=== PATIENT | female | born 1960 | race Caucasian/White ===

== ENCOUNTER 2017-09-14 07:22 | Day surgery (SDC) | payer MEDICAID, SELFPAY ==
--- NOTE | 2017-09-14 | IMM_PTH ---
PATIENT: JOAN HAJI LOC: EN U#:[id number] AGE/SX: 57/F ROOM: RE09/14/[address]: Dr. Gama Scherer MD : 1960 BED: DIS: 09/14/2017 SPEC #: [id number] RECD: 09/15/17 12:38 STATUS: VERÓNICA RESuresh #: [id number] ESTRELLA: 09/14/17 00:[address]: Gama Scherer DEPT: IMMUNOHISTOCHEMISTRY RECD BY: Lidia Parmar ENTERED: 09/15/17 12:39 SP TYPE: IMMUNO OTHR DR: Rosalind Fuller, CURRICULUM AND INSTRUCTION DIRECTOR-C [facility] Tissues: A - Stomach, NOS Procedures: H Pylori (initial) PHYSICIAN & INSTITUTION [place] [id number] SPECIMEN INFORMATION: Tissue Source: A ? Antral biopsy Clinical Info: GERD, GI hemorrhage Specimen Number: [id number] CPT code: 77871 METHODOLOGY: Deparaffinized sections of prefer/formalin-fixed tissue or PAP/DQ stained slides are incubated with monoclonal/polyclonal antibodies/oligonucleotide probes. Localization is made via biotin free immunoperoxidase method. Appropriate controls are performed and reacted as expected. Results on target cell population are indicated in the following table: RESULTS: ANTIBODY / CLONE RESULT Block A H Pylori (polyclonal) negative These tests were developed and their performance characteristics determined by [facility]. They may not have been cleared or approved by the U.S. Food and Drug Administration. The FDA has determined that such clearance or approval is not necessary. INTERPRETATION: A. Antral biopsy: Negative for Helicobacter pylori organisms. SJ:lynne 09/16/17
[2017-09-14 07:48] VITALS: BP 116/78; PULSE 70; RESP 16; TEMP 36.4; O2SAT 100; BMI 33.3
--- NOTE | 2017-09-14 08:30 | EGD_PTH ---
PATIENT: JOAN HAJI LOC: EN U#:[id number] AGE/SX: 57/F ROOM: RE09/14/[address]: Dr. Gama Scherer MD : 1960 BED: DIS: 09/14/2017 SPEC #: [id number] RECD: 09/14/17 12:12 STATUS: VERÓNICA BETH #: [id number] ESTRELLA: 09/14/17 08:[address]: Gama Scherer DEPT: SURGICAL PATHOLOGY RECD BY: Anthony Martínez ENTERED: 09/14/17 13:18 SP TYPE: EGD BIOPSY OT DR: Rosalind Fuller, BRAILLE CODER-C [facility] Tissues: A - Gastric mucous membrane B - Gastric mucous membrane C - Sigmoid colon biopsy D - COLON BIOPSY Procedures: Special Stain Group II Surgery Specimen Level IV Alcian Blue/PAS (control) HEADER OPERATION: Colonoscopy, EGD PRE-OP DIAGNOSIS: GERD; GI hemorrhage TISSUE SUBMITTED: A ? Antral biopsy, B ? GE junction biopsy, C ? Sigmoid colon polyp at 30 cm, D ? 20 cm polyp MICROSCOPIC DIAGNOSIS A. Antral biopsy: Mild gastritis. B. 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 See comment. Chronic inflammation. Negative for dysplasia. C. Sigmoid colon polyp at 30 cm, biopsy: Fragments of tubular adenoma with focal high grade dysplasia. D. Colon polyp at 20 cm, biopsy: Fragments of tubular adenoma. See comment. SJ:rg 09/15/17 COMMENT A. The results of immunohistochemistry for Helicobacter pylori will be reported separately ([id number]). B. Alcian blue/PAS stain with matched control is used in the evaluation of the specimen. D. The lesion also shows focal features of serrated adenoma (mixed tubular adenoma and hyperplastic polyp. MICROSCOPIC DESCRIPTION Slides are reviewed. A. The specimen shows fragments of gastric mucosa with chronic inflammatory cell infiltrates in the lamina propria consisting of lymphocytes and plasma cells, consistent with mild chronic gastritis. GROSS DESCRIPTION A - Received in fixative is one container labeled with the patient's name and designated antral biopsy. The specimen consists of two irregular fragments of light trevizo soft tissue that in aggregate measure 0.7 x 0.4 x 0.1 cm. The specimen is totally submitted in one cassette. B - Received in fixative is one container labeled with the patient's name and designated GE junction biopsy. The specimen consists of one irregular fragment of light trevizo soft tissue that measures 0.3 x 0.2 x 0.1 cm. The specimen is totally submitted in one cassette. C - Received in fixative is one container labeled with the patient's name and designated sigmoid colon polyp at 30 cm. The specimen consists of two irregular fragments of light trevizo soft tissue that in aggregate measure 1 x 0.5 x 0.1 cm. The specimen is totally submitted in one cassette. D - Received in fixative is one container labeled with the patient's name and designated 20 cm polyp. The specimen consists of multiple irregular fragments of light trevizo soft tissue that in aggregate measure 2 x 0.4 x 0.3 cm. The specimen is totally submitted in one cassette. / ROSANNA:lynne 09/14/17 TC:1 CPT: 64746 x4, 97286
[2017-09-14 09:22] VITALS: BP 116/78; BP 91/64; PULSE 70; RESP 16; TEMP 36.1; O2SAT 100
[2017-09-14 09:27] VITALS: BP 116/78; BP 99/69; PULSE 67; RESP 16; O2SAT 100
--- NOTE | 2017-09-14 09:27 | OP.PCM_ITS ---
Problem List (1) GERD (gastroesophageal reflux disease) Status: Acute Qualifiers: Esophagitis presence: without esophagitis Qualified Code(s): K21.9 - Gastro -esophageal reflux disease without esophagitis (2) GI bleed Status: Acute Qualifiers: GI bleed type/associated pathology: unspecified gastrointestinal hemorrhage type Qualified Code(s): K92.2 - Gastrointestinal hemorrhage, unspecified Report of Operation Date of Procedure: 09/14/17 Pre-Operative Diagnosis: 1. GERD. 2. Blood per rectum Post-Operative Diagnosis: 1. Small hiatal hernia. 2. Proximal sigmoid polyp. 3. Mid sigmoid polyp Surgery/Procedure Performed:: 1. EGD with biopsy. 2. Colonoscopy. 3. Proximal sigmoid snare polypectomy. 4. Mid sigmoid saline lift with snare polypectomy and clip placement Specimen's removed: 1. Proximal sigmoid polyp. 2. Mid sigmoid polyp Description of Procedure: The major risks and benefits associated with the procedure were explained to the patient in detail. The patient verbalized understanding and agreement with the same. The patient was then placed in the left lateral decubitus position. IV sedation was started by anesthesia. The endoscope was then advanced under direct visualization over the tongue, into the esophagus , stomach and duodenum. It was slowly withdrawn and the mucosa was carefully evaluated. Duodenal mucosal abnormalities were not visualized. Views of the stomach were normal. Retrograde views revealed a small sliding hiatal hernia. Gastric folds were normal. A biopsy of the antrum was performed with cold forceps. The scope was then withdrawn through the GE junction and careful examination did not demonstrate any mucosal abnormalities. A biopsy of the GE junction was performed with cold forceps. No evidence of Ivy's esophagus was apparent. Careful examination of the remainder of the esophagus was normal. The scope was then withdrawn from the patient. The patient was then turned for the colonoscopy portion of the procedure. A digital rectal exam was performed. This examination was within normal limits. A well-lubricated colonoscope was then inserted into the rectum and advanced under direct visualization to the level of the cecum. The bowel prep was good. The cecum was identified by both visual and anatomic landmarks. A photograph was taken of the end of the cecum. The scope was then fully withdrawn while examining the color, texture, anatomy and integrity of the mucosa from the cecum to the anal canal. The patient had a long pedunculated polyp in the proximal sigmoid which was taken with a cautery snare. The patient also had a large sessile polyp in the mid sigmoid colon. A needle was placed in the submucosa and a saline lift was performed. Next a snare was placed around the polyp and this was taken off in 2 pieces. This was removed completely with a clean base. Two Clips were placed over the base of the polyp due to the size and the fact that there was a saline injection. Otherwise the findings were consistent with normal colonic mucosa. Over 6 minutes were taken to examine the colonic mucosa. Upon reaching the rectum the scope was retroflexed to examine the distal rectal vault. The scope was then straightened and was completely retrieved upon exiting the anal canal and the procedure was terminated. The patient was then transferred to the recovery room in stable condition. Recommendations for follow up: Depending on pathology
[2017-09-14 09:32] VITALS: BP 116/78; BP 99/73; PULSE 72; RESP 16; O2SAT 100
[2017-09-14 09:37] VITALS: BP 112/70; BP 116/78; PULSE 66; RESP 16; TEMP 36.3; O2SAT 100
[2017-09-14 10:07] VITALS: BP 116/78
== END 2017-09-14 10:09 | disposition home or self-care (01) ==
LOC: EN 07:23 → AC 07:26
PROVIDERS: Visit Provider Surgery
PROC: 0DJD8ZZ Inspection of Lower Intestinal Tract, Via Natural or Artificial Opening Endoscopic (ICD-10-PCS; CPT 45378; principal; 2017-09-14 08:25)
DX: K21.9 Gastro-esophageal reflux disease without esophagitis (principal); K62.5 Hemorrhage of anus and rectum; D12.5 Benign neoplasm of sigmoid colon; K44.9 Diaphragmatic hernia without obstruction or gangrene; K29.70 Gastritis, unspecified, without bleeding; E11.9 Type 2 diabetes mellitus without complications; I10 Essential (primary) hypertension; E78.00 Pure hypercholesterolemia, unspecified; F32.9 Major depressive disorder, single episode, unspecified; Z79.899 Other long term (current) drug therapy; Z78.0 Asymptomatic menopausal state; Z87.891 Personal history of nicotine dependence
CPT/HCPCS: 43239; 45385; 88305; 88313; 88342; J7120; A4216

== ENCOUNTER 2017-11-12 19:46 | Emergency (ER) | payer MEDICAID, SELFPAY ==
[2017-11-12 19:46] VITALS: BP 129/81; PULSE 74; RESP 16; TEMP 36.6; O2SAT 99; BMI 33.3
--- NOTE | 2017-11-12 20:03 | ED.VISSUMM ---
- ER Visit Summary Date of Service: 11/12/17 Chief Complaint: Right middle back pain History of Present Illness: The patient is a 57 F who has right middle back pain. Started 2 days ago. She denies any injury, lifting or twisting that may have caused this. She describes as sharp. It is in the right mid thoracic area. Laying makes it better nothing makes it worse. No numbness or tingling. No bowel or bladder incontinence. No dysuria or hematuria. She tried Aleve last night but it did not help. Physical Examination: Vital signs reviewed. HEENT exam normal. Heart is regular rate and rhythm. Lungs are clear to auscultation. Abdomen soft nontender. She has right thoracic para spinal tenderness palpation. Neurologic exam normal. Test Results: Normal urinalysis Emergency Department Course and Treatment: Patient has a normal urinalysis. She is given Tylenol here. I will give her Flexeril for home. She will continue NSAIDs will follow up with her PCP Treatment Plan: [] Disposition: Discharge Impression: Thoracic strain This note was generated with [employer] dictation software. It may contain incorrect words, spelling, and punctuation that were not noted in review of the chart prior to signing ED Disposition - Plan for ED Patient: Chief Complaint: Back Referrals: Tiffanie Plascencia [Primary Care Provider] -
[2017-11-12] MEDS: Acetaminophen 500 MG Tablet 1000 MG PO (20:08)
[2017-11-12 20:09] LABS: Bacteria 0 SEEN /hpf (None Seen); Mucous, Urine 0 SEEN /hpf (<or=2+); Red Blood Cells-Urine 0 SEEN /hpf (0-5); Squamous Epithelial Cells - UA 0 SEEN /hpf (5-10); White Blood Cells 0 SEEN /hpf (0-5)
[2017-11-12 20:17] LABS: Color, Urine Yellow (Yellow); Glucose, Dipstick Normal (Normal); Ketone-Dipstick Negative (Negative); Leukocyte Esterase-Dipstick Negative /ul (Negative); Nitrite-Dipstick Negative (Negative); Occult Blood-Urine Negative /ul (Negative); Protein-Dipstick Negative (Negative); Specific Gravity, Urine 1.005 (1.002-1.030); Urine Bilirubin Dipstick Negative (Negative); Urine Clarity Clear (Clear); Urine Urobilinogen Normal (Normal)
--- NOTE | 2017-11-12 20:36 | ED.DEP ---
ED Disposition - Plan for ED Patient: Disposition: Home or Assisted Living Chief Complaint: Back Instructions: ED Sprain Strain Lumbar Prescriptions: Cyclobenzaprine [Flexeril] 10 mg PO TID PRN #20 tab PRN Reason: Muscle Spasm Referrals: Free Allyson,Tiffanie Valdez [Primary Care Provider] -
[2017-11-12 20:43] VITALS: RESP 18
== END 2017-11-12 20:43 | disposition home or self-care (01) ==
PROVIDERS: Emergency Provider Emergency Medicine
DX: S29.012A Strain of muscle and tendon of back wall of thorax, initial encounter (principal); X58.XXXA Exposure to other specified factors, initial encounter; Y93.9 Activity, unspecified; Y92.9 Unspecified place or not applicable; Y99.9 Unspecified external cause status; I10 Essential (primary) hypertension; K21.9 Gastro-esophageal reflux disease without esophagitis; Z72.0 Tobacco use; Z79.899 Other long term (current) drug therapy
CPT/HCPCS: 81001; 99283

== ENCOUNTER 2018-08-20 03:28 | Emergency (ER) | payer MEDICAID, SELFPAY ==
[2018-08-20 03:29] VITALS: BP 130/82; PULSE 85; RESP 18; TEMP 36.7; O2SAT 94; BMI 33.3
--- NOTE | 2018-08-20 03:44 | CT_ITS ---
HISTORY: LUQ PAIN ON AND OFF X 2 YRS,WORSE NOW AND RADIATING INTO BACKHX:HTN,GERD,HLD,TUBAL LIGATION EXAMINATION: CT Abdomen And Pelvis W/ Contrast TECHNIQUE: Helically acquired images were obtained of the abdomen and pelvis following IV contrast. A radiation dose optimization technique was used for this scan. IV Contrast dosage and agent: 100ML Isovue 300 Oral contrast: None. COMPARISON: None FINDINGS: Lower thorax: Small hiatal hernia. Food contents within the stomach. No pleural effusion or pericardial effusion. Gallbladder is partly contracted. No biliary dilatation. Spleen is normal in size and shows a small calcified granuloma. Normal pancreas and liver. Both kidneys are normal in position. Bilateral renal opacification without evidence of hydronephrosis, pyelonephritis, or suspicious renal lesion. Small cortical cyst at the upper pole of the right kidney. Adrenal glands are not enlarged. Abdominal aorta is atherosclerotic and stoma in caliber. No ascites or retroperitoneal lymph node enlargement. GI tract: Constipation pattern. Normal appendix. Pelvis: Anteverted uterus which is normal in size. Urinary bladder is poorly distended. No free fluid or lymph node enlargement. Bones: No acute osseous abnormality. CT/Abdomen/Pelvis WITH Contrast IMPRESSION: 1. Constipation pattern. No acute abdominal disease identified. 2. Chronic findings include atherosclerotic calcification and small hiatal hernia. Individualized dose optimization techniques were used for this CT. at 0622 Reported and signed by: Mickey Ferrari MD Electronically Signed: Mickey Ferrari, at 6:21 EDT Tel , Service support ,
[2018-08-20] MEDS: 0.9% Normal Saline 1,000 ML 1000 ML IV (03:53)
[2018-08-20] MEDS: Ketorolac 30 MG/ML Syringe IV (03:53)
[2018-08-20 03:54] LABS: Mucous, Urine 0 SEEN /hpf (<or=2+); White Blood Cells 0 SEEN /hpf (0-5)
[2018-08-20 04:01] LABS: Absolute Neutrophil Count 4.9 X10^3/uL (2.0-7.7); Basophil# 0.09 X10^3/uL; Basophil% 0.9 % (0-1); Eosinophil# 0.29 X10^3/uL; Hematocrit 39.8 % (37-47); Hemoglobin 13.2 g/dl (12.0-15.0); Lymphocyte % 38.9 % (19-41); Mean Corp Hgb Conc 33.2 g/gl (32-36); Mean Corpuscular Hgb 29.4 pg (27.0-32.0); Mean Corpuscular Volume 88.6 fL (81-99); Mean Platelet Vol. 10.4 fl (6.2-12.0); Monocyte# 0.55 X10^3/uL; Monocyte% 5.8 % (0-10); Neutrophil # 4.87 X10^3/uL (2.7-7.7); Neutrophil % 51.2 % (47-70); POSITIVE COUNT NO; POSITIVE DIFFERENTIAL NO; POSITIVE MORPHOLOGY NO; Platelet Count 282 K/mm3 (150-450); RBC Distribution Width CV 13.6 % (11.6-14.6); RBC Distribution Width SD 43.7 fl (35.1-43.9); Red Blood Count 4.49 M/mm3 (4.2-5.4); White Blood Count 9.5 K/mm3 (4.4-11.0)
[2018-08-20 04:05] LABS: Color, Urine Yellow (Yellow); Glucose, Dipstick Normal (Normal); Ketone-Dipstick Negative (Negative); Leukocyte Esterase-Dipstick Negative /ul (Negative); Nitrite-Dipstick Negative (Negative); Occult Blood-Urine 10 /ul (Negative); Protein-Dipstick Negative (Negative); Specific Gravity, Urine 1.025 (1.002-1.030); Urine Bilirubin Dipstick Negative (Negative); Urine Clarity Sl. Cloudy (Clear); Urine Urobilinogen Normal (Normal)
[2018-08-20 04:06] LABS: Bacteria RARE /hpf (None Seen); Red Blood Cells-Urine 0-5 SEEN /hpf (0-5); Squamous Epithelial Cells - UA 0-5 SEEN /hpf (5-10)
[2018-08-20 04:15] LABS: ALB/GLOB Ratio 1.1 RATIO (0.9-2.4); AST(SGOT) 14 U/L (15-37); Alanine Aminotransfer ALT/SGPT 30 U/L (13-56); Albumin, Serum 3.7 g/dL (3.2-5.0); Alkaline Phosphatase 42 U/L (45-117); Anion Gap 8 (5-15); BUN 25 mg/dL (7-18); BUN/Creat Ratio 23.4 RATIO (10-20); Calcium,Total 8.9 mg/dL (8.5-10.1); Chloride 107 mmol/L (98-107); Creatinine, Serum 1.07 mg/dL (0.55-1.02); EST Glomerular Filtration Rate 56 mL/min (>60); Est Glom Filt Rate - Afr Amer 67 mL/min (>60); Estimated Creatinine Clearance 50.31 ml/min; Globulin 3.4 g/dL (2.2-4.2); Glucose 113 mg/dL (74-106); Lipase 150 U/L (73-393); Potassium 3.6 mmol/L (3.5-5.1); Protein, Total 7.1 g/dL (6.4-8.2); Sodium Level 142 mmol/L (136-145)
[2018-08-20 05:29] VITALS: BP 128/82; PULSE 82; RESP 16; O2SAT 96
--- NOTE | 2018-08-20 06:36 | ED.VISSUMM ---
- ER Visit Summary Date of Service: 08/20/18 Chief Complaint: Abdominal pain History of Present Illness: The patient is a 58 F who presents with abdominal pain. Patient complains of left upper quadrant abdominal pain which radiates straight through to the back for about 2 weeks. She describes it as sharp and stabbing. She also had christine diarrhea about 2 weeks ago which is improved but still has some loose stools. She actually complains of similar ongoing pain for a couple of years. No fevers nausea vomiting. Physical Examination: Afebrile vitals normal No distress Moist mucous membranes Heart regular rate and rhythm Lungs are clear Abdomen soft she is tender to palpation in the left upper quadrant without guarding without rebound Test Results: CBC CMP lipase urinalysis all unremarkable. CT the abdomen and pelvis read as constipation, no acute disease. Emergency Department Course and Treatment: Patient was treated with IV fluids and Toradol. The above work-up is unremarkable. She was advised to follow-up as an outpatient. She understands to return for new or worsening symptoms. Treatment Plan: [] Disposition: Discharge Impression: Abdominal pain This note was generated with [employer] dictation software. It may contain incorrect words, spelling, and punctuation that were not noted in review of the chart prior to signing ED Disposition - Plan for ED Patient: Referrals: Tiffanie Plascencia [Primary Care Provider] -
--- NOTE | 2018-08-20 06:38 | ED.DEP ---
ED Disposition - Plan for ED Patient: Instructions: ABDOMINAL PAIN, Unknown Cause, (Female) Referrals: Ankit Valadez,Tiffanie Valdez [Primary Care Provider] -
[2018-08-20 06:49] VITALS: BP 128/82; PULSE 87; RESP 18; O2SAT 95
== END 2018-08-20 06:50 | disposition home or self-care (01) ==
PROVIDERS: Emergency Provider Emergency Medicine; Referring Provider Nurse Practitioner Family
DX: R10.12 Left upper quadrant pain (principal); K59.00 Constipation, unspecified; I10 Essential (primary) hypertension; K21.9 Gastro-esophageal reflux disease without esophagitis; Z72.0 Tobacco use; Z79.899 Other long term (current) drug therapy
CPT/HCPCS: 74177; 80053; 81001; 83690; 85025; 96361; 96374; 99283; J7030; Q9967; A4216

== ENCOUNTER → 2018-11-23 06:49 | Outpatient (CLI) | payer MEDICAID, SELFPAY ==
--- NOTE | 2018-11-23 10:30 | NEURO ---
NCS and/or EMG Patient Report Ordering Doctor: Sathya Morales DATE OF SERVICE: 11/23/18 This is a bilateral upper extremity nerve conduction study performed on this 66-year-old female with a history of numbness and tingling for over a decade in her hands. There is no is there is no neck pain. The patient has a history of prediabetes. Bilateral upper extremity sensory and motor nerve conduction studies demonstrate mild to moderate prolongation of the median motor and sensory distal latencies bilaterally somewhat worse on the left side with preservation of amplitudes and mild reduction of conduction velocities. The ulnar motor and sensory and radial sensory responses are normal. The median F wave latencies are mildly prolonged compared to the ulnar F-wave latencies. Impression: This is an abnormal elective physiologic study of the bilateral upper extremities consistent with mild to moderate carpal tunnel syndrome at the wrists bilaterally. Dictated using [employer] software, not proofread
== END ==
PROVIDERS: Referring Provider Physician Assistant Surgical; Visit Provider Physician Assistant Surgical
DX: R20.2 Paresthesia of skin (principal)
CPT/HCPCS: 95912

== ENCOUNTER → 2019-03-15 11:24 | Outpatient (CLI) | payer MEDICAID, SELFPAY ==
--- NOTE | 2019-03-15 11:29 | BI_ITS ---
MAMMOGRAPHY - BILATERAL SCREENING REASON FOR EXAM: Female, 58 years old. Routine annual screening examination. PERTINENT HISTORY: Non-contributory. TECHNIQUE: Digital bilateral breast rut (3D mammographic acquisition) in the CC and MLO projections. 2-D mediolateral oblique (MLO) and craniocaudad (CC) views of both breasts were obtained. CAD: Full Field Digital Mammography with Computer Added Detection was performed. COMPARISON: Comparison is made with prior examination dated May 05, 2013 and October 24, 2009. FINDINGS: Breast Composition: There are scattered areas of fibroglandular density. There are no dominant masses or suspicious calcifications. No other significant abnormalities are identified. There has been no significant change since the prior study. BI/SCREEN MAMM (CAD) W/RUT BILAT IMPRESSION: Stable bilateral screening mammogram. Yearly follow-up mammogram recommended. (A) ASSESSMENT CATEGORY: BIRADS Category 1: Negative. A letter regarding these results will be sent to the patient by the facility within 30 days. Approximately 10% of breast cancers are not detected by mammography. A normal mammogram should not delay biopsy of a clinically suspicious abnormality. [id number] Electronically Signed: Bridger Corrales, at 15:42 EST , Service support ,
== END ==
PROVIDERS: Referring Provider Nurse Practitioner Family; Visit Provider Nurse Practitioner Family
DX: Z12.31 Encounter for screening mammogram for malignant neoplasm of breast (principal)
CPT/HCPCS: 77063; 77067

== ENCOUNTER 2019-03-24 05:39 | Day surgery (SDC) | payer MEDICAID, SELFPAY ==
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
[2019-03-24 06:02] VITALS: BP 129/68; PULSE 62; RESP 15; TEMP 36.4; O2SAT 98; BMI 34.0
[2019-03-24] MEDS: Lactated Ringers 1,000 ML 100 ML IV (06:18)
[2019-03-24] MEDS: Cefazolin 1 GM/50 ML BAG IV (07:11)
[2019-03-24] MEDS: Bupivacaine Mpf 0.5% 30 ML VIAL (07:35)
--- NOTE | 2019-03-24 07:42 | OP.PCM_ITS ---
Report of Operation Date of Procedure: 03/24/19 Pre-Operative Diagnosis: Left carpal tunnel syndrome Post-Operative Diagnosis: Left carpal tunnel syndrome Surgery/Procedure Performed:: Left carpal tunnel release Description of Surgical Findings:: Complete release transverse carpal ligament supervisor floor assembly: None Type of Anesthesia:: Block,[place] Anesthesiologist: Freedom Ramirez Special Medications: Ancef Estimated Blood Loss (mL): 2 Fluids Replaced: 500 milliliters crystalloid Description of Procedure: Brief history operative indications: 59-year-old female patient who failed conservative treatment for left carpal tunnel syndrome patient wished to proceed with left open carpal tunnel release. After discussing risks and benefits including but not limited to blood loss, DVTs, PEs, neurovascular damage, infection, hematoma and general risk of anesthesia, the patient demonstrated understanding wish to proceed with left open carpal tunnel release Procedure: On the date of the procedure, the patient's left upper extremity was marked in the preoperative area. Patient was taken back to the operating room, where the tourniquet was placed on the right upper extremity. Patient was given light sedation. All bony prominences are identified well-padded. Anesthesia assumed control C-spine and airway and remained in control throughout the remainder the procedure. [place] block was administered by anesthesia. The left upper extremity was prepped in sterile fashion. Surgeon then scrub. Upon reentering the room, the left upper extremity was prepped in a standard orthopedic fashion. A timeout was called and everyone agreed upon the side, the site, the procedure to be performed, patient identity and antibiotics given. The incision was marked out. Incision was taken at the skin subtenons tissue fat down to fascia. Fascia was then lightly tethered until the median nerve was visible. A [place] was placed proximally and distally, and then scissors were placed proximally and distally to release the transverse carpal ligament. During the release the others were never completely closed. The [place] was then placed proximally and distally once more to verify the transverse carpal ligament had been adequately released. The wound was then copiously irrigated out with normal saline. Wound was then closed using 3-0 nylon suture. 10 cc of 50-50 mixture of 1% lidocaine and 0.5% Sensorcaine without epinephrine injection was given. Xeroform dressing was placed, sterile dressing was placed, compressive dressing was placed. Tourniquet was let down. Volar splint was placed. Patient was awakened by anesthesia and transferred to the PACU for recovery. Postoperative plan: The patient will follow up in 2 weeks for removal splint removal sutures. At that time if they are doing well they will follow-up as needed. - Complications No intraoperative complications - Admit VTE Documentation VTE Present on Admission: No VTE Mechan Device Prophylaxis: SCD's VTE Pharm Prophylaxis ordered?: No Reason prophylaxis not ordered:: Treatment Not Indicated
[2019-03-24 07:51] VITALS: BP 103/74; BP 129/68; PULSE 64; RESP 16; TEMP 36.3; O2SAT 95
[2019-03-24] MEDS: Ketorolac 30 MG/ML Syringe IV (07:54)
[2019-03-24 07:55] VITALS: BP 113/76; BP 129/68; PULSE 64; RESP 16; O2SAT 97
[2019-03-24 08:00] VITALS: BP 127/80; BP 129/68; PULSE 64; RESP 16; O2SAT 100
[2019-03-24 08:05] VITALS: BP 112/80; BP 129/68; PULSE 65; RESP 16; TEMP 36.5; O2SAT 95
[2019-03-24 08:35] VITALS: BP 129/68
== END 2019-03-24 08:40 | disposition home or self-care (01) ==
LOC: SDC 05:40 → AC 05:41
PROVIDERS: Referring Provider Specialist; Visit Provider Specialist
PROC: (CPT 64721; principal; 2019-03-24 07:00)
DX: G56.03 Carpal tunnel syndrome, bilateral upper limbs (principal); I10 Essential (primary) hypertension; E78.00 Pure hypercholesterolemia, unspecified; R73.03 Prediabetes; F32.9 Major depressive disorder, single episode, unspecified; F17.200 Nicotine dependence, unspecified, uncomplicated; Z79.899 Other long term (current) drug therapy; Z78.0 Asymptomatic menopausal state; Z86.2 Personal history of diseases of the blood and blood-forming organs and certain disorders involving the immune mechanism
CPT/HCPCS: 01810; 64721; J7120

== ENCOUNTER 2019-08-23 23:23 | Emergency (ER) | payer MEDICAID, SELFPAY ==
[2019-08-23 23:24] VITALS: BP 114/76; PULSE 83; RESP 16; TEMP 36.9; O2SAT 97; BMI 34.6
--- NOTE | 2019-08-24 | RAD_ITS ---
STUDY: X-RAY CHEST REASON FOR EXAM: Female, 59 years old patient with cough. TECHNIQUE: Single AP portable view of the chest. COMPARISON: Prior comparison studies are not available for review at this time. FINDINGS: The lungs are hyperexpanded. There are prominent bronchovascular markings particularly at the right lung base. There appears to be some heterogeneous groundglass attenuation of the right lung base that could represent early pneumonia and atelectasis. There is no demonstrated pleural abnormality. Normal size heart. Normal mediastinum and chin. There is prominence of the pulmonary hilar arteries without peripheral pulmonary vascular congestion. There is atherosclerotic tortuosity of the aortic arch and descending thoracic aorta. There is a scoliosis of the thoracic spine with estimated angulation of approximately 20 degrees. The bones appear osteopenic. There is no demonstrated abnormality of the visualized soft tissue structures of the upper abdomen. RAD/Chest 1 View (Portable) IMPRESSION: Heterogeneous right basilar airspace disease could represent pneumonia. Electronically Signed: Sita Wilkinson MD at 0:39 EDT , Service support ,
--- NOTE | 2019-08-24 00:01 | ED.DCSUM_ITS ---
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 tightness. Location: mid-chest. Current Severity: Moderate Maximum Severity: Moderate Worsened by: - - nonexertional. Not Worsened By: Swallowing, Eating Solids, Drinking Liquids Relieved by: - - not relieved by using an albuterol MDI Associated Symptoms: Headache, Shortness of Breath, Chest Pain, Nonproductive cough, - - no fever/chills. +sore throat.. Negative for: Sinus Pressure, Myalgias, Nausea, Vomiting, Diarrhea, Hemoptysis, Productive Cough Narrative: Patient states she was coughing earlier, that started today, relatively mild. Then relatively suddenly she started having chest tightness and feeling like she was wheezing, it remained persistent for much of the evening and night, to the point where she felt like she was not going to be able to sleep. She called PCP and they referred her to the ER. She feels like she has bronchitis but she usually gets that in the winter. She is a smoker. She is otherwise fairly healthy and has no history of COPD or asthma. She has been around family members with colds lately. She presents during the national coronavirus emergency declaration, none of them have been tested for it, they are one adult and 1 child. They are not very ill according to the patient but they are symptomatic. She states that whenever she leaves the house to go to the grocery, etc., she wears a mask. She knows no one that she knows of who has been diagnosed with coronavirus disease. - Past Medical History (1) Hypertension Status: Chronic (2) GERD (gastroesophageal reflux disease) Status: Chronic Past Medical History - Allergies and Home Meds Allergies/Adverse Reactions: Allergies prednisone Allergy (Verified 08/23/19 23:24) [place] Primary Care Physician: Tiffanie Plascencia [Primary Care Provider] - Smoking Status: Current some day smoker Review of Systems General: Denies: Chills, Fever, Sweats Eyes: Denies: Visual changes - bilaterally, Diplopia ENT: Reports: Sore throat - From coughing. Denies: Bilateral ear pain, Rhinorrhea Cardiovascular: Reports: Chest pain. Denies: Palpitations Respiratory: Reports: Dyspnea, Cough. Denies: Sputum, Dyspnea on exertion, Orthopnea Gastrointestinal: Denies: Abdominal pain, Nausea, Vomiting, Diarrhea, Melena, Hematochezia Genitourinary: Denies: Dysuria, Hematuria, Frequency Musculoskeletal: Denies: Myalgias, Neck pain, Back pain, Swelling, Extremity Pain Skin: Denies: Rash, Wounds Neurological: Reports: Headache. Denies: Weakness, Numbness Physical Exam Vital Signs/Narrative: Vital Signs Temp Pulse Resp BP Pulse Ox 08/23/19 23:24 98.5 F 83 16 114/76 97 Inital Vital Signs reviewed: Yes General: Well nourished, Well developed, - - Well-appearing, no distress. Conversive in full sentences. Head: Normocephalic, Atraumatic Eyes: Perrl, EOMI. Negative for: Pale conjunctiva - Normal conjunctivae bilaterally Ears: Normal external canal, TM's clear Nose: Normal Inspection, No Rhinorrhea Mouth/Throat: Normal Inspection, No Posterior Erythema - Normal-appearing, no asymmetry or exudates, Airway Patent Neck: Supple, Nontender, No Lymphadenopathy, No Meningismus Cardiovascular: Regular rate, Regular rhythm, No murmurs Respiratory: No distress, Chest nontender, Wheezing - Slight inspiratory and end expiratory bilateral. Negative for: Rales, Rhonchi Abdomen: Soft, Nontender, Nondistended, Normal bowel sounds Back: Nontender, Normal Inspection Extremities: Nontender, No edema. Negative for: Calf Tenderness Skin: Normal color, No rash, No Trauma Neurological: Alert, Oriented x3, Cranial nerves II-XII grossly intact, Normal Strength, Normal Sensation, Normal Gait Psychological: Normal affect, Normal Mood Diagnostic/Tx/Re-eval Impressions Chest X-Ray 08/24/19 00:00 IMPRESSION: Heterogeneous right basilar airspace disease could represent pneumonia. Electronically Signed: Sita Wilkinson MD at 0:39 EDT , Service support , 08/24/19 00:00 Chest 1 View (Portable) [RAD] Stat - Medical Decision Making Patient feels better after duo nebulizer aerosol. Certainly she could have COVID-19. It is rising in its prevalence of positive testing recently, and is present throughout [place]. We sent a swab, will come back in several hours but the patient does not want to wait. The x-ray does not show a COVID-19 pattern, the result above may or may not be consistent with early pneumonia. In all honesty the x-ray may be an over read, her lungs are clear and she does not have any adventitious breath sounds in the right lung. However, as I discussed with the patient, I will treat her empirically with azithromycin to cover atypicals, she is given a dose of Robitussin-AC at her request, I tried to fill a prescription for it here at the pharmacy but they do not have any and so the patient declined a prescription, advised to follow-up closely as an outpatient for a pulse ox recheck. She is well clinically, has normal vital signs, ambulatory without significant symptoms, and I do not think further work-up is going to be helpful tonight. ED Disposition - Plan for ED Patient: Disposition: Home or Assisted Living Diagnosis: Pneumonia Instructions: ED PNEUMONITIS Adult Prescriptions: Azithromycin 250 mg PO DAILY 4 Days #4 tab Prescription Printed Referrals: Free Allyson,Tiffanie Valdez [Primary Care Provider] - (1-3 days)
[2019-08-24 00:17] VITALS: PULSE 88; RESP 20
[2019-08-24] MEDS: Ipratropium/Albuterol Sulfate 3 ML AMPUL.NEB INHALATION (00:30)
[2019-08-24 01:07] VITALS: PULSE 85; RESP 20; O2SAT 97
[2019-08-24] MEDS: Azithromycin 250 MG Tablet 500 MG PO (01:25)
[2019-08-24] MEDS: guaiFENesin/Codeine 5 ML UDC 10 ML PO (01:25)
== END 2019-08-24 01:10 | disposition home or self-care (01) ==
PROVIDERS: Emergency Provider Emergency Medicine
DX: J18.9 Pneumonia, unspecified organism (principal); I10 Essential (primary) hypertension; K21.9 Gastro-esophageal reflux disease without esophagitis; F17.200 Nicotine dependence, unspecified, uncomplicated; Z79.899 Other long term (current) drug therapy
CPT/HCPCS: 71045; 87635; 94640; 99283; G2023; U0003

== ENCOUNTER → 2019-09-08 10:26 | Outpatient (CLI) | payer MEDICAID, SELFPAY ==
[2019-08-23 23:24] VITALS: BMI 34.6
[2019-09-08 10:57] LABS: Absolute Lymphocyte Count 2.55 X10^3/uL (0.83-4.51); Absolute Neutrophil Count 5.8 X10^3/uL (2.0-7.7); Basophil% 1.1 % (0-1); Eosinophil# 0.29 X10^3/uL; Eosinophils% 3.1 % (0-5); Hematocrit 41.5 % (37-47); Hemoglobin 13.3 g/dL (12.0-15.0); Lymphocyte # 2.55 X10^3/ul (4.0); Lymphocyte % 27.5 % (19-41); Mean Corpuscular Hgb 29.4 pg (27.0-32.0); Mean Corpuscular Volume 91.8 fL (81-99); Mean Platelet Vol. 10.8 fl (6.2-12.0); Monocyte# 0.55 X10^3/uL; Monocyte% 5.9 % (0-10); NRBC Flagged by Analyzer 0 % (0-5); Neutrophil # 5.75 X10^3/uL (2.7-7.7); Neutrophil % 62.2 % (47-70); Platelet Count 290 K/mm3 (150-450); RBC Distribution Width CV 13.1 % (11.6-14.6); RBC Distribution Width SD 43.5 fl (35.1-43.9); Red Blood Count 4.52 M/mm3 (4.2-5.4); White Blood Count 9.3 K/mm3 (4.4-11.0)
[2019-09-08 11:19] LABS: Hemoglobin A1c 6.1 % (3.8-5.6)
[2019-09-08 11:25] LABS: Vitamin D,25 Hydroxy 36.5 ng/mL
[2019-09-08 11:33] LABS: ALB/GLOB Ratio 1.1 RATIO (0.9-2.4); AST(SGOT) 15 U/L (15-37); Alanine Aminotransfer ALT/SGPT 28 U/L (13-56); Albumin, Serum 3.9 g/dL (3.2-5.0); Alkaline Phosphatase 61 U/L (45-117); Anion Gap 3 (5-15); BUN 18 mg/dL (7-18); BUN/Creat Ratio 19.9 RATIO (10-20); Calcium,Total 8.8 mg/dL (8.5-10.1); Chloride 105 mmol/L (98-107); Cholesterol 197 mg/dL (200); Creatinine, Serum 0.91 mg/dL (0.55-1.02); EST Glomerular Filtration Rate 67 mL/min (>60); Est Glom Filt Rate - Afr Amer 81 mL/min (>60); Globulin 3.6 g/dL (2.2-4.2); Glucose 106 mg/dL (74-106); High Density Lipoprotein 38 mg/dL; Protein, Total 7.5 g/dL (6.4-8.2); Sodium Level 136 mmol/L (136-145); Thyroid Stim Hormone (TSH) 1.19 uIU/mL (0.358-3.74); Triglycerides 226 mg/dL; Very Low Density Lipoprotein 45 mg/dL (5-40)
== END ==
PROVIDERS: Visit Provider Nurse Practitioner Family
DX: I10 Essential (primary) hypertension (principal); E03.9 Hypothyroidism, unspecified; E78.2 Mixed hyperlipidemia; R73.03 Prediabetes; K21.9 Gastro-esophageal reflux disease without esophagitis
CPT/HCPCS: 36415; 80053; 80061; 82306; 83036; 84439; 84443; 85025

== ENCOUNTER → 2020-02-27 10:25 | Outpatient (CLI) | payer MEDICAID, SELFPAY ==
[2020-02-27 11:14] LABS: Absolute Lymphocyte Count 4.46 X10^3/uL (0.83-4.51); Absolute Neutrophil Count 5.1 X10^3/uL (2.0-7.7); Basophil# 0.15 X10^3/uL; Basophil% 1.4 % (0-1); Eosinophils% 3.7 % (0-5); Hematocrit 41.2 % (37-47); Hemoglobin 13.5 g/dL (12.0-15.0); Lymphocyte # 4.46 X10^3/ul (4.0); Lymphocyte % 41.7 % (19-41); Mean Corp Hgb Conc 32.8 g/dL (32-36); Mean Corpuscular Hgb 29.3 pg (27.0-32.0); Mean Corpuscular Volume 89.4 fL (81-99); Mean Platelet Vol. 11.1 fl (6.2-12.0); Monocyte# 0.56 X10^3/uL; Monocyte% 5.2 % (0-10); NRBC Flagged by Analyzer 0 % (0-5); Neutrophil # 5.08 X10^3/uL (2.7-7.7); Neutrophil % 47.6 % (47-70); Platelet Count 297 K/mm3 (150-450); RBC Distribution Width CV 12.8 % (11.6-14.6); RBC Distribution Width SD 41.7 fl (35.1-43.9); Red Blood Count 4.61 M/mm3 (4.2-5.4); White Blood Count 10.7 K/mm3 (4.4-11.0)
[2020-02-27 11:29] LABS: Hemoglobin A1c 6.2 % (3.8-5.6)
[2020-02-27 12:03] LABS: ALB/GLOB Ratio 1.1 RATIO (0.9-2.4); AST(SGOT) 13 U/L (15-37); Alanine Aminotransfer ALT/SGPT 25 U/L (13-56); Albumin, Serum 3.7 g/dL (3.2-5.0); Alkaline Phosphatase 59 U/L (45-117); Anion Gap 6 (5-15); BUN 27 mg/dL (7-18); BUN/Creat Ratio 26.7 RATIO (10-20); Chloride 106 mmol/L (98-107); Cholesterol 175 mg/dL (200); Creatinine, Serum 1.01 mg/dL (0.55-1.02); EST Glomerular Filtration Rate 59 mL/min (>60); Est Glom Filt Rate - Afr Amer 71 mL/min (>60); Globulin 3.4 g/dL (2.2-4.2); Glucose 102 mg/dL (74-106); High Density Lipoprotein 38 mg/dL; Potassium 3.6 mmol/L (3.5-5.1); Protein, Total 7.1 g/dL (6.4-8.2); Sodium Level 140 mmol/L (136-145); T4 Free Direct 0.94 ng/dL (0.76-1.46); Thyroid Stim Hormone (TSH) 3.61 uIU/mL (0.358-3.74); Triglycerides 221 mg/dL; Very Low Density Lipoprotein 44 mg/dL (5-40)
== END ==
DX: I10 Essential (primary) hypertension (principal); R73.03 Prediabetes; E03.9 Hypothyroidism, unspecified; E78.2 Mixed hyperlipidemia
CPT/HCPCS: 36415; 80053; 80061; 83036; 84439; 84443; 85025

== ENCOUNTER → 2020-05-29 | Outpatient (CLI) | payer MEDICAID, SELFPAY ==
[2020-05-29 10:36] LABS: Hemoglobin A1c 6.1 % (3.8-5.6)
[2020-05-29 10:48] LABS: Anion Gap 5 (5-15); BUN 17 mg/dL (7-18); BUN/Creat Ratio 21.6 RATIO (10-20); Chloride 104 mmol/L (98-107); Creatinine, Serum 0.79 mg/dL (0.55-1.02); EST Glomerular Filtration Rate 79 mL/min (>60); Est Glom Filt Rate - Afr Amer 95 mL/min (>60); Glucose 128 mg/dL (74-106); Sodium Level 137 mmol/L (136-145)
== END | disposition home or self-care (01) ==
LOC: LABSPEC 09:46
DX: R73.03 Prediabetes (principal)
CPT/HCPCS: 36415; 80048; 83036

== ENCOUNTER → 2020-06-03 15:13 | Outpatient (CLI) | payer MEDICAID, SELFPAY ==
--- NOTE | 2020-06-03 15:34 | RAD_ITS ---
STUDY: X-RAY - RIGHT KNEE REASON FOR EXAM: Female, 60 years old. Knee pain. TECHNIQUE: 3 view(s) of the knee. COMPARISON: None. FINDINGS: Mild generalized osteopenia. Normal visualized distal femur. Normal visualized proximal tibia and fibula. Normal proximal tibiofibular articulation. Mild arthrosis of the medial femorotibial compartment. Normal lateral femorotibial compartment. Mild arthrosis of the patellofemoral compartment. Small superior patellar spur. The soft tissue structures are unremarkable. 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 Electronically Signed: Jerel Bennett MD at 12:03 EDT , Service support ,
--- NOTE | 2020-06-03 15:34 | RAD_ITS ---
STUDY: X-RAY - LEFT KNEE REASON FOR EXAM: Left knee pain and swelling, left knee injury from fall 2 years ago. TECHNIQUE: 3 view(s) of the knee. COMPARISON: None. FINDINGS: Normal visualized distal femur. Normal visualized proximal tibia and fibula. Normal proximal tibiofibular articulation. There are small marginal osteophytes and mild to moderate joint space narrowing of the medial femorotibial compartment. Normal lateral femorotibial compartment. There are small marginal osteophytes and mild joint space narrowing of the patellofemoral articulation. There is a small joint effusion. There is a small enthesophyte at the superior pole of the patella. RAD/Knee 3 Views IMPRESSION: Arthrosis of the medial femorotibial and patellofemoral compartments. Small joint effusion. Electronically Signed: Curt Freeman MD at 14:24 EDT Tel , Service support ,
[2020-06-03 18:11] LABS: Erythrocyte Sedimentation Rate 18 mm/hr (0-30)
[2020-06-03 18:46] LABS: Rheumatoid Factor < 10.0 IU/mL (<15); T4 Free Direct 0.94 ng/dL (0.76-1.46); Thyroid Stim Hormone (TSH) 1.88 uIU/mL (0.358-3.74); Uric Acid 5.8 mg/dL (2.6-6.0)
[2020-06-05 12:22] LABS: Thyroid Peroxidase AB 235 IU/mL (0-34)
[2020-06-05 17:13] LABS: ANTINUCLEAR ANTIBODIES DIRECT Negative (Negative)
== END ==
DX: E03.9 Hypothyroidism, unspecified (principal); M15.1 Heberden's nodes (with arthropathy); M25.569 Pain in unspecified knee
CPT/HCPCS: 36415; 73562; 84439; 84443; 84550; 85652; 86038; 86376; 86431

== ENCOUNTER → 2020-07-11 12:31 | Outpatient (CLI) | payer MEDICAID, SELFPAY ==
--- NOTE | 2020-07-11 12:49 | MRI_ITS ---
STUDY: MRI LEFT KNEE REASON FOR EXAM: Left knee pain, cracking and swelling on and off for 2 years, left knee injury from a fall. TECHNIQUE: Standardized fat and water weighted pulse sequences were obtained in all 3 orthogonal planes. COMPARISON: Radiographs 06/03/2020. FINDINGS: There is a complex tear of the posterior horn of the medial meniscus (proton-density sagittal images 8-14). There is arthrosis of the medial femorotibial compartment with small marginal osteophytes and partial-thickness chondral loss of the medial femoral condyle (T2 sagittal image 7). Normal medial femoral condyle and tibial plateau. There is mild periligamentous inflammation of the medial collateral ligament (T2 coronal image 20). Normal distal semimembranosus, gracilis and semitendinosus tendons. Normal lateral meniscus. Normal hyaline cartilage of the lateral femorotibial compartment. Normal lateral femoral condyle and tibial plateau. Normal proximal tibiofibular articulation. Normal lateral collateral (fibular) ligament. Normal popliteus tendon. Normal biceps femoris tendon. Normal anterior cruciate ligament (ACL). Normal posterior cruciate ligament (PCL). Normal congruent patellofemoral articulation. There is arthrosis of the patellofemoral compartment with small marginal osteophytes, chondral thinning (T2 sagittal image 12) and mild subchondral cystic change of the patella. Normal medial and lateral patellar retinaculum. Normal visualized quadriceps tendon. Normal patellar tendon. Normal Hoffa''s fat pad. There is a small joint effusion with synovitis (T2 sagittal images 8-11). There is a thin medial patellar plica. There is a small popliteal cyst with extravasation of fluid (T2 coronal images 5-9). There is a ganglion cyst adjacent to the origin of the lateral gastrocnemius (T2 sagittal image 15) measuring 1.8 cm in length. There is edema in the subcutis adipose space. The otherwise visualized osseous structures are unremarkable. MRI/Lower Ext Joint Only (Routine) IMPRESSION: Medial meniscal tear. Arthrosis of the medial femorotibial and patellofemoral compartments. Mild periligamentous inflammation. Small joint effusion with synovitis. Small popliteal cyst with extravasation of fluid. Small ganglion cyst adjacent to the origin of the lateral gastrocnemius. Electronically Signed: Curt Freeman MD at 13:54 EDT Tel , Service support ,
== END ==
PROVIDERS: PCP Nurse Practitioner Adult Health; Referring Provider Physician Assistant Surgical; Visit Provider Physician Assistant Surgical
DX: M25.462 Effusion, left knee (principal)
CPT/HCPCS: 73721

== ENCOUNTER → 2020-10-09 15:05 | Outpatient (CLI) | payer MEDICAID, SELFPAY ==
[2020-10-09 15:57] LABS: Erythrocyte Sedimentation Rate 13 mm/hr (0-30)
[2020-10-09 16:22] LABS: ALB/GLOB Ratio 1.1 RATIO (0.9-2.4); AST(SGOT) 14 U/L (15-37); Alanine Aminotransfer ALT/SGPT 31 U/L (13-56); Alkaline Phosphatase 55 U/L (45-117); Anion Gap 4 (5-15); BUN 22 mg/dL (7-18); BUN/Creat Ratio 26.9 RATIO (10-20); CPK Total, Creatine Kinase 103 U/L (26-192); CRP, High Sensitivity Cardiac 7.24 mg/L; Chloride 107 mmol/L (98-107); Creatinine, Serum 0.82 mg/dL (0.55-1.02); EST Glomerular Filtration Rate 75 mL/min (>60); Est Glom Filt Rate - Afr Amer 91 mL/min (>60); Globulin 3.6 g/dL (2.2-4.2); Glucose 92 mg/dL (74-106); Potassium 3.9 mmol/L (3.5-5.1); Protein, Total 7.6 g/dL (6.4-8.2); Sodium Level 138 mmol/L (136-145)
[2020-10-11 08:33] LABS: Thyroid Peroxidase AB 234 IU/mL (0-34)
== END ==
PROVIDERS: Referring Provider Nurse Practitioner Adult Health; Visit Provider Nurse Practitioner Adult Health
DX: M79.669 Pain in unspecified lower leg (principal)
CPT/HCPCS: 36415; 80053; 82550; 83735; 85652; 86141; 86376

== ENCOUNTER → 2020-10-24 10:26 | Outpatient (CLI) | payer MEDICAID, SELFPAY ==
--- NOTE | 2020-10-24 10:28 | US_ITS ---
STUDY: THYROID ULTRASOUND REASON FOR EXAM: Female, 60 years old. HYPOTHYROIDISM TECHNIQUE: Ultrasound evaluation of the thyroid was performed with real-time and static torres-scale imaging. COMPARISON: None. FINDINGS: RIGHT LOBE: The right lobe of the thyroid gland measures 5.4 x 2.3 x 1.7 cm. There is a heterogeneous echotexture. Nodule 1:7 x 5 x 7 mm solid hypoechoic wider than tall ill-defined margin and nodule in no echogenic foci (TR 4) in the lateral right lobe consistent with an adenoma. LEFT LOBE: The left lobe of the thyroid gland measures 4.4 x 1.8 x 1.8 cm. There is a heterogeneous echotexture. There are no demonstrated solid, cystic or complex lesions. ISTHMUS: The isthmus measures 4 mm thick. . The regional lymph nodes are normal. US/Thyroid IMPRESSION: Thyroiditis with a small adenoma in the right lobe. Electronically Signed: Mars Jack MD at 9:19 EDT Tel , Service support ,
== END ==
PROVIDERS: Referring Provider Nurse Practitioner Adult Health; Visit Provider Nurse Practitioner Adult Health
DX: E03.9 Hypothyroidism, unspecified (principal)
CPT/HCPCS: 76536

== ENCOUNTER → 2020-12-02 10:08 | Outpatient (CLI) | payer MEDICAID, SELFPAY ==
[2020-12-02 11:19] LABS: Thyroid Stim Hormone (TSH) 2.85 uIU/mL (0.358-3.74)
== END ==
DX: E03.9 Hypothyroidism, unspecified (principal)
CPT/HCPCS: 36415; 84443

== ENCOUNTER → 2021-01-17 09:58 | Outpatient (CLI) | payer MEDICAID, SELFPAY ==
--- NOTE | 2021-01-17 10:00 | BI_ITS ---
MAMMOGRAPHY - BILATERAL SCREENING REASON FOR EXAM: Female, 60 years old. Routine annual screening examination. PERTINENT HISTORY: Non-contributory. TECHNIQUE: Digital bilateral breast rut (3D mammographic acquisition) in the CC and MLO projections. 2-D mediolateral oblique (MLO) and craniocaudad (CC) views of both breasts were obtained. CAD: Full Field Digital Mammography with Computer Added Detection was performed. COMPARISON: Comparison is made with prior study dated 03/15/2019 and 05/05/2013 FINDINGS: Breast Composition: There are scattered areas of fibroglandular density. There are no dominant masses or suspicious calcifications. Stable small benign appearing bilateral axillary lymph nodes. No other significant abnormalities are identified. There has been no significant change since the prior study. BI/SCRN MAMM (CAD)W/RUT BILAT IMPRESSION: Stable bilateral screening mammogram. Yearly follow-up mammogram recommended. (A) ASSESSMENT CATEGORY: BIRADS Category 2: Benign. A letter regarding these results will be sent to the patient by the facility within 30 days. Approximately 10% of breast cancers are not detected by mammography. A normal mammogram should not delay biopsy of a clinically suspicious abnormality. [id number] Electronically Signed: Bridger Corrales MD at 11:08 EST , Service support ,
== END ==
PROVIDERS: Referring Provider Nurse Practitioner Adult Health; Visit Provider Nurse Practitioner Adult Health
DX: Z12.31 Encounter for screening mammogram for malignant neoplasm of breast (principal)
CPT/HCPCS: 77063; 77067

== ENCOUNTER 2021-04-03 06:28 | Day surgery (SDC) | payer MEDICAID, SELFPAY ==
[2021-04-03] VITALS (7 sets, daily range): BP systolic 96–109; BP diastolic 54–70; PULSE 75–90; RESP 14–20; TEMP 36–37; O2SAT 96–99; BMI 35.2
--- NOTE | 2021-04-03 | COLBX_PTH ---
PATIENT: JOAN HAJI LOC: EN U#:[id number] AGE/SX: 61/F ROOM: RE04/03/[address]: Dr. 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 open access (MAC) with biopsies PRE-OP DIAGNOSIS: History colonic polyp TISSUE SUBMITTED: A ? Sigmoid colon biopsy at 25 cm, B - Sigmoid colon biopsy at 20 cm MICROSCOPIC DIAGNOSIS A. Sigmoid colon biopsy at 25 cm: Hyperplastic polyp. B. Sigmoid colon biopsy at 20 cm: Fragments of colonic mucosa with focal hyperplastic changes. SJ:lynne 04/07/2021 MICROSCOPIC DESCRIPTION Slides are reviewed. GROSS DESCRIPTION A - Received in fixative is one container labeled with the patient's name and designated sigmoid colon biopsy at 25 cm. The specimen consists of one irregular fragment of light trevizo soft tissue that measures 0.3 x 0.2 x 0.1 cm. The specimen is totally submitted in one cassette. B - Received in fixative is one container labeled with the patient's name and designated sigmoid colon biopsy at 20 cm. The specimen consists of two irregular fragments of light trevizo soft tissue that in aggregate measure 0.3 x 0.3 x 0.1 cm. The specimen is totally submitted in one cassette. / AM:lynne 04/04/2021 TC:1 CPT: 89524 x2
[2021-04-03] MEDS: Lactated Ringers 1,000 ML 15 ML IV (06:57)
--- NOTE | 2021-04-03 07:27 | HP.PCM_ITS ---
HPI - General HPI Narrative JOAN HAJI, is a 61 F who presents for surveillance colonoscopy following a prior colonoscopy on 09/14/2017 where 2 polyps were identified. Patient was given 3-year follow-up and she presents today to make good on that recommendation. She states overall she has been in a good state of health but has experienced some recent constipation. She states that it takes longer for her to have bowel movements and there is some associated straining that is led to development of hemorrhoid problems. Initially she is adamant that she drinks plenty of water, but then admits it is in the form of iced tea. She denies any supplementary fiber intake but states that her regular diet is high in fiber. She denies any caliber change with her stools. Patient denies any family history of colon cancer. She is not on any blood thinners. She confirms that her prep for today scope was successful on the 2- day regimen and that her output is now clear. [facility] Medical History (Updated 04/03/21 @ 07:[address] Johnathan Kilpatrick MD) Depression Essential hypertension Facial spasm GERD (gastroesophageal reflux disease) Hemifacial spasm High cholesterol Hyperlipidemia Obesity On home oxygen therapy Osteopenia Osteopenia PONV (postoperative nausea and vomiting) Smoker Vertigo Vitamin D deficiency Wears glasses Home Medications atenolol 50 mg PO DAILY 02/09/13 [History Last Taken 09/14/17 06:30] triamterene-hydrochlorothiazid [Maxzide] 1 tab PO DAILY 02/09/13 [History Last Taken 02/06/13] atorvastatin 10 mg tablet 10 mg PO QHS 09/01/17 [History Last Taken Unknown] pantoprazole 40 mg tablet,delayed release 40 mg PO QDAY 09/01/17 [History Last Taken 03/24/19 05:00] albuterol sulfate 90 mcg/actuation aerosol inhaler 2 puff INHALATION Q4H PRN g 07/16/20 [History Last Taken Unknown] calcium carbonate 500 mg-vitamin D3 10 mcg (400 unit) tablet 1 tab PO DAILY 07/16/20 [History Last Taken Unknown] cetirizine 10 mg tablet 20 mg PO DAILY tab 07/16/20 [History Last Taken Unknown] lisinopril 40 mg tablet 40 mg PO DAILY tab 07/16/20 [History Last Taken Unknown] sertraline 25 mg tablet 75 mg PO DAILY tab 07/16/20 [History Last Taken Unknown] montelukast [Singulair] 10 mg PO DAILY 04/01/21 [History Last Taken Unknown] Allergy/AdvReac Type Severity Reaction Status Date / Time prednisone Allergy Hives Verified 04/01/21 10:09 Family History Father Diabetes Hypertension Mother Hypertension High cholesterol AAA (abdominal aortic aneurysm) TIA (transient ischemic attack) Brain aneurysm CVA (cerebral vascular accident) Brother CVA (cerebral vascular accident) Surgical History History of carpal tunnel surgery of left wrist History of colonoscopy with polypectomy History of craniotomy (2014) History of esophagogastroduodenoscopy (EGD) History of tonsillectomy History of tubal ligation Social History Smoking Status: Current some day smoker tobacco type: cigarettes alcohol intake: never substance use type: does not use Past Medical/Surgical History Planned Operation Planned Operative Procedure/s: Colonoscopy, OA S.O.S: No Previous Hospitalizations/Surgeries HX Hospitalizations: No HX of Surgeries: microvascular decompression surgery 2012,2014 tonsillectomy tubal ligation Any Problems With Anesthesia: Yes (N/V) You/Your Family Experience Fever (Hyperthermia) With Anes: No Cholinesterase deficiency: No Cardiovascular Hx Chest Pain within Last 2 months: No Hx of Irregular Heartbeat and/or Afib: No Hx Heart Attack: No Hx Congestive Heart Failure: No Hx Rheumatic Fever: No Hx Hypertension: Yes Hx Internal Defibrillator: No Hx Pacemaker: No Hx Cardiac Catheterization: No Hx Cardiac Surgery/Stents/Etc.: No Hx Stress Test: Yes (2014 at [facility]) Hx Pain in Legs when Walking/Leg Cramps: No Respiratory Chronic Cough: Yes HX of Shortness of Breath: No Hoarseness: No Hx Chronic Obstructive Pulmonary Disease (COPD): No Hx Asthma: No Hx Emphysema: No Hx Sleep Apnea: No Hx Respiratory Tract Infection/Cold (presently): No Do You Snore Loudly (louder than talking or can be heard): Yes Do You Often Feel Tired/ Fatigued/ Sleepy Dring Daytime?: No Has Anyone Observed You Stop Breathing During Sleep?: No Result (for STOP score): Positive Hx Smoking: Yes (quit 7 yrs ago) Smoking Status: Current some day smoker Gastrointestinal Hx Gastroesophageal Reflux: Yes Controlled With Meds: Yes Hx Gastrointestinal Disorders: No Hx Gastrointestinal Bleed: No Hx Ulcer: No Hx Hiatal Hernia: No Difficulty Chewing/Swallowing: No Special diet followed at home: No Hx Unplanned Weight Loss of 20#: No HX Unplanned Weight Gain of 20#: No Neurological Hx Seizures: No HX Syncope/Blackout Spells/Unconsciousness: Yes (vertigo) Hx Transient Ischemic Attacks (TIA): No Hx Multiple Sclerosis: No Hx Parkinson's Disease: No Hx Head/Neck Injury: No Hx Headaches: No Hx Back Injury/Pain: No Recent Onset of Speech Difficulty: No Restless Legs: No Does patient have nerve stimulator: No Blood Disorder Hx Leukemia: No Bleeding Tendencies: No Hx Deep Vein Thrombosis: No Hx High Cholesterol: Yes (on med) Blood Transmitted Disease: No Hx Hepatitis: No Hx Cirrhosis: No Hx Anemia: Yes (in the past) Hx Blood Disorders: No Reproduction Is Patient Lactating: No Hx Hysterectomy: No Hx Tubal Ligation: Yes Are You Post Menopause: Yes Genitourinary Hx Renal Disease: No Musculoskeletal Hx Arthritis: No Hx Rheumatoid Arthritis: No Hx Gout: No Recent Onset of an Orthopedic Problem: No Endocrine Hx Diabetes: No Thyroid Disease: No Hx Steroid Therapy: No Psycho/Social Hx Substance Use: No Hx Alcohol Use: No Hx Anxiety: No Hx Depression: Yes (on med) Mental Illness: No Hx Dementia: No Miscellaneous Hx Cancer: No Recent Exposure to Contagious Disease: No Hx of C-Diff: No Any Loose Teeth: No Allergies prednisone Allergy (Verified 04/01/21 10:09) Hives Discharge Is Pt Admitted From a Long Term, or a Fpc: No Who Could Help: Son After D/C, Where Do you Plan to Go: Return Home From the [facility] History Number of Risk Factors: 2 Vital Signs Vital Signs Vital Signs: 04/03/21 06:51 Temperature 98.6 F Temperature Source Temporal Pulse Rate 85 Respiratory Rate 16 Respiratory Pattern Normal Blood Pressure 108/69 Blood Pressure Mean 82 Blood Pressure Source Monitor Blood Pressure Position Semi-Fowlers Pulse Ox 96 Oxygen Delivery Method Room Air Weight Weight: 211 lb 10.3 oz Body Mass Index (BMI) 35.2 Physical Exam Const alert and oriented x3 General Appearance: cooperative and comfortable GI GI Narrative: Obese, soft, nontender to palpation x4 quadrants Assessment & Plan Assessment/Plan (1) Encounter for colonoscopy due to history of colonic polyp: PLAN: This is a 61-year-old female with a history of colon polyps who had her first colonoscopy 3-1/2 years ago. She presents for surveillance colonoscopy today. In the interim since her previous scope, she has developed some bothersome constipation, but is otherwise without complaint. We discussed this at some length and it seems as though patient is taking a lot of ice tea rather than straight water and this may be leaving her in a water deficit. I have informed her of this fact and encouraged her to drink straight water. She confirms that her bowel prep is complete. Proceed for surveillance colonoscopy under local [facility] as previously planned. Surgery Risks - Colonoscopy Risks Include but are not Limited To: Risks include but are not limited to: Bleeding, perforation requiring further surgery, inability to complete colonoscopy requiring barium enema.
--- NOTE | 2021-04-03 08:58 | OP.CCLET_ITS ---
[facility]03[facility]2021 [facility] Colon[facility] procedure for Mikaela Vega [facility] This procedure was performed on March. My impressions and recommendations are as follows: Impressions : - Four 5 mm, non-bleeding polyps in the distal sigmoid colon. Biopsied. - Internal hemorrhoids. No specimens collected. - The distal rectum and anal verge are normal on retroflexion view. Recommendations : - Discharge patient to home (via wheelchair). - Resume regular diet today. - Use original regular Metamucil one teaspoon PO BID today. - Await pathology results. - Telephone my office for pathology results in 1 week. - Repeat colonoscopy date to be determined after pending pathology results are reviewed for surveillance based on pathology results. - Continue present medications. My findings are described in the full procedure note, which is enclosed. If I can be of further assistance, please feel free to contact me at Doctor phone number(s): , Work: . Sincerely, Johnathan Kilpatrick MD 04/03/2021 8:57:35 AM This report has been signed electronically.
--- NOTE | 2021-04-03 08:58 | OP.COLON_ITS ---
Patient Name: Mikaela Vega Procedure Date: 04/03/2021 7:21 AM Date of : 1960 Age: 61 Procedure: Colonoscopy Indications: High risk colon cancer surveillance: Personal history of colonic polyps, Surveillance: Personal history of adenomatous polyps on last colonoscopy > 3 years ago Providers: Johnathan Kilpatrick MD Referring MD: Tiffanie Valdez [facility] Medicines: See the Anesthesia note for documentation of the administered medications Patient Profile: Refer to note in patient chart for documentation of history and physical. Last Colonoscopy: 3 years ago. Complications: No immediate complications. Estimated blood loss: Minimal. Procedure: Pre-Anesthesia Assessment: - The heart rate, respiratory rate, oxygen saturations, blood pressure, adequacy of pulmonary ventilation, and response to care were monitored throughout the procedure. After I obtained informed consent, the scope was passed under direct vision. Throughout the procedure, the patient's blood pressure, pulse, and oxygen saturations were monitored continuously. The adult colonoscope was introduced through the anus and advanced to the cecum, identified by the appendiceal orifice. The colonoscopy was somewhat difficult due to a tortuous colon. Successful completion of the procedure was aided by withdrawing and reinserting the scope. The colonoscopy was somewhat difficult due to the patient's body habitus. Successful completion of the procedure was aided by applying abdominal pressure. The colonoscopy was somewhat difficult due to coughing. [Solution]. Scope In: 7:44:46 AM Scope Withdrawal Time 0 hours 16 minutes 10 seconds Scope Out: 8:47:54 AM Total Procedure Duration Time 1 hour 3 minutes 8 seconds Findings: Four semi-sessile, non-bleeding polyps were found in the distal sigmoid colon. The polyps were 5 mm in size. Biopsies were taken with a cold forceps for histology. Estimated blood loss was minimal. Internal hemorrhoids were found during retroflexion and during perianal exam. The hemorrhoids were Grade III (internal hemorrhoids that prolapse but require manual reduction). No biopsies or other specimens were collected for this exam. The retroflexed view of the distal rectum and anal verge was normal and showed no anal or rectal abnormalities. Impression: - Four 5 mm, non-bleeding polyps in the distal sigmoid colon. Biopsied. - Internal hemorrhoids. No specimens collected. - The distal rectum and anal verge are normal on retroflexion view. Recommendation: - Discharge patient to home (via wheelchair). - Resume regular diet today. - Use original regular Metamucil one teaspoon PO BID today. - Await pathology results. - Telephone my office for pathology results in 1 week. - Repeat colonoscopy date to be determined after pending pathology results are reviewed for surveillance based on pathology results. - Continue present medications. Procedure Code(s): --- Professional --- 68934, Colonoscopy, flexible; with biopsy, single or multiple Diagnosis Code(s): --- Professional --- D12.5, Benign neoplasm of sigmoid colon K64.2, Third degree hemorrhoids Z86.010, Personal history of colonic polyps CPT copyright 2017 [employer] [place] [employer]. All rights reserved. The codes documented in this report are preliminary and upon computer language coder review may be revised to meet current compliance requirements. Johnathan Kilpatrick MD 04/03/2021 8:57:35 AM This report has been signed electronically. Number of Addenda: 0 Note Initiated On: 04/03/2021 7:21 AM
[2021-04-03] MEDS: Ipratropium/Albuterol Sulfate 3 ML AMPUL.NEB INHALATION (09:02)
== END 2021-04-03 23:59 | disposition home or self-care (01) ==
LOC: EN 06:28 → AC 06:29
PROVIDERS: Visit Provider Surgery
PROC: 0DJD8ZZ Inspection of Lower Intestinal Tract, Via Natural or Artificial Opening Endoscopic (ICD-10-PCS; CPT 45378; principal; 2021-04-03 07:25)
DX: Z12.11 Encounter for screening for malignant neoplasm of colon (principal); D12.5 Benign neoplasm of sigmoid colon; K64.2 Third degree hemorrhoids; K21.9 Gastro-esophageal reflux disease without esophagitis; Z20.822 Contact with and (suspected) exposure to COVID-19; I10 Essential (primary) hypertension; E78.5 Hyperlipidemia, unspecified; F17.210 Nicotine dependence, cigarettes, uncomplicated; E66.9 Obesity, unspecified; Z68.35 Body mass index [BMI] 35.0-35.9, adult; Z79.899 Other long term (current) drug therapy; Z86.010 Personal history of colon polyps
CPT/HCPCS: 45380; 87426; 88305; 94640; C9803; J7120

== ENCOUNTER → 2021-06-27 | Outpatient (CLI) | payer MEDICAID, SELFPAY ==
[2021-06-27 08:08] LABS: Cholesterol 204 mg/dL (200); High Density Lipoprotein 34 mg/dL; Triglycerides 233 mg/dL; Very Low Density Lipoprotein 47 mg/dL (5-40)
== END | disposition home or self-care (01) ==
LOC: LAB 07:16
PROVIDERS: Referring Provider Nurse Practitioner Adult Health; Visit Provider Nurse Practitioner Adult Health
DX: E78.2 Mixed hyperlipidemia (principal)
CPT/HCPCS: 36415; 80061

== ENCOUNTER → 2021-07-10 | Outpatient (CLI) | payer MEDICAID, SELFPAY ==
--- NOTE | 2021-07-10 15:02 | RAD_ITS ---
STUDY: X-RAY CHEST REASON FOR EXAM: Female, 61 years old. COPD TECHNIQUE: PA and lateral views of the chest. COMPARISON: Comparison is made with prior study dated 08/24/2019. FINDINGS: Hyperinflation. There is no demonstrated pleural abnormality. Normal size heart. Normal mediastinum and chin. Normal visualized pulmonary arteries. There is atherosclerotic calcification of the aortic arch with tortuosity. There is a dextroscoliosis of the thoracic spine. Degenerative changes of the thoracic spine. There is degenerative osteoarthritis of the bilateral shoulders. There is no demonstrated abnormality of the visualized soft tissue structures of the upper abdomen. RAD/Chest PA and Lateral IMPRESSION: Hyperinflation. The lungs are clear. Electronically Signed: Bridger Corrales MD at 13:18 EDT ,
[2021-07-10 15:19] LABS: Absolute Lymphocyte Count 4.13 X10^3/uL (0.83-4.51); Absolute Neutrophil Count 8.5 X10^3/uL (2.0-7.7); Basophil# 0.13 X10^3/uL; Basophil% 0.9 % (0-1); Eosinophil# 0.29 X10^3/uL; Eosinophils% 2.1 % (0-5); Hematocrit 40.1 % (37-47); Lymphocyte # 4.13 X10^3/ul (0.83-4.51); Lymphocyte % 29.7 % (19-41); Mean Corp Hgb Conc 32.4 g/dL (32-36); Mean Corpuscular Hgb 29.4 pg (27.0-32.0); Mean Corpuscular Volume 90.7 fL (81-99); Mean Platelet Vol. 10.5 fl (6.2-12.0); Monocyte# 0.73 X10^3/uL; Monocyte% 5.3 % (0-10); NRBC Flagged by Analyzer 0 % (0-5); Neutrophil % 61.1 % (47-70); POSITIVE MORPHOLOGY YES; Platelet Count 323 K/mm3 (150-450); RBC Distribution Width CV 12.8 % (11.6-14.6); RBC Distribution Width SD 42.1 fl (35.1-43.9); Red Blood Count 4.42 M/mm3 (4.2-5.4); White Blood Count 13.9 K/mm3 (4.4-11.0)
[2021-07-10 15:22] LABS: Differential Indicated SCAN CRITERIA MET
[2021-07-10 15:47] LABS: Differential Comment SCANNED
[2021-07-10 15:56] LABS: ALB/GLOB Ratio 0.9 RATIO (0.9-2.4); AST(SGOT) 16 U/L (15-37); Alanine Aminotransfer ALT/SGPT 33 U/L (13-56); Albumin, Serum 3.7 g/dL (3.2-5.0); Alkaline Phosphatase 53 U/L (45-117); Anion Gap 7 (5-15); BUN 18 mg/dL (7-18); BUN/Creat Ratio 19.7 RATIO (10-20); Calcium,Total 9.1 mg/dL (8.5-10.1); Chloride 105 mmol/L (98-107); Creatinine, Serum 0.91 mg/dL (0.55-1.02); EST Glomerular Filtration Rate 66 mL/min (>60); Est Glom Filt Rate - Afr Amer 80 mL/min (>60); Globulin 3.9 g/dL (2.2-4.2); Glucose 107 mg/dL (74-106); Protein, Total 7.6 g/dL (6.4-8.2); Sodium Level 138 mmol/L (136-145)
== END | disposition home or self-care (01) ==
LOC: LAB 14:47
PROVIDERS: Visit Provider Nurse Practitioner Adult Health
DX: J44.1 Chronic obstructive pulmonary disease with (acute) exacerbation (principal)
CPT/HCPCS: 36415; 71046; 80053; 85025

== ENCOUNTER → 2021-08-12 | Outpatient (CLI) | payer MEDICAID, SELFPAY ==
--- NOTE | 2021-08-13 13:57 | PFTCOMP_ITS ---
COMPLETE PULMONARY FUNCTION TEST INTERPRETATION Brief HPI: Patient is a 61-year-old female, currently under the care of Heidy Gomez, who presents to [facility] for complete pulmonary function tests secondary to diagnosis of COPD. Respiratory therapist reports good effort and reproducible results. Interpretation: Forced expiration spirometry shows no large airways obstructive ventilatory defect with an FEV1 of 87% predicted. There is no significant bronchodilator response by strict ATS criteria. Spirograms are of good quality and plateau slowly, indicating slowly emptying areas of the lungs. The respiratory flow volume loop shows decreased expiratory flow rates at high lung volumes consistent with small airways obstruction. Lung volumes by body plethysmography show a normal total lung capacity at 5.38 L, 106% predicted. All other lung volumes are within normal limits. Diffusion capacity by carbon monoxide is decreased at 57% predicted. The airway resistance is normal. No previous pulmonary function tests were available for review. Impression: Isolated reduction in diffusion capacity consistent with a pulmonary vascular disorder. There is some stigmata of possible small airways disease also present.
== END | disposition home or self-care (01) ==
LOC: PSN 12:44
DX: J44.1 Chronic obstructive pulmonary disease with (acute) exacerbation (principal)
CPT/HCPCS: 94060; 94726; 94729

== ENCOUNTER 2022-02-04 10:50 | Emergency (ER) | payer MEDICAID, SELFPAY ==
[2022-02-04 10:51] VITALS: BP 176/105; PULSE 98; RESP 17; TEMP 36.1; O2SAT 91; BMI 33.8
--- NOTE | 2022-02-04 11:26 | EDS_ITS ---
HPI HPI - URI History of Present Illness Chief Complaint: Cough Informant: patient Onset/Context/Timing Onset: Days (several) Context: Gradual Onset Timing: Continuous Quality: bronchospasm, can't get phlegm up Location: chest Current Severity: Moderate Maximum Severity: Moderate Worsened by: - (coughing) Relieved by: - (nothing) Associated Symptoms Associated Symptoms: Positive for Nasal Congestion, Shortness of Breath (only when coughing) and Chest Pain (just soreness from lots of coughing); Negative for Hemoptysis Narrative Narrative: Patient has been ill with respiratory symptoms for the past 2 weeks approximately. States she took a trip to [place] and came back with this illness. She states she had subjective fevers, chills, myalgias that really made her feel poorly for about 3 days and she spent the days in bed and that all is better, but for the past several days her cough has become deeper, in her chest, she feels like there is phlegm to get out but it will not come out. She has been taking Mucinex, cough suppressants, she did a telemedicine visit early this morning because she has not been able to sleep for the past 2 days due to coughing, they prescribed her dexamethasone which she has not filled or taken yet, she states that she does not do well with steroids and really does not want unless she absolutely has to have it. She states she does not have asthma or COPD but remembers that a month or 2 ago she had a pulmonary function test at [facility] but she does not know the results of that yet. She stopped smoking last month and has been using nicotine gum and patches as needed. Patient states she feels like her airway is going to close off because of sputum/mucus that she is unable to cough out and she lives alone and she feels like she may as a result. ROS ROS ED Constitutional Constitutional ED: Denies chills or fever(s) ENT ENT ED: Reports nasal congestion, rhinorrhea and sore throat Cardiovascular Cardiovascular: Denies chest pain or palpitations Respiratory/Chest Respiratory/Chest: Reports as per HPI, cough and dyspnea Gastrointestinal Gastrointestinal: Denies abdominal pain, diarrhea, nausea or vomiting Genitourinary Genitourinary ED: Denies dysuria or hematuria Musculoskeletal Musculoskeletal: Reports back pain; Denies myalgias or neck pain Integumentary Denies abscess or rash Neurologic Neurologic: Denies headache(s), paresthesias or weakness Psychiatric Psychiatric: Denies depression or suicidal thoughts Endocrine Endocrinology: Denies polydipsia or polyuria PFSH PFSH Medical History Depression Essential hypertension Facial spasm GERD (gastroesophageal reflux disease) Hemifacial spasm High cholesterol Hyperlipidemia Obesity On home oxygen therapy Osteopenia Osteopenia PONV (postoperative nausea and vomiting) Smoker Vertigo Vitamin D deficiency Wears glasses Home Medications atenolol 50 mg tablet 50 mg PO DAILY 02/09/13 [History Last Taken 09/14/17 06:30] triamterene 75 mg-hydrochlorothiazide 50 mg tablet (Maxzide) 1 tab PO DAILY 02/09/13 [History Last Taken 02/06/13] pantoprazole 40 mg tablet,delayed release (Protonix) 40 mg PO QDAY 09/01/17 [History Last Taken 03/24/19 05:00] albuterol sulfate 90 mcg/actuation aerosol inhaler 2 puff inhalation Q4H PRN Wheezing 07/16/20 [History Last Taken Unknown] calcium carbonate 500 mg-vitamin D3 10 mcg (400 unit) tablet 1 tab PO DAILY 07/16/20 [History Last Taken Unknown] cetirizine 10 mg tablet (Zyrtec) 20 mg PO DAILY 07/16/20 [History Last Taken Unknown] lisinopril 40 mg tablet 40 mg PO DAILY 07/16/20 [History Last Taken Unknown] montelukast 10 mg tablet (Singulair) 10 mg PO DAILY 04/01/21 [History Last Taken Unknown] atorvastatin 10 mg tablet 20 mg PO QHS 07/18/21 [History Last Taken Unknown] sertraline 25 mg tablet (Zoloft) 75 mg PO DAILY PRN 07/18/21 [History Last Taken Unknown] hydrocodone-homatropine 5 mg-1.5 mg tablet (Hycodan (with homatropine)) 1 tab PO Q6H PRN cough 3 days #10 tabs 02/04/22 [Rx Last Taken Unknown] levofloxacin 500 mg tablet 500 mg PO Q24H #7 tabs 02/04/22 [Rx Last Taken Unknown] Allergy/AdvReac Type Severity Reaction Status Date / Time prednisone Allergy Hives Verified 02/04/22 10:50 Family History (Reviewed 07/18/21 @ 10:32 by Tete Fernandez FIRE [employer]OTECTION FABRICATOR, FIRE [employer]OTECTION FABRICATOR-C) Father Diabetes Hypertension Mother Hypertension High cholesterol AAA (abdominal aortic aneurysm) TIA (transient ischemic attack) Brain aneurysm CVA (cerebral vascular accident) Brother CVA (cerebral vascular accident) Surgical History (Reviewed 07/18/21 @ 10:32 by Tete Fernandez FI[employer] PROTECTION FABRICATOR, FIRE PROTECTION FABRICATOR-C) History of carpal tunnel surgery of left wrist History of colonoscopy with polypectomy History of craniotomy (2014) History of esophagogastroduodenoscopy (EGD) History of tonsillectomy History of tubal ligation Social History Smoking Status: Former smoker alcohol intake: never substance use type: does not use EXAM Physical Exam Const Vital Signs: 02/04/22 10:51 02/04/22 11:13 02/04/22 11:33 Temperature 96.9 F L Temperature Source Temporal Pulse Rate 98 99 Respiratory Rate 17 18 Respiratory Effort Normal Non-Labored Respiratory Depth Normal Respiratory Pattern Normal Normal Blood Pressure 176/105 H Blood Pressure Mean 128 Pulse Ox 91 Oxygen Delivery Method Room Air 02/04/22 11:33 Temperature Temperature Source Pulse Rate Respiratory Rate Respiratory Effort Normal Respiratory Depth Normal Respiratory Pattern Normal Blood Pressure Blood Pressure Mean Pulse Ox 91 Oxygen Delivery Method Room Air Positive well nourished and well developed General Appearance ED: well developed and NAD HEENT Reports moist mucous membranes normocephalic and atraumatic Throat: Negative for posterior oropharynx abnormal Eyes PERRL and EOMs intact bilaterally Neck no lymphadenopathy, supple and no meningeal signs Resp normal respiratory effort and clear to auscultation bilaterally Resp Narrative: Lungs are clear. Patient occasional bronchospasm, she produces no sputum, she can converse in full sentences when she is not coughing. Cardio no murmurs Rate: regular rate Rhythm: regular rhythm Extremity normal to inspection and full ROM Extremity Narrative: Not edematous Neuro oriented x3, CN's II-XII intact bilaterally and no sensory deficits noted Sensorium / Orientation: alert Motor Exam: strength 5/5 throughout Psych mental status grossly normal Mood & Affect: anxious Skin Lesions: no lesions Rashes: no rashes MDM MDM MDM Narrative Medical decision making narrative: 2 view chest x-ray on my interpretation is normal, radiology report is in agreement/congruent. COVID, influenza, and RSV swabs are all obtained and negative, the latter of which was done to see if we could prove that she has viral etiology. I suspect she has a different viral etiology than these 3, however her pulse oximetry is 91% on room air. I do not know which she is at baseline, or if she has COPD or not, as these would make a difference, but I think it is plausible to consider atypicals here and to prescribe her Levaquin. We gave her a series of nebulizer treatments here, and she actually had improvement and was able to cough out a small amount of sputum and actually felt better. We are giving her a flutter valve treatment that may additionally help to break things up. She has an albuterol inhaler at home already, she was given instructions on it. Patient is wondering whether she should take the dexamethasone that was prescribed for her or not. I advised her that if she does not have asthma or COPD it may not offer any benefit to her, and if she thinks she will feel worse with it, I think it would be reasonable to skip it. Radiography Diagnostic Testing: Clinical Impression(s) from Imaging Studies Chest X-Ray 02/04/22 12:05 IMPRESSION: No radiographic evidence of acute cardiopulmonary disease. Stable exam since 07/10/2021. Electronically Signed: Yuri Ladd, at 12:22 EST , Discharge Plan Triage Chief Complaint: Cough ED Provider: Margarito Emmanuel Dx/Rx/DC Orders Clinical Impression: Acute bronchitis with bronchospasm, Episode of hypertension Instructions: Acute Bronchitis Prescriptions: New levofloxacin 500 mg tablet 500 mg PO Q24H Qty: 7 0RF hydrocodone-homatropine [Hycodan (with homatropine)] 5-1.5 mg tablet 1 tab PO Q6H PRN (Reason: cough) 3 Days Qty: 10 0RF No Action pantoprazole [Protonix] 40 mg tablet,delayed release (DR/EC) 40 mg PO QDAY atorvastatin 10 mg tablet 20 mg PO QHS albuterol sulfate 90 mcg/actuation HFA aerosol inhaler 2 puff inhalation Q4H PRN (Reason: Wheezing) lisinopril 40 mg tablet 40 mg PO DAILY Label Comments: TAKE 1 TABLET EVERY DAY cetirizine [Zyrtec] 10 mg tablet 20 mg PO DAILY calcium carbonate-vitamin D3 500 mg(1,250mg) -400 unit tablet 1 tab PO DAILY sertraline [Zoloft] 25 mg tablet 75 mg PO DAILY PRN Label Comments: TAKE 3 TABLETS EVERY DAY triamterene-hydrochlorothiazid [Maxzide] 1 TABLET tablet 1 tab PO DAILY atenolol 50 MG tablet 50 mg PO DAILY montelukast [Singulair] 10 mg tablet 10 mg PO DAILY [facility] Referrals: [facility] [Primary Care Provider] - (Within the next 1-2 weeks for blood pressure recheck and reevaluation of your oxygenation and symptoms.) Activity Restrictions/Additional Instructions: You can use your albuterol more than what you have been told, you can try doing 4 puffs every 2-4 hours, inhale deeply and see if that helps if needed. Disposition Disposition: Home, Self Care
[2022-02-04 11:33] VITALS: PULSE 99; RESP 18; O2SAT 91
[2022-02-04] MEDS: Ipratropium/Albuterol Sulfate 3 ML AMPUL.NEB INHALATION (11:41)
--- NOTE | 2022-02-04 12:05 | RAD_ITS ---
INDICATION: cough, sob EXAMINATION/TECHNIQUE: X-RAY - XR Chest 2 Views COMPARISON: Chest radiograph from 07/10/2021. FINDINGS: Support devices: None. No focal consolidations, effusions, or sizable pneumothorax. There are some streaky areas of atelectasis in the left lung base. Cardia mediastinal silhouette is within normal limits. Unchanged dextroscoliotic curvature of the thoracic spine. No acute findings in the bones or soft tissues. RAD/Chest PA and Lateral IMPRESSION: No radiographic evidence of acute cardiopulmonary disease. Stable exam since 07/10/2021. Electronically Signed: Yuri Ladd, at 12:22 EST ,
[2022-02-04 12:50] VITALS: RESP 16
[2022-02-04 13:32] VITALS: RESP 18
== END 2022-02-04 13:34 | disposition home or self-care (01) ==
PROVIDERS: Emergency Provider Emergency Medicine; Visit Provider Emergency Medicine
DX: J20.9 Acute bronchitis, unspecified (principal); I10 Essential (primary) hypertension; Z99.81 Dependence on supplemental oxygen; Z87.891 Personal history of nicotine dependence
CPT/HCPCS: G0463; 71046; 87428; 87807; 94640; 94667; 99251; 99284; J7050

== ENCOUNTER → 2022-03-23 | Outpatient (CLI) | payer MEDICAID, SELFPAY ==
[2022-03-23 12:49] LABS: Absolute Neutrophil Count 5.2 X10^3/uL (2.0-7.7); Basophil# 0.09 X10^3/uL; Basophil% 1.1 % (0-1); Eosinophil# 0.31 X10^3/uL; Eosinophils% 3.7 % (0-5); Hematocrit 38.9 % (37-47); Hemoglobin 12.3 g/dL (12.0-15.0); Lymphocyte % 27.3 % (19-41); Mean Corp Hgb Conc 31.6 g/dL (32-36); Mean Corpuscular Hgb 28.4 pg (27.0-32.0); Mean Corpuscular Volume 89.8 fL (81-99); Mean Platelet Vol. 11.5 fl (6.2-12.0); Monocyte% 5.9 % (0-10); NRBC Flagged by Analyzer 0 % (0-5); Neutrophil # 5.19 X10^3/uL (2.7-7.7); Neutrophil % 61.6 % (47-70); Platelet Count 244 K/mm3 (150-450); RBC Distribution Width CV 13.4 % (11.6-14.6); RBC Distribution Width SD 44.1 fl (35.1-43.9); Red Blood Count 4.33 M/mm3 (4.2-5.4); White Blood Count 8.4 K/mm3 (4.4-11.0)
[2022-03-23 13:30] LABS: AST(SGOT) 13 U/L (15-37); Alanine Aminotransfer ALT/SGPT 27 U/L (13-56); Albumin, Serum 3.6 g/dL (3.2-5.0); Alkaline Phosphatase 50 U/L (45-117); Anion Gap 5 (5-15); BUN 24 mg/dL (7-18); BUN/Creat Ratio 24.2 RATIO (10-20); Calcium,Total 9.2 mg/dL (8.5-10.1); Chloride 108 mmol/L (98-107); Cholesterol 181 mg/dL (200); Creatinine, Serum 0.99 mg/dL (0.55-1.02); EST Glomerular Filtration Rate 60 mL/min (>60); Est Glom Filt Rate - Afr Amer 73 mL/min (>60); Globulin 3.5 g/dL (2.2-4.2); Glucose 123 mg/dL (74-106); High Density Lipoprotein 37 mg/dL; Magnesium 2.1 mg/dL (1.6-2.6); Potassium 3.8 mmol/L (3.5-5.1); Protein, Total 7.1 g/dL (6.4-8.2); Sodium Level 141 mmol/L (136-145); Thyroid Stim Hormone (TSH) 1.75 uIU/mL (0.358-3.74); Triglycerides 224 mg/dL; Very Low Density Lipoprotein 45 mg/dL (5-40)
[2022-03-27 18:50] LABS: Vitamin D 1,25-Dihydroxy 18.8 pg/mL (24.8-81.5)
== END | disposition home or self-care (01) ==
PROVIDERS: Visit Provider Nurse Practitioner Family
DX: I10 Essential (primary) hypertension (principal); E03.9 Hypothyroidism, unspecified; E78.2 Mixed hyperlipidemia; R53.83 Other fatigue
CPT/HCPCS: 36415; 80053; 80061; 82652; 83735; 84443; 85025

== ENCOUNTER 2022-03-25 12:26 | Day surgery (SDC) | payer MEDICAID, SELFPAY ==
[2022-03-25] VITALS (7 sets, daily range): BP systolic 96–104; BP diastolic 58–87; PULSE 60–75; RESP 16–18; TEMP 36.2–36.6; O2SAT 96–100; BMI 32.6
[2022-03-25] MEDS: Lactated Ringers 1,000 ML 15 ML IV (12:30)
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
--- NOTE | 2022-03-25 13:30 | IMM_PTH ---
PATIENT: JOAN HAJI LOC: EN U#:[id number] AGE/SX: 62/F ROOM: RE03/25/[address]: Dr. Johnathan Kilpatrick MD : 1960 BED: DIS: 03/25/2022 SPEC #: [id number] RECD: 03/26/22 14:13 STATUS: VERÓNICA RESuresh #: [id number] ESTRELLA: 03/25/22 13:[address]: Johnathan Kilpatrick DEPT: IMMUNOHISTOCHEMISTRY RECD BY: Lidia Parmar ENTERED: 03/26/22 14:14 SP TYPE: IMMUNO OTHR DR: Tiffanie [facility] Tissues: C - Stomach, NOS D - Esophagus, NOS Procedures: H Pylori (initial) P53 (initial) KI-67 (add) PHYSICIAN & INSTITUTION [place] [id number] SPECIMEN INFORMATION: Tissue Source: C ? Gastric body biopsy, D ? Distal esophagus biopsy Clinical Info: Hemorrhoids, Ivy?s esophagus Specimen Number: [id number] C & D CPT code: 68731 x2, 69603 METHODOLOGY: Deparaffinized sections of prefer/formalin-fixed tissue or PAP/DQ stained slides are incubated with monoclonal/polyclonal antibodies/oligonucleotide probes. Localization is made via biotin free immunoperoxidase method. Appropriate controls are performed and reacted as expected. Results on target cell population are indicated in the following table: RESULTS: ANTIBODY / CLONE RESULT Block C H Pylori (polyclonal) negative Block D P53 (DO-7) negative Ki-67 (30-9) positive, very low These tests were developed and their performance characteristics determined by [facility]. They may not have been cleared or approved by the U.S. Food and Drug Administration. The FDA has determined that such clearance or approval is not necessary. The above immunohistochemical/dualISH markers are ordered and reviewed by the Pathologist. INTERPRETATION: C. Gastric body, biopsy: Negative for Helicobacter pylori organisms. D. Distal esophagus, biopsy: Negative for dysplasia. SJ:lynne 03/30/2022
--- NOTE | 2022-03-25 13:30 | EGD_PTH ---
PATIENT: JOAN HAJI LOC: EN U#:[id number] AGE/SX: 62/F ROOM: RE03/25/[address]: Dr. Johnathan Kilpatrick MD : 1960 BED: DIS: 03/25/2022 SPEC #: [id number] RECD: 03/25/22 15:27 STATUS: VERÓNICA BEHT #: [id number] ESTRELLA: 03/25/22 13:[address]: Johnathan Kilpatrick DEPT: SURGICAL PATHOLOGY RECD BY: Marleen Campoverde ENTERED: 03/26/22 08:41 SP TYPE: EGD BIOPSY OT DR: Tiffanie [facility] Tissues: A - Duodenum, NOS B - Pylorus C - Gastric mucous membrane D - Esophagus, NOS E - Esophagus, NOS Procedures: Special Stain Group II Surgery Specimen Level IV Alcian Blue/PAS (control) HEADER OPERATION: EGD, biopsy, sigmoidoscopy, banding PRE-OP DIAGNOSIS: Hemorrhoids, Ivy?s esophagus TISSUE SUBMITTED: A ? Duodenal polyp biopsy, B ? Mucosal nodule pylorus biopsy, C ? Gastric body biopsy, D ? Distal esophagus biopsy, E ? Middle third esophageal nodule biopsy MICROSCOPIC DIAGNOSIS A. Duodenal polyp, biopsy: Fragments of benign duodenal mucosa may represent benign mucosal polyp. B. Mucosal nodule pylorus, biopsy: Mild gastritis. See microscopic description. C. Gastric body, biopsy: Minimal gastritis. See comment. D. Distal esophagus, biopsy: Fragments of gastroesophageal mucosa with focal intestinal metaplasia (goblet cell metaplasia), consistent with Ivy's esophagus. Chronic inflammation. Negative for dysplasia. See comment. E. Middle third esophageal nodule, biopsy: Fragments of benign squamous mucosa. SJ:rg 03/27/2022 COMMENT C. The results of immunohistochemistry for Helicobacter pylori will be reported separately ([id number]). D. Immunohistochemistry ([id number]) for P53 and Ki-67 will be performed and results will be reported separately. Alcian blue/PAS stain with matched control is used in the evaluation of the specimen. MICROSCOPIC DESCRIPTION Slides are reviewed. B. The specimen shows fragments of gastric mucosa with chronic inflammatory cell infiltrates in the lamina propria consisting of lymphocytes and plasma cells, consistent with mild chronic gastritis. GROSS DESCRIPTION A - Received in fixative is one container labeled with the patient's name and designated duodenal polyp biopsy. The specimen consists of two irregular fragments of light trevizo soft tissue that in aggregate measure 0.8 x 0.3 x 0.1 cm. The specimen is totally submitted in one cassette. B - Received in fixative is one container labeled with the patient's name and designated mucosal nodule pylorus biopsy. The specimen consists of one irregular fragment of light trevizo soft tissue that measures 0.3 x 0.3 x 0.1 cm. The specimen is totally submitted in one cassette. C - Received in fixative is one container labeled with the patient's name and designated gastric body biopsy. The specimen consists of one irregular fragment of light trevizo soft tissue that measures 0.8 x 0.3 x 0.1 cm. The specimen is totally submitted in one cassette. D - Received in fixative is one container labeled with the patient's name and designated distal esophagus. The specimen consists of multiple irregular fragments of light trevizo soft tissue that in aggregate measure 1.5 x 0.5 x 0.1 cm. The specimen is totally submitted in one cassette. E - Received in fixative is one container labeled with the patient's name and designated middle third esophageal nodule biopsy. The specimen consists of two irregular fragments of light trevizo soft tissue that in aggregate measure 0.3 x 0.2 x 0.1 cm. The specimen is totally submitted in one cassette. / SJ:rg 03/26/2022 TC: CPT: 06775 x5, [id number]
--- NOTE | 2022-03-25 15:16 | OP.EGD_ITS ---
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 Complications: No immediate complications. Estimated blood loss: Minimal. Procedure: Pre-Anesthesia Assessment: - The heart rate, respiratory rate, oxygen saturations, blood pressure, adequacy of pulmonary ventilation, and response to care were monitored throughout the procedure. After obtaining informed consent, the endoscope was passed under direct vision. Throughout the procedure, the patient's blood pressure, pulse, and oxygen saturations were monitored continuously. The gastroscope was introduced through the mouth, and advanced to the second part of duodenum. The upper GI endoscopy was somewhat difficult due to pt coughing and heaving. [Solution]. Scope In: 2:05:30 PM Scope Out: 2:39:43 PM Total Procedure Duration Time 0 hours 34 minutes 13 seconds Findings: A single 7 mm pedunculated and sessile polyp with no bleeding was found in the first portion of the duodenum. Biopsies were taken with a cold forceps for histology. Estimated blood loss was minimal. Localized nodular mucosa was found at the pylorus. Biopsies were taken with a cold forceps for histology. A few 5 mm sessile polyps with no bleeding and no stigmata of recent bleeding were found on the greater curvature of the gastric body. Biopsies were taken with a cold forceps for histology. A medium-sized hiatal hernia was present. No biopsies or other specimens were collected for this exam. The Z-line was regular and was found 39 cm from the incisors. Biopsies were taken with a cold forceps for histology. Estimated blood loss was minimal. There were esophageal mucosal changes classified as Ivy's stage C0-M2 per [place] criteria present in the lower third of the esophagus. The maximum longitudinal extent of these mucosal changes was 1 cm in length. Mucosa was biopsied with a cold forceps for histology in 4 quadrants at intervals of 2 cm at 38 cm from the incisors. A total of 8 specimen bottles were sent to pathology. Estimated blood loss was minimal. A few 5 mm mucosal nodules with a localized distribution were found in the middle third of the esophagus. Biopsies were taken with a cold forceps for histology. Estimated blood loss was minimal. Impression: - A single duodenal polyp. Biopsied. - Nodular mucosa in the pylorus. Biopsied. - A few gastric polyps. Biopsied. - Medium-sized hiatal hernia. No specimens collected. - Z-line regular, 39 cm from the incisors. Biopsied. - Esophageal mucosal changes classified as Ivy's stage C0-M2 per [place] criteria. Biopsied. - Mucosal nodule found in the esophagus. Biopsied. Recommendation: - Discharge patient to home (via wheelchair). - Resume previous diet today. - Continue present medications. - Await pathology results. - Repeat upper endoscopy after studies are complete for surveillance based on pathology results. - Telephone my office for pathology results in 1 week. Procedure Code(s): --- Professional --- 62670, Esophagogastroduodenoscopy, flexible, transoral; with biopsy, single or multiple Diagnosis Code(s): --- Professional --- K31.7, Polyp of stomach and duodenum K31.89, Other diseases of stomach and duodenum K44.9, Diaphragmatic hernia without obstruction or gangrene K22.70, Ivy's esophagus without dysplasia K22.8, Other specified diseases of esophagus CPT copyright 2017 [employer]. All rights reserved. The codes documented in this report are preliminary and upon medical biller/coder review may be revised to meet current compliance requirements. Johnathan Kilpatrick MD 03/25/2022 3:16:18 PM This report has been signed electronically. Number of Addenda: 0 Note Initiated On: 03/25/2022 1:48 PM
--- NOTE | 2022-03-25 15:16 | OP.CCLET_ITS ---
[facility] This procedure was performed on Friday, March 25, 2022. My impressions and recommendations are as follows: Impressions : - A single duodenal polyp. Biopsied. - Nodular mucosa in the pylorus. Biopsied. - A few gastric polyps. Biopsied. - Medium-sized hiatal hernia. No specimens collected. - Z-line regular, 39 cm from the incisors. Biopsied. - Esophageal mucosal changes classified as Ivy's stage C0-M2 per [place] criteria. Biopsied. - Mucosal nodule found in the esophagus. Biopsied. Recommendations : - Discharge patient to home (via wheelchair). - Resume previous diet today. - Continue present medications. - Await pathology results. - Repeat upper endoscopy after studies are complete for surveillance based on pathology results. - Telephone my office for pathology results in 1 week. My findings are described in the full procedure note, which is enclosed. If I can be of further assistance, please feel free to contact me at Doctor phone number(s): , Work: . Sincerely, Johnathan Kilpatrick MD 03/25/2022 3:16:18 PM This report has been signed electronically.
--- NOTE | 2022-03-25 15:22 | OP.FLEXSIG_ITS ---
Patient Name: Mikaela Vega Procedure Date: 03/25/2022 2:39 PM Date of : 1960 Age: 62 Procedure: Flexible Sigmoidoscopy Indications: Suspected bleeding internal hemorrhoids Providers: Johnathan Kilpatrick MD Medicines: See the Anesthesia note for documentation of the administered medications Patient Profile: Refer to note in patient chart for documentation of history and physical. Patient has symptoms of chronic episodes of bloody stool. Complications: No immediate complications. Estimated blood loss: None. Procedure: Pre-Anesthesia Assessment: - The heart rate, respiratory rate, oxygen saturations, blood pressure, adequacy of pulmonary ventilation, and response to care were monitored throughout the procedure. - The heart rate, respiratory rate, oxygen saturations, blood pressure, adequacy of pulmonary ventilation, and response to care were monitored throughout the procedure. After obtaining informed consent, the endoscope was passed under direct vision. Throughout the procedure, the patient's blood pressure, pulse, and oxygen saturations were monitored continuously. The gastroscope was introduced through the anus and advanced to the descending colon. The flexible sigmoidoscopy was accomplished without difficulty. The patient tolerated the procedure well. The quality of the bowel preparation was adequate. Scope In: 2:43:06 PM Scope Out: 2:57:53 PM Total Procedure Duration Time 0 hours 14 minutes 47 seconds Findings: Hemorrhoids were found on perianal exam. Skin tags were found on perianal exam. Internal hemorrhoids were found during retroflexion and during perianal exam. The hemorrhoids were Grade III (internal hemorrhoids that prolapse but require manual reduction). Two bands were successfully placed. There was no bleeding at the end of the procedure. Impression: - Hemorrhoids found on perianal exam. - Perianal skin tags found on perianal exam. - Internal hemorrhoids. Banded. - No specimens collected. Recommendation: - Use fiber, for example Citrucel, Fibercon, Konsyl or Metamucil. Procedure Code(s): --- Professional --- 85365, Sigmoidoscopy, flexible; with band ligation(s) (eg, hemorrhoids) Diagnosis Code(s): --- Professional --- K64.4, Residual hemorrhoidal skin tags K64.2, Third degree hemorrhoids CPT copyright 2017 [employer]. All rights reserved. The codes documented in this report are preliminary and upon remote medical coder review may be revised to meet current compliance requirements. Johnathan Kilpatrick MD 03/25/2022 3:22:31 PM This report has been signed electronically. Number of Addenda: 0 Note Initiated On: 03/25/2022 2:39 PM
--- NOTE | 2022-03-25 15:23 | OP.CCLET_ITS ---
03/25/2022 [facility] Re : Flexible [facility]oid[facility] This procedure was performed on Friday, March 25, 2022. My impressions and recommendations are as follows: Impressions : - Hemorrhoids found on perianal exam. - Perianal skin tags found on perianal exam. - Internal hemorrhoids. Banded. - No specimens collected. Recommendations : - Use fiber, for example Citrucel, Fibercon, Konsyl or Metamucil. My findings are described in the full procedure note, which is enclosed. If I can be of further assistance, please feel free to contact me at Doctor phone number(s): , Work: . Sincerely, Johnathan Kilpatrick MD 03/25/2022 3:22:31 PM This report has been signed electronically.
[2022-03-25] MEDS: Acetaminophen 325 MG Tablet 650 MG PO (15:24)
== END 2022-03-25 16:03 | disposition home or self-care (01) ==
LOC: EN 12:26 → AC 12:27
PROVIDERS: Visit Provider Surgery
PROC: 0DJ08ZZ Inspection of Upper Intestinal Tract, Via Natural or Artificial Opening Endoscopic (ICD-10-PCS; CPT 43235; principal; 2022-03-25 13:25)
DX: K22.711 Barrett's esophagus with high grade dysplasia (principal); J44.9 Chronic obstructive pulmonary disease, unspecified; K62.5 Hemorrhage of anus and rectum; K44.9 Diaphragmatic hernia without obstruction or gangrene; Z87.891 Personal history of nicotine dependence; K64.2 Third degree hemorrhoids; K31.7 Polyp of stomach and duodenum; K21.9 Gastro-esophageal reflux disease without esophagitis; E78.00 Pure hypercholesterolemia, unspecified; I10 Essential (primary) hypertension; K59.00 Constipation, unspecified; K64.4 Residual hemorrhoidal skin tags; K29.70 Gastritis, unspecified, without bleeding; D13.0 Benign neoplasm of esophagus; Z86.010 Personal history of colon polyps; Z79.899 Other long term (current) drug therapy
CPT/HCPCS: 43239; 45350; 88305; 88313; 88341; 88342; J7120; J2405

== ENCOUNTER → 2022-08-13 | Outpatient (CLI) | payer MEDICAID, SELFPAY ==
--- NOTE | 2022-08-13 15:34 | BI_ITS ---
MAMMOGRAPHY - BILATERAL SCREENING REASON FOR EXAM: Female, 62 years old. Routine annual screening examination. PERTINENT HISTORY: Non-contributory. TECHNIQUE: Digital bilateral breast rut (3D mammographic acquisition) in the CC and MLO projections. 2-D mediolateral oblique (MLO) and craniocaudad (CC) views of both breasts were obtained. CAD: Full Field Digital Mammography with Computer Added Detection was performed. COMPARISON: Comparison is made with prior study dated January 17, 2021 and March 15, 2019. FINDINGS: Breast Composition: There are scattered areas of fibroglandular density. There are no dominant masses or suspicious calcifications. No other significant abnormalities are identified. There has been no significant change since the prior study. BI/SCRN MAMM (CAD)W/RUT BILAT IMPRESSION: Stable bilateral screening mammogram. Yearly follow-up mammogram recommended. (A) ASSESSMENT CATEGORY: BIRADS Category 1: Negative. A letter regarding these results will be sent to the patient by the facility within 30 days. Approximately 10% of breast cancers are not detected by mammography. A normal mammogram should not delay biopsy of a clinically suspicious abnormality. [id number] Electronically Signed: Bridger Corrales MD at 9:54 EDT ,
== END | disposition home or self-care (01) ==
LOC: OPBI 15:32
PROVIDERS: Referring Provider Nurse Practitioner Women's Health; Visit Provider Nurse Practitioner Women's Health
DX: Z12.31 Encounter for screening mammogram for malignant neoplasm of breast (principal)
CPT/HCPCS: 77063; 77067

== ENCOUNTER → 2022-12-15 | Outpatient (CLI) | payer MEDICAID, SELFPAY ==
[2022-12-15 11:18] LABS: Absolute Lymphocyte Count 3.15 X10^3/uL (0.83-4.51); Absolute Neutrophil Count 4.5 X10^3/uL (2.0-7.7); Basophil# 0.12 X10^3/uL; Basophil% 1.4 % (0-1); Eosinophil# 0.31 X10^3/uL; Eosinophils% 3.6 % (0-5); Hemoglobin 12.9 g/dL (12.0-15.0); Lymphocyte # 3.15 X10^3/ul (0.83-4.51); Lymphocyte % 36.4 % (19-41); Mean Corp Hgb Conc 32.3 g/dL (32-36); Mean Corpuscular Volume 89.9 fL (81-99); Mean Platelet Vol. 11.2 fl (6.2-12.0); Monocyte# 0.55 X10^3/uL; Monocyte% 6.4 % (0-10); NRBC Flagged by Analyzer 0 % (0-5); Neutrophil # 4.49 X10^3/uL (2.7-7.7); Neutrophil % 51.9 % (47-70); Platelet Count 259 K/mm3 (150-450); RBC Distribution Width CV 13.3 % (11.6-14.6); Red Blood Count 4.45 M/mm3 (4.2-5.4); White Blood Count 8.7 K/mm3 (4.4-11.0)
[2022-12-15 11:51] LABS: BNP,B-Type NATRIURETIC PEPTIDE 6.6 pg/mL (0-100)
[2022-12-15 12:13] LABS: AST(SGOT) 13 U/L (15-37); Alanine Aminotransfer ALT/SGPT 26 U/L (13-56); Albumin, Serum 3.6 g/dL (3.2-5.0); Alkaline Phosphatase 60 U/L (45-117); Anion Gap 5 (5-15); BUN 19 mg/dL (7-18); BUN/Creat Ratio 19.8 RATIO (10-20); Calcium,Total 9.2 mg/dL (8.5-10.1); Chloride 105 mmol/L (98-107); Cholesterol 176 mg/dL (200); Creatinine, Serum 0.96 mg/dL (0.55-1.02); EST Glomerular Filtration Rate 62 mL/min (>60); Est Glom Filt Rate - Afr Amer 75 mL/min (>60); Globulin 3.6 g/dL (2.2-4.2); Glucose 130 mg/dL (74-106); High Density Lipoprotein 38 mg/dL; Potassium 3.7 mmol/L (3.5-5.1); Protein, Total 7.2 g/dL (6.4-8.2); Sodium Level 139 mmol/L (136-145); T4 Free Direct 1.04 ng/dL (0.76-1.46); Thyroid Stim Hormone (TSH) 2.44 uIU/mL (0.358-3.74); Triglycerides 193 mg/dL; Very Low Density Lipoprotein 39 mg/dL (5-40)
[2022-12-15 12:54] LABS: Microalbumin,Random Urine 16.5 mg/L (NO RANGE EST.)
== END | disposition home or self-care (01) ==
LOC: LAB 10:10
PROVIDERS: Nurse Practitioner Family
DX: I10 Essential (primary) hypertension (principal); E03.9 Hypothyroidism, unspecified; E78.2 Mixed hyperlipidemia
CPT/HCPCS: 36415; 80053; 80061; 82043; 83880; 84439; 84443; 85025

== ENCOUNTER → 2023-05-31 | Outpatient (CLI) | payer MEDICARE, MEDICAID, SELFPAY ==
--- NOTE | 2023-05-31 09:53 | VDLE_ITS ---
Reason For Study: Chronic Venous Insufficiency RIGHT LEFT GSV is normal. GSV is normal. CFV is compressible, spontaneous, phasic, CFV is compressible, spontaneous, phasic, competent and demonstrates normal competent, and demonstrates normal augmentation. augmentation. FV is compressible, spontaneous, phasic, FV is compressible, spontaneous, phasic, competent and demonstrates normal competent and demonstrates normal augmentation. augmentation. POP V is compressible, spontaneous, phasic, POP V is compressible, spontaneous, phasic, competent and demonstrates normal competent and demonstrates normal augmentation. augmentation. T/P Trunk is compressible. T/P Trunk is compressible. PTV is compressible. PTV is compressible. RT PerV is compressible. LT PerV is compressible. SFJ is competent and measures 0.62cm x 0.68 SFJ is competent and measures 0.81cm x 0.74 cm. cm. GSV is competent throughout. GSV proximal thigh measures 0.43cm x 0.42 cm. GSV proximal thigh measures 0.42cm x 0.40 cm. GSV at knee measures 0.27cm x 0.29 cm. GSV at knee measures 0.48cm x 0.44 cm. GSV is competent throughout. SSV proximal calf is INCOMPETENT for greater SSV proximal calf is competent and measures than 0.5 seconds and measures 0.26cm x 0.28 0.15cm x 0.16 cm. cm. Procedure This is a venous duplex using B-mode, color flow and spectral Doppler. Exam performed in department. A preliminary report was called and/or faxed to Nela Alatorre. VL/Venous Duplex US - James Extrem Interpretation Summary Deep veins of the bilateral lower extremities are patent and compressible segme ntally. There is no evidence of bilateral lower extremity deep vein thrombosis. The bilateral great saphenous veins appear patent and compressible segmentally. Positive for reflux in the right small saphenous vein Ordering Physician: Nela Alatorre Referring Physician: Nela Alatorre Performed By: Sarah Alexandre, GIANNA, RVT
== END | disposition home or self-care (01) ==
LOC: CVS 09:52
PROVIDERS: Referring Provider Nurse Practitioner Family; Visit Provider Nurse Practitioner Family
DX: I87.2 Venous insufficiency (chronic) (peripheral) (principal); M79.662 Pain in left lower leg
CPT/HCPCS: 93970

== ENCOUNTER → 2023-08-03 | Outpatient (CLI) | payer MEDICARE, MEDICAID, SELFPAY ==
[2023-08-03 17:20] LABS: Absolute Lymphocyte Count 2.87 X10^3/uL (0.83-4.51); Absolute Neutrophil Count 6.3 X10^3/uL (2.0-7.7); Basophil# 0.14 X10^3/uL; Basophil% 1.4 % (0-1); Eosinophil# 0.24 X10^3/uL; Eosinophils% 2.3 % (0-5); Hematocrit 40.7 % (37-47); Hemoglobin 13.1 g/dL (12.0-15.0); Lymphocyte # 2.87 X10^3/ul (0.83-4.51); Lymphocyte % 28.1 % (19-41); Mean Corp Hgb Conc 32.2 g/dL (32-36); Mean Corpuscular Hgb 28.5 pg (27.0-32.0); Mean Corpuscular Volume 88.7 fL (81-99); Mean Platelet Vol. 11.8 fl (6.2-12.0); Monocyte# 0.64 X10^3/uL; Monocyte% 6.3 % (0-10); NRBC Flagged by Analyzer 0 % (0-5); Neutrophil # 6.28 X10^3/uL (2.7-7.7); Neutrophil % 61.3 % (47-70); Platelet Count 261 K/mm3 (150-450); RBC Distribution Width CV 12.9 % (11.6-14.6); RBC Distribution Width SD 41.8 fl (35.1-43.9); Red Blood Count 4.59 M/mm3 (4.2-5.4); White Blood Count 10.2 K/mm3 (4.4-11.0)
[2023-08-03 17:32] LABS: Vitamin B12 520 pg/mL (211-911)
[2023-08-03 17:35] LABS: Hemoglobin A1c 6.3 % (3.8-5.6)
[2023-08-03 17:38] LABS: ALB/GLOB Ratio 1.1 RATIO (0.9-2.4); AST(SGOT) 16 U/L (15-37); Alanine Aminotransfer ALT/SGPT 25 U/L (13-56); Albumin, Serum 3.8 g/dL (3.2-5.0); Alkaline Phosphatase 54 U/L (45-117); Anion Gap 8 (5-15); BUN 21 mg/dL (7-18); BUN/Creat Ratio 20.2 RATIO (10-20); Calcium,Total 9.4 mg/dL (8.5-10.1); Chloride 107 mmol/L (98-107); Creatinine, Serum 1.04 mg/dL (0.55-1.02); EST Glomerular Filtration Rate 57 mL/min (>60); Est Glom Filt Rate - Afr Amer 68 mL/min (>60); Globulin 3.5 g/dL (2.2-4.2); Glucose 134 mg/dL (74-106); Potassium 3.8 mmol/L (3.5-5.1); Protein, Total 7.3 g/dL (6.4-8.2); Sodium Level 139 mmol/L (136-145); Thyroid Stim Hormone (TSH) 1.57 uIU/mL (0.358-3.74)
== END | disposition home or self-care (01) ==
LOC: VSLAB 14:31
PROVIDERS: PCP Nurse Practitioner Family; Visit Provider Nurse Practitioner Family
DX: I10 Essential (primary) hypertension (principal); E03.9 Hypothyroidism, unspecified; R73.03 Prediabetes; K22.70 Barrett's esophagus without dysplasia
CPT/HCPCS: 36415; 80053; 82607; 83036; 84439; 84443; 85025

== ENCOUNTER → 2023-09-28 | Outpatient (CLI) | payer MEDICARE, MEDICAID, SELFPAY | END | disposition home or self-care (01) | LOC: SL 20:19 | PROVIDERS: PCP Nurse Practitioner Family; Referring Provider Nurse Practitioner Family; Visit Provider Nurse Practitioner Family | DX: G47.10 Hypersomnia, unspecified (principal) | CPT/HCPCS: 95810 ==

== ENCOUNTER → 2023-10-04 | Outpatient (CLI) | payer MEDICARE, MEDICAID, SELFPAY ==
--- NOTE | 2023-10-04 13:59 | BI_ITS ---
MAMMOGRAPHY - BILATERAL SCREENING REASON FOR EXAM: Female, 63 years old. Routine annual screening examination. PERTINENT HISTORY: Non-contributory. TECHNIQUE: Digital bilateral breast rut (3D mammographic acquisition) in the CC and MLO projections. 2-D mediolateral oblique (MLO) and craniocaudad (CC) views of both breasts were obtained. CAD: Full Field Digital Mammography with Computer Added Detection was performed. COMPARISON: Comparison is made with prior study August 13, 2022 and January 17, 2021. FINDINGS: Breast Composition: The breasts are almost entirely fatty. There are no dominant masses or suspicious calcifications. No other significant abnormalities are identified. There has been no significant change since the prior study. BI/SCRN MAMM (CAD)W/RUT BILAT IMPRESSION: Stable bilateral screening mammogram. Yearly follow-up mammogram recommended. (A) ASSESSMENT CATEGORY: BIRADS Category 1: Negative. A letter regarding these results will be sent to the patient by the facility within 30 days. Approximately 10% of breast cancers are not detected by mammography. A normal mammogram should not delay biopsy of a clinically suspicious abnormality. [id number] Electronically Signed: Bridger Corrales MD at 14:29 EDT ,
--- NOTE | 2023-10-04 14:38 | CT_ITS ---
EXAM: CT CHEST, LUNG CANCER SCREENING WITHOUT INTRAVENOUS CONTRAST CLINICAL INDICATION: SCREENING TECHNIQUE: Helically acquired images were obtained of the chest without intravenous contrast using low dose (LDCT) lung cancer screening protocol. This CT exam was performed using one or more of the following dose reduction techniques: automated exposure control, adjustment of the mA and/or kV according to patient size, and/or use of iterative reconstruction technique. COMPARISON: No relevant prior studies available. FINDINGS: LUNGS AND PLEURAL SPACES: Several calcified nodules are identified within the right lung. Noncalcified 4 mm nodule noted within the right lung apex. 5 mm pleural-based nodule along the left lateral costophrenic sulcus. No pneumothorax. HEART: Normal. No pericardial effusion. Normal heart size. Prominent coronary artery calcification. MEDIASTINUM: Several small calcified mediastinal lymph nodes. Esophagus is unremarkable. No hiatal hernia. THYROID: Normal. No thyroid nodules or calcification. BONES/JOINTS: Moderate dextroscoliosis of the thoracic spine noted with Fang angle of 29 degrees. VASCULATURE: No aortic aneurysm. LYMPH NODES: See above. CT/Low Dose CT Lung Screening IMPRESSION: Small calcified and noncalcified pulmonary nodules as described. Lung-RADS score: 2 - Benign Appearance or Behavior. Recommend continued annual screening with a low-dose CT (LDCT) in 12 months. Electronically Signed: Suraj Barragan MD at 9:41 EDT ,
== END | disposition home or self-care (01) ==
PROVIDERS: PCP Nurse Practitioner Family; Referring Provider Nurse Practitioner Family; Visit Provider Nurse Practitioner Family
DX: Z12.31 Encounter for screening mammogram for malignant neoplasm of breast (principal); F17.210 Nicotine dependence, cigarettes, uncomplicated
CPT/HCPCS: 71271; 77063; 77067

== ENCOUNTER → 2023-11-04 | Outpatient (CLI) | payer MEDICARE, MEDICAID, SELFPAY ==
--- NOTE | 2023-11-04 10:58 | BD_ITS ---
STUDY: DUAL ENERGY X-RAY ABSORPTIOMETRY / DXA REASON FOR EXAM: Female, 63 years old. Z780 TECHNIQUE: Bone Mineral Density (BMD) measurements of lumbar spine and bilateral hips were obtained. COMPARISON: None. FINDINGS: Lumbar Spine (L1-L4): g/cm2 (0.926) / T-score (-0.8) / Z-score (0.9) Findings are suggestive of normal bone density with a low fracture risk. Left Femur Total: g/cm2 (0845) / T-score (-0.8) / Z-score (0.5) Left Femoral Neck: g/cm2 (0.723) / T-score (-1.1) / Z-score (0.4) Right Femur Total: g/cm2 (0.870) / T-score (-0.6) / Z-score (0.7) Right Femoral Neck: g/cm2 (0.683) / T-score (-1.5) / Z-score (0.0) BD/Dexa Bone Density Study IMPRESSION: The patient is considered osteopenic as outlined below according to World Jm Organization (WHO) criteria with a low fracture risk. Reference Information: The T-score is the number of standard deviations above or below the standard which is normal for young adults at their peak bone mineral density. The World Health Organization (WHO) interprets the T-scores as follows: Above -1 Normal bone density Between -1 and -2.5 Osteopenia Equal to / or below -2.5 Osteoporosis As a practical clinical guideline, osteopenia may be graded as follows: Mild -1 through -1.5 Moderate -1.6 through -2.0 Severe -2.1 through -2.4 The Z-score is the number of standard deviations above or below age-matched controls. A Z-score of less than -1.5 would be considered abnormal. References: 1. NIH Osteoporosis and Related Bone Diseases www osteo.org 2. International Society for Clinical Densitometry www iscd.org 3. National Osteoporosis Foundation www nof.org Electronically Signed: Bridger Corrales MD at 12:42 EDT ,
== END | disposition home or self-care (01) ==
LOC: OPBD 10:51
PROVIDERS: PCP Nurse Practitioner Family; Referring Provider Nurse Practitioner Family; Visit Provider Nurse Practitioner Family
DX: Z13.820 Encounter for screening for osteoporosis (principal); Z78.0 Asymptomatic menopausal state
CPT/HCPCS: 77080

== ENCOUNTER → 2024-03-29 | Outpatient (CLI) | payer MEDICARE, MEDICAID, SELFPAY ==
--- NOTE | 2024-03-29 13:12 | NEURO ---
NCS and/or EMG Patient Report Ordering Doctor: Nela Alatorre [facility] DATE OF SERVICE: 03/29/24 Mikaela presents for electrodiagnostic testing of the lower limbs. She reports numbness and tingling in both feet. Electrodiagnostic findings: Peroneal motor nerve demonstrates normal distal latency amplitude and conduction velocity bilaterally. Normal tibial motor response bilaterally. Normal tibial and peroneal F?waves. H reflex borderline prolonged bilaterally. Sensory responses within normal limits. Needle EMG testing was performed in the lower limbs. All muscles tested showed no evidence of denervation with normal motor unit action potentials. Electrodiagnostic impression: This is a normal electrodiagnostic study of the lower limbs. There is no electrodiagnostic evidence for peripheral neuropathy or lumbosacral radiculopathy. If symptoms persist, may consider nerve biopsy to evaluate for small fiber neuropathy, which would not be picked up on nerve conduction testing. Multi Select Codes Neurology Neurology Interp Codes: 70142-46 Musc test done w/n test comp (interp) (2) and 10749-55 Nrv cndj test 9-10 studies (interp)
== END | disposition home or self-care (01) ==
PROVIDERS: PCP Nurse Practitioner Family; Referring Provider Nurse Practitioner Family; Visit Provider Nurse Practitioner Family
DX: G62.9 Polyneuropathy, unspecified (principal); M79.606 Pain in leg, unspecified; R20.2 Paresthesia of skin
CPT/HCPCS: 95886; 95911

== ENCOUNTER → 2024-05-05 | Outpatient (CLI) | payer MEDICARE, MEDICAID, SELFPAY ==
--- NOTE | 2024-05-05 09:04 | AAAS_ITS ---
Reason For Study Reason For Study: Atherosclerosis of aorta Aorta Measurements Aorta Doppler Measurements Proximal aorta measures2.47 x 2.42cm. in cross-sectional Peak systolic flow velocities within the proximal aorta axis. measure 81.4 cm/sec. Proximal aorta measures2.46cm. in longitudinal axis. Peak systolic flow velocities within the mid aorta measure Mid aorta measures1.84 x 1.82cm. in cross-sectional axis. 54.2 cm/sec. Mid aorta measures1.81cm. in longitudinal axis. Peak systolic flow velocities within the distal aorta Distal aorta measures1.26 x 1.31cm. in cross-sectional axis.measure 90.4 cm/sec. Distal aorta measures1.31cm. in longitudinal axis. Left Iliac Artery Left iliac artery measures 0.68 x 0.72 cm. in the cross-sectional axis. Left iliac artery measures 0.69 cm. in the longitudinal axis. Peak systolic velocity in the left iliac artery measures 124.9 cm/sec. Right Iliac Artery Right iliac artery measures 0.91 x 0.83 cm. in the cross-sectional axis. Right iliac artery measures 0.88 cm. in the longitudinal axis. Peak systolic velocity in the right iliac artery measures 135.9 cm/sec. Procedure Aorta IVC Iliac vasculature or bypass grafts 19426. Exam performed in department. VL/AAA Screening Interpretation Summary The dimensions of the intra-abdominal aorta are normal, without evidence of ane urysmal dilatation. The iliac arteries are also normal in caliber bilaterally. The intra-abdominal aorta and iliac art eries appear patent, demonstrating normal, pulsatile arterial flow and normal peak systolic velocities. Ordering Physician: Nela Alatorre Referring Physician: Nela Alatorre Performed By: Sanjana Nunn RVT
== END | disposition home or self-care (01) ==
PROVIDERS: PCP Nurse Practitioner Family; Referring Provider Nurse Practitioner Family; Visit Provider Nurse Practitioner Family
DX: I70.0 Atherosclerosis of aorta (principal)
CPT/HCPCS: 76706

== ENCOUNTER → 2024-06-20 | Outpatient (CLI) | payer MEDICARE, MEDICAID, SELFPAY ==
[2024-06-20 13:02] LABS: Absolute Lymphocyte Count 2.92 X10^3/uL (0.83-4.51); Absolute Neutrophil Count 4.6 X10^3/uL (2.0-7.7); Basophil# 0.16 X10^3/uL; Basophil% 1.8 % (0-1); Eosinophil# 0.34 X10^3/uL; Eosinophils% 3.9 % (0-5); Hematocrit 37.1 % (37-47); Hemoglobin 12.4 g/dL (12.0-15.0); Lymphocyte # 2.92 X10^3/ul (0.83-4.51); Lymphocyte % 33.8 % (19-41); Mean Corp Hgb Conc 33.4 g/dL (32-36); Mean Corpuscular Hgb 30.1 pg (27.0-32.0); Mean Platelet Vol. 11.3 fl (6.2-12.0); Monocyte# 0.59 X10^3/uL; Monocyte% 6.8 % (0-10); NRBC Flagged by Analyzer 0 % (0-5); Neutrophil # 4.59 X10^3/uL (2.7-7.7); Neutrophil % 53.1 % (47-70); Platelet Count 244 K/mm3 (150-450); RBC Distribution Width CV 12.9 % (11.6-14.6); RBC Distribution Width SD 42.4 fl (35.1-43.9); Red Blood Count 4.12 M/mm3 (4.2-5.4); White Blood Count 8.7 K/mm3 (4.4-11.0)
[2024-06-20 15:27] LABS: ALB/GLOB Ratio 1.5 RATIO (0.9-2.4); AST(SGOT) 20 U/L (<=31); Alanine Aminotransfer ALT/SGPT 24 U/L (<=34); Albumin, Serum 4.3 g/dL (3.4-4.8); Alkaline Phosphatase 57 U/L (35-104); Anion Gap 12 (5-15); BUN 33 mg/dL (4-19); BUN/Creat Ratio 24.2 RATIO (10-20); Carbon Dioxide 22.4 mmol/L (21.0-32.0); Chloride 104 mmol/L (98-108); Cholesterol 190 mg/dL (<=200); Creatinine, Serum 1.37 mg/dL (0.70-1.20); EST Glomerular Filtration Rate 43 (>60); Globulin 2.9 g/dL (2.2-4.2); Glucose 104 mg/dL (70-99); High Density Lipoprotein 35 mg/dL; Low Density Lipoprotein Calc. 95 mg/dL; Potassium 4.4 mmol/L (3.3-5.1); Protein, Total 7.2 g/dL (5.9-8.4); Sodium Level 139 mmol/L (133-145); Total Bilirubin 0.41 mg/dL (0.00-1.30); Triglycerides 303 mg/dL; Very Low Density Lipoprotein 61 mg/dL (5-40); Vitamin D,25 Hydroxy 35.4 ng/mL (30-100); cholesterol:hdl ratio screen 5.46
== END | disposition home or self-care (01) ==
LOC: VSLAB 11:38
PROVIDERS: PCP Nurse Practitioner Family; Visit Provider Nurse Practitioner Family
DX: I10 Essential (primary) hypertension (principal); E03.9 Hypothyroidism, unspecified; E78.2 Mixed hyperlipidemia; M85.80 Other specified disorders of bone density and structure, unspecified site
CPT/HCPCS: 36415; 80053; 80061; 82306; 84439; 84443; 85025

== ENCOUNTER → 2024-08-15 | Outpatient (CLI) | payer MEDICARE, MEDICAID, SELFPAY ==
--- NOTE | 2024-08-15 14:50 | MRI_ITS ---
PROCEDURE: SPINE LUMBAR (ROUTINE) 08/15/2024 REASON FOR EXAM: PAIN TECHNIQUE: SPINE LUMBAR (ROUTINE) COMPARISON: 07-31-2024 CR FINDINGS: 1st degree anterolithesis of L4 over L5 with bilateral L4-L5 facet arthropathy. No obvious vertebral fractures or structural collapse. Multilevel marginal lipping and subchondral degenerative marrow signal/Modio II of the thoraco-lumbar vertebral end plates. Multilevel reduced height and bright T2 signal of the intervertebral discs denoting their desiccation are noted. Multilevel ligamenta flava hypertrophy with multilevel degenerative facet arthropathy opposite L2-L3 down to L5-S1 adding to the central canal and neural foraminal stenosis. Level by level analysis: T12-L1: There is no focal disc pathology, central canal stenosis or neural foraminal stenosis. L1-L2: There is no focal disc pathology, central canal stenosis or neural foraminal stenosis. L2-L3: a 1 mm diffuse disc bulge indenting thecal sac and encroaching upon the related neural foramina inducing mild exiting nerve root compression. L3-L4: a 1.8 mm diffuse disc bulge indenting thecal sac and encroaching upon the related neural foramina inducing moderate exiting nerve root compression. L4-L5: a 2 mm diffuse disc bulge indenting thecal sac and encroaching upon the related neural foramina inducing moderate exiting nerve root compression. L5-S1: a 2 mm diffuse disc bulge indenting thecal sac and encroaching upon the related neural foramina inducing moderate exiting nerve root compression. The lower thoracic spinal cord, conus medullaris, and cauda equina nerve roots are unremarkable. No marrow infiltrative lesions. Paravertebral soft tissue is unremarkable. No developmental canal stenosis. Orthostatic edema of the back. MRI/Spine Lumbar (Routine) IMPRESSION: L4 1st degree anterolithesis. Lumbar spondylosis with multilevel discs pathologies, facet arthropathy and hyp ertrophied ligamenta flava inducing variable degrees of spinal canal and neural exit pathways stenosis Reading [facility] [address]
== END | disposition home or self-care (01) ==
LOC: OPMRI 14:40
PROVIDERS: PCP Nurse Practitioner Family; Referring Provider Student in an Organized Health Care Education/Training Program; Visit Provider Student in an Organized Health Care Education/Training Program
DX: M48.062 Spinal stenosis, lumbar region with neurogenic claudication (principal); M43.16 Spondylolisthesis, lumbar region
CPT/HCPCS: 72148

== ENCOUNTER → 2024-09-20 | Outpatient (CLI) | payer MEDICARE, MEDICAID, SELFPAY ==
[2024-09-20 13:02] LABS: Anion Gap 12 (5-15); BUN 36 mg/dL (4-19); BUN/Creat Ratio 24.1 RATIO (10-20); Calcium,Total 9.8 mg/dL (7.6-11.0); Carbon Dioxide 23.0 mmol/L (21.0-32.0); Chloride 103 mmol/L (98-108); Glucose 126 mg/dL (70-99); Potassium 3.7 mmol/L (3.3-5.1)
[2024-09-20 13:55] LABS: Cholesterol 183 mg/dL (<=200); Low Density Lipoprotein Calc. 73 mg/dL; Triglycerides 378 mg/dL; Very Low Density Lipoprotein 76 mg/dL (5-40); cholesterol:hdl ratio screen 5.35
== END | disposition home or self-care (01) ==
LOC: VSLAB 11:41
PROVIDERS: PCP Nurse Practitioner Family; Visit Provider Nurse Practitioner Family
DX: I10 Essential (primary) hypertension (principal); R73.03 Prediabetes; E78.2 Mixed hyperlipidemia
CPT/HCPCS: 36415; 80048; 80061; 83036

== ENCOUNTER → 2024-09-28 | Outpatient (CLI) | payer MEDICARE, MEDICAID, SELFPAY ==
[2024-09-28 13:22] LABS: Creatinine, Urine (random) 35.50 mg/dL (28.00-217.00); Protein, Urine (Random) < 6.0 mg/dL (0.0-12.0); Protein:Creat Ratio UNABLE TO CALCULATE mg/g CRE (0-200)
[2024-09-28 13:33] LABS: Anion Gap 13 (5-15); BUN 24 mg/dL (4-19); BUN/Creat Ratio 23.6 RATIO (10-20); Calcium,Total 8.9 mg/dL (7.6-11.0); Carbon Dioxide 21.9 mmol/L (21.0-32.0); Chloride 107 mmol/L (98-108); Glucose 95 mg/dL (70-99); Potassium 3.7 mmol/L (3.3-5.1)
[2024-09-28 13:38] LABS: Osmolality, Urine 275 mOsm/KG
== END | disposition home or self-care (01) ==
LOC: VSLAB 08:45
PROVIDERS: PCP Nurse Practitioner Family; Visit Provider Nurse Practitioner Family
DX: N17.9 Acute kidney failure, unspecified (principal)
CPT/HCPCS: 36415; 80048; 82570; 83935; 84156; 84300

== ENCOUNTER → 2024-10-20 | Outpatient (CLI) | payer MEDICARE, MEDICAID, SELFPAY ==
--- NOTE | 2024-10-20 12:29 | BI_ITS ---
EXAM: SCRN MAMM (CAD)W/RUT BILAT DATE: 10/20/2024 CLINICAL HISTORY: F, Age 64 y/o , SCREEN TECHNIQUE: Procedure Code: [id number] Modality: MG Procedure: SCRN MAMM (CAD)W/RUT BILAT COMPARISON: Prior exam(s) dated 10/04/2023, 08/13/2022, 01/17/2021. FINDINGS: TISSUE DENSITY: The breasts are almost entirely fatty. Bilateral Breast Mammographic Findings: No significant masses, calcifications or other abnormalities are identified. BI/SCRN MAMM (CAD)W/RUT BILAT IMPRESSION: There is no mammographic evidence of malignancy. OVERALL FINAL ASSESSMENT BI-RADS 1: NEGATIVE. RECOMMENDATION: Routine annual follow-up in 1 Year A letter with findings and recommendations will be mailed to the patient. Reading Location: [id number]
--- OUTSIDE RECORDS SUMMARY | 2024-10-20 17:33 | XMS RPT_ITS | CCD ---
Author Organization [facility] Care Team Providers Care Wastewater Engineer Name Role Phone [facility] Primary Care Pro vider [facility] Referring Provid er Dr. Av Kilpatrick Attending Provider Dr. Av Kilpatrick Other Provider Jason, RECORDS MANAGEMENT TECHNICIAN-C Heidy Other Provider Jason RECORDS MANAGEMENT TECHNICIAN-C Heidy Primary Care Provider MICAH Gomez-C Heidy Referring Provider Jim OBRIEN, RECORDS MANAGEMENT TECHNICIAN-C Tete Attending Provider [facility] Primary Care Pro vider [facility] Referring Provid er Dr. Av Kilpatrick Attending Provider Dr. Av Kilpatrick Other Provider Dr. Dmitriy Millard Attending Provider [phone] [facility] Primary Care Pro vider Dr. Freedom Hawkins Attending Provider Karthikeyan RECORDS MANAGEMENT TECHNICIAN, Nela Unavailable [facility] P rimary Care Provider [facility], [facility] P rimary Care Unavailable CATRINA BECKMAN Referring Unavailable [facility], [facility] P rimary Care Unavailable CATRINA BECKMAN Referring Unavailable CATRINA BECKMAN Referring Unavailable [facility], [facility] P rimary Care Unavailable UGO, MEREDYTHE A Referring Unavailable [facility], [facility] P rimary Care Unavailable CATRINA BECKMAN Attending Unavailable UGO, MEREDYTHE A Attending Unavailable KARTHIKEYAN, NELA Referring Unavailable [facility], [facility] P rimary Care Unavailable KARTHIKEYAN, NELA Referring Unavailable [facility], [facility] P rimary Care Unavailable [facility], [facility] P rimary Care Unavailable UGO, MEREDYTHE A Referring Unavailable [facility], [facility] P rimary Care [facility]available [facility], [facility] P rimary Care Unavailable [facility], [facility] P rimary Care Unavailable [facility], [facility] P rimary Care Unavailable UGO, COLBYNESSATHE A Attending Unavailable Karthikeyan RECORDS MANAGEMENT TECHNICIAN-C, Nela Primary Care Provider [phone] Karthikeyan RECORDS MANAGEMENT TECHNICIAN-C, Nela Attending Provider Karthikeyan RECORDS MANAGEMENT TECHNICIAN-C, Nela Referring Provider Karthikeyan RECORDS MANAGEMENT TECHNICIAN-C, Nela Other Provider Adan GEE, Dr. Fuentes Attending Provider [phone] Viki GEE, Dr. Jeferson Pineda Attending Provider Karthikeyan RECORDS MANAGEMENT TECHNICIAN-C, Nela Primary Care Provider [phone] Karthikeyan RECORDS MANAGEMENT TECHNICIAN-C, Nela Attending Provider Karthikeyan RECORDS MANAGEMENT TECHNICIAN-C, Nela Referring Provider Stephenie Craig Attending Provider Dr. Juvencio Harris MD Attending Provider [phone] Stephenie Craig Referring Provider Karthikeyan RECORDS MANAGEMENT TECHNICIAN-C, Nela Primary Care Provider Karthikeyan RECORDS MANAGEMENT TECHNICIAN-C, Nela Attending Provider Karthikeyan RECORDS MANAGEMENT TECHNICIAN-C, Nela Referring Provider Karthikeyan VSC, Nela Attending Unavailabl e Karthikeyan VSC, Nela Primary Care Unavailabl e Karthikeyan VSC, Nela Referring Unavailabl e Karthikeyan VSC, Nela Attending Unavailabl e Karthikeyan VSC, Nela Primary Care Unavailabl e Karthikeyan VSC, Nela Referring Unavailabl e Nestor, Stephenie Attending Unavailable Karthikeyan VSC, Nela Primary Care Unavailabl e Nestor, Stephenie Referring Unavailable Karthikeyan VSC, Nela Attending Unavailabl e Karthikeyan VSC, Nela Primary Care Unavailabl e Karthikeyan VSC, Nela Referring Unavailabl e Karthikeyan VSC, Nela Attending Unavailabl e Karthikeyan VSC, Nela Primary Care Unavailabl e Karthikeyan VSC, Nela Consulting Unavailabl e Karthikeyan VSC, Nela Primary Care Unavailabl e Karthikeyan VSC, Nela Referring Unavailabl e Ahmad, Arsal Attending Unavailable Karthikeyan VSC, Nela Referring Unavailabl e Nestor, Stephenie Attending Unavailable Karthikeyan VSC, Nela Primary Care Unavailabl e Karthikeyan VSC, Nela Referring Unavailabl e Karthikeyan VSC, Nela Primary Care Unavailabl e Nestor, Stephenie Attending Unavailable Karthikeyan VSC, Nela Primary Care Unavailabl e Steven, Juvencio Attending Unavailable Karthikeyan VSC, Nela Attending Unavailabl e Karthikeyan VSC, Nela Primary Care Unavailabl e Karthikeyan VSC, Nela Primary Care Unavailabl e Karthikeyan VSC, Nela Referring Unavailabl e Karthikeyan VSC, Nela Attending Unavailabl e Karthikeyan VSC, Nela Attending Unavailabl e Karthikeyan VSC, Nela Primary Care Unavailabl e Karthikeyan VSC, Nela Referring Unavailabl e Karthikeyan VSC, Nela Attending Unavailabl e Karthikeyan VSC, Nela Primary Care Unavailabl e Karthikeyan VSC, Nela Referring Unavailabl e Karthikeyan VSC, Nela Attending Unavailabl e Karthikeyan VSC, Nela Primary Care Unavailabl e Nestor, Stephenie Attending Unavailable Karthikeyan VSC, [facility] Primary Care Unavailabl e Nestor, Stephenie Referring Unavailable Allergies Allergy Classification Reported Allergen(s) Allergy Type Date of Onset Reaction(s) Facility Corticosteroids (2 sources) predniSONE Drug Allergy 12-27-2020 [facility] (20 sources) predniSONE; Translations: [PREDNISONE] Drug Allergy 12-27-2020 [facility] (1 source) predniSONE Drug Allergy 09-18-2024 [facility] Repository Medications Current Medications Medication Drug Class(es) Dates Sig (Normalized) Sig (Original) atenolol 50 mg oral tablet (20 sources) beta-Adrenergic Christo Start: 02-09-2013 End: 09-01-2017 take 1 tablet by mouth once daily Atenolol 50 MG tablet Active 50 mg PO DAILY February 09, 2013 1:00am atorvastatin 10 mg oral tablet (20 sources) HMG-CoA Reductase Inhibitor Start: 07-18-2021 take 2 tablets by mouth at bedtime Atorvastatin 10 mg tablet Active 20 mg PO AT BEDTIME July 18, 2021 10:21am Start: 07-18-2021 take 20 mg by mouth at bedtime Atorvastatin Active 20 MG PO AT BEDTIME July 18, 2021 10:21am Start: 09-01-2017 End: 07-18-2021 take 1 tablet by mouth at bedtime Atorvastatin 10 mg t ablet Discontinued 10 mg PO AT BEDTIME September 01, 2017 12:00am July 18, 2021 10:21am Start: 11-13-2016 take 1 tablet by leland th once daily at bedtime for hyperlipidemia atorvastatin (LIPITOR) 20 mg tablet Take 1 tablet by mouth daily at bedtime. For cholesterol. 30 tablet 11/13/2016 Active cetirizine hydrochloride 10 mg oral tablet (20 sources) Histamine-1 Receptor Antagonist Start: 07-16-2020 take 2 tablets by mouth once daily Cetirizine (Zyrtec) 10 mg tablet Active 20 mg PO DAILY July 16, 2020 12:00am Start: 06-20-2013 End: 07-16-2020 take 1 tablet by mouth once daily Cetirizine 10 mg tablet Discontinued 10 mg PO daily September 01, 2017 12:00am July 16, 2020 2:39pm enteric contrast (will be provided with radiology test) (1 source) Start: 07-01-2023 End: 07-02-2023 enteric contrast (will be provided with radiology test) Indications: Lower abdominal pain , Bloating For CT ABD/PEL W IVCON Routine order Administer, As Directed One Time Only, via Oral, Rectal, both Oral and Rectal, Enteric Tube, Stoma or Indwelling Catheter, Enteric Contrast as designated per enteric contrast guidelines 1 Each 0 07/01/2023 07/02/2023 Active homatropine methylbromide 1.5 mg / HYDROcodone bitartrate 5 mg oral tablet (1 source) Opioid Agonist, Cholinergic Muscarinic Agonist Start: 02-04-2022 Hydrocodone-Homatrop i ne (Hycodan (With Homatropine)) 5-1.5 mg tablet Active 1 TABLET PO EVERY 6 HOURS 10 February 04, 2022 Start: 02-04-2022 Hydrocodone-Ho matropine (Hycodan (With Homatropine)) 5-1.5 mg tablet Active 1 TABLET PO EVERY 6 HOURS 10 February 04, 2022 hydroCHLOROthiazide 50 mg / triamterene 75 mg oral tablet (20 sources) Potassium-sparing Diuretic, Thiazide Diuretic Start: 02-09-2013 End: 09-01-2017 Triamterene-Hydrochlorothiaz id (Maxzide) 1 TABLET tablet Active 1 {tbl} PO DAILY February 09, 2013 1:00am Start: 02-09-2013 End: 09-01-2017 take 1 tablet by mouth once daily Triamterene-Hydrochlorothiazid Discontin ued 1 TABLET PO DAILY February 09, 2013 1:00am September 01, 2017 1:26pm iv contrast (will be provided with radiology test) (1 source) Start: 07-01-2023 End: 07-02-2023 iv contrast (will be provided with radiology test) Indications: Lower abdominal pain , Bloating CT ABD/PEL -Inject, intravenously, once for 1 dose.No IV access, insert saline lock prior to the beginning of sedation, infusion, injection of imaging exam. Discontinue saline lock post exam. If Pt. has a central line or IVAD, may access for administration according to line specific nursing protocol. Once exam is complete flush line and de-access according to line specific nursing protocol in the CT contrast administration guidelines link. 1 Each 0 07/01/2023 07/02/2023 Active [id number]-W trep therm. (VISBIOME) 112.5 billion cell cap (3 sources) Start: 10-05-2023 End: 01-03-2024 take 2 capsules by mouth once daily [id number]-C trep therm. (VISBIOME) 112.5 billion cell cap Indications: Dyspepsia , Bloating Take 2 capsules by mouth once daily. 60 capsule 2 10/05/2023 01/03/2024 Active Lactobacillus acidophilus (4 sources) Lactobacillus acidophilus (PROBIOTIC ORAL) Take by mouth. Active lactulose 667 mg/ml oral solution (9 sources) Osmotic Laxative Start: 05-20-2023 take 30 mL by mouth every twelve hours lactulose 10 gram/15 mL solution take 30 milliliters by mouth every 12 hours until normal BOWEL MOVEMENT 05/20/2023 Active levoFLOXacin 500 mg oral tablet (1 source) Quinolone Antimicrobial Start: 02-04-2022 take 500 mg by mouth every twenty-four hours Levofloxacin Active 500 MG PO Q24H February 04, 2022 12:00am linaclotide 0.072 mg oral capsule (3 sources) Guanylate Cyclase-C Agonist Start: 10-05-2023 End: 01-03-2024 take 1 capsule by mouth once daily linaCLOtide (LINZESS) 72 mcg capsule Indications: Irritable bowel syndrome with constipation Take 1 capsule by mouth once daily. Administer on an empty stomach. Swallow whole; DO NOT crush or chew. 90 capsule 10/05/2023 01/03/2024 Active lisinopril 40 mg oral tablet (20 sources) Angiotensin Converting Enzyme Inhibitor Start: 07-16-2020 take 1 tablet by mouth once daily Lisinopril 40 mg tablet Active 40 mg PO DAILY July 16, 2020 12:00am Start: 02-09-2013 End: 07-16-2020 take 2 tablets by mouth once daily Lisinopril 20 MG tablet Discontinued 40 mg PO DAILY February 09, 2013 1:00am July 16, 2020 2:38pm Start: 02-09-2013 End: 07-01-2023 take 1 tablet by mouth twice daily Lisinopril 20 MG tablet Discontinued 20 mg PO TWICE A DAY 60 February 09, 2013 1:00am September 01, 2017 1:25pm Start: 02-09-2013 End: 07-16-2020 take 40 mg by mouth once daily Lisinopril Discontinued 40 MG PO DAILY February 09, 2013 1:00am July 16, 2020 2:38pm 24 hr metFORMIN hydrochloride 500 mg extended release oral tablet (6 sources) Biguanide Start: 07-31-2024 take 1 tablet by mouth once daily Metformin 500 mg tablet extended release 24 hr Active 500 mg PO daily July 31, 2024 12:00am multivitamin ORAL tablet (10 sources) Start: 03-27-2010 take 1 tablet by mouth once daily multivitamin ORAL tablet Take one(1) tablet daily. 0 03/27/2010 Active pantoprazole 40 mg delayed release oral tablet (20 sources) Proton Pump Inhibitor Start: 09-01-2017 take 1 tablet by mouth once daily Pantoprazole (Protonix) 40 mg tablet,delayed release (DR/EC) Active 40 mg PO daily September 01, 2017 12:00am Completed/Discontinued Medications Medication Drug Class(es) Dates Sig (Normalized) Sig (Original) [id number] 200 actuat albuterol 0.09 mg/actuat metered dose inhaler (20 sources) beta2-Adrenergic Agonist Start: 01-07-2023 End: 07-01-2023 albuterol HFA (PROVENTIL HFA, VENTOLIN HFA) 90 mcg/actuation inhaler Inhale 2 Puffs as instructed. 0 01/07/2023 07/01/2023 Discontinued Start: 07-16-2020 End: 07-31-2024 Albuterol Sulfate 90 mcg/act uation HFA aerosol inhaler Discontinued 2 NMA INHALATION Q4H as needed for Wheezing July 16, 2020 12:00am July 31, 2024 1:38pm Start: 07-16-2020 take 1 puff(s) by in halation every four hours Albuterol Sulfate Active 2 PUFF INHALATION Q4H July 16, 2020 12:00am Start: 01-18-2019 End: 07-16-2020 Albuterol Sulfate 90 MCG aer osol powdr breath activated Discontinued 90 ug IH NEEDED as needed for Allergies January 18, 2019 1:00am July 16, 2020 2:36pm Start: 01-18-2019 End: 07-16-2020 Albuterol Sulfate Discontinu ed 90 MCG IH NEEDED January 18, 2019 1:00am July 16, 2020 2:36pm amoxicillin 500 mg oral tablet (20 sources) Penicillin-class Antibacterial Start: 10-12-2023 End: 07-31-2024 take 1 tablet by mouth three times daily Amoxicillin 500 mg tablet Discontinued 500 mg PO THREE TIMES A DAY 30 0 October 12, 2023 12:00am July 31, 2024 1:37pm Start: 02-09-2013 End: 09-01-2017 take 2 tablets by mouth every eight hours Amoxicillin 500 MG tablet Discontinued 1000 mg PO Q8H February 09, 2013 1:00am September 01, 2017 1:23pm Start: 02-09-2013 End: 09-01-2017 take 1000 mg by mouth every eight hours Amoxicillin Discontinued 1000 MG PO Q8H February 09, 2013 1:00am September 01, 2017 1:23pm azithromycin 250 mg oral tablet (16 sources) Macrolide Antimicrobial Start: 08-24-2019 End: 08-28-2019 take 1 tablet by mouth once daily, then take 0.4375 tablet by mouth in the morning Azithromycin 250 MG tablet Discontinued 250 mg PO DAILY 4 4 0 August 24, 2019 12:00am August 27, 2019 12:00am August 28, 2019 12:03am 1st dose given 7/16 AM benzonatate 100 mg oral capsule (16 sources) Non-narcotic Antitussive Start: 02-09-2013 End: 09-01-2017 take 1 capsule by mouth every four hours as needed for cough Benzonatate 100 MG capsule Discontinued 100 mg PO EVERY 4 HOURS NEEDED as needed for Cough 20 0 February 09, 2013 9:01pm September 01, 2017 1:25pm Budesonide-Formoter ol (20 sources) Corticosteroid, beta2-Adrenergic Agonist Start: 03-26-2022 End: 07-31-2024 Budesonide-Formote rol (Symbicort) 160-4.5 mcg/actuation HFA aerosol inhaler Discontinued 2 NMA INHALATION TWICE A DAY 10.2 3 March 26, 2022 1:00am July 31, 2024 1:38pm Start: 03-26-2022 End: 07-31-2024 Budesonide-Formoterol (Symbi marilou) 160-4.5 mcg/actuation HFA aerosol inhaler Discontinued 2 NMA INHALATION TWICE A DAY 10.2 March 26, 2022 1:00am July 31, 2024 1:38pm Start: 03-26-2022 Budesonide-For moterol (Symbicort) 160-4.5 mcg/actuation HFA aerosol inhaler Active 2 NMA INHALATION TWICE A DAY 10.2 March 26, 2022 1:00am Start: 03-26-2022 take 1 puff(s) by in halation twice daily Budesonide-Formoterol (Symbicort) 160-4.5 mcg/actuation HFA aerosol inhaler Active 2 PUFF INHALATION TWICE A DAY 10.2 March 26, 2022 1:00am Start: 03-26-2022 take 1 puff(s) by in halation twice daily Budesonide-Formoterol (Symbicort) 160-4.5 mcg/actuation HFA aerosol inhaler Active 2 PUFF INHALATION TWICE A DAY 10.2 March 26, 2022 12:00am Start: 02-08-2022 budesonide-for moterol (SYMBICORT) 160-4.5 mcg/actuation inhaler Inhale 2 Puffs as instructed. 02/08/2022 Active Start: 02-08-2022 budesonide-for moterol (SYMBICORT) 160-4.5 mcg/actuation inhaler Inhale 2 Puffs as instructed. 0 02/08/2022 Active calcium carbonate 1250 mg / cholecalciferol 0.01 mg oral tablet (16 sources) Vitamin D Start: 07-16-2020 End: 07-31-2024 Calcium Carbonate-Vitamin D3 500 mg(1,250mg) -400 unit tablet Discontinued 1 {tbl} PO DAILY July 16, 2020 12:00am July 31, 2024 1:38pm gabapentin 600 mg oral tablet (20 sources) Anti-epilepti c Agent Start: 02-09-2013 End: 09-01-2017 take 1 capsule by mouth twice daily at mealtime Gabapentin 300 MG capsule Discontinued 300 mg PO TWICE DAILY WITH MEALS February 09, 2013 1:00am September 01, 2017 1:25pm Start: 02-09-2013 End: 09-01-2017 take 1 tablet by mouth at bedtime Gabapentin 600 MG tablet Discontinued 600 mg PO AT BEDTIME February 09, 2013 1:00am September 01, 2017 1:25pm montelukast 10 mg oral tablet (16 sources) Leukotriene Receptor Antagonist Start: 04-01-2021 End: 07-31-2024 take 1 tablet by mouth once daily Montelukast (Singulair) 10 mg tablet Discontinued 10 mg PO DAILY April 01, 2021 1:00am July 31, 2024 1:38pm sertraline 25 mg oral tablet (20 sources) Serotonin Reuptake Inhibitor Start: 07-16-2020 End: 07-31-2024 take 3 tablets by mouth at bedtime Sertraline (Zoloft) 25 mg tablet Discontinued 75 mg PO AT BEDTIME July 18, 2021 10:21am July 31, 2024 1:38pm Start: 09-01-2017 End: 07-16-2020 Sertraline 50 mg tablet Disc ontinued 75 mg PO daily September 01, 2017 12:00am July 16, 2020 2:38pm Start: 09-01-2017 End: 07-16-2020 take 75 mg by mouth once daily Sertraline Discontinued 75 MG PO daily September 01, 2017 12:00am July 16, 2020 2:38pm Start: 09-10-2016 End: 06-11-2023 take 1.5 tablets by mouth once daily sertraline (ZOLOFT) 50 mg tablet Take 1.5 tablets by mouth once daily. 0 09/10/2016 06/11/2023 Discontinued (Discontinued by Patient) Problems Active Problems Problem Classification Problem Date Documented Da te Episodic/Chronic Abdominal pain (7 sources) Generalized abdominal pain; Translations: [Generalized abdominal pain] Onset: 4 06-11-2023 Episodic Acute and unspecified renal failure (1 source) Acute kidney failure, unspecified; Translations: [Acute kidney failure, unspecified] Onset: 5 Episodic Acute bronchitis (20 sources) Acute bronchitis; Translations: [Acute bronchitis, unspecified] 02-12-2022 Episodic Administrative/social admission (16 sources) Repeated prescription; Translations: [Encounter for issue of repeat prescription] 09-14-2017 Episodic Diabetes mellitus without complication (1 source) Prediabetes; Translations: [Borderline diabetes] Onset: 4 Episodic Disorders of lipid metabolism (20 sources) Hyperlipidemia; Translations: [Hyperlipidemia, unspecified] Onset: 4 Chronic Esophageal disorders (20 sources) Gastroesophageal reflux disease; Translations: [Gastro-esophageal reflux disease without esophagitis] Onset: 6 03-04-2022 Chronic Comment on above: Patient has a histor y of Oakes's esophagus dating back to an endoscopy from September [address] Scherer. On learning this history, I recommended EGD, but patient blames recurrent sicknesses for keeping her from making this appointment. We are now scheduled for surveillance EGD on March 25, 2022. Essential hypertension (20 sources) Essential hypertension; Translations: [Essential (primary) hypertension] Onset: Chronic Comment on above: Controlled on meds Gastrointestinal hemorrhage (18 sources) Gastrointestinal hemorrhage; Translations: [Gastrointestinal hemorrhage, unspecified] 07-16-2020 Episodic Hemorrhoids (20 sources) Hemorrhoids; Translations: [Unspecified hemorrhoids] 03-04-2022 Episodic Comment on above: This is a 61-year-ol d female with a past history of hemorrhoids, who presents with an acute flare of this issue. Both of her primary complaints pain and bleeding are improved today. Exam was not repeated given her clinical improvements and plans for further endoscopic evaluation on March 25, 2022. I did discuss with her the need to try for 25 g of dietary fiber per day as I believe this will help her to evacuate her bowels more fully. I have also asked her to clarify which laxatives she is using so that we can get her on a regimen that achieves 1 bowel movement per day. Regarding her concerns over hypercalcemia causing constipation I have no objective evidence to validate this concern is patient's most recent calcium was within the range of normal (showing from July 2021) and she confirmed that she was taking her supplement regularly at that time. I have offered to repeat blood work, but she states she just had blood work done for her primary care provider. Nonspecific chest pain (16 sources) Chest pain on exertion; Translations: [Chest pain, unspecified] 07-16-2020 Episodic Nutritional deficiencies (16 sources) Vitamin D deficiency; Translations: [Vitamin D deficiency, unspecified] 07-18-2020 Chronic Other acquired deformities (10 sources) Lumbar spondylolisthesis; Translations: [Spondylolisthesis, lumbar region] 07-31-2024 Episodic Other bone disease and musculoskeletal deformities (20 sources) Osteopenia; Translations: [Other specified disorders of bone density and structure, unspecified site] 07-18-2020 Episodic Other diseases of kidney and ureters (1 source) Acquired renal cystic disease; Translations: [Cyst of kidney, acquired] 10-05-2023 Episodic Other gastrointestinal disorders (2 sources) Irritable bowel syndrome characterized by constipation; Translations: [Irritable bowel syndrome with constipation] 07-01-2023 Chronic Other gastrointestinal disorders (1 source) Irritable bowel syndrome with constipation; Translations: [Irritable bowel syndrome with constipation] Onset: 4 Chronic Other gastrointestinal disorders (1 source) Constipation; Translations: [Constipation, unspecified] 06-11-2023 Episodic Other gastrointestinal disorders (3 sources) Abdominal bloating; Translations: [Abdominal distension (gaseous)] 07-01-2023 Episodic Other lower respiratory disease (20 sources) Cough; Translations: [Cough] 12-27-2020 Episodic Other lower respiratory disease (1 source) Nodule of lung; Translations: [Solitary pulmonary nodule] 10-05-2023 Episodic Other nervous system disorders (2 sources) Polyneuropathy, unspecified; Translations: [Peripheral nerve disorder] Onset: 4 Chronic Other screening for suspected conditions (not mental disorders or infectious disease) (2 sources) Imaging result abnormal; Translations: [Abnormal findings on diagnostic imaging of other specified body structures] 08-31-2023 Chronic Other screening for suspected conditions (not mental disorders or infectious disease) (20 sources) Patient encounter status; Translations: [Encounter for screening for malignant neoplasm of colon] Onset: 6 Episodic Other upper respiratory infections (17 sources) Viral upper respiratory tract infection; Translations: [Acute upper respiratory infection, unspecified] 09-14-2017 Episodic Peripheral and visceral atherosclerosis (1 source) Atherosclerosis of aorta; Translations: [Atherosclerosis of aorta] Onset: 5 Chronic Pneumonia (except that caused by tuberculosis or sexually transmitted disease) (16 sources) Pneumonia; Translations: [Pneumonia, unspecified organism] 08-25-2019 Episodic Screening and history of mental health and substance abuse codes (1 source) Personal history of nicotine dependence; Translations: [Personal history of nicotine dependence] Onset: 5 Episodic Spondylosis; intervertebral disc disorders; other back problems (14 sources) Low back pain; Translations: [Low back pain, unspecified back pain laterality, unspecified chronicity, unspecified whether sciatica present] Onset: 5 06-11-2023 Episodic Substance-related disorders (13 sources) Tobacco dependence in remission; Translations: [Nicotine dependence, cigarettes, in remission] 03-26-2022 Chronic Thyroid disorders (1 source) Hypothyroidism, unspecified; Translations: [Unspecified hypothyroidism] Onset: 4 Chronic Unclassified (4 sources) Spinal stenosis of lumbar region with neurogenic claudication Unclassified (8 sources) M48.062 - Spinal stenosis, lumbar region with neurogenic claudication Unclassified (1 source) Low back pain, unspecified; Translations: [Low back pain, unspecified] Onset: 4 Past or Other Problems Problem Classification Problem Date Documented Da te Episodic/Chronic Conditions associated with dizziness or vertigo (10 sources) Vertigo; Translations: [Dizziness and giddiness] Onset: 11-10-2013 02-03-2021 Episodic Other gastrointestinal disorders (1 source) Abdominal distension (gaseous); Translations: [Bloating] Onset: 07-15-2023 Episodic Other nervous system disorders (10 sources) Hemifacial spasm; Translations: [Clonic hemifacial spasm, unspecified] Onset: 05-31-2013 05-31-2013 Episodic Other nervous system disorders (1 source) Paresthesia of skin; Translations: [Paresthesia of skin] Onset: 04-25-2024 Episodic Results Test Name Value Interpretation Reference Range Facility Anion gap in Serum or Plasma Ordered By: [facility] Nela Alatorre on 09-28-2024 Anion gap [Moles/Vol] 13 mmol/L - [facility] BUN/creatinine ratioOrdered By: [facility] Nela Alatorre on 09-28-2024 Urea nitrogen/Creatinine [Mass ratio] 23.6 mg/mg High [facility] Basic Metabolic Profile (BMP )on 09-28-2024 BUN/CRE 23.6 RATIO High [facility] Comment on above: Performed By: #### L 501.0900, L501.7400, L500.2500, L501.5500 #### [facility] [address] [place], [address] Calcium [Mass/Vol] 8.9 mg/dL Normal 7.6-11.0 [facility] Comment on above: Performed By: #### L 501.0900, L501.7400, L500.2500, L501.5500 #### [facility] [address] [place], [address] Chloride [Moles/Vol] 107 mmol/L Normal 98-108 [facility] Comment on above: Performed By: #### L 501.0900, L501.7400, L500.2500, L501.5500 #### [facility] [address] [place], [address] CO2 [Moles/Vol] 21.9 mmol/L Normal 21.0-32.0 [facility] Comment on above: Performed By: #### L 501.0900, L501.7400, L500.2500, L501.5500 #### [facility] [address] [place], [address] Creatinine [Mass/Vol] 1.01 mg/dL Normal 0.70-1.20 [facility] Comment on above: Performed By: #### L 501.0900, L501.7400, L500.2500, L501.5500 #### [facility] [address] [place], [address] GAP 13 Normal 5-15 [facility] Comment on above: Performed By: #### L 501.0900, L501.7400, L500.2500, L501.5500 #### [facility] [address] [place], [address] GFR/1.73 sq M.predicted among non-blacks MDRD (S/P/Bld) [Vol rate/Area] 61 mL/min/{1.73_m2} Normal >60 [facility] Comment on above: Result Comment: mL/m in/1.73m2 CKD-EPI Creatinine Equation (2020) Performed By: #### L 501.0900, L501.7400, L500.2500, L501.5500 #### [facility] [address] [place], [address] Glucose [Mass/Vol] 95 mg/dL Normal 70-99 [facility] Comment on above: Performed By: #### L 501.0900, L501.7400, L500.2500, L501.5500 #### [facility] [address] [place], [address] Potassium [Moles/Vol] 3.7 mmol/L Normal 3.3-5.1 [facility] Comment on above: Performed By: #### L 501.0900, L501.7400, L500.2500, L501.5500 #### [facility] [address] [place], [address] Sodium [Moles/Vol] 141 mmol/L Normal 133-145 [facility] Comment on above: Performed By: #### L 501.0900, L501.7400, L500.2500, L501.5500 #### [facility] [address] [place], [address] Urea nitrogen [Mass/Vol] 24 mg/dL High 4-19 [facility] Comment on above: Performed By: #### L 501.0900, L501.7400, L500.2500, L501.5500 #### [facility] [address] [place], [address] Carbon dioxide, total [Moles /volume] in Central venous bloodOrdered By: [facility] Nela Alatorre on 09-28-2024 CO2 [Moles/Vol] 21.9 mmol/L 21.0-32.0 [facility] Chloride assayOrdered By: [facility] Nela Alatorre on 09-28-2024 Chloride [Moles/Vol] 107 mmol/L 98-108 [facility] Glomerular filtration rate ( GFR) estimation/1.73 sq m using serum, plasma, or whole bOrdered By: [facility] Nela Alatorre on 09-28-2024 GFR/1.73 sq M.predicted among non-blacks MDRD (S/P/Bld) [Vol rate/Area] 61 mL/min/{1.73_m2} >60 [facility] Comment on above: mL/min/1.73m2 CKD-EP I Creatinine Equation (2020) Osmolality urOrdered By: [facility] Nela Karthikeyan on 09-28-2024 Osmolality (U) [Osmolality] 275 mOsm/KG >50 [facility] Comment on above: Normal Urine Referen ce Ranges Random: 50 - 1200 mOsm/kg H20 depending on fluid intake Random: >850 mOsm/kg after 12 hour fluid restriction 24 hour: ~300 - 900 mOsm/kg H2O Osmolality, Urineon 09-29-19 25 OSMOLALITY,UR 275 mOsm/KG Normal [facility] Comment on above: Result Comment: Normal Urine Reference Ranges Random: 50 - 1200 mOsm/kg H20 depending on fluid intake Random: >850 mOsm/kg after 12 hour fluid restriction 24 hour: 300 - 900 mOsm/kg H2O Performed By: #### L 501.0900, L501.7400, L500.2500, L501.5500 ####[facility] [address] [place], [address] Potassium measurement (mass/ volume)Ordered By: [facility] Nela Karthikeyan on 09-28-2024 Potassium (Unsp spec) [Mass/Vol] 3.7 mmol/L 3.3-5.1 [facility] Protein+Creatinine Ratio,Uri neon 09-28-2024 PROT:CRE RATIO UNABLE TO CALCULATE Normal 0-200 [facility] Comment on above: Performed By: #### L 501.0900, L501.7400, L500.2500, L501.5500 ####[facility] [address] [place], [address] PROTEIN,UR.RAN. < 6.0 Normal 0.0-12.0 [facility] Comment on above: Performed By: #### L 501.0900, L501.7400, L500.2500, L501.5500 ####[facility] [address] [place], [address] UR CREAT 35.50 mg/dL Normal 28.00-217. 00 [facility] Comment on above: Performed By: #### L 501.0900, L501.7400, L500.2500, L501.5500 ####[facility] [address] [place], [place], [id number] Random urine creatinine milton urement (mass/volume)Ordered By: [facility] Nela Alatorre on 09-28-2024 Creatinine Unsp time (U) [Mass/Vol] 35.50 mg/dL 28.00-217. 00 [facility] Serum creatinine measurement (mass/volume)Ordered By: [facility] Nelacirilo Alatorre on 09-28-2024 Creatinine [Mass/Vol] 1.01 mg/dL 0.70-1.20 [facility] Serum glucose measurement (m ass/volume)Ordered By: [facility] Nela Alatorre on 09-28-2024 Glucose [Mass/Vol] 95 mg/dL 70-99 [facility] Serum or plasma calcium milton urement (mass/volume)Ordered By: [facility] Nela Alatorre on 09-28-2024 Calcium [Mass/Vol] 8.9 mg/dL 7.6-11.0 [facility] Serum or plasma urea nitroge n measurement (mass/volume)Ordered By: [facility] Nelacirilo Alatorre on 09-28-2024 Urea nitrogen [Mass/Vol] 24 mg/dL High 4-19 [facility] Sodium levelOrdered By: [facility] on 09-28-2024 Sodium [Moles/Vol] 141 mmol/L 133-145 [facility] Urine Sodiumon 09-28-2024 Sodium (U) [Moles/Vol] 42 mmol/L Normal Not Establ. [facility] Comment on above: Performed By: #### L 501.0900, L501.7400, L500.2500, L501.5500 ####[facility] [address] [place], [place], [id number] Urine protein measurement (m ass/volume)Ordered By: [facility] Nela Alatorre on 09-28-2024 Protein (U) [Mass/Vol] mg/dL 0.0-12.[address] [facility] Urine protein/creatinine mas s ratioOrdered By: [facility] Nela Alatorre on 09-28-2024 Protein/Creatinine (U) [Mass ratio] UNABLE TO CALCULATE mg/g CRE 0-200 [facility] Urine sodium measurement (mo les/volume)Ordered By: [facility] Nela Alatorre on 09-28-2024 Sodium (U) [Moles/Vol] 42 mmol/L Not Establ. [facility] Anion gap in Serum or Plasma Ordered By: [facility] Nela Alatorre on 09-20-2024 Anion gap [Moles/Vol] 12 mmol/L 5-15 [facility] BUN/creatinine ratioOrdered By: [facility] Nela Alatorre on 09-20-2024 Urea nitrogen/Creatinine [Mass ratio] 24.1 mg/mg High - [facility] Basic Metabolic Profile (BMP )on 09-20-2024 BUN/CRE 24.1 RATIO High 11-27 [facility] Comment on above: Performed By: #### L 500.2500, L500.4100, L501.9985 #### [facility] [address] [place], [address] Calcium [Mass/Vol] 9.8 mg/dL Normal 7.6-11.0 [facility] Comment on above: Performed By: #### L 500.2500, L500.4100, L501.9985 #### [facility] [address] [place], [address] Chloride [Moles/Vol] 103 mmol/L Normal 98-108 [facility] Comment on above: Performed By: #### L 500.2500, L500.4100, L501.9985 #### [facility] [address] [place], [address] CO2 [Moles/Vol] 23.0 mmol/L Normal 21.0-32.0 [facility] Comment on above: Performed By: #### L 500.2500, L500.4100, L501.9985 #### [facility] [address] [place], [address] Creatinine [Mass/Vol] 1.50 mg/dL High 0.70-1.20 [facility] Comment on above: Performed By: #### L 500.2500, L500.4100, L501.9985 #### [facility] [address] [place], [address] GAP 12 Normal 5-15 [facility] Comment on above: Performed By: #### L 500.2500, L500.4100, L501.9985 #### [facility] [address] [place], [address] GFR/1.73 sq M.predicted among non-blacks MDRD (S/P/Bld) [Vol rate/Area] 38 mL/min/{1.73_m2} Low >60 [facility] Comment on above: Result Comment: mL/m in/1.73m2 CKD-EPI Creatinine Equation (2020) Performed By: #### L 500.2500, L500.4100, L501.9985 #### [facility] [address] [place], [address] Glucose [Mass/Vol] 126 mg/dL High 70-99 [facility] Comment on above: Performed By: #### L 500.2500, L500.4100, L501.9985 #### [facility] [address] [place], [address] Potassium [Moles/Vol] 3.7 mmol/L Normal 3.3-5.1 [facility] Comment on above: Performed By: #### L 500.2500, L500.4100, L501.9985 #### [facility] [address] [place], [address] Sodium [Moles/Vol] 139 mmol/L Normal 133-145 [facility] Comment on above: Performed By: #### L 500.2500, L500.4100, L501.9985 #### [facility] [address] [place], [address] Urea nitrogen [Mass/Vol] 36 mg/dL High 4-19 [facility] Comment on above: Performed By: #### L 500.2500, L500.4100, L501.9985 #### [facility] [address] [place], [address] Calculated very low density lipoprotein (VLDL) cholesterol measurementOrdered By: [facility] Nela Alatorre on 09-20-2024 Calculated very low density lipoprotein (VLDL) cholesterol measurement 76 mg/dL High 5-40 [facility] Carbon dioxide, total [Moles /volume] in Central venous bloodOrdered By: [facility] Nela Alatorre on 09-20-2024 CO2 [Moles/Vol] 23.0 mmol/L 21.0-32.0 [facility] Chloride assayOrdered By: [facility] Nela Alatorre on 09-20-2024 Chloride [Moles/Vol] 103 mmol/L 98-108 [facility] Glomerular filtration rate ( GFR) estimation/1.73 sq m using serum, plasma, or whole bOrdered By: [facility] Nela Alatorre on 09-20-2024 GFR/1.73 sq M.predicted among non-blacks MDRD (S/P/Bld) [Vol rate/Area] 38 mL/min/{1.73_m2} Low >60 [facility] Comment on above: mL/min/1.73m2 CKD-EP I Creatinine Equation (2020) Hemoglobin A1con 09-20-2024 HbA1c (Bld) [Mass fraction] 6.3 % High <=5.6 [facility] Comment on above: Result Comment: Norm al < 5.7 % Prediabetic 5.7 - 6.4 % Diabetic >or= 6.5 % Please note range changes. Performed By: #### L 500.2500, L500.4100, L501.9985 #### [facility] [address] [place], [address] Hemoglobin A1c percentageOrd ered By: [facility] Nela Alatorre on 09-20-2024 HbA1c (Bld) [Mass fraction] 6.3 % High <5.7 [facility] Comment on above: Normal < 5.7 % Predi abetic 5.7 - 6.4 % Diabetic >or= 6.5 % Please note range changes. LDL calc ser/plasOrdered By: [facility] Nela Alatorre on 09-20-2024 Cholesterol in LDL [Mass/Vol] 73 mg/dL [facility] Comment on above: Ykjoysecpl=240-826 m g/dL & Higher Qcmm=652 mg/dL or greaterFriedwald Equation for LDL-C Lipid Profileon 09-20-2024 CHOL:HDL 5.35 Normal [facility] Comment on above: Performed By: #### L 500.2500, L500.4100, L501.9985 #### [facility] [address] [place], [address] Cholesterol [Mass/Vol] 183 mg/dL Normal <=[address] [facility] Comment on above: Result Comment: Chol esterol level, Desirable <200 mg/dL Borderline high cholesterol 200-239 mg/dL High cholesterol >=240 mg/dL Recommendations of the NCEP Adult Treatment Panel for the following risk-cutoff thresholds for the [place] population. Performed By: #### L 500.2500, L500.4100, L501.9985 #### [facility] [address] [place], [place], [id number] (081) Cholesterol in HDL [Mass/Vol] 34 mg/dL Low [facility] Comment on above: Result Comment: Kennedi onal Cholesterol Education Program (NCEP) guidelines: <40 mg/dL: Low HDL-cholesterol (major risk factor for CHD) >= 60 mg/dL: High HDL-cholesterol (negative risk factor for CHD) HDL-cholesterol is affected by a number of factors, e.g. smoking, exercise, hormones, sex and age. Performed By: #### L 500.2500, L500.4100, L501.9985 #### [facility] [address] [place], [address] Cholesterol in LDL [Mass/Vol] 73 mg/dL Normal [facility] Comment on above: Result Comment: Bord rqrslh=112-223 mg/dL Higher Kwgj=016 mg/dL or greater Friedwald Equation for LDL-C Performed By: #### L 500.2500, L500.4100, L501.9985 #### [facility] [address] [place], [address] Cholesterol in VLDL [Mass/Vol] 76 mg/dL High 5-40 [facility] Comment on above: Performed By: #### L 500.2500, L500.4100, L501.9985 #### [facility] [address] [place], [address] Triglyceride [Mass/Vol] 378 mg/dL High [facility] Comment on above: Result Comment: The drugs N-Acetylcysteine and Metamizole may falsely depress this assay. Normal range: <150 mg/dL Borderline High: 150-199 mg/dL High: 200-499 mg/dL Very High: >500 mg/dL Performed By: #### L 500.2500, L500.4100, L501.9985 #### [facility] [address] [place], [address] Potassium measurement (mass/ volume)Ordered By: [facility] Nela Alatorre on 09-20-2024 Potassium (Unsp spec) [Mass/Vol] 3.7 mmol/L 3.3-5.1 [facility] Screening total cholesterol/ high density lipoprotein (HDL) cholesterol ratioOrdered By: [facility] Nela Alatorre on 09-20-2024 Cholesterol.total/Chol esterol in HDL [Mass ratio] 5.35 {ratio} [facility] Serum creatinine measurement (mass/volume)Ordered By: [facility] Nela Alatorre on 09-20-2024 Creatinine [Mass/Vol] 1.50 mg/dL High 0.70-1.20 [facility] Serum glucose measurement (m ass/volume)Ordered By: [facility] Nela Alatorre on 09-20-2024 Glucose [Mass/Vol] 126 mg/dL High 70-99 [facility] Serum or plasma calcium milton urement (mass/volume)Ordered By: [facility] Nela Alatorre on 09-20-2024 Calcium [Mass/Vol] 9.8 mg/dL 7.6-11.0 [facility] Serum or plasma cholesterol in HDL measurement (mass/volume)Ordered By: [facility] Nela Alatorre on 09-20-2024 Cholesterol in HDL [Mass/Vol] 34 mg/dL Low >40 [facility] Comment on above: National Cholesterol Education Program (NCEP) guidelines:<40 mg/dL: Low HDL-cholesterol (major risk factor for CHD)>= 60 mg/dL: High HDL-cholesterol (negative risk factor for CHD)HDL-cholesterol is affected by a number of factors, e.g. smoking, exercise, hormones, sex and age. Serum or plasma cholesterol measurement (mass/volume)Ordered By: [facility] Nela Alatorre on 09-20-2024 Cholesterol [Mass/Vol] 183 mg/dL <[address] [facility] Comment on above: Cholesterol level, D esirable <200 mg/dLBorderline high cholesterol 200-239 mg/dLHigh cholesterol >=240 mg/dLRecommendations of the NCEP Adult Treatment Panel for the following risk-cutoff thresholds for the [place] population. Serum or plasma urea nitroge n measurement (mass/volume)Ordered By: [facility] eNla Alatorre on 09-20-2024 Urea nitrogen [Mass/Vol] 36 mg/dL High 4-19 [facility] Sodium levelOrdered By: [facility] on 09-20-2024 Sodium [Moles/Vol] 139 mmol/L 133-145 [facility] Triglycerides measurementOrd ered By: [facility] Nelacirilo Alatorre on 09-20-2024 Triglyceride [Mass/Vol] 378 mg/dL High <199 [facility] Comment on above: The drugs N-Acetylcy steine and Metamizole may falsely depress this assay. Normal range: <150 mg/dLBorderline High: 150-199 mg/dLHigh: 200-499 mg/dLVery High: >500 mg/dL Orthopedic Visit Reporton Orthopedic Visit Report [facility] [address] [place] [address] OFFICE VISIT Date of Service: 09/18/24 MR#: [id number] Acct: [id number] Name: JOAN VEGA Rep #: [id number] : 1960 Provider: KAITLYNN Monteiro Age/Sex: 64/F Location: [facility] Status: Signed Intake Vital Signs 07/31/24 13:35 09/18/24 10:36 Height 5 ft 5 in 5 ft 5 in Weight: 213 lb 215 lb BMI 35.4 35.7 Intake Visit Reasons: LUMBAR SPINE Chief Complaint: lumbar spine MRI review Accompanied by: Self Is patient in pain?: Yes Pain scale (1-10): 1 Allergies prednisone Allergy (Verified 09/18/24 10:42) Hives Medications ???Medication ???Instructions ???Recorded ???Confirmed ???Type atenolol 50 mg tablet 50 mg PO DAILY 02/09/13 09/18/24 H istory triamterene 75 1 tab PO DAILY 02/09/13 09/18/24 H istory mg-hydrochlorothiazide 50 mg tablet (Maxzide) pantoprazole 40 mg tablet,delayed 40 mg PO QDAY 09/01/17 09/18/24 H istory release (Protonix) cetirizine 10 mg tablet (Zyrtec) 20 mg PO DAILY 07/16/20 09/18/24 H istory lisinopril 40 mg tablet 40 mg PO DAILY 07/16/20 09/18/24 H istory atorvastatin 10 mg tablet 20 mg PO QHS 07/18/21 09/18/24 His tory metformin 500 mg tablet,extended 500 mg PO QDAY 07/31/24 09/18/24 H istory release 24 hr Have you fallen in the past year?: No PFSH Medical History Pre-diabetes Wears partial dentures Marijuana use History of hiatal hernia Gastric reflux Former smoker COPD (chronic obstructive pulmonary disease) Shortness of breath on exertion Leg cramps History of echocardiogram History of stress test Cardiology follow-up encounter Wears glasses Osteopenia High cholesterol Facial spasm On home oxygen therapy PONV (postoperative nausea and vomiting) Vertigo Hemifacial spasm Obesity Osteopenia Vitamin D deficiency Hyperlipidemia Essential hypertension GERD (gastroesophageal reflux disease) Depression Surgical History History of craniotomy (2015) History of esophagogastroduodenoscopy (EGD) History of colonoscopy with polypectomy History of carpal tunnel surgery of left wrist History of tonsillectomy History of tubal ligation Family History Father Diabetes Hypertension Mother Hypertension High cholesterol AAA (abdominal aortic aneurysm) TIA (transient ischemic attack) Brain aneurysm CVA (cerebral vascular accident) Brother CVA (cerebral vascular accident) Social History Smoking Status: Current every day smoker tobacco type: cigarettes alcohol intake: never HPI LUMBAR SPINE Details: This documentation accurately reflects the service provided and the decisions made by me, KAITLYNN Monteiro 09/18/24 1036. Part of today???s visit was documented by Gonzalo Haney MA, acting as scribe. JOAN VEGA is a 64 year old F here today for lumbar spine MRI review. Patient would like to go over the MRI results to discuss what the next step would be. She states that her pain is a one today. Patient states that she didn't do physical therapy. She was supposed to go, but she ended up getting a sore throat. Patient states that she hasn't had any injections in her back recently. She states that her pain is in the left lower back today. Patient states that she hasn't been putting any ice, or heat because the pain comes and goes. Says she continues to have bilateral foot numbness on the lateral side of her feet into her fourth and little toe. HPI from 07/31/24:JOAN VEGA is a 64 year old F here today for lumbar spine pain. No falls or injuries. She complains of intermittent low back pain that has been ongoing for a year. When she experiences the pain it is equal bilaterally. She reports numbness into her bilateral feet which is constant. She says that she will also get a bilateral knee pain with the left being worse than the right. Says that this pain is in the front of her knee and it is tender to the touch. Says that she can only walk 100 to 200 feet at a time before she has to stop due to worsening back and leg pain. Says that she notices a left sided groin pain only when laying on her left side in bed. She denies any left-sided groin pain with standing or walking. She does not need to use a cane or a walker. She reports bending, leaning forward and cleaning exacerbate her pain. When walking around the grocery store she will experience sharp pain in her low back and she has to stop or lean on the cart. She has not done PT and has never seen pain management. She denies previous injury or surgery (more content not included)... Normal [facility] Magnetic resonance imaging r eportOrdered By: Daniele Levin on 08-16-2024 Study report [facility] [address] [place] [address] Spine Lumbar (Routine) MR#: [id number] Acct: [id number] Name: JOAN VEGA Rep #: [id number] : 1960 F 64 From: Virginia Levin MD PCP: DANNA Rome, RECORDS MANAGEMENT TECHNICIAN-C Status: REG CLI Study:Spine Lumbar (Routine) Date of Exam: 08/15/24 Exam# [id number] Ordering Dr: Marco Baez PA PROCEDURE: SPINE LUMBAR (ROUTINE) 08/15/2024 REASON FOR EXAM: PAIN TECHNIQUE: SPINE LUMBAR (ROUTINE) COMPARISON: 07-31-2024 CR FINDINGS: 1st degree anterolithesis of L4 over L5 with bilateral L4-L5 facet arthropathy. No obvious vertebral fractures or structural collapse. Multilevel marginal lipping and subchondral degenerative marrow signal/Modio II of the thoraco-lumbar vertebral end plates. Multilevel reduced height and bright T2 signal of the intervertebral discs denoting their desiccation are noted. Multilevel ligamenta flava hypertrophy with multilevel degenerative facet arthropathy opposite L2-L3 down to L5-S1 adding to the central canal and neural foraminal stenosis. Level by level analysis: T12-L1: There is no focal disc pathology, central canal stenosis or neural foraminal stenosis. L1-L2: There is no focal disc pathology, central canal stenosis or neural foraminal stenosis. L2-L3: a 1 mm diffuse disc bulge indenting thecal sac and encroaching upon the related neural foramina inducing mild exiting nerve root compression. L3-L4: a 1.8 mm diffuse disc bulge indenting thecal sac and encroaching upon therelated neural foramina inducing moderate exiting nerve root compression. L4-L5: a 2 mm diffuse disc bulge indenting thecal sac and encroaching upon the related neural foramina inducing moderate exiting nerve root compression. L5-S1: a 2 mm diffuse disc bulge indenting thecal sac and encroaching upon the related neural foramina inducing moderate exiting nerve root compression. The lower thoracic spinal cord, conus medullaris, and cauda equina nerve roots are unremarkable. No marrow infiltrative lesions. Paravertebral soft tissue is unremarkable. No developmental canal stenosis. Orthostatic edema of the back. MRI/Spine Lumbar (Routine) IMPRESSION: L4 1st degree anterolithesis. Lumbar spondylosis with multilevel discs pathologies, facet arthropathy and hypertrophied ligamenta flava inducing variable degrees of spinal canal and neural exit pathways stenosis Reading Location: [place] [address] CC: [facility] RECORDS MANAGEMENT TECHNICIAN-C Nela Alatorre; KAITLYNN Monteiro ~ Junior Engineer: Signed [facility] Spine Lumbar (Routine)on Spine Lumbar (Routine) [facility] [address] [place], [place] [id number] Spine Lumbar (Routine) MR#: [id number] Acct: [id number] Name: JOAN VEGA Rep #: [id number] : 1960 F 64 From: Daniele argueta MD PCP: DANNA Rome, RECORDS MANAGEMENT TECHNICIAN-C Status: REG CLI Study: Spine Lumbar (Routine) Date of Exam: 08/15/24 Exam# [id number] Ordering Dr: Stephenie Baez PROCEDURE: SPINE LUMBAR (ROUTINE) 08/15/2024 REASON FOR EXAM: PAIN TECHNIQUE: SPINE LUMBAR (ROUTINE) COMPARISON: 07-31-2024 CR FINDINGS: 1st degree anterolithesis of L4 over L5 with bilateral L4-L5 facet arthropathy. No obvious vertebral fractures or structural collapse. Multilevel marginal lipping and subchondral degenerative marrow signal/Modio II of the thoraco- lumbar vertebral end plates. Multilevel reduced height and bright T2 signal of the intervertebral discs denoting their desiccation are noted. Multilevel ligamenta flava hypertrophy with multilevel degenerative facet arthropathy opposite L2-L3 down to L5-S1 adding to the central canal and neural foraminal stenosis. Level by level analysis: T12-L1: There is no focal disc pathology, central canal stenosis or neural foraminal stenosis. L1-L2: There is no focal disc pathology, central canal stenosis or neural foraminal stenosis. L2-L3: a 1 mm diffuse disc bulge indenting thecal sac and encroaching upon the related neural foramina inducing mild exiting nerve root compression. L3-L4: a 1.8 mm diffuse disc bulge indenting thecal sac and encroaching upon the related neural foramina inducing moderate exiting nerve root compression. L4-L5: a 2 mm diffuse disc bulge indenting thecal sac and encroaching upon the related neural foramina inducing moderate exiting nerve root compression. L5-S1: a 2 mm diffuse disc bulge indenting thecal sac and encroaching upon the related neural foramina inducing moderate exiting nerve root compression. The lower thoracic spinal cord, conus medullaris, and cauda equina nerve roots are unremarkable. No marrow infiltrative lesions. Paravertebral soft tissue is unremarkable. No developmental canal stenosis. Orthostatic edema of the back. MRI/Spine Lumbar (Routine) IMPRESSION: L4 1st degree anterolithesis. Lumbar spondylosis with multilevel discs pathologies, facet arthropathy and hypertrophied ligamenta flava inducing variable degrees of spinal canal and neural exit pathways stenosis Reading Location: [place] [address] CC: [facility] RECORDS MANAGEMENT TECHNICIAN-C Nela Alatorre; KAITLYNN Monteiro Junior Engineer: Signed Normal [facility] L/S Spine Bending Flex/[place] 07-31-2024 L/S Spine Bending Flex/Ext [facility] [address] [place] [address] L/S Spine Bending Flex/Ext MR#: [id number] Acct: [id number] Name: JOAN VEGA Rep #: [id number] : 1960 F 64 From: Daniele argueta MD PCP: Nela Alatorre [facility], RECORDS MANAGEMENT TECHNICIAN-C Status: DEP AMB Study: L/S Spine Bending Flex/Ext Date of Exam: 07/31 Exam# [id number] Ordering Dr: Stephenie Baez PROCEDURE: L/S SPINE BENDING FLEX/EXT 07/31/2024 REASON FOR EXAM: BACK PAIN TECHNIQUE: L/S SPINE BENDING FLEX/EXT COMPARISON: Radiographs on 01/26/2024. FINDINGS: Grade 1 anterolisthesis of L4 on L5 measuring 4.7 mm. No evidence of instability on flexion/extension images. Calcified atheromatous plaques are noted. Mildly exaggerated lumbar lordosis. There are diffuse spondylotic changes. Findings are demonstrated to by diffuse disc space narrowing, osteophyte formation and degenerative endplate sclerosis. There is diffuse facet joint arthropathy with secondary bilateral neural foramina narrowing. No fracture or dislocation is seen. No aggressive lytic or blastic bony lesion is noted. RAD/L/S Spine Bending Flex/Ext IMPRESSION: Grade 1 anterolisthesis of L4 on L5. No evidence of instability on flexion/extension images. Reading Location: [place] [address] CC: [facility] RECORDS MANAGEMENT TECHNICIAN-C Nela Alatorre; KAITLYNN Monteiro Junior Engineer: Signed Normal [facility] Orthopedic Visit Reporton Orthopedic Visit Report [facility] [address] [place] [address] OFFICE VISIT Date of Service: 07/31/24 MR#: [id number] Acct: [id number] Name: JOAN VEGA Rep #: [id number] : 1960 Provider: KAITLYNN Monteiro Age/Sex: 64/F Location: [facility] Status: Signed Intake Vital Signs 10/12/23 16:58 07/31/24 13:35 Height 5 ft 5 in 5 ft 5 in Weight: 213 lb BMI 35.4 Intake Visit Reasons: LUMBAR SPINE Chief Complaint: lumbar spine Allergies prednisone Allergy (Verified 07/31/24 13:37) Hives Medications ???Medication ???Instructions ???Recorded ???Confirmed ???Type atenolol 50 mg tablet 50 mg PO DAILY 02/09/13 07/31/24 H istory triamterene 75 1 tab PO DAILY 02/09/13 07/31/24 H istory mg-hydrochlorothiazide 50 mg tablet (Maxzide) pantoprazole 40 mg tablet,delayed 40 mg PO QDAY 09/01/17 07/31/24 H istory release (Protonix) cetirizine 10 mg tablet (Zyrtec) 20 mg PO DAILY 07/16/20 07/31/24 H istory lisinopril 40 mg tablet 40 mg PO DAILY 07/16/20 07/31/24 H istory atorvastatin 10 mg tablet 20 mg PO QHS 07/18/21 07/31/24 His tory metformin 500 mg tablet,extended 500 mg PO QDAY 07/31/24 07/31/24 H istory release 24 hr Have you fallen in the past year?: No PFSH Medical History Pre-diabetes Wears partial dentures Marijuana use History of hiatal hernia Gastric reflux Former smoker COPD (chronic obstructive pulmonary disease) Shortness of breath on exertion Leg cramps History of echocardiogram History of stress test Cardiology follow-up encounter Wears glasses Osteopenia High cholesterol Facial spasm On home oxygen therapy PONV (postoperative nausea and vomiting) Vertigo Hemifacial spasm Obesity Osteopenia Vitamin D deficiency Hyperlipidemia Essential hypertension GERD (gastroesophageal reflux disease) Depression Surgical History History of craniotomy (2014) History of esophagogastroduodenoscopy (EGD) History of colonoscopy with polypectomy History of carpal tunnel surgery of left wrist History of tonsillectomy History of tubal ligation Family History Father Diabetes Hypertension Mother Hypertension High cholesterol AAA (abdominal aortic aneurysm) TIA (transient ischemic attack) Brain aneurysm CVA (cerebral vascular accident) Brother CVA (cerebral vascular accident) Social History Smoking Status: Current every day smoker tobacco type: cigarettes alcohol intake: never HPI LUMBAR SPINE Details: This documentation accurately reflects the service provided and the decisions made by me, KAITLYNN Monteiro 07/31/24 0296. Part of today???s visit was documented by Martha Lee RN, acting as scribe. JOAN VEGA is a 64 year old F here today for lumbar spine pain. No falls or injuries. She complains of intermittent low back pain that has been ongoing for a year. When she experiences the pain it is equal bilaterally. She reports numbness into her bilateral feet which is constant. She says that she will also get a bilateral knee pain with the left being worse than the right. Says that this pain is in the front of her knee and it is tender to the touch. Says that she can only walk 100 to 200 feet at a time before she has to stop due to worsening back and leg pain. Says that she notices a left sided groin pain only when laying on her left side in bed. She denies any left- sided groin pain with standing or walking. She does not need to use a cane or a walker. She reports bending, leaning forward and cleaning exacerbate her pain. When walking around the grocery store she will experience sharp pain in her low back and she has to stop or lean on the cart. She has not done PT and has never seen pain management. She denies previous injury or surgery to her low back. Numbness on the outside of her feet. Takes ibuprofen and Tylenol as needed for her pain. Hx of prediabetes last a1c was 6.1, no heart or lung issues, no blood thinners. No abdominal surgeries. She has a history of osteopenia and takes vitamin D and a calcium supplement. Ortho Exam General General: Yes no acute distress Neurologic: Yes alert and Yes oriented x3 Spine SPINE TESTING CERVICAL THORACIC LUMBAR Musculoskeletal Strength 0=absent - 5=normal Details: Neurological exam of the lower extremities shows 5x5 power. Increased pain with hip flexion. Normal sensations across all dermatomes. No hyperreflexia. There is mild midline tenderness and bilateral paraspinal tenderness. Coding Level of Care Code Off vis,new,level 4 Diagnoses Lumbar stenosis (more content not included)... Normal [facility] Absolute lymphocyte countOrd ered By: [facility] Nela Alatorre on 06-20-2024 Lymphocytes Auto (Unsp spec) [#/Vol] 2.92 10*3/uL 0.83-4.51 [facility] Absolute neutrophil countOrd ered By: [facility] Nela Alatorre on 06-20-2024 Neutrophils (Bld) [#/Vol] 4.6 10*3/uL 2.0-7.7 [facility] Anion gap in Serum or Plasma Ordered By: [facility] Nela Karthikeyan on 06-20-2024 Anion gap [Moles/Vol] 12 mmol/L 5-15 [facility] Automated lymphocyte count a s percentage of total leukocytesOrdered By: [facility] Karthikeyan on 06-20-2024 Lymphocytes/100 WBC Auto (Unsp spec) 33.8 % 19- [facility] BUN/creatinine ratioOrdered By: [facility] Karthikeyan on 06-20-2024 Urea nitrogen/Creatinine [Mass ratio] 24.2 mg/mg High 10-20 [facility] Basophil percentageOrdered B y: [facility] K[facility]ikey[facility] on 06-20-2024 Basophils/100 WBC (Bld) 1.8 % High 0-1 [facility] Bilirubin, totalOrdered By: [facility] Karthikeyan on 06-20-2024 Bilirubin [Mass/Vol] 0.41 mg/dL 0.00-1.30 [facility] CBC W/Diff, Automatedon 06-08 Absolute Lymph 2.92 X10 3/uL Normal 0.83-4.51 [facility] Comment on above: Performed By: #### L 506.0400, L501.9520, L500.4050, L506.1001, L500.4100, L100.0100 ####[facility] [address] [place], [address] Absolute Neut 4.6 X10 3/uL Normal 2.0-7.7 [facility] Comment on above: Performed By: #### L 506.0400, L501.9520, L500.4050, L506.1001, L500.4100, L100.0100 ####[facility] [address] [place], [address] Basophils/100 WBC (Bld) 1.8 % High 0-1 [facility] Comment on above: Performed By: #### L 506.0400, L501.9520, L500.4050, L506.1001, L500.4100, L100.0100 ####[facility] [address] [place], [address] Eosinophils/100 WBC (Bld) 3.9 % Normal 0-5 [facility] Comment on above: Performed By: #### L 506.0400, L501.9520, L500.4050, L506.1001, L500.4100, L100.0100 ####[facility] [address] [place], [address] Erythrocyte distribution width (RBC) [Ratio] 12.9 % Normal 11.6-14.6 [facility] Comment on above: Performed By: #### L 506.0400, L501.9520, L500.4050, L506.1001, L500.4100, L100.0100 ####[facility] [address] [place], [address] Hematocrit (Bld) [Volume fraction] 37.1 % Normal 37-47 [facility] Comment on above: Performed By: #### L 506.0400, L501.9520, L500.4050, L506.1001, L500.4100, L100.0100 ####[facility] [address] [place], [address] Hemoglobin (Bld) [Mass/Vol] 12.4 g/dL Normal 12.0-15.0 [facility] Comment on above: Performed By: #### L 506.0400, L501.9520, L500.4050, L506.1001, L500.4100, L100.0100 ####[facility] [address] [place], [address] IG% 0.600 Normal 0.0-0.9 [facility] Comment on above: Result Comment: IG% - Immature Granulocytes (promyelocytes, myelocytes and metamyelocytes) > 1% indicates that a LEFT SHIFT is Present. Performed By: #### L 506.0400, L501.9520, L500.4050, L506.1001, L500.4100, L100.0100 ####[facility] [address] [place], [address] Lymphocytes/100 WBC (Bld) 33.8 % Normal 19-41 [facility] Comment on above: Performed By: #### L 506.0400, L501.9520, L500.4050, L506.1001, L500.4100, L100.0100 ####[facility] [address] [place], [address] MCH (RBC) [Entitic mass] 30.1 pg Normal 27.0-32.0 [facility] Comment on above: Performed By: #### L 506.0400, L501.9520, L500.4050, L506.1001, L500.4100, L100.0100 ####[facility] [address] [place], [address] MCHC (RBC) [Mass/Vol] 33.4 g/dL Normal 32-36 [facility] Comment on above: Performed By: #### L 506.0400, L501.9520, L500.4050, L506.1001, L500.4100, L100.0100 ####[facility] [address] [place], [address] MCV (RBC) [Entitic vol] 90.0 fL Normal 81-99 [facility] Comment on above: Performed By: #### L 506.0400, L501.9520, L500.4050, L506.1001, L500.4100, L100.0100 ####[facility] [address] [place], [address] Monocytes/100 WBC (Bld) 6.8 % Normal 0-10 [facility] Comment on above: Performed By: #### L 506.0400, L501.9520, L500.4050, L506.1001, L500.4100, L100.0100 ####[facility] [address] [place], [address] Neutrophils/100 WBC (Bld) 53.1 % Normal 47-70 [facility] Comment on above: Performed By: #### L 506.0400, L501.9520, L500.4050, L506.1001, L500.4100, L100.0100 ####[facility] [address] [place], [address] Nucleated RBC (Bld) [#/Vol] 0 10*3/uL Normal 0-5 [facility] Comment on above: Performed By: #### L 506.0400, L501.9520, L500.4050, L506.1001, L500.4100, L100.0100 ####[facility] [address] [place], [address] Platelet mean volume (Bld) [Entitic vol] 11.3 fL Normal 6.2-12.0 [facility] Comment on above: Performed By: #### L 506.0400, L501.9520, L500.4050, L506.1001, L500.4100, L100.0100 ####[facility] [address] [place], [address] Platelets (Bld) [#/Vol] 244 10*3/uL Normal 150-450 [facility] Comment on above: Performed By: #### L 506.0400, L501.9520, L500.4050, L506.1001, L500.4100, L100.0100 ####[facility] [address] [place], [address] RBC (Bld) [#/Vol] 4.12 10*6/uL Low 4.2-5.4 [facility] Comment on above: Performed By: #### L 506.0400, L501.9520, L500.4050, L506.1001, L500.4100, L100.0100 ####[facility] [address] [place], [place], [address] RDW SD 42.4 fl Normal 35.1-43.9 [facility] Comment on above: Performed By: #### L 506.0400, L501.9520, L500.4050, L506.1001, L500.4100, L100.0100 ####[facility] [address] [place], [place], [address] WBC (Bld) [#/Vol] 8.7 10*3/uL Normal 4.4-11.0 [facility] Comment on above: Performed By: #### L 506.0400, L501.9520, L500.4050, L506.1001, L500.4100, L100.0100 ####[facility] [address] [place], [place], [address] Calculated very low density lipoprotein (VLDL) cholesterol measurementOrdered By: [facility] Nela Alatorre on 06-20-2024 Calculated very low density lipoprotein (VLDL) cholesterol measurement 61 mg/dL High 5-40 [facility] Carbon dioxide, total [Moles /volume] in Central venous bloodOrdered By: Leonor Alatorre on 06-20-2024 CO2 [Moles/Vol] 22.4 mmol/L 21.0-32.0 [facility] Chloride assayOrdered By: KELLY Alatorre on 06-20-2024 Chloride [Moles/Vol] 104 mmol/L 98-108 [facility] Comprehensive Metabolic Prof ilon 06-20-2024 Albumin [Mass/Vol] 4.3 g/dL Normal 3.4-4.8 [facility] Comment on above: Performed By: #### L 506.0400, L501.9520, L500.4050, L506.1001, L500.4100, L100.0100 ####[facility] [address] [place], [address] Albumin/Globulin [Mass ratio] 1.5 {ratio} Normal 0.9-2.4 [facility] Comment on above: Performed By: #### L 506.0400, L501.9520, L500.4050, L506.1001, L500.4100, L100.0100 ####[facility] [address] [place], [address] ALK PHOS 57 U/L Normal 35-104 [facility] Comment on above: Performed By: #### L 506.0400, L501.9520, L500.4050, L506.1001, L500.4100, L100.0100 ####[facility] [address] [place], [address] ALT [Catalytic activity/Vol] 24 U/L Normal <=34 [facility] Comment on above: Performed By: #### L 506.0400, L501.9520, L500.4050, L506.1001, L500.4100, L100.0100 ####[facility] [address] [place], [address] AST [Catalytic activity/Vol] 20 U/L Normal <=31 [facility] Comment on above: Performed By: #### L 506.0400, L501.9520, L500.4050, L506.1001, L500.4100, L100.0100 ####[facility] [address] [place], [address] Bilirubin [Mass/Vol] 0.41 mg/dL Normal 0.00-1.30 [facility] Comment on above: Performed By: #### L 506.0400, L501.9520, L500.4050, L506.1001, L500.4100, L100.0100 ####[facility] [address] [place], [address] BUN/CRE 24.2 RATIO High 10-20 [facility] Comment on above: Performed By: #### L 506.0400, L501.9520, L500.4050, L506.1001, L500.4100, L100.0100 ####[facility] [address] [place], [address] Calcium [Mass/Vol] 10.0 mg/dL Normal 7.6-11.0 [facility] Comment on above: Performed By: #### L 506.0400, L501.9520, L500.4050, L506.1001, L500.4100, L100.0100 ####[facility] [address] [place], [address] Chloride [Moles/Vol] 104 mmol/L Normal 98-108 [facility] Comment on above: Performed By: #### L 506.0400, L501.9520, L500.4050, L506.1001, L500.4100, L100.0100 ####[facility] [address] [place], [address] CO2 [Moles/Vol] 22.4 mmol/L Normal 21.0-32.0 [facility] Comment on above: Performed By: #### L 506.0400, L501.9520, L500.4050, L506.1001, L500.4100, L100.0100 ####[facility] [address] [place], [address] Creatinine [Mass/Vol] 1.37 mg/dL High 0.70-1.20 [facility] Comment on above: Performed By: #### L 506.0400, L501.9520, L500.4050, L506.1001, L500.4100, L100.0100 ####[facility] [address] [place], [address] GAP 12 Normal 5-15 [facility] Comment on above: Performed By: #### L 506.0400, L501.9520, L500.4050, L506.1001, L500.4100, L100.0100 ####[facility] [address] [place], [address] GFR/1.73 sq M.predicted among non-blacks MDRD (S/P/Bld) [Vol rate/Area] 43 mL/min/{1.73_m2} Low >60 [facility] Comment on above: Result Comment: mL/m in/1.73m2 CKD-EPI Creatinine Equation (2020) Performed By: #### L 506.0400, L501.9520, L500.4050, L506.1001, L500.4100, L100.0100 ####[facility] [address] [place], [address] Globulin (S) [Mass/Vol] 2.9 g/dL Normal 2.2-4.2 [facility] Comment on above: Performed By: #### L 506.0400, L501.9520, L500.4050, L506.1001, L500.4100, L100.0100 ####[facility] [address] [place], [address] Glucose [Mass/Vol] 104 mg/dL High 70-99 [facility] Comment on above: Performed By: #### L 506.0400, L501.9520, L500.4050, L506.1001, L500.4100, L100.0100 ####[facility] [address] [place], [address] Potassium [Moles/Vol] 4.4 mmol/L Normal 3.3-5.1 [facility] Comment on above: Performed By: #### L 506.0400, L501.9520, L500.4050, L506.1001, L500.4100, L100.0100 ####[facility] [address] [place], [address] Sodium [Moles/Vol] 139 mmol/L Normal 133-145 [facility] Comment on above: Performed By: #### L 506.0400, L501.9520, L500.4050, L506.1001, L500.4100, L100.0100 ####[facility] [address] [place], [address] T PROT 7.2 g/dL Normal 5.9-8.4 [facility] Comment on above: Performed By: #### L 506.0400, L501.9520, L500.4050, L506.1001, L500.4100, L100.0100 ####[facility] [address] [place], [address] Urea nitrogen [Mass/Vol] 33 mg/dL High 4-19 [facility] Comment on above: Performed By: #### L 506.0400, L501.9520, L500.4050, L506.1001, L500.4100, L100.0100 ####[facility] [address] [place], [address] Eosinophil percentageOrdered By: [facility] Nela Alatorre on 06-20-2024 Eosinophils/100 WBC (Bld) 3.9 % 0-5 [facility] Erythrocyte distribution wid th ratioOrdered By: [facility] Nela Alatorre on 06-20-2024 Erythrocyte distribution width (RBC) [Ratio] 12.9 % 11.6-14.6 [facility] Erythrocyte distribution wid th standard deviationOrdered By: [facility] Nela Alatorre on 06-20-2024 Erythrocyte distribution width (RBC) [Ratio] 42.4 fl 35.1-43.9 [facility] Glomerular filtration rate ( GFR) estimation/1.73 sq m using serum, plasma, or whole bOrdered By: [facility] Nela Alatorre on 06-20-2024 GFR/1.73 sq M.predicted among non-blacks MDRD (S/P/Bld) [Vol rate/Area] 43 mL/min/{1.73_m2} Low >60 [facility] Comment on above: mL/min/1.73m2 CKD-EP I Creatinine Equation (2020) Hematocrit Auto (Bld) [Volum e fraction]Ordered By: [facility] Nela Alatorre on 06-20-2024 Hematocrit (Bld) [Volume fraction] 37.1 % 37-47 [facility] Hemoglobin measurementOrdere d By: [facility] Nela Alatorre on 06-20-2024 Hemoglobin (Bld) [Mass/Vol] 12.4 g/dL 12.0-15.0 [facility] Immature granulocytes/100 WB C Auto (Bld)Ordered By: [facility] Nela Alatorre on 06-20-2024 Immature granulocytes/100 WBC (Bld) 0.600 % 0.0-0.9 [facility] Comment on above: IG% - Immature Granu locytes (promyelocytes, myelocytes and metamyelocytes) > 1% indicates that a LEFT SHIFT is Present. LDL calc ser/plasOrdered By: [facility] Nela Alatorre on 06-20-2024 Cholesterol in LDL [Mass/Vol] 95 mg/dL [facility] Comment on above: Ktvajacpru=723-576 m g/dL & Higher Upox=307 mg/dL or greater Laboratory - Chemistry and C hemistry - challengeOrdered By: [facility] Nela Alatorre on 06-20-2024 AST [Catalytic activity/Vol] 20 U/L <32 [facility] Lipid Profileon 06-20-2024 CHOL:HDL 5.46 Normal [facility] Comment on above: Performed By: #### L 506.0400, L501.9520, L500.4050, L506.1001, L500.4100, L100.0100 ####[facility] [address] [place], [address] Cholesterol [Mass/Vol] 190 mg/dL Normal <=[address] [facility] Comment on above: Result Comment: Chol esterol level, Desirable <200 mg/dL Borderline high cholesterol 200-239 mg/dL High cholesterol >=240 mg/dL Recommendations of the NCEP Adult Treatment Panel for the following risk-cutoff thresholds for the [place] population. Performed By: #### L 506.0400, L501.9520, L500.4050, L506.1001, L500.4100, L100.0100 ####[facility] [address] [place], [address] Cholesterol in HDL [Mass/Vol] 35 mg/dL Low [facility] Comment on above: Result Comment: Kennedi onal Cholesterol Education Program (NCEP) guidelines: <40 mg/dL: Low HDL-cholesterol (major risk factor for CHD) >= 60 mg/dL: High HDL-cholesterol (negative risk factor for CHD) HDL-cholesterol is affected by a number of factors, e.g. smoking, exercise, hormones, sex and age. Performed By: #### L 506.0400, L501.9520, L500.4050, L506.1001, L500.4100, L100.0100 ####[facility] [address] [place], [address] Cholesterol in LDL [Mass/Vol] 95 mg/dL Normal [facility] Comment on above: Result Comment: Bord vsqiej=266-028 mg/dL Higher Zjpn=388 mg/dL or greater Performed By: #### L 506.0400, L501.9520, L500.4050, L506.1001, L500.4100, L100.0100 ####[facility] [address] [place], [address] Cholesterol in VLDL [Mass/Vol] 61 mg/dL High 5-40 [facility] Comment on above: Performed By: #### L 506.0400, L501.9520, L500.4050, L506.1001, L500.4100, L100.0100 ####[facility] [address] [place], [address] Triglyceride [Mass/Vol] 303 mg/dL High [facility] Comment on above: Result Comment: The drugs N-Acetylcysteine and Metamizole may falsely depress this assay. Normal range: <150 mg/dL Borderline High: 150-199 mg/dL High: 200-499 mg/dL Very High: >500 mg/dL Performed By: #### L 506.0400, L501.9520, L500.4050, L506.1001, L500.4100, L100.0100 ####[facility] [address] [facility] [place], [address] MCV (mean corpuscular volume ) determinationOrdered By: [facility] Nela Alatorre on 06-20-2024 MCV (RBC) [Entitic vol] 90.0 fL 81-99 [facility] Mean corpuscular hemoglobin (MCH) determinationOrdered By: [facility] Nela Alatorre on 06-20-2024 MCH (RBC) [Entitic mass] 30.1 pg 27.0-32.0 [facility] Mean corpuscular hemoglobin concentration (MCHC) determinationOrdered By: [facility] Nela Alatorre on 06-20-2024 MCHC (RBC) [Mass/Vol] 33.4 g/dL 32-36 [facility] Mean platelet volume determi nationOrdered By: [facility] Nela Alatorre on 06-20-2024 Platelet mean volume (Bld) [Entitic vol] 11.3 fL 6.2-12.0 [facility] Monocyte percentageOrdered B y: [facility] Nela Alatorre on 06-20-2024 Monocytes/100 WBC (Bld) 6.8 % 0-10 [facility] Neutrophil percentageOrdered By: [facility] Nela Alatorre on 06-20-2024 Neutrophils/100 WBC (Bld) 53.1 % 47-70 [facility] Nucleated red blood cell per centageOrdered By: [facility] Nela Alatorre on 06-20-2024 Nucleated RBC/100 WBC (Bld) [Ratio] 0 % 0-5 [facility] Platelet countOrdered By: [facility] Nela Alatorre on 06-20-2024 Platelets (Bld) [#/Vol] 244 10*3/uL 150-450 [facility] Potassium measurement (mass/ volume)Ordered By: [facility] Nela Alatorre on 06-20-2024 Potassium (Unsp spec) [Mass/Vol] 4.4 mmol/L 3.3-5.1 [facility] RBC Auto (Bld) [#/Vol]Ordere d By: [facility] Nela Alatorre on 06-20-2024 RBC (Bld) [#/Vol] 4.12 10*6/uL Low 4.2-5.4 [facility] Screening total cholesterol/ high density lipoprotein (HDL) cholesterol ratioOrdered By: [facility] Nela Alatorre on 06-20-2024 Cholesterol.total/Chol esterol in HDL [Mass ratio] 5.46 {ratio} [facility] Serum creatinine measurement (mass/volume)Ordered By: [facility] Nela Alatorre on 06-20-2024 Creatinine [Mass/Vol] 1.37 mg/dL High 0.70-1.20 [facility] Serum globulin measurementOr dered By: [facility] Nela Alatorre on 06-20-2024 Globulin (S) [Mass/Vol] 2.9 g/dL 2.2-4.2 [facility] Serum glucose measurement (m ass/volume)Ordered By: [facility] Nela Alatorre on 06-20-2024 Glucose [Mass/Vol] 104 mg/dL High 70-99 [facility] Serum or plasma alanine guzmán otransferase (ALT) measurementOrdered By: [facility] Nela Alatorre on 06-20-2024 ALT [Catalytic activity/Vol] 24 U/L <35 [facility] Serum or plasma albumin milton urement (mass/volume)Ordered By: [facility] Nela Alatorre on 06-20-2024 Albumin [Mass/Vol] 4.3 g/dL 3.4-4.8 [facility] Serum or plasma albumin/glob ulin mass ratioOrdered By: [facility] Nela Alatorre on 06-20-2024 Albumin/Globulin [Mass ratio] 1.5 {ratio} 0.9-2.4 [facility] Serum or plasma alkaline felix sphatase measurementOrdered By: [facility] on 06-20-2024 ALP [Catalytic activity/Vol] 57 U/L 35-104 [facility] Serum or plasma calcium milton urement (mass/volume)Ordered By: [facility] on 06-20-2024 Calcium [Mass/Vol] 10.0 mg/dL 7.6-11.0 [facility] Serum or plasma cholesterol in HDL measurement (mass/volume)Ordered By: [facility] on 06-20-2024 Cholesterol in HDL [Mass/Vol] 35 mg/dL Low >40 [facility] Comment on above: National Cholesterol Education Program (NCEP) guidelines:<40 mg/dL: Low HDL-cholesterol (major risk factor for CHD)>= 60 mg/dL: High HDL-cholesterol (negative risk factor for CHD)HDL-cholesterol is affected by a number of factors, e.g. smoking, exercise, hormones, sex and age. Serum or plasma cholesterol measurement (mass/volume)Ordered By: [facility] on 06-20-2024 Cholesterol [Mass/Vol] 190 mg/dL <[address] [facility] Comment on above: Cholesterol level, D esirable <200 mg/dLBorderline high cholesterol 200-239 mg/dLHigh cholesterol >=240 mg/dLRecommendations of the NCEP Adult Treatment Panel for the following risk-cutoff thresholds for the [place] population. Serum or plasma urea nitroge n measurement (mass/volume)Ordered By: [facility] on 06-20-2024 Urea nitrogen [Mass/Vol] 33 mg/dL High 4-19 [facility] Sodium levelOrdered By: [facility] on 06-20-2024 Sodium [Moles/Vol] 139 mmol/L 133-145 [facility] T4 Free Directon 06-20-2024 T4 FREE DIRECT 1.20 ng/dL Normal 0.76-1.46 [facility] Comment on above: Performed By: #### L 506.0400, L501.9520, L500.4050, L506.1001, L500.4100, L100.0100 ####[facility] [address] [place], [place], [id number] T4 freeOrdered By: [facility] Alee Alatorre on 06-20-2024 Free T4 [Mass/Vol] 1.20 ng/dL 0.76-1.46 [facility] TSH DL <= 0.005 mIU/L QnOrde red By: [facility] Nela Karthikeyan on 06-20-2024 TSH Qn 1.980 uIU/mL 0.300-4.20 0 [facility] Thyroid Stim Hormone (TSH)on 06-20-2024 TSH 1.980 uIU/mL Normal 0.300-4.20 0 [facility] Comment on above: Performed By: #### L 506.0400, L501.9520, L500.4050, L506.1001, L500.4100, L100.0100 ####[facility] [address] [place], [place], [id number] Total proteinOrdered By: [facility] Nela Karthikeyan on 06-20-2024 Protein [Mass/Vol] 7.2 g/dL 5.9-8.4 [facility] Triglycerides measurementOrd ered By: [facility] Nela Alatorre on 06-20-2024 Triglyceride [Mass/Vol] 303 mg/dL High <199 [facility] Comment on above: The drugs N-Acetylcy steine and Metamizole may falsely depress this assay. Normal range: <150 mg/dLBorderline High: 150-199 mg/dLHigh: 200-499 mg/dLVery High: >500 mg/dL Vitamin D,25 Hydroxyon 06-20 Vitamin D 25-OH 35.4 ng/mL Normal 30-100 [facility] Comment on above: Result Comment: Sandi min D Status Deficiency: <20 ng/mL (50nmol/L) Insufficiency: 20-30 ng/mL (50-75 nmol/L) Sufficiency: 30-100 ng/mL (75-250 nmol/L) Toxicity: >100 ng/mL (>250 nmol/L) Performed By: #### L 506.0400, L501.9520, L500.4050, L506.1001, L500.4100, L100.0100 ####[facility] [address] [place], [address] White blood cell (WBC) count Ordered By: [facility] Nela Alatorre on 06-20-2024 WBC (Bld) [#/Vol] 8.7 10*3/uL 4.4-11.0 [facility] AAA Screeningon 05-05-2024 AAA Screening [facility] [address] [place] [address] AAA Screening 05/05/24 0907 MR#: [id number] Acct: [id number] Name: JOAN VEGA Rep #: [id number] : 1960 64 From: Jeferson Drew MD Attending Dr: Nela Alatorre, [facility], RECORDS MANAGEMENT TECHNICIAN-C Status : REG CLI Ordering Dr: Nela Alatorre [facility] RECORDS MANAGEMENT TECHNICIAN-C Date: 05/05 Location: [facility] Sex: F C Admitted: Reason For Study Reason For Study: Atherosclerosis of aorta Aorta Measurements Aorta Doppler Measurements Proximal aorta measures2.47 x 2.42cm. in cross-sectional Peak systolic flow velocities within the proximal aorta axis. measure 81.4 cm/sec. Proximal aorta measures2.46cm. in longitudinal axis. Peak systolic flow velocities within the mid aorta measure Mid aorta measures1.84 x 1.82cm. in cross-sectional axis. 54.2 cm/sec. Mid aorta measures1.81cm. in longitudinal axis. Peak systolic flow velocities within the distal aorta Distal aorta measures1.26 x 1.31cm. in cross-sectional axis.measure 90.4 cm/sec. Distal aorta measures1.31cm. in longitudinal axis. Left Iliac Artery Left iliac artery measures 0.68 x 0.72 cm. in the cross-sectional axis. Left iliac artery measures 0.69 cm. in the longitudinal axis. Peak systolic velocity in the left iliac artery measures 124.9 cm/sec. Right Iliac Artery Right iliac artery measures 0.91 x 0.83 cm. in the cross-sectional axis. Right iliac artery measures 0.88 cm. in the longitudinal axis. Peak systolic velocity in the right iliac artery measures 135.9 cm/sec. Procedure Aorta IVC Iliac vasculature or bypass grafts [id number]. Exam performed in department. VL/AAA Screening Interpretation Summary The dimensions of the intra-abdominal aorta are normal, without evidence of aneurysmal dilatation. The iliac arteries are also normal in caliber bilaterally. The intra-abdominal aorta and iliac arteries appear patent, demonstrating normal, pulsatile arterial flow and normal peak systolic velocities. Ordering Physician: Nela Alatorre Referring Physician: Nela Alatorre Performed By: Sanjana Nunn T 05/05/241649 Date Jeferson Drew MD CC: DANNA RECORDS MANAGEMENT TECHNICIAN-C Nela Alatorre Date Dictated: 05/05/24906 Date Transcribed: 05/05/241649 Junior Engineer: Signed Normal [facility] Cardiovascular ultrasound re portOrdered By: Jeferson Drew on 05-05-2024 Study report [facility] [address] [place] [address] AAA Screening 05/05/24906 MR#: [id number] Acct: [id number] Name: JOAN VEGA Rep #:[id number] : 1960 64 From: Jeferson Drew MD Attending Dr: DANNA Rome, RECORDS MANAGEMENT TECHNICIAN-C Status: REG CLI Ordering Dr: Nela Alatorre RECORDS MANAGEMENT TECHNICIAN-C Date: 05/05/24 Location: [facility] Sex: F C Admitted: Reason For Study Reason For Study: Atherosclerosis of aorta Aorta Measurements Aorta Doppler Measurements Proximal aorta measures2.47 x 2.42cm. in cross-sectional Peak systolic flow velocities within the proximal aorta axis. measure 81.4 cm/sec. Proximal aorta measures2.46cm. in longitudinal axis. Peak systolic flow velocities within the mid aorta measure Mid aorta measures1.84 x 1.82cm. in cross-sectional axis. 54.2 cm/sec. Mid aorta measures1.81cm. in longitudinal axis. Peak systolic flow velocities within the distal aorta Distal aorta measures1.26 x 1.31cm. in cross-sectional axis.measure 90.4 cm/sec. Distal aorta measures1.31cm. in longitudinal axis. Left Iliac Artery Left iliac artery measures 0.68 x 0.72 cm. in the cross-sectional axis. Left iliac artery measures 0.69 cm. in the longitudinal axis. Peak systolic velocity in the left iliac artery measures 124.9 cm/sec. Right Iliac Artery Right iliac artery measures 0.91 x 0.83 cm. in the cross-sectional axis. Right iliac artery measures 0.88 cm. in the longitudinal axis. Peak systolic velocity in the right iliac artery measures 135.9 cm/sec. Procedure Aorta IVC Iliac vasculature or bypass grafts 71890. Exam performed in department. VL/AAA Screening Interpretation Summary The dimensions of the intra-abdominal aorta are normal, without evidence of aneurysmal dilatation. The iliac arteries are also normal in caliber bilaterally. The intra-abdominal aorta and iliac arteries appear patent, demonstrating normal, pulsatile arterial flow and normal peak systolic velocities. Ordering Physician: Nela Alatorre Referring Physician: Nela Alatorre Performed By: Sanjana Nunn RVT 05/05/241649 Date _ Jeferson Drew MD CC: VSLeonor RECORDS MANAGEMENT TECHNICIAN-C Nela Alatorre ~ Date Dictated: 05/05/24906 Date Transcribed: 03/28/25 1650 Junior Engineer: Signed [facility] Other Phone: NCS and/or EMG Patienton NCS and/or EMG Patient [facility]/Neurology [address] [place] [address] MR#: [id number] Acct: [id number] Name: JOAN VEGA Rep #: [id number] : 1960 64 From: Gina Arellano MD Referring Dr: Nela Alatorre [facility] RECORDS MANAGEMENT TECHNICIAN-C Status: REG CLI Location: PSN Date: 03/29/24 Sex: F C NCS and/or EMG Patient Report Ordering Doctor: Nela Alatorre DATE OF SERVICE: 03/29/24 Joan presents for electrodiagnostic testing of the lower limbs. She reports numbness and tingling in both feet. Electrodiagnostic findings: Peroneal motor nerve demonstrates normal distal latency amplitude and conduction velocity bilaterally. Normal tibial motor response bilaterally. Normal tibial and peroneal F???waves. H reflex borderline prolonged bilaterally. Sensory responses within normal limits. Needle EMG testing was performed in the lower limbs. All muscles tested showed no evidence of denervation with normal motor unit action potentials. Electrodiagnostic impression: This is a normal electrodiagnostic study of the lower limbs. There is no electrodiagnostic evidence for peripheral neuropathy or lumbosacral radiculopathy. If symptoms persist, may consider nerve biopsy to evaluate for small fiber neuropathy, which would not be picked up on nerve conduction testing. Multi Select Codes Neurology Neurology Interp Codes: 18994-13 Musc test done w/n test comp (interp) (2) and 80618-42 Nr cndj test 9-10 studies (interp) 03/29/24 1313 Date Gina Arellano MD CC: [facility] RECORDS MANAGEMENT TECHNICIAN-C Nela Alatorre; Dr. Gina Arellano MD Date Dictated: 03/29/24 1312 Date Transcribed: 03/29/24 131 Junior Engineer: LONA Signed Normal [facility] HbA1c (Bld)on 01-26-2024 Average glucose Estimated from glycated hemoglobin (Bld) [Mass/Vol] 134 mg/dL Normal [facility] Comment on above: Order Comment: Marianela green Type: BLOOD SPECIMEN Ordering Facility: [facility] Address: [address] [place] [address] Result Comment: eAG: (Estimated average glucose) is a calculated value from HgbA1c and is sales representative metals of the average blood glucose level in the last 2-3 month period. Performed By: #### 2 458-8 #### [facility] CLIA [id number] [address] [place] [address] [place] HbA1c (Bld) [Mass fraction] 6.3 % High 4.3-5.6 [facility] Comment on above: Order Comment: Marianela green Type: BLOOD SPECIMEN Ordering Facility: [facility] Address: [address] [place] [address] Result Comment: Amer ican Diabetes Association guidelines indicate that patients with HgbA1c in the range 5.7-6.4% are at increased risk for development of diabetes, and intervention by lifestyle modification may be beneficial. HgbA1c greater or equal to 6.5% is considered diagnostic of diabetes. Performed By: #### 2 458-8 #### [facility] CLIA [id number] [address] [place] [address] [place] Lead (Bld) [Mass/Vol]on 01-08 Lead (BldV) [Mass/Vol] <1.0 Normal <3.5 [facility] Comment on above: Order Comment: Marianela green Type: BLOOD SPECIMEN [facility] Facility[facility] Address: [address] [place] [address] Result Comment: The Centers for Disease Control and Prevention (CDC) recommends a blood lead reference value of less than 3.5 ???g/dL (Update of the Blood Lead Reference Value - [facility], 2020). The CDC's updated Recommended Actions Based on Blood Lead Level can be accessed at www.cdc.gov. Consult your [facility] Department of Health and/or applicable regulatory agencies for specific guidance on testing follow up and patient management. This test was developed, and its performance characteristics determined by the [facility] Department of Pathology and Laboratory Medicine. It has not been cleared or approved by the FDA. The [facility] Department of Pathology and Laboratory Medicine is regulated under CLIA as qualified to perform high-complexity testing. This test is used for clinical purposes. It should not be regarded as investigational or for research. Performed By: #### 2 458-8 #### [facility] CLIA [id number] [address] [place], [place] [address] [place] [address] [place] MERCURY BLDon 01-26-2024 MERCURY <2.5 Normal <=10.0 [facility] Comment on above: Order Comment: Speci men Type: BLOOD SPECIMEN [facility]ing Facility[facility] Address: [address] [place] [address] Result Comment: INTE RPRETIVE INFORMATION: Mercury, Blood Elevated results may be due to skin or collection-related contamination, including the use of a noncertified metal-free collection/transport tube. If contamination concerns exist due to elevated levels of blood mercury, confirmation with a second specimen collected in a certified metal-free tube is recommended. Blood mercury levels predominantly reflect recent exposure and are most useful in the diagnosis of acute poisoning as blood mercury concentrations rise sharply and fall quickly over several days after ingestion. Blood concentrations in unexposed individuals rarely exceed 20 ug/L. The provided reference interval relates to inorganic mercury concentrations. Dietary and non-occupational exposure to organic mercury forms may contribute to an elevated total mercury result. Clinical presentation after toxic exposure to organic mercury may include dysarthria, ataxia and constricted vision lynn with mercury blood concentrations from 20 to 50 ug/L. This test was developed and its performance characteristics determined by [employer]. It has not been cleared or approved by the US Food and Drug Administration. This test was performed in a CLIA certified laboratory and is intended for clinical purposes. Performed By: [facility] [address] [place] [address] [address] Supervisor: Jaskaran Epps MD, PhD CLIA Number: [id number] Performed By: #### C RET1 #### [facility] CLIA [id number] [address] [place] [address] [place] XR LUMBAR 3V AP/LAT/L5-S1on 01-26-2024 XR LUMBAR 3V AP/LAT/L5-S1 * * *Final Report* * * DATE OF EXAM: Jan 26 2024 4:23PM GEOVANI 5228 - XR LUMBAR 3V AP/LAT/L5-S1 / PROCEDURE REASON: M54.50 * * * * Physician Interpretation * * * * EXAMINATION: XR LUMBAR 3V AP/LAT/L5-S1 PATIENT/TECHNOLOGIST PROVIDED HISTORY: PT STATES LOWER BACK PAIN X 1 YEAR NO INJURY CLINICAL INFORMATION: 63 years old Female with M54.50 TECHNIQUE: XR LUMBAR 3V AP/LAT/L5-S1 Laterality: NOT APPLICABLE Number of different views (projections): 3 COMPARISON: CT abdomen pelvis 07/15/2023 RESULT: Lumbar spine: Counting reference: Lumbosacral junction. For the purposes of this report, upper L5 is considered the level of the iliac crest and there are 5 lumbar-type vertebrae. Anatomic Variants: None. Post-op assessment: N/A Alignment: Mild less than 10 degree levoconvex asymmetry of the lumbar spine. Grade 1 anterolisthesis of L4 on L5. Vertebral bodies: Vertebral body heights are maintained. Spine articulations: Mild disc space narrowing L4-L5. Remainder of the disc spaces are maintained. Moderate-severe facet degenerative changes lower lumbar spine. Other: Mild degenerative changes bilateral sacroiliac joints and pubic symphysis. Atherosclerotic calcification of the abdominal aorta. IMPRESSION: Degenerative changes as described. Junior Engineer: MOSES Transcribe Date/Time: Feb 01 2024 2:41P Dictated by : JELENA MARAVILLA DO This examination was interpreted and the report reviewed and electronically signed by: JELENA MARAVILLA DO on Feb 01 2024 2:45PM EST [id number] Normal [facility] CBC W Auto Differential pane l (Bld)on 11-05-2023 Basophils (Bld) [#/Vol] 0.18 10*3/uL High <0.11 [facility] Comment on above: Order Comment: Speci men Type: BLOOD SPECIMEN [facility] Address: [address] [place] [address] Performed By: #### C RET1 #### [facility] CLIA [id number] [address] [place] [address] [place] Basophils/100 WBC (Bld) 1.8 % Normal [facility] Comment on above: Order Comment: Speci men Type: BLOOD SPECIMEN Ordering Facility[facility] Address: [address] [place] [address] Performed By: #### C RET1 #### [facility] CLIA [id number] [address] [place] [address] [place] Differential cell count method Nom (Bld) Auto Normal [facility] Comment on above: Order Comment: Speci men Type: BLOOD SPECIMEN Order[facility] Facility[facility] Address: [address] [place] [address] Performed By: #### C RET1 #### [facility] CLIA [id number] [address] [place] [address] [place] Eosinophils (Bld) [#/Vol] 0.39 10*3/uL Normal <0.46 [facility] Comment on above: Order Comment: Speci men Type: BLOOD SPECIMEN Order[facility] Address: [address] [place] [address] Performed By: #### C RET1 #### [facility] CLIA [id number] [address] [place] [address] [place] Eosinophils/100 WBC (Bld) 3.9 % Normal [facility] Comment on above: Order Comment: Speci men Type: BLOOD SPECIMEN Ordering Facility[facility] Address: [address] [place] [address] Performed By: #### C RET1 #### [facility] CLIA [id number] [address] [place] [address] [place] OF JANE Erythrocyte distribution width (RBC) [Ratio] 13.2 % Normal 11.5-15.0 [facility] Comment on above: Order Comment: Speci men Type: BLOOD SPECIMEN [facility] Address: [address] [place] [address] Performed By: #### C RET1 #### [facility] CLIA [id number] [address] [place] [address] [place] Hematocrit (Bld) [Volume fraction] 39.6 % Normal 36.0-46.0 [facility] Comment on above: Order Comment: Speci men Type: BLOOD SPECIMEN Ordering Facility: [facility] Address: [address] [place] [address] Performed By: #### C RET1 #### [facility] CLIA [id number] [address] [place] [address] [place] Hemoglobin (Bld) [Mass/Vol] 13.1 g/dL Normal 11.5-15.5 [facility] Comment on above: Order Comment: Speci men Type: BLOOD SPECIMEN Order[facility] Facility[facility] Address: [address] [place] [address] Performed By: #### C RET1 #### [facility] CLIA [id number] [address] [place] [address] [place] Immature granulocytes (Bld) [#/Vol] 0.05 10*3/uL Normal <0.10 [facility] Comment on above: Order Comment: Speci men Type: BLOOD SPECIMEN Ordering Facility: [facility] Address: [address] [place] [address] Performed By: #### C RET1 #### [facility] CLIA [id number] [address] [place] [address] [place] Immature granulocytes/100 WBC (Bld) 0.5 % Normal [facility] Comment on above: Order Comment: Speci men Type: BLOOD SPECIMEN Order[facility] Facility[facility] Address: [address] [place] [address] Performed By: #### C RET1 #### [facility] CLIA [id number] [address] [place] [address] [place] Lymphocytes (Bld) [#/Vol] 4.09 10*3/uL High 1.00-4.00 [facility] Comment on above: Order Comment: Speci men Type: BLOOD SPECIMEN [facility] Address: [address] [place] [address] Performed By: #### C RET1 #### [facility] CLIA [id number] [address] [place] [address] [place] Lymphocytes/100 WBC (Bld) 40.7 % Normal [facility] Comment on above: Order Comment: Speci men Type: BLOOD SPECIMEN [facility] Address: [address] [place] [address] Performed By: #### C RET1 #### [facility] CLIA [id number] [address] [place] [address] [place] MCH (RBC) [Entitic mass] 29.6 pg Normal 26.0-34.0 [facility] Comment on above: Order Comment: Speci men Type: BLOOD SPECIMEN [facility] Address: [address] [place] [address] Performed By: #### C RET1 #### [facility] CLIA [id number] [address] [place] [address] [place] MCHC (RBC) [Mass/Vol] 33.1 g/dL Normal 30.5-36.0 [facility] Comment on above: Order Comment: Speci men Type: BLOOD SPECIMEN [facility] Address: [address] [place] [address] Performed By: #### C RET1 #### [facility] CLIA [id number] [address] [place] [address] [place] MCV (RBC) [Entitic vol] 89.6 fL Normal 80.0-100.0 [facility] Comment on above: Order Comment: Speci men Type: BLOOD SPECIMEN [facility] Address: [address] [place] [address] Performed By: #### C RET1 #### [facility] CLIA [id number] [address] [place] [address] [place] Monocytes (Bld) [#/Vol] 0.52 10*3/uL Normal <0.87 [facility] Comment on above: Order Comment: Speci men Type: BLOOD SPECIMEN [facility] Address: [address] [place] [address] Performed By: #### C RET1 #### [facility] CLIA [id number] [address] [place] [address] [place] Monocytes/100 WBC (Bld) 5.2 % Normal [facility] Comment on above: Order Comment: Speci men Type: BLOOD SPECIMEN [facility] Address: [address] [place] [address] Performed By: #### C RET1 #### [facility] CLIA [id number] [address] [place] [address] [place] Neutrophils (Bld) [#/Vol] 4.81 10*3/uL Normal 1.45-7.50 [facility] Comment on above: Order Comment: Speci men Type: BLOOD SPECIMEN [facility] Address: [address] [place] [address] Performed By: #### C RET1 #### [facility] CLIA [id number] [address] [place] [address] [place] Neutrophils/100 WBC (Bld) 47.9 % Normal [facility] Comment on above: Order Comment: Speci men Type: BLOOD SPECIMEN [facility] Address: [address] [place] [address] Performed By: #### C RET1 #### [facility] CLIA [id number] [address] [place] [address] [place] Nucleated RBC (Bld) [#/Vol] 10*3/uL Normal <0.01 [facility] Comment on above: Order Comment: Speci men Type: BLOOD SPECIMEN [facility] Address: [address] [place] [address] Performed By: #### C RET1 #### [facility] CLIA [id number] [address] [place] [address] [place] Nucleated RBC/100 WBC (Bld) [Ratio] 0.0 /100 WBC Normal [facility] Comment on above: Order Comment: Speci men Type: BLOOD SPECIMEN [facility] Address: [address] [place] [address] Performed By: #### C RET1 #### [facility] CLIA [id number] [address] [place] [address] [place] Platelet mean volume (Bld) [Entitic vol] 10.9 fL Normal 9.0-12.7 [facility] Comment on above: Order Comment: Speci men Type: BLOOD SPECIMEN [facility] Address: [address] [place] [address] Performed By: #### C RET1 #### [facility] CLIA [id number] [address] [place] [address] [place] Platelets (Bld) [#/Vol] 267 10*3/uL Normal 150-400 [facility] Comment on above: Order Comment: Speci men Type: BLOOD SPECIMEN [facility] Address: [address] [place] [address] Performed By: #### C RET1 #### [facility] CLIA [id number] [address] [place] [address] [place] RBC (Bld) [#/Vol] 4.42 10*6/uL Normal 3.90-5.20 [facility] Comment on above: Order Comment: Speci men Type: BLOOD SPECIMEN [facility] Address: [address] [place] [address] Performed By: #### C RET1 #### [facility] CLIA [id number] [address] [place] [address] [place] WBC (Bld) [#/Vol] 10.04 10*3/uL Normal 3.70-11.[address] [facility] Comment on above: Order Comment: Marianela green Type: BLOOD SPECIMEN [facility] Address: [address] [place] [address] Performed By: #### C RET1 #### [facility] CLIA [id number] [address] [place] [address] [place] CELIAC SCREENon 11-05-2023 GLIAD DEAMIDATED IGA QUAL Negative Normal Negative, Test not Indicated [facility] Comment on above: Order Comment: Marianela green Type: BLOOD SPECIMEN [facility] Address: [address] [place] [address] Result Comment: This is used as an aid in diagnosis of celiac disease. Clinical correlation is required. The following results were obtained with an [employer] QUANTA Lite Gliadin IgA ROSHAN Gliadin. Gliadin IgA values obtained with different manufacturers' assay methods may not be used interchangeably. The magnitude of the reported IgA levels cannot be correlated to an endpoint titer. Performed By: #### 2 458-8 #### [facility] CLIA [id number] [address] [place] [address] [place] Gliadin peptide IgA Qn (S) 5 Units Normal <20 [facility] Comment on above: Order Comment: Marianela green Type: BLOOD SPECIMEN [facility] Address: [address] [place] [address] Performed By: #### 2 458-8 #### [facility] CLIA [id number] [address] [place] [address] [place] INTERPRETATION No serological evide nce of celiac disease, however, if celiac disease is clinically suspected and patient is not on gluten-free diet, histological diagnosis may be considered. HLA testing may help with risk assessment. Normal [facility] Comment on above: Order Comment: Speci men Type: BLOOD SPECIMEN [facility] Address: [address] [place] [address] Performed By: #### 2 458-8 #### [facility] CLIA [id number] [address] [place] [address] [place] TRANSGLUTAMINASE IGA ABS INTERPRETATION Negative Normal Negative [facility] Comment on above: Order Comment: Speci peter Type: BLOOD SPECIMEN [facility] Address: [address] [place] [address] Result Comment: The following results were obtained with [employer]hips[employer] Lite R h-tTG IgA ROSHAN.???R h-tTG IgA values obtained with different manufacturers' assay methods may not be used interchangeably. The magnitude of the reported IgA levels cannot be corelated to an endpoint???concentration. This is used as an aid in diagnosis of celiac disease. Clinical correlation is required. Performed By: #### 2 458-8 #### [facility] CLIA [id number] [address] [place] [address] [place] tTG IgA Qn (S) <2 Normal <4 [facility] Comment on above: Order Comment: Speci men Type: BLOOD SPECIMEN [facility] Address: [address] [place] [address] Performed By: #### 2 458-8 #### [facility] CLIA [id number] [address] [place] [address] [place] Comprehensive metabolic 2000 panelon 11-05-2023 Albumin [Mass/Vol] 4.3 g/dL Normal 3.9-4.9 [facility] Comment on above: Order Comment: Madelainei men Type: BLOOD SPECIMEN [facility] Address: [address] [place] [address] Performed By: #### 2 4323-8 #### [facility] CLIA [id number] [address] [place] [address] [place] ALP [Catalytic activity/Vol] 57 U/L Normal 34-123 [facility] Comment on above: Order Comment: Speci men Type: BLOOD SPECIMEN [facility] Address: [address] [place] [address] Performed By: #### 2 4323-8 #### [facility] CLIA [id number] [address] [place] [address] [place] ALT [Catalytic activity/Vol] 16 U/L Normal 7-38 [facility] Comment on above: Order Comment: Speci men Type: BLOOD SPECIMEN [facility] Address: [address] [place] [address] Performed By: #### 2 4323-8 #### [facility] CLIA [id number] [address] [place] [address] [place] Anion gap [Moles/Vol] 11 mmol/L Normal 8-15 [facility] Comment on above: Order Comment: Speci men Type: BLOOD SPECIMEN [facility] Address: [address] [place] [address] Performed By: #### 2 4323-8 #### [facility] CLIA [id number] [address] [place] [address] [place] AST [Catalytic activity/Vol] 11 U/L Low 13-35 [facility] Comment on above: Order Comment: Speci men Type: BLOOD SPECIMEN [facility] Address: [address] [place] [address] Performed By: #### 2 4323-8 #### [facility] CLIA [id number] [address] [place] [address] [place] Bilirubin [Mass/Vol] 0.3 mg/dL Normal 0.2-1.[address] [facility] Comment on above: Order Comment: Speci men Type: BLOOD SPECIMEN [facility] Address: [address] [place] [address] Performed By: #### 2 4323-8 #### [facility] CLIA [id number] [address] [place] [address] [place] Calcium [Mass/Vol] 9.8 mg/dL Normal 8.5-10.2 [facility] Comment on above: Order Comment: Speci men Type: BLOOD SPECIMEN [facility] Address: [address] [place] [address] Performed By: #### 2 4323-8 #### [facility] CLIA [id number] [address] [place] [address] [place] Chloride [Moles/Vol] 104 mmol/L Normal 98-[address] [facility] Comment on above: Order Comment: Speci men Type: BLOOD SPECIMEN [facility] Address: [address] [place] [address] Performed By: #### 2 4323-8 #### [id number] [address] [place] [address] [place] CO2 [Moles/Vol] 24 mmol/L Normal 22-30 [facility] Comment on above: Order Comment: Speci men Type: BLOOD SPECIMEN [facility] Address: [address] [place] [address] Performed By: #### 2 4323-8 #### [facility] CLIA [id number] [address] [place] [address] [place] Creatinine [Mass/Vol] 0.91 mg/dL Normal 0.58-0.96 [facility] Comment on above: Order Comment: Speci men Type: BLOOD SPECIMEN [facility] Address: [address] [place] [address] Performed By: #### 2 4323-8 #### [facility] [id number] [address] [place] [address] [place] Creatinine and Glomerular filtration rate.predicted panel (S/P/Bld) 70 mL/min/1.73m??? Normal >=60 [facility] Comment on above: Order Comment: Marianela green Type: BLOOD SPECIMEN [facility] Address: [address] [place] [address] Result Comment: Sherie mated Glomerular Filtration Rate (eGFR) is calculated using the 2020 CKD-EPI creatinine equation. This equation utilizes serum creatinine, sex, and age as parameters. The creatinine assay has traceable calibration to isotope dilution-mass spectrometry. Refer to KDIGO guidelines for clinical interpretation. In patients with unstable renal function, e.g. those with acute kidney injury, the eGFR may not accurately reflect actual GFR. Performed By: #### 2 4323-8 #### [facility] [id number] [address] [place] [address] [place] Glucose [Mass/Vol] 124 mg/dL High 74-99 [facility] Comment on above: Order Comment: Marianela green Type: BLOOD SPECIMEN [facility] Address: [address] [place] [address] Result Comment: The [place] Diabetes Association (ADA) provides guidance for cutoff values for fasting glucose and random glucose. The ADA defines fasting as no caloric intake for at least 8 hours. Fasting plasma glucose results between 100 to 125 mg/dL indicate increased risk for diabetes (prediabetes). Fasting plasma glucose results greater than or equal to 126 mg/dL meet the criteria for diagnosis of diabetes. In the absence of unequivocal hyperglycemia, results should be confirmed by repeat testing. In a patient with classic symptoms of hyperglycemia or hyperglycemic crisis, random plasma glucose results greater than or equal to 200 mg/dL meet the criteria for diagnosis of diabetes. Reference: Standards of Medical Care in Diabetes 2016, [place] Diabetes Association. Diabetes Care. 2016.39(Suppl 1). Performed By: #### 2 4323-8 #### [facility] [id number] [address] [place] [address] [place] Potassium [Moles/Vol] 4.2 mmol/L Normal 3.7-5.1 [facility] Comment on above: Order Comment: Speci men Type: BLOOD SPECIMEN [facility] Address: [address] [place], [place] [address] Performed By: #### 2 4323-8 #### [facility] CLIA [id number] [address] [place] [address] [place] Protein [Mass/Vol] 7.1 g/dL Normal 6.3-8.0 [facility] Comment on above: Order Comment: Speci men Type: BLOOD SPECIMEN [facility] Address: [address] [place], [place] [address] Performed By: #### 2 4323-8 #### [facility] CLIA [id number] [address] [place] [address] [place] Sodium [Moles/Vol] 139 mmol/L Normal 136-144 [facility] Comment on above: Order Comment: Speci men Type: BLOOD SPECIMEN [facility] Address: [address] [place] [address] Performed By: #### 2 4323-8 #### [facility] CLIA [id number] [address] [place] [address] [place] Urea nitrogen [Mass/Vol] 32 mg/dL High 7-21 [facility] Comment on above: Order Comment: Speci men Type: BLOOD SPECIMEN [facility] Address: [address] [place] [address] Performed By: #### 2 4323-8 #### [facility] CLIA [id number] [address] [place] [address] [place] HbA1c (Bld)on 11-05-2023 Average glucose Estimated from glycated hemoglobin (Bld) [Mass/Vol] 131 mg/dL Normal [facility] Comment on above: Order Comment: Speci men Type: BLOOD SPECIMEN [facility] Address: [address] [place] [address] Result Comment: eAG: (Estimated average glucose) is a calculated value from HgbA1c and is sales representative metals of the average blood glucose level in the last 2-3 month period. Performed By: #### 2 458-8 #### [facility] CLIA [id number] [address] [place] [address] [place] HbA1c (Bld) [Mass fraction] 6.2 % High 4.3-5.6 [facility] Comment on above: Order Comment: Speci men Type: BLOOD SPECIMEN [facility] Address: [address] [place] [address] Result Comment: Amer [place] Diabetes Association guidelines indicate that patients with HgbA1c in the range 5.7-6.4% are at increased risk for development of diabetes, and intervention by lifestyle modification may be beneficial. HgbA1c greater or equal to 6.5% is considered diagnostic of diabetes. Performed By: #### 2 458-8 #### [facility] CLIA [id number] [address] [place] [address] [place] IgA SerPl-mCncon 11-05-2023 IgA [Mass/Vol] 331 mg/dL Normal 70-400 [facility] Comment on above: Order Comment: Speci men Type: BLOOD SPECIMEN [facility] Address: [address] [place] [address] Performed By: #### 2 458-8 #### [facility] CLIA [id number] [address] [place] [address] [place] Lipid 1996 panelon Cholesterol [Mass/Vol] 189 mg/dL Normal <200 [facility] Comment on above: Order Comment: Speci men Type: BLOOD SPECIMEN [facility] Address: [address] [place] [address] Result Comment: <200 mg/dL, Desirable 200-239 mg/dL, Borderline high >239 mg/dL, High Performed By: #### C RET1 #### [facility] CLIA [id number] [address] Cholesterol in HDL [Mass/Vol] 35 mg/dL Low >39 [facility] Comment on above: Order Comment: Marianela green Type: BLOOD SPECIMEN [facility] Address: [address] [place] [address] Result Comment: 40-5 9 mg/dL, Acceptable >59 mg/dL, High: Negative risk factor for coronary heart disease <40 mg/dL, Low: Positive risk factor for coronary heart disease Performed By: #### C RET1 #### [facility] [id number] [address] [place] [address] Cholesterol in LDL [Mass/Vol] 107 mg/dL High <100 [facility] Comment on above: Order Comment: Marianela [facility] Type: BLOOD SPECIMEN [facility] Address: [address] [place] [address] Result Comment: <100 mg/dL, Optimal 100-129 mg/dL, Near optimal/above optimal 130-159 mg/dL, Borderline high 160-189 mg/dL, High >189 mg/dL, Very high Secondary prevention optimal LDL Cholesterol levels are recommended to be < 70 mg/dL Performed By: #### C RET1 #### [facility] [id number] [address] [place] [address] Cholesterol in LDL/Cholesterol in HDL [Mass ratio] 3.06 {ratio} High <2.54 [facility] Comment on above: Order Comment: Marianela [facility] Type: BLOOD SPECIMEN [facility] Address: [address] [place] [address] Result Comment: Mya guerrero: 1. National Cholesterol Education Program ATP III Guideline At-A-Glance Quick Desk Reference: National Heart, Lung, and Blood [place]. National Institutes of Health. 2001: NIH Publication No. 01-3305. 2. An International Atherosclerosis Society position paper: global recommendations for the management of dyslipidemia: executive summary, Atherosclerosis. 2014: 232(2):410-413. Performed By: #### C RET1 #### [facility] CLIA [id number] [address] [place] [address] [place] Cholesterol in VLDL [Mass/Vol] 47 mg/dL High <30 [facility] Comment on above: Order Comment: Speci men Type: BLOOD SPECIMEN [facility] Address: [address] [place] [address] Performed By: #### C RET1 #### [facility] [id number] [address] [place] [address] [place] Cholesterol non HDL [Mass/Vol] 154 mg/dL High <130 [facility] Comment on above: Order Comment: Speci men Type: BLOOD SPECIMEN [facility] Address: [address] [place] [address] Result Comment: <130 mg/dL, Optimal 130-159 mg/dL, Near optimal/above optimal 160-189 mg/dL, Borderline high 190-219 mg/dL, High >219 mg/dL, Very high Secondary prevention optimal non HDL Cholesterol levels are recommended to be <100 mg/dL Performed By: #### C RET1 #### [facility] [id number] [address] [place] [address] [place] Cholesterol.total/Chol esterol in HDL [Mass ratio] 5.40 {ratio} High <5.10 [facility] Comment on above: Order Comment: Speci men Type: BLOOD SPECIMEN [facility] Address: [address] [place] [address] Performed By: #### C RET1 #### [facility] [id number] [address] [place] [address] [place] FASTING TIME 11 hrs Normal [facility] Comment on above: Order Comment: Speci men Type: BLOOD SPECIMEN [facility] Address: [address] [place] [address] Performed By: #### C RET1 #### [facility] CLIA [id number] [address] [place] [address] [place] [facility] Triglyceride [Mass/Vol] 236 mg/dL High <150 [facility] Comment on above: Order Comment: Speci men Type: BLOOD SPECIMEN [facility] Address: [address] [place] [address] Result Comment: <150 mg/dL, Normal 150-199 mg/dL, Borderline high 200-499 mg/dL, High >499 mg/dL, Very high Performed By: #### C RET1 #### [facility] CLIA [id number] [address] [place] NM GASTRIC EMPTYING SOLIDon 11-05-2023 NM GASTRIC EMPTYING SOLID * * *Final Report* * * DATE OF EXAM: Nov 05 2023 12:15PM [place] [id number] - NM GASTRIC EMPTYING SOLID / PROCEDURE REASON: R10.13, R14.0 * * * * Physician Interpretation * * * * SOLID MEAL GASTRIC EMPTYING STUDY 11/05/2023 12:17 PM: CLINICAL HISTORY: 63 years old Female patient with history of nausea. TECHNIQUE: 1.0 mCi Tc-99m Sulfur Colloid was given orally in a meal consisting of 4 ounces of egg beater 2 pieces of toast 1 ounce of jelly and 8 ounces of water, consumed over 5 to 10 minutes. 1-minute posterior and anterior spot images of the stomach region at times 0, 1, 2, and 4 hours were obtained. Geometric mean was used to plot a time-activity curve. RESULT: Solid study demonstrates: - 76% gastric retention at 1 hour (normal range, 37-90%), - 48% retention at 2 hours (normal range, 30-60%), and - 10% retention at 4 hours (normal range, 0-10%). IMPRESSION: NORMAL RATE OF GASTRIC EMPTYING OF A SOLID MEAL. Junior Engineer: MOSES Transcribe Date/Time: Nov 05 2023 12:17P Dictated by : KEILA LUNDBERG MD This examination was interpreted and the report reviewed and electronically signed by: KEILA LUNDBERG MD on Nov 05 2023 12:18PM EST [id number] Normal [facility] Stomach Views for gastric emptying solid phase W radionuclide Mary 11-05-2023 IMPRESSION: NORMAL RATE OF GASTRIC EMPTYING OF A SOLID MEAL. Junior Engineer: MOSES Transcribe Date/Time: Nov 05 2023 12:17P Dictated by : KEILA LUNDBERG MD This examination was interpreted and the report reviewed and electronically signed by: KEILA LUNDBERG MD on Nov 05 2023 12:18PM EST DIVISION OF RADIOLOGY * * *Final Report* * * DATE OF EXAM: Nov 05 2023 12:15PM WON 0017 - NM GASTRIC EMPTYING SOLID / PROCEDURE REASON: R10.13, R14.0 * * * * Physician Interpretation * * * * SOLID MEAL GASTRIC EMPTYING STUDY 11/05/2023 12:17 PM: CLINICAL HISTORY: 63 years old Female patient with history of nausea. TECHNIQUE: 1.0 mCi Tc-99m Sulfur Colloid was given orally in a meal consisting of 4 ounces of egg beater 2 pieces of toast 1 ounce of jelly and 8 ounces of water, consumed over 5 to 10 minutes. 1-minute posterior and anterior spot images of the stomach region at times 0, 1, 2, and 4 hours were obtained. Geometric mean was used to plot a time-activity curve. RESULT: Solid study demonstrates: - 76% gastric retention at 1 hour (normal range, 37-90%), - 48% retention at 2 hours (normal range, 30-60%), and - 10% retention at 4 hours (normal range, 0-10%). DIVISION OF RADIOLOGY Provider, [facility] - 11/05/2023 * * *Final Report* * * DATE OF EXAM: Nov 05 2023 12:15PM WON 0017 - NM GASTRIC EMPTYING SOLID / PROCEDURE REASON: R10.13, R14.0 * * * * Physician Interpretation * * * * SOLID MEAL GASTRIC EMPTYING STUDY 11/05/2023 12:17 PM: CLINICAL HISTORY: 63 years old Female patient with history of nausea. TECHNIQUE: 1.0 mCi Tc-99m Sulfur Colloid was given orally in a meal consisting of 4 ounces of egg beater 2 pieces of toast 1 ounce of jelly and 8 ounces of water, consumed over 5 to 10 minutes. 1-minute posterior and anterior spot images of the stomach region at times 0, 1, 2, and 4 hours were obtained. Geometric mean was used to plot a time-activity curve. RESULT: Solid study demonstrates: - 76% gastric retention at 1 hour (normal range, 37-90%), - 48% retention at 2 hours (normal range, 30-60%), and - 10% retention at 4 hours (normal range, 0-10%). IMPRESSION IMPRESSION: NORMAL RATE OF GASTRIC EMPTYING OF A SOLID MEAL. Junior Engineer: PSCB Transcribe Date/Time: Nov 05 2023 12:17P Dictated by : KEILA LUNDBERG MD This examination was interpreted and the report reviewed and electronically signed by: KEILA LUNDBERG MD on Nov 05 2023 12:18PM EST [facility] Radiology Study observation (narrative) [facility] Stomach Views for gastric emptying solid phase W radionuclide POOrdered By: Ccf Provider on 11-05-2023 [facility] T4 Free SerPl-mCncon 024 Free T4 [Mass/Vol] 1.3 ng/dL Normal 0.9-1.7 [facility] Comment on above: Order Comment: Speci men Type: BLOOD SPECIMEN Ordering Facility: [facility] Address: [address] [place] [address] Performed By: #### C RET1 #### [facility] [id number] [address] [place] [address] OF JANE TSH SerPl-aCncon 11-05-2023 TSH Qn 3.520 m[IU]/L Normal 0.270-4.20 0 [facility] Comment on above: Order Comment: Speci men Type: BLOOD SPECIMEN Ordering Facility: [facility] Address: [address] [place] [address] Performed By: #### C RET1 #### [facility] [id number] [address] [place] [address] OF JANE Dexa Bone Density Studyon Dexa Bone Density Study [facility] [address] [place], [place] [address] Dexa Bone Density Study MR#: [id number] Acct: [id number] Name: JOAN VEGA Rep #: [id number] : 1960 F 63 From: Bridger stoddard MD PCP: ADNNA Rome, RECORDS MANAGEMENT TECHNICIAN-C Status: REG CLI Study: Dexa Bone Density Study Date of Exam: 11/04/23 Exam# [id number] Ordering Dr: Nela Alatorre RECORDS MANAGEMENT TECHNICIAN-C :[id number] STUDY: DUAL ENERGY X-RAY ABSORPTIOMETRY / DXA REASON FOR EXAM: Female, 63 years old. Z780 TECHNIQUE: Bone Mineral Density (BMD) measurements of lumbar spine and bilateral hips were obtained. COMPARISON: None. FINDINGS: Lumbar Spine (L1-L4): g/cm2 (0.926) / T-score (-0.8) / Z-score (0.9) Findings are suggestive of normal bone density with a low fracture risk. Left Femur Total: g/cm2 (0845) / T-score (-0.8) / Z-score (0.5) Left Femoral Neck: g/cm2 (0.723) / T-score (-1.1) / Z-score (0.4) Right Femur Total: g/cm2 (0.870) / T-score (-0.6) / Z-score (0.7) Right Femoral Neck: g/cm2 (0.683) / T-score (-1.5) / Z-score (0.0) BD/Dexa Bone Density Study IMPRESSION: The patient is considered osteopenic as outlined below according to World Jm Organization (WHO) criteria with a low fracture risk. Reference Information: The T-score is the number of standard deviations above or below the standard which is normal for young adults at their peak bone mineral density. The World Health Organization (WHO) interprets the T-scores as follows: Above -1 Normal bone density Between -1 and -2.5 Osteopenia Equal to / or below -2.5 Osteoporosis As a practical clinical guideline, osteopenia may be graded as follows: Mild -1 through -1.5 Moderate -1.6 through -2.0 Severe -2.1 through -2.4 The Z-score is the number of standard deviations above or below age-matched controls. A Z-score of less than -1.5 would be considered abnormal. References: 1. NIH Osteoporosis and Related Bone Diseases www osteo.org 2. International Society for Clinical Densitometry www iscd.org 3. National Osteoporosis Foundation www nof.org Electronically Signed: Bridger Corrales MD at 12:42 EDT , CC: [facility] Alatorre Junior Engineer: Signed [facility] 10-05-2023 [facility] Office Visit ([facility] ) JOAN VEGA ([id number]) 1960 F Date Time Provider Department 10/05/23 1:30 PM MINISTERIO ARIZMENDI [facility] During your visit today, we recorded the following information about you: Pulse Blood pressure Weight Height 69/minute 116/72 97.2 kg 1.651 m Hipolito Watson MA 10/05/2023 2:43 PM Signed CHIEF COMPLAINT: Patient presents with: Recheck: Lower abdominal pain, bloating, constipation- started a probiotic and helps a little bit. Tried Ibsrela but ran out only took samples. HPI Joan Vega is a 63 year old female here today for Recheck (Lower abdominal pain, bloating, constipation- started a probiotic and helps a little bit. Tried Ibsrela but ran out only took samples. ) Current Outpatient Medications Medication Sig Lactobacillus acidophilus (PROBIOTIC ORAL) Take by mouth. pantoprazole DR (PROTONIX) 40 mg tablet Take 40 mg by mouth once daily. lactulose 10 gram/15 mL solution take 30 milliliters by mouth every 12 hours until normal BOWEL MOVEMENT budesonide-formoterol (SYMBICORT) 160-4.5 mcg/actuation inhaler Inhale 2 Puffs as instructed. lisinopril (ZESTRIL) 40 mg tablet Take 40 mg by mouth once daily. atorvastatin (LIPITOR) 20 mg tablet Take 1 tablet by mouth daily at bedtime. For cholesterol. atenolol (TENORMIN) 50 mg tablet Take 1 tablet by mouth once daily. triamterene-hydrochlorothiaz grant (MAXZIDE) 75-50 mg per tablet Take 1 tablet by mouth once daily. cetirizine (ALL DAY ALLERGY RELIEF,CETIR,) 10 mg tablet Take 1 tablet by mouth once daily. multivitamin ORAL tablet Take one(1) tablet daily. No current facility-administered medications for this visit. 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 No date: Hypertension No date: Vertigo Comment: from surgery 09/2013 PAST SURGICAL HISTORY 2014: BRAIN SURGERY HX Comment: and again in 201404/03/2021: COLONOSCOPY 03/25/2022: EGD No date: PAST SURGICAL HISTORY OF Comment: microvascular decompression surgeries x 2 09/12/2013: STRESS TEST Comment: NL 02/09/1984: TONSILLECTOMY HX 02/09/1992: TUBAL LIGATION, FAMILY HISTORY Problem Relation Age of Onset Hypertension Mother Diabetes Father Cervical Cancer Sister other (PVC [Other]) Daughter Colon Cancer No Family History REVIEW OF SYSTEMS Review of Systems Respiratory: Positive for apnea and wheezing. Cardiovascular: Positive for leg swelling. Gastrointestinal: Positive for abdominal distention, anal bleeding, constipation, nausea and rectal pain. Gas All other systems reviewed and are negative. PHYSICAL EXAM BP 116/72 Pulse 69 Ht 5' 5 (1.65m) Wt 214 lb 3.2 oz (97.2kg) BMI 35.64 kg/(m2). Physical Exam ASSESSMENT: No diagnosis found. PLAN: No orders found for this visit on 10/05/23. No follow-ups on file. Ministerio Santana MD DATE: 10/05/23 TIME: 1:37 PM Ministerio Arizmendi MD 10/05/2023 2:43 PM Signed CHIEF COMPLAINT: Patient presents with: Recheck: Lower abdominal pain, bloating, constipation- started a probiotic and helps a little bit HPI Joan Vega is a 63 year old female here today for follow-up abdominal bloating and pain. CT: Gi tract negative, mesenteric vessels normal GB, liver, biliary, pancreas, spleen, nodes, mesentery all normal. Pelvis normal. Renal cysts RML lung nodule 3 mm. She has tried miralax, fiber, exlax, sennakot, lactulose ibsrela, anusol suppositories Last EGD 2022 Last sigmoidoscopy (2022) and colonoscopy (2021) reports reviewed. She had grade 3 IH; hyperplastic sigmoid polyps, otherwise normal colonoscopy. Constipation: - Chronic constipation, managed with kefir, yogurt, and acidophilus. - Recent trial of IBSrella for 6 days, experienced bowel movements but unsure of effectiveness due to insurance coverage issues. - Denies diarrhea. - No known history of Linzess use. - Denies anal intercourse. Bloating: - Experiences abdominal bloating, especially after eating, described as a hard, non-painful distension. - No correlation between bloating and specific foods. - Denies feeling less bloated with acidophilus use. - Denies fluid buildup in the abdomen. - Denies any known heart-related issues contributing to bloating. - Denies any known impact of intercourse on sphincter function. Internal Hemorrhoids: - Diagnosed with internal hemorrhoids, experiences random bleed (more content not included)... Normal [facility] CT ABD/PEL W IVCONon 024 CT ABD/PEL W IVCON * * *Final Report* * * DATE OF EXAM: Jul 15 2023 11:55AM [facility] 0530 - CT ABD/PEL W IVCON / PROCEDURE REASON: multiple diagnoses * * * * Physician Interpretation * * * * EXAMINATION: CT ABDOMEN AND PELVIS WITH IV CONTRAST CLINICAL HISTORY: Lower abdominal pain and bloating TECHNIQUE: CT of the abdomen and pelvis was performed using standard technique, scanning from just above the dome of the diaphragm to the symphysis pubis. MQ: CTAP_3 Contrast: IV: 100 ml of Omnipaque 350 Oral: 10 ml of Omni 240 10-25ml diluted with water CT Radiation dose: Integrated Dose-length product (DLP) for this visit = 798 mGy*cm. CT Dose Reduction Employed: Automated exposure control(AEC) and iterative recon COMPARISON: None. RESULT: Liver: No mass. Normal morphology. Biliary: No bile duct dilation. Gallbladder is unremarkable. Spleen: No mass. No splenomegaly. Pancreas: No mass or duct dilation. Adrenals: No mass. Kidneys: Subcentimeter lesions that are too small to characterize but likely benign. 1.8 cm cyst in the upper pole of the right kidney. The kidneys enhance symmetrically. No hydronephrosis. GI tract: No dilation or wall thickening. Lymph nodes: No abdominal or pelvic lymphadenopathy. Mesentery/Peritoneum: No ascites or mass. Retroperitoneum: No mass. Vasculature: - Abdominal aorta and iliac arteries: Atherosclerotic calcifications without aneurysm. - Celiac and SMA: Patent without stenosis. - Portal venous system (SMV, splenic vein, portal vein and branches): Patent. - Hepatic veins: Patent. Pelvis: No mass, ascites or fluid collection. The bladder has a normal appearance. Bones/Soft Tissues: Degenerative changes. Lower thorax: 3 mm nodule in the right middle lobe (5:9). Localizer images: No additional findings. IMPRESSION: 1. No acute pathology 2. Subcentimeter nodule in the right middle lobe Incidental Finding: Follow-up Acuity: Incidental Finding: Solid: <6 mm (solitary or multiple) Routing Code: N/A Recommendation: No imaging follow-up is recommended Time Frame: N/A Comments: If there are risk factors for lung malignancy, a follow-up chest CT exam could be obtained in 12 months --END OF FINDING-- Junior Engineer: MOSES Transcribe Date/Time: Jul 21 2023 9:35A Dictated by : ELIZABETH STEVENSON MD This examination was interpreted and the report reviewed and electronically signed by: ELIZABETH STEVENSON MD on Jul 21 2023 9:43AM EST [id number] ACTIONABLE Invalid Interpretation Code [facility] CREATININE BLDon 07-07-2023 Creatinine [Mass/Vol] 0.92 mg/dL Normal 0.58-0.96 [facility] Comment on above: Order Comment: Mairanela green Type: BLOOD SPECIMEN [facility] Address: [address] [place] [address] Performed By: #### C RET1 #### [facility] [id number] [address] [place] [address] Creatinine and Glomerular filtration rate.predicted panel (S/P/Bld) 69 mL/min/1.73m??? Normal >=60 [facility] Comment on above: Order Comment: Marianela green Type: BLOOD SPECIMEN Ordering Facility[facility] Address: [address] [place] [address] Result Comment: Sherie waggoner Glomerular Filtration Rate (eGFR) is calculated using the 2020 CKD-EPI creatinine equation. This equation utilizes serum creatinine, sex, and age as parameters. The creatinine assay has traceable calibration to isotope dilution-mass spectrometry. Refer to KDIGO guidelines for clinical interpretation. In patients with unstable renal function, e.g. those with acute kidney injury, the eGFR may not accurately reflect actual GFR. Performed By: #### C RET1 #### [facility] [id number] [address] [place] [address] OF JANE CNOVon 07-01-2023 CNOV Office Visit ([facility] ) JOAN VEGA ([id number]) 1960 F Date Time Provider Department 07/01/23 10:05 AM CATRINA BECKMAN During your visit today, we recorded the following information about you: Pulse Blood pressure Weight Height 87/minute 140/80 98.7 kg 1.651 m Catrina Beckman, MEAT SEAFOOD ASSOCIATE.TACK CUTTER 07/01/2023 10:23 AM Signed CHIEF COMPLAINT: Patient presents with: Recheck: Abdominal pain, bloating, constipation, rectal and some bleeding HPI: Joan Vega is a 63 year old female here today for Recheck (Abdominal pain, bloating, constipation, rectal and some bleeding). She gets a lot of post-prandial bloating. She is currently on lactulose, but doesn't use it every day because high sugar (she is pre-diabetic). She has a BM every 2-3 days, and has incomplete evacuation. She will still get rectal bleeding intermittently- sigmoidoscopy (2022) and colonoscopy (2021) reports reviewed. She had grade 3 IH; hyperplastic sigmoid polyps, otherwise normal colonoscopy. From Dr. Arizmendi's HPI 06/11/23: She has bloating and constipation Feels like she swallowed an inflated balloon She has gets a hard abdomen Miralax every day Fiber gummies Metamucil capsules Exlax, sennakot Lactulose liquid (helped somewhat) She moves her bowels once every 2 to 4 days The lactulose works and causes gas and the lactulose will cause softer stool not liquid. She stopped drinking diet pop, stopped iced tea, stopped artificial sweeteners She also has bad back pain Bleeding from the rectum happens about once a month but can happen more frequently She cannot strain to have a BM for fear of aggravating her hemorrhoids but she feels the bleeding is not from her hemorrhoids but is coming from the rectum She tried anusol supp, sitz baths, fiber and her rectum and gluteal area and hemorrhoids went thru a time where there was severe burning and pain. She says today that that burning has stopped and is under better control but her abd pain and back pain are worse and she is concerned about her degree of constipation with bleeding. Current Outpatient Medications Medication Sig pantoprazole DR (PROTONIX) 40 mg tablet Take 40 mg by mouth once daily. lactulose 10 gram/15 mL solution take 30 milliliters by mouth every 12 hours until normal BOWEL MOVEMENT budesonide-formoterol (SYMBICORT) 160-4.5 mcg/actuation inhaler Inhale 2 Puffs as instructed. lisinopril (ZESTRIL) 40 mg tablet Take 40 mg by mouth once daily. atorvastatin (LIPITOR) 20 mg tablet Take 1 tablet by mouth daily at bedtime. For cholesterol. atenolol (TENORMIN) 50 mg tablet Take 1 tablet by mouth once daily. triamterene-hydrochlorothiaz grant (MAXZIDE) 75-50 mg per tablet Take 1 tablet by mouth once daily. cetirizine (ALL DAY ALLERGY RELIEF,CETIR,) 10 mg tablet Take 1 tablet by mouth once daily. multivitamin ORAL tablet Take one(1) tablet daily. No current facility-administered medications for this visit. 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 Respiratory: Positive for cough and wheezing. Cardiovascular: Positive for leg swelling. Gastrointestinal: Positive for abdominal distention, abdominal pain, constipation and rectal pain. Gas All other systems reviewed and are negative. PHYSICAL EXAM BP 140/80 Pulse 87 Ht 5' 5 (1.65m) Wt 217 lb 8 oz (98.7kg) BMI 36.19 kg/(m2). Physical Exam Vitals and nursing note reviewed. Constitutional: Appearance: Normal appearance. She is normal weight. HENT: Head: Normocephalic and atraumatic. Mouth/Throat: Mouth: Mucous membranes are moist. Eyes: General: No scleral icterus. Cardiovascular: Rate and Rhythm: Normal rate and regular rhythm. Heart sounds: Normal heart sounds. Pulmonary: Breath sounds: Normal breath sounds. Abdominal: General: Abd (more content not included)... Normal [facility] Absolute lymphocyte countOrd ered By: Nela Alatorre on 12-15-2022 Lymphocytes Auto (Unsp spec) [#/Vol] 3.15 10*3/uL 0.83-4.51 [facility] Basophil percentageOrdered B y: Nela Alatorre on 12-15-2022 Basophils/100 WBC (Bld) 1.4 % 0-1 [facility] Bilirubin [Mass/Vol] 0.40 mg/dL 0.20-1.00 [facility] Comment on above: For patients on eltr ombopag therapy, use of Dimension [place] TBIL is not recommended. Chloride [Moles/Vol] 105 mmol/L 98-107 [facility] Cholesterol [Mass/Vol] 176 mg/dL <[address] [facility] Comment on above: <200 mg/dL Desirable 200-240 mg/dL Borderline >240 mg/dL High Risk Eosinophils/100 WBC (Bld) 3.6 % 0-5 [facility] Glucose [Mass/Vol] 130 mg/dL 74-106 [facility] Comment on above: Fasting Glucose resu lt greater than or equal to 126 mg/dL suggests DIABETES MELLITUS per A.D.A. criteria. Neutrophils (Bld) [#/Vol] 4.5 10*3/uL 2.0-7.7 [facility] Neutrophils/100 WBC (Bld) 51.9 % 47-70 [facility] Potassium [Moles/Vol] 3.7 mmol/L 3.5-5.1 [facility] Protein [Mass/Vol] 7.2 g/dL 6.4-8.2 [facility] Sodium [Moles/Vol] 139 mmol/L 136-145 [facility] Triglyceride [Mass/Vol] 193 mg/dL <199 [facility] Comment on above: The drugs N-Acetylcy steine and Metamizole may falsely depress this assay.Serum Triglycerides Reference Interval Normal <150 mg/dL Borderline high 150 - 199 mg/dL High 200 - 499 mg/dL Very High > or = 500 mg/dL WBC (Bld) [#/Vol] 8.7 10*3/uL 4.4-11.0 [facility] Blood erythrocytes count (nu mber/volume)Ordered By: Nela Alatorre on 12-15-2022 RBC (Bld) [#/Vol] 4.45 10*6/uL 4.2-5.4 [facility] Blood hemoglobin measurement (mass/volume)Ordered By: Nela Alatorre on 12-15-2022 Hemoglobin (Bld) [Mass/Vol] 12.9 g/dL 12.0-15.0 [facility] Blood lymphocytes/100 leukoc ytesOrdered By: Nela Alatorre on 12-15-2022 Lymphocytes/100 WBC (Bld) 36.4 % 19-41 [facility] Blood monocytes/100 leukocyt esOrdered By: Nela Alatorre on 12-15-2022 Monocytes/100 WBC (Bld) 6.4 % 0-10 [facility] Blood platelet mean volumeOr dered By: Nela Alatorre on 12-15-2022 Platelet mean volume (Bld) [Entitic vol] 11.2 fL 6.2-12.0 [facility] Determination of erythrocyte mean corpuscular volume (MCV)Ordered By: Nela Alatorre on 12-15-2022 MCV (RBC) [Entitic vol] 89.9 fL 81-99 [facility] Hematocrit Auto (Bld) [Volum e fraction]Ordered By: Nela Alatorre on 12-15-2022 Hematocrit (Bld) [Volume fraction] 40.0 % 37-47 [facility] Laboratory - Chemistry and C hemistry - challengeOrdered By: Nela Alatorre on 12-15-2022 ALP [Catalytic activity/Vol] 60 U/L 45-117 [facility] ALT [Catalytic activity/Vol] 26 U/L 13-56 [facility] CO2 [Moles/Vol] 29.0 mmol/L 21.0-32.0 [facility] Free T4 [Mass/Vol] 1.04 ng/dL 0.76-1.46 [facility] Globulin (S) [Mass/Vol] 3.6 g/dL 2.2-4.2 [facility] Natriuretic peptide B (Bld) [Mass/Vol] 6.6 pg/mL 0-100 [facility] Urea nitrogen/Creatinine [Mass ratio] 19.8 mg/mg 10-20 [facility] Laboratory - Hematology and Cell countsOrdered By: Nela Alatorre on 12-15-2022 Erythrocyte distribution width (RBC) [Entitic vol] 44.0 fL 35.1-43.9 [facility] Erythrocyte distribution width (RBC) [Ratio] 13.3 % 11.6-14.6 [facility] Immature granulocytes/100 WBC (Bld) 0.300 % 0.0-0.9 [facility] Comment on above: IG% - Immature Granu locytes (promyelocytes, myelocytes and metamyelocytes) > 1% indicates that a LEFT SHIFT is Present. MCH (RBC) [Entitic mass] 29.0 pg 27.0-32.0 [facility] Nucleated RBC/100 WBC (Bld) [Ratio] 0 % 0-5 [facility] MCHC Auto (RBC) [Mass/Vol]Or dered By: Nela Alatorre on 12-15-2022 MCHC (RBC) [Mass/Vol] 32.3 g/dL 32-36 [facility] No Panel InformationOrdered By: Nela Alatorre on 12-15-2022 Estimated GFR (MDRD) Amer 75 mL/min >60 [facility] Comment on above: GFR Calc Estimated GFR (MDRD) Non-Af Amer 62 mL/min >60 [facility] Comment on above: Non- GFR Calc Thyroid Stimulating Hormone (TSH) 2.44 uIU/mL 0.358-3.74 [facility] Platelets bldOrdered By: Chelle Alatorre on 12-15-2022 Platelets (Bld) [#/Vol] 259 10*3/uL 150-450 [facility] Serum or plasma albumin milton urement (mass/volume)Ordered By: Nela Alatorre on 12-15-2022 Albumin [Mass/Vol] 3.6 g/dL 3.2-5.0 [facility] Serum or plasma albumin/glob ulin mass ratioOrdered By: Nela Alatorre on 12-15-2022 Albumin/Globulin [Mass ratio] 1.0 {ratio} 0.9-2.4 [facility] Serum or plasma calcium milton urement (mass/volume)Ordered By: Nela Alatorre on 12-15-2022 Calcium [Mass/Vol] 9.2 mg/dL 8.5-10.1 [facility] Serum or plasma cholesterol in HDL measurement (mass/volume)Ordered By: Nela Alatorre on 12-15-2022 Cholesterol in HDL [Mass/Vol] 38 mg/dL >40 [facility] Comment on above: The drugs N-Acetylcy steine and Metamizole may falsely depress this assay. Reference Range HDL <40 mg/dL Low HDL Cholesterol HDL >or= 60 mg/dL High HDL Cholesterol Serum or plasma cholesterol in VLDL measurement (mass/volume)Ordered By: Nela Alatorre on 12-15-2022 Cholesterol in VLDL [Mass/Vol] 39 mg/dL 5-40 [facility] Serum or plasma creatinine m easurement (mass/volume)Ordered By: Nela Alatorre on 12-15-2022 Creatinine [Mass/Vol] 0.96 mg/dL 0.55-1.02 [facility] Comment on above: The validity of the calculated GFR & GFRAA in patients over 70 years has not been determined. Clinical correlation is essential. Serum or plasma low density lipoprotein (LDL) cholesterol measurement (mass/volume)Ordered By: Nela Alatorre on 12-15-2022 Cholesterol in LDL [Mass/Vol] 99 mg/dL 0-130 [facility] Serum or plasma urea nitroge n measurement (mass/volume)Ordered By: Nela Alatorre on 12-15-2022 Urea nitrogen [Mass/Vol] 19 mg/dL 7-18 [facility] Thin prep Papanicolaou smear with manual screeningOrdered By: Nela Alatorre on 12-15-2022 Thin prep Papanicolaou smear with manual screening 13 U/L 15-37 [facility] Thin prep Papanicolaou smear with manual screening 5 5-15 [facility] Thin prep Papanicolaou smear with manual screening 16.5 mg/L NO RANGE EST. [facility] HPV W/GENOTYPE THIN PREPon 0 07-24-2022 HPV 16 Ag Ql (Unsp spec) Negative Normal Negative for HPV DNA high risk type 16 by PCR [facility] Comment on above: Order Comment: Speci men Type: FLUID SPECIMEN Ordering Facility: [facility] Address: [address] [place] [address] Performed By: #### H PVHRT #### [facility] CLIA [id number] [address] [place] [address] [place] HPV 18 Ag Ql (Unsp spec) Negative Normal Negative for HPV DNA high risk type 18 by PCR [facility] Comment on above: Order Comment: Speci men Type: FLUID SPECIMEN Ordering Facility: [facility] Address: [address] [place] [address] Performed By: #### H PVHRT #### [facility] CLIA [id number] [address] [place] [address] [place] HPV 31+33+35+39+45+51+52+5 6+58+59+66+68 DNA LORETA+probe Ql (Cvx) Negative for HPV DNA high risk types: 31,33,35,39,45,51,52,56,58,5 9,66,68 by PCR. Normal Negative for HPV DNA high risk types: 31,33,35,3 9,45,51,52 ,56,58,59, 66,68 by PCR. [facility] Comment on above: Order Comment: Speci men Type: FLUID SPECIMEN Ordering Facility: [facility] Address: [address] [place] [address] Performed By: #### H PVHRT #### [facility] CLIA [id number] [address] [place] [address] [place] Absolute lymphocyte countOrd ered By: Nela Alatorre on 03-23-2022 Lymphocytes Auto (Unsp spec) [#/Vol] 2.30 10*3/uL 0.83-4.51 [facility] Basophil percentageOrdered B y: Nelacirilo Alatorre on 03-23-2022 Basophils/100 WBC (Bld) 1.1 % 0-1 [facility] Bilirubin [Mass/Vol] 0.50 mg/dL 0.20-1.00 [facility] Comment on above: For patients on eltr ombopag therapy, use of Dimension [place] TBIL is not recommended. Chloride [Moles/Vol] 108 mmol/L 98-107 [facility] Cholesterol [Mass/Vol] 181 mg/dL <[address] [facility] Comment on above: <200 mg/dL Desirable 200-240 mg/dL Borderline >240 mg/dL High Risk Eosinophils/100 WBC (Bld) 3.7 % 0-5 [facility] Glucose [Mass/Vol] 123 mg/dL 74-106 [facility] Comment on above: Fasting Glucose resu lt from 100 to 125 mg/dL suggests IMPAIRED HOMEOSTASIS per A.D.A. criteria. Neutrophils (Bld) [#/Vol] 5.2 10*3/uL 2.0-7.7 [facility] Neutrophils/100 WBC (Bld) 61.6 % 47-70 [facility] Potassium [Moles/Vol] 3.8 mmol/L 3.5-5.1 [facility] Protein [Mass/Vol] 7.1 g/dL 6.4-8.2 [facility] Sodium [Moles/Vol] 141 mmol/L 136-145 [facility] Triglyceride [Mass/Vol] 224 mg/dL <199 [facility] Comment on above: The drugs N-Acetylcy steine and Metamizole may falsely depress this assay.Serum Triglycerides Reference Interval Normal <150 mg/dL Borderline high 150 - 199 mg/dL High 200 - 499 mg/dL Very High > or = 500 mg/dL WBC (Bld) [#/Vol] 8.4 10*3/uL 4.4-11.0 [facility] Blood erythrocytes count (nu mber/volume)Ordered By: Nela Alatorre on 03-23-2022 RBC (Bld) [#/Vol] 4.33 10*6/uL 4.2-5.4 [facility] Blood hemoglobin measurement (mass/volume)Ordered By: Nela Alatorre on 03-23-2022 Hemoglobin (Bld) [Mass/Vol] 12.3 g/dL 12.0-15.0 [facility] Blood lymphocytes/100 leukoc ytesOrdered By: Nela Alatorre on 03-23-2022 Lymphocytes/100 WBC (Bld) 27.3 % 19-41 [facility] Blood monocytes/100 leukocyt esOrdered By: Nela Alatorre on 03-23-2022 Monocytes/100 WBC (Bld) 5.9 % 0-10 [facility] Blood platelet mean volumeOr dered By: Nela Alatorre on 03-23-2022 Platelet mean volume (Bld) [Entitic vol] 11.5 fL 6.2-12.0 [facility] Determination of erythrocyte mean corpuscular volume (MCV)Ordered By: Nela Alatorre on 03-23-2022 MCV (RBC) [Entitic vol] 89.8 fL 81-99 [facility] Hematocrit Auto (Bld) [Volum e fraction]Ordered By: Nela Alatorre on 03-23-2022 Hematocrit (Bld) [Volume fraction] 38.9 % 37-47 [facility] Laboratory - Chemistry and C hemistry - challengeOrdered By: Nela Alatorre on 03-23-2022 ALP [Catalytic activity/Vol] 50 U/L 45-117 [facility] ALT [Catalytic activity/Vol] 27 U/L 13-56 [facility] CO2 [Moles/Vol] 28.0 mmol/L 21.0-32.0 [facility] Globulin (S) [Mass/Vol] 3.5 g/dL 2.2-4.2 [facility] Magnesium [Mass/Vol] 2.1 mg/dL 1.6-2.6 [facility] Urea nitrogen/Creatinine [Mass ratio] 24.2 mg/mg 10-20 [facility] Laboratory - Hematology and Cell countsOrdered By: Nela Alatorre on 03-23-2022 Erythrocyte distribution width (RBC) [Entitic vol] 44.1 fL 35.1-43.9 [facility] Erythrocyte distribution width (RBC) [Ratio] 13.4 % 11.6-14.6 [facility] Immature granulocytes/100 WBC (Bld) 0.400 % 0.0-0.9 [facility] Comment on above: IG% - Immature Granu locytes (promyelocytes, myelocytes and metamyelocytes) > 1% indicates that a LEFT SHIFT is Present. MCH (RBC) [Entitic mass] 28.4 pg 27.0-32.0 [facility] Nucleated RBC/100 WBC (Bld) [Ratio] 0 % 0-5 [facility] MCHC Auto (RBC) [Mass/Vol]Or dered By: Nela Alatorre on 03-23-2022 MCHC (RBC) [Mass/Vol] 31.6 g/dL 32-36 [facility] No Panel InformationOrdered By: Nela Alatorre on 03-23-2022 Estimated GFR (MDRD) Amer 73 mL/min >60 [facility] Comment on above: GFR Calc Estimated GFR (MDRD) Non-Af Amer 60 mL/min >60 [facility] Comment on above: Non- GFR Calc Thyroid Stimulating Hormone (TSH) 1.75 uIU/mL 0.358-3.74 [facility] Platelets bldOrdered By: Chelle Alatorre on 03-23-2022 Platelets (Bld) [#/Vol] 244 10*3/uL 150-450 [facility] Serum or plasma albumin milton urement (mass/volume)Ordered By: Nela Alatorre on 03-23-2022 Albumin [Mass/Vol] 3.6 g/dL 3.2-5.0 [facility] Serum or plasma albumin/glob ulin mass ratioOrdered By: Nela Alatorre on 03-23-2022 Albumin/Globulin [Mass ratio] 1.0 {ratio} 0.9-2.4 [facility] Serum or plasma calcitriol m easurement (mass/volume)Ordered By: Nela Alatorre on 03-23-2022 1,25-dihydroxyvitamin D3 [Mass/Vol] 18.8 pg/mL 24.8-81.5 [facility] Comment on above: Performed at: [address] [id number] Director: Kalli Pineda MD, Phone: [phone] Serum or plasma calcium milton urement (mass/volume)Ordered By: Nela Alatorre on 03-23-2022 Calcium [Mass/Vol] 9.2 mg/dL 8.5-10.1 [facility] [place] Serum or plasma cholesterol in HDL measurement (mass/volume)Ordered By: Nela Alatorre on 03-23-2022 Cholesterol in HDL [Mass/Vol] 37 mg/dL >40 [facility] Comment on above: The drugs N-Acetylcy steine and Metamizole may falsely depress this assay. Reference Range HDL <40 mg/dL Low HDL Cholesterol HDL >or= 60 mg/dL High HDL Cholesterol Serum or plasma cholesterol in VLDL measurement (mass/volume)Ordered By: Nela Alatorre on 03-23-2022 Cholesterol in VLDL [Mass/Vol] 45 mg/dL 5-40 [facility] Serum or plasma creatinine m easurement (mass/volume)Ordered By: Nela Alatorre on 03-23-2022 Creatinine [Mass/Vol] 0.99 mg/dL 0.55-1.02 [facility] Comment on above: The validity of the calculated GFR & GFRAA in patients over 70 years has not been determined. Clinical correlation is essential. Serum or plasma low density lipoprotein (LDL) cholesterol measurement (mass/volume)Ordered By: Nela Alatorre on 03-23-2022 Cholesterol in LDL [Mass/Vol] 99 mg/dL 0-130 [facility] Serum or plasma urea nitroge n measurement (mass/volume)Ordered By: Nela Alatorre on 03-23-2022 Urea nitrogen [Mass/Vol] 24 mg/dL 7-18 [facility] Thin prep Papanicolaou smear with manual screeningOrdered By: Nela Alatorre on 03-23-2022 Thin prep Papanicolaou smear with manual screening 13 U/L 15-37 [facility] Thin prep Papanicolaou smear with manual screening 5 5-15 [facility] Influenza virus A and B and SARS-CoV-2 (COVID-19) Ag panel - Upper respiratory specimOrdered By: Dr. Emmanuel on 02-04-2022 SARS-CoV-2 (COVID-19) RNA LORETA+probe Ql (Resp) [facility] RSV Ag EIAOrdered By: Dr. Dereck justice on 02-04-2022 RSV Ag Immune stain Ql (Tiss) [facility] Absolute lymphocyte counton 07-10-2021 Lymphocytes Auto (Unsp spec) [#/Vol] 4.13 10*3/uL 0.83-4.51 [facility] Work Phone: Basophil percentageon 2021 Basophils/100 WBC (Bld) 0.9 % 0-1 [facility] Work Phone: Bilirubin [Mass/Vol] 0.40 mg/dL 0.20-1.00 [facility] Work Phone: Comment on above: For patients on eltr ombopag therapy, use of Dimension [place] TBIL is not recommended. Chloride [Moles/Vol] 105 mmol/L 98-107 [facility] Work Phone: Eosinophils/100 WBC (Bld) 2.1 % 0-5 [facility] Work Phone: Glucose [Mass/Vol] 107 mg/dL 74-106 [facility] Work Phone: Comment on above: Fasting Glucose resu lt from 100 to 125 mg/dL suggests IMPAIRED HOMEOSTASIS per A.D.A. criteria. Neutrophils (Bld) [#/Vol] 8.5 10*3/uL 2.0-7.7 [facility] Work Phone: Neutrophils/100 WBC (Bld) 61.1 % 47-70 [facility] Work Phone: Potassium [Moles/Vol] 4.0 mmol/L 3.5-5.1 [facility] Work Phone: Protein [Mass/Vol] 7.6 g/dL 6.4-8.2 [facility] Work Phone: Sodium [Moles/Vol] 138 mmol/L 136-145 [facility] Work Phone: WBC (Bld) [#/Vol] 13.9 10*3/uL 4.4-11.0 [facility] Work Phone: Blood erythrocytes count (nu mber/volume)on 07-10-2021 RBC (Bld) [#/Vol] 4.42 10*6/uL 4.2-5.4 [facility] Work Phone: Blood hemoglobin measurement (mass/volume)on 07-10-2021 Hemoglobin (Bld) [Mass/Vol] 13.0 g/dL 12.0-15.0 [facility] Work Phone: Blood lymphocytes/100 leukoc yteson 07-10-2021 Lymphocytes/100 WBC (Bld) 29.7 % 19-41 [facility] Work Phone: Blood manual differential co mment interpretation (narrative result)on 07-10-2021 Manual differential comment Baldomero (Bld) [Interp] SCANNED [facility] Work Phone: Comment on above: AUTO DIFF OK Blood monocytes/100 leukocyt eson 07-10-2021 Monocytes/100 WBC (Bld) 5.3 % 0-10 [facility] Work Phone: Blood platelet mean volumeon 07-10-2021 Platelet mean volume (Bld) [Entitic vol] 10.5 fL 6.2-12.0 [facility] Work Phone: Determination of erythrocyte mean corpuscular volume (MCV)on 07-10-2021 MCV (RBC) [Entitic vol] 90.7 fL 81-99 [facility] Work Phone: Hematocrit Auto (Bld) [Volum e fraction]on 07-10-2021 Hematocrit (Bld) [Volume fraction] 40.1 % 37-47 [facility] Work Phone: Laboratory - Chemistry and C hemistry - challengeon 07-10-2021 ALP [Catalytic activity/Vol] 53 U/L 45-117 [facility] Work Phone: ALT [Catalytic activity/Vol] 33 U/L 13-56 [facility] Work Phone: CO2 [Moles/Vol] 26.0 mmol/L 21.0-32.0 [facility] Work Phone: Globulin (S) [Mass/Vol] 3.9 g/dL 2.2-4.2 [facility] Work Phone: Urea nitrogen/Creatinine [Mass ratio] 19.7 mg/mg 10-20 [facility] Work Phone: Laboratory - Hematology and Cell countson 07-10-2021 Erythrocyte distribution width (RBC) [Entitic vol] 42.1 fL 35.1-43.9 [facility] Work Phone: Erythrocyte distribution width (RBC) [Ratio] 12.8 % 11.6-14.6 [facility] Work Phone: Immature granulocytes/100 WBC (Bld) 0.900 % 0.0-0.9 [facility] Work Phone: Comment on above: IG% - Immature Granu locytes (promyelocytes, myelocytes and metamyelocytes) > 1% indicates that a LEFT SHIFT is Present. MCH (RBC) [Entitic mass] 29.4 pg 27.0-32.0 [facility] Work Phone: Nucleated RBC/100 WBC (Bld) [Ratio] 0 % 0-5 [facility] Work Phone: MCHC Auto (RBC) [Mass/Vol]on 07-10-2021 MCHC (RBC) [Mass/Vol] 32.4 g/dL 32-36 [facility] Work Phone: No Panel Informationon 07-10 Estimated GFR (MDRD) Amer 80 mL/min >60 [facility] Work Phone: Comment on above: GFR Calc Estimated GFR (MDRD) Non-Af Amer 66 mL/min >60 [facility] Work Phone: Comment on above: Non- GFR Calc Platelets bldon 07-10-2021 Platelets (Bld) [#/Vol] 323 10*3/uL 150-450 [facility] Work Phone: Serum or plasma albumin milton urement (mass/volume)on 07-10-2021 Albumin [Mass/Vol] 3.7 g/dL 3.2-5.0 [facility] Work Phone: Serum or plasma albumin/glob ulin mass ratioon 07-10-2021 Albumin/Globulin [Mass ratio] 0.9 {ratio} 0.9-2.4 [facility] Work Phone: Serum or plasma calcium milton urement (mass/volume)on 07-10-2021 Calcium [Mass/Vol] 9.1 mg/dL 8.5-10.1 [facility] Work Phone: Serum or plasma creatinine m easurement (mass/volume)on 07-10-2021 Creatinine [Mass/Vol] 0.91 mg/dL 0.55-1.02 [facility] Work Phone: Comment on above: The validity of the calculated GFR & GFRAA in patients over 70 years has not been determined. Clinical correlation is essential. Serum or plasma urea nitroge n measurement (mass/volume)on 07-10-2021 Urea nitrogen [Mass/Vol] 18 mg/dL 7-18 [facility] Work Phone: Thin prep Papanicolaou smear with manual screeningon 07-10-2021 Thin prep Papanicolaou smear with manual screening 16 U/L 15-37 [facility] Work Phone: Thin prep Papanicolaou smear with manual screening 7 5-15 [facility] Work Phone: Basophil percentageon 2021 Cholesterol [Mass/Vol] 204 mg/dL <[address] [facility] Work Phone: Comment on above: <200 mg/dL Desirable 200-240 mg/dL Borderline >240 mg/dL High Risk Triglyceride [Mass/Vol] 233 mg/dL <199 [facility] Work Phone: Comment on above: The drugs N-Acetylcy steine and Metamizole may falsely depress this assay.Serum Triglycerides Reference Interval Normal <150 mg/dL Borderline high 150 - 199 mg/dL High 200 - 499 mg/dL Very High > or = 500 mg/dL Serum or plasma cholesterol in HDL measurement (mass/volume)on 06-27-2021 Cholesterol in HDL [Mass/Vol] 34 mg/dL >40 [facility] Work Phone: Comment on above: The drugs N-Acetylcy steine and Metamizole may falsely depress this assay. Reference Range HDL <40 mg/dL Low HDL Cholesterol HDL >or= 60 mg/dL High HDL Cholesterol Serum or plasma cholesterol in VLDL measurement (mass/volume)on 06-27-2021 Cholesterol in VLDL [Mass/Vol] 47 mg/dL 5-40 [facility] Work Phone: Serum or plasma low density lipoprotein (LDL) cholesterol measurement (mass/volume)on 06-27-2021 Cholesterol in LDL [Mass/Vol] 123 mg/dL 0-130 [facility] Work Phone: No Panel Informationon 04-01 SARS-CoV-2 Antigen (Rapid) [facility] Work Phone: Influenza virus A and B and SARS-CoV-2 (COVID-19) Ag panel - Upper respiratory specim SARS-CoV-2 (COVID-19) RNA LORETA+probe Ql (Resp) [facility] Work Phone: RSV Ag EIA RSV Ag Immune stain Ql (Tiss) [facility] Work Phone: Vital Signs Date Time Vital Sign Value Performing Clinician Faci lity 09-18-2024 10:36-0400 Body height 165.1 cm Nela Alatorre RECORDS MANAGEMENT TECHNICIAN-C Work Phone: [facility] 09-18-2024 10:36-0400 Body mass index (BMI) [Ratio] 35.7 kg/m2 Nela Alatorre RECORDS MANAGEMENT TECHNICIAN-C Work Phone: [facility] 09-18-2024 10:36-0400 Body weight 97.52 kg Nela Alatorre RECORDS MANAGEMENT TECHNICIAN-C Work Phone: [facility] 07-31-2024 13:35-0400 Body height 165.1 cm Nela Alatorre RECORDS MANAGEMENT TECHNICIAN-C Work Phone: [facility] 07-31-2024 13:35-0400 Body mass index (BMI) [Ratio] 35.4 kg/m2 Nela KELLY Work Phone: [facility] 07-31-2024 13:35-0400 Body weight 96.61 kg Nela PIERCEC Work Phone: [facility] 10-05-2023 13:27-0400 Body height 165.1 cm Ministerio Arizmendi MD Work Phone: [facility] 10-05-2023 13:27-0400 Body mass index (BMI) [Ratio] 35.64 kg/m2 Ministerio Arizmendi MD Work Phone: [facility] 10-05-2023 13:27-0400 Body weight 97.16 kg Ministerio Arizmendi MD Work Phone: [facility] 10-05-2023 13:27-0400 Diastolic blood pressure 72 mm[Hg] Ministerio Arizmendi MD Work Phone: [facility] 10-05-2023 13:27-0400 Heart rate 69 /min Ministerio Arizmendi MD Work Phone: [facility] 10-05-2023 13:27-0400 Systolic blood pressure 116 mm[Hg] Ministerio Arizmendi MD Work Phone: [facility] 07-01-2023 09:43-0400 Body height 165.1 cm Catrina Beckman MEAT SEAFOOD ASSOCIATE.TACK CUTTER Work Phone: [facility] 07-01-2023 09:43-0400 Body mass index (BMI) [Ratio] 36.19 kg/m2 Catrina Beckman MEAT SEAFOOD ASSOCIATE.TACK CUTTER Work Phone: [facility] 07-01-2023 09:43-0400 Body weight 98.66 kg Catrina Beckman MEAT SEAFOOD ASSOCIATE.TACK CUTTER Work Phone: [facility] 07-01-2023 09:43-0400 Diastolic blood pressure 80 mm[Hg] Catrina Beckman MEAT SEAFOOD ASSOCIATE.TACK CUTTER Work Phone: [facility] 07-01-2023 09:43-0400 Heart rate 87 /min Catrina Beckman MEAT SEAFOOD ASSOCIATE.TACK CUTTER Work Phone: [facility] 07-01-2023 09:43-0400 Systolic blood pressure 140 mm[Hg] Catrina Beckman MEAT SEAFOOD ASSOCIATE.TACK CUTTER Work Phone: [facility] 03-26-2022 06:49-0500 Body height 165.1 cm [facility] Work Phone: 1(108)475-297726 [place] [address] 03-26-2022 06:49-0500 Body mass index (BMI) [Ratio] 33.3 kg/m2 [facility] Work Phone: 9(895)813-135826 [place] [address] 03-26-2022 06:49-0500 Body temperature 98.2 [degF] [facility] Work Phone: 1(815)072-441526 [place] [address] 03-26-2022 06:49-0500 Body weight 90.71 kg [facility] Work Phone: 7(976)175-328926 [place] [address] 03-26-2022 06:49-0500 Diastolic blood pressure 72 mm[Hg] [facility] Work Phone: 3(281)405-410626 [place] [address] 03-26-2022 06:49-0500 Heart rate 82 /min [facility] Work Phone: 3(627)080-867426 [place] [address] 03-26-2022 06:49-0500 Respiratory rate 18 /min [facility] Work Phone: 3(235)112-413226 [place] [address] 03-26-2022 06:49-0500 SaO2% (BldA) [Mass fraction] 93 % [facility] Work Phone: 2(612)529-607626 [place] [address] 03-26-2022 06:49-0500 Systolic blood pressure 129 mm[Hg] [facility] Work Phone: 8(096)010-998526 [place] [address] 03-25-2022 15:33-0500 Body temperature 97.4 [degF] [facility] Work Phone: 9(109)151-725326 [place] [address] 03-25-2022 15:33-0500 Diastolic blood pressure 87 mm[Hg] [facility] Work Phone: 3(475)904-530125 [place] [address] 03-25-2022 15:33-0500 Heart rate 60 /min [facility] Work Phone: 3(395)147-079526 [place] [address] 03-25-2022 15:33-0500 Respiratory rate 18 /min [facility] Work Phone: 9(892)315-236626 [place] [address] 03-25-2022 15:33-0500 SaO2% (BldA) [Mass fraction] 100 % [facility] Work Phone: 7(104)196-737726 [place] [address] 03-25-2022 15:33-0500 Systolic blood pressure 98 mm[Hg] [facility] Work Phone: 4(730)447-109426 [place] [address] 03-25-2022 12:36-0500 Body height 165.1 cm [facility] Work Phone: 1(944)008-555626 [place] [address] 03-25-2022 12:36-0500 Body mass index (BMI) [Ratio] 32.6 kg/m2 [facility] Work Phone: 4(744)378-376826 [place] [address] 03-25-2022 12:36-0500 Body weight 89 kg [facility] Work Phone: 9(133)237-332326 [place] [address] 02-18-2022 16:23-0500 Respiratory rate 18 /min [facility] Work Phone: 4(235)180-558925 [place] [address] 02-04-2022 13:32-0500 Respiratory rate 18 /min [facility] 02-04-2022 11:33-0500 Heart rate 99 /min [facility] 02-04-2022 11:33-0500 SaO2% (BldA) [Mass fraction] 91 % [facility] 02-04-2022 10:51-0500 Body height 165.1 cm [facility] Work Phone: 02-04-2022 10:51-0500 Body mass index (BMI) [Ratio] 33.8 kg/m2 [facility] 02-04-2022 10:51-0500 Body temperature 96.9 [degF] [facility] 02-04-2022 10:51-0500 Body weight 92.26 kg [facility] 02-04-2022 10:51-0500 Diastolic blood pressure 105 mm[Hg] [facility] 02-04-2022 10:51-0500 Systolic blood pressure 176 mm[Hg] [facility] 07-18-2021 08:21-0400 Body height 165.1 cm [employer]ORDS MANAGEMENT TECHNICIAN-C Heidy Gomez Work Phone: [facility] Work Phone: 07-18-2021 08:21-0400 Body weight 97.52 kg RECORDS MANAGEMENT TECHNICIAN-C Heidy Gomez Work Phone: [facility] Work Phone: 07-18-2021 08:21-0400 Diastolic blood pressure 80 mm[Hg] RECORDS MANAGEMENT TECHNICIAN-C Heidy Gomez Work Phone: [facility] Work Phone: 07-18-2021 08:21-0400 Heart rate 74 /min RECORDS MANAGEMENT TECHNICIAN-C Heidy Gomez Work Phone: [facility] Work Phone: 07-18-2021 08:21-0400 Respiratory rate 18 /min RECORDS MANAGEMENT TECHNICIAN-C Heidy Gomez Work Phone: [facility] Work Phone: 07-18-2021 08:21-0400 SaO2% (BldA) [Mass fraction] 98 % RECORDS MANAGEMENT TECHNICIAN-C Heidy Gomez Work Phone: [facility] Work Phone: 07-18-2021 08:21-0400 Systolic blood pressure 119 mm[Hg] RECORDS MANAGEMENT TECHNICIAN-C Heidy Gomez Work Phone: [facility] Work Phone: 04-03-2021 08:18-0500 Body temperature 96.9 [degF] [facility] Work Phone: [facility] Work Phone: 04-03-2021 08:18-0500 Diastolic blood pressure 70 mm[Hg] [facility] Work Phone: [facility] Work Phone: 04-03-2021 08:18-0500 Heart rate 75 /min [facility] Work Phone: [facility] Work Phone: 04-03-2021 08:18-0500 Respiratory rate 16 /min [facility] Work Phone: [facility] Work Phone: 04-03-2021 08:18-0500 SaO2% (BldA) [Mass fraction] 97 % [facility] Work Phone: [facility] Work Phone: 04-03-2021 08:18-0500 Systolic blood pressure 109 mm[Hg] [facility] Work Phone: [facility] Work Phone: 04-03-2021 05:51-0500 Body height 165.1 cm [facility] Work Phone: [facility] Work Phone: 04-03-2021 05:51-0500 Body mass index (BMI) [Ratio] 35.2 kg/m2 [facility] Work Phone: [facility] Work Phone: 04-03-2021 05:51-0500 Body weight 96 kg [facility] Work Phone: [facility] Work Phone: 07-18-2020 07:38-0400 Body mass index (BMI) [Ratio] 35.2 kg/m2 ROBIN Gomez Work Phone: [facility] Work Phone: Encounters Encounter Date Encounter Type Care Provider Facility Start: 10-25-2024 ambulatory Nela Frankl [place] [facility] Facility:[facility] Start: 10-20-2024 ambulatory Nela Frankl [place] [facility] Facility:[facility] Start: 09-28-2024 End: 09-28-2024 ambulatory Nela Karthikeyan RECORDS MANAGEMENT TECHNICIAN-C Work Phone: -Laboratory Shane Cantuariemary Start: 09-28-2024 End: 09-28-2024 Patient encounter procedure [facility] Nela Alatorre RECORDS MANAGEMENT TECHNICIAN-C -Laboratory Shane Cantuariemary Start: 09-28-2024 End: 09-28-2024 ambulatory Nela Alatorre [facility] Facility:[facility] Start: 09-20-2024 End: 09-20-2024 ambulatory Nela Alatorre RECORDS MANAGEMENT TECHNICIAN-C Work Phone: -Laboratory Shane Cantuariemary Start: 09-20-2024 End: 09-20-2024 Patient encounter procedure [facility] Nela Alatorre RECORDS MANAGEMENT TECHNICIAN-C -Laboratory Shane Wilmamary Start: 09-20-2024 End: 09-20-2024 ambulatory Nela Alatorre [facility] Facility:[facility] Start: 09-18-2024 End: 09-18-2024 Patient encounter procedure Stephenie CALDERÓN -[facility] Work Phone: Start: 09-18-2024 End: 09-18-2024 ambulatory Nela Alatorre RECORDS MANAGEMENT TECHNICIAN-C Work Phone: -[facility] Start: 08-15-2024 End: 08-15-2024 ambulatory Nela Alatorre RECORDS MANAGEMENT TECHNICIAN-C Work Phone: [facility] Start: 08-15-2024 End: 08-15-2024 Patient encounter procedure Stephenie CALDERÓN [facility] Work Phone: Start: 08-15-2024 End: 08-15-2024 ambulatory Stephenie Baez Facility:[facility] Start: 08-09-2024 ambulatory Stephenie Baez Facility:[facility] Start: 07-31-2024 End: 07-31-[address] Juvencio Harris MD [facility] Start: 07-31-2024 End: 07-31-2024 ambulatory Nela Alatorre RECORDS MANAGEMENT TECHNICIAN-C Work Phone: [facility] Work Phone: Start: 06-20-2024 End: 06-20-2024 ambulatory Nela Karthikeyan RECORDS MANAGEMENT TECHNICIAN-C Work Phone: [facility] Work Phone: Start: 06-20-2024 End: 06-20-2024 Patient encounter procedure [facility] Nela Karthikeyan RECORDS MANAGEMENT TECHNICIAN-C -Laboratory Shane Manriquez Start: 06-20-2024 End: 06-20-2024 ambulatory Nela Alatorre [facility] Facility:[facility] Start: 05-05-2024 End: 05-05-2024 ambulatory Nela Karthikeyan RECORDS MANAGEMENT TECHNICIAN-C Work Phone: [facility] Work Phone: Start: 05-05-2024 End: 05-05-2024 Patient encounter procedure [facility] Nela Karthikeyan RECORDS MANAGEMENT TECHNICIAN-C -Cardiovascular Services Work Phone: Start: 05-05-2024 End: 05-05-2024 ambulatory Nela Alatorre [facility] Facility:[facility] Start: 03-29-2024 ambulatory Nela [place] in [facility] Facility:[facility] Start: 03-29-2024 Non-patient / Non-visit Dr. Gina Arellano MD -[facility]- Start: 03-29-2024 End: 03-29-2024 Patient encounter procedure [facility] Nelacirilo Alatorre RECORDS MANAGEMENT TECHNICIAN-C -Pulmonary Services/Neurology Work Phone: Start: 03-29-2024 End: 03-29-2024 ambulatory Nela Alatorre [facility] Facility:[facility] Start: 01-26-2024 End: 01-26-2024 Subsequent hospital visit by physician [facility] Work Phone: Radiology Start: 01-26-2024 End: 01-26-2024 ambulatory SHANE MANRIQUEZ [facility] SHANE MANRIQUEZ [facility] Start: 01-25-2024 ambulatory Nela [place] [facility] Facility:[facility] Start: 11-05-2023 End: 11-05-2023 Subsequent hospital visit by physician [facility] Work Phone: Nuclear Medicine Start: 11-05-2023 End: 11-05-2023 ambulatory MINISTERIO ARIZMENDI Facility:[facility] Start: 11-04-2023 End: 11-04-2023 ambulatory Nela Karthikeyan [facility] Facility:[facility] Start: 10-12-2023 End: 10-12-2023 Telemedicine consultation with patient Elena Cantor FRANKY Work Phone: Telemedicine Comment on above: Viral upper respirat ory tract infection with cough (Primary Dx) Start: 10-12-2023 End: 10-12-2023 ambulatory [facility] Facility[facility] Start: 10-05-2023 End: 10-05-2023 [facility] Start: 10-05-2023 End: 10-05-2023 Office outpatient visit 25 minutes Ministerio Arizmendi MD Work Phone: [facility] [place] Comment on above: Lower abdominal pain (Primary Dx); Irritable bowel syndrome with constipation; GERD without esophagitis; Oakes's esophagus without dysplasia; Internal hemorrhoids; Lung nodule seen on imaging study; Kidney cyst, acquired; Dyspepsia; Bloating Start: 09-02-2023 E-mail encounter jenn mahmood caregiver Sadia More PA-C Work Phone: [facility] Start: 09-02-2023 Follow-up encounter Sadia sweeney PA-C Work Phone: [facility] Comment on above: actioanlbe findings follow up Start: 08-31-2023 E-mail encounter jenn mahmood caregiver Oseas Tony PA-C Work Phone: [facility] Start: 08-31-2023 Follow-up encounter Oseas escobar PA-C Work Phone: [facility] Comment on above: Actionable Findings Follow-Up Start: 07-15-2023 End: 07-15-2023 ambulatory [facility] Start: 07-15-2023 End: 07-15-2023 Subsequent hospital visit by physician [facility] Comment on above: Lower abdominal pain [R10.30] Start: 07-07-2023 End: 07-07-2023 ambulatory CATRINA BECKMAN Facility:[facility] Start: 07-01-2023 End: 07-01-2023 ambulatory MINISTERIO ARIZMENDI Facility:[facility] Start: 07-01-2023 End: 07-01-2023 Office outpatient visit 25 minutes Catrina Beckman APRNYUMI Work Phone: [facility] [place] Comment on above: Lower abdominal pain (Primary Dx); Bloating; Oakes's esophagus without dysplasia; Hemorrhoids, unspecified hemorrhoid type; Irritable bowel syndrome with constipation; Bright red blood per rectum Start: 06-11-2023 End: 06-11-2023 ambulatory Ministerio Arizmendi MD Work Phone: [facility] Comment on above: Generalized abdomina l pain (Primary Dx); Low back pain, unspecified back pain laterality, unspecified chronicity, unspecified whether sciatica present; Bright red blood per rectum; Hemorrhoids, unspecified hemorrhoid type; Constipation, unspecified constipation type; Oakes's esophagus without dysplasia Start: 06-11-2023 End: 06-11-2023 Telemedicine consultation with patient Ministerio Arizmendi MD Work Phone: [facility] Start: 05-31-2023 Non-patient / Non-visit [facility] Work Phone: [facility] Start: 05-31-2023 End: 05-31-2023 ambulatory [facility] Work Phone: [facility] Work Phone: Start: 05-31-2023 End: 05-31-2023 Patient encounter procedure [facility] Work Phone: [facility]-Cardiovascular Services Work Phone: Start: 12-15-2022 End: 12-15-2022 ambulatory [facility] Work Phone: Start: 12-15-2022 End: 12-15-2022 Patient encounter procedure [facility]-Laboratory Work Phone: Start: 08-13-2022 End: 08-13-2022 ambulatory [facility] Work Phone: Start: 08-13-2022 End: 08-13-2022 Patient encounter procedure [facility]-Outpatient Breast Imaging Work Phone: Start: 03-26-2022 End: 03-26-2022 Patient encounter procedure [facility] Work Phone: [facility]-Pulmonary Medicine [facility] Start: 03-25-2022 Non-patient / Non-visit [facility] Work Phone: [facility] Start: 03-25-2022 End: 03-25-2022 Admission to same day surgery center [facility] Work Phone: [facility]-Endoscopy Start: 03-25-2022 End: 03-25-2022 ambulatory [facility] Work Phone: [facility] Work Phone: Start: 03-23-2022 End: 03-23-2022 ambulatory [facility] Work Phone: [facility] Work Phone: Start: 03-23-2022 End: 03-23-2022 Patient encounter procedure [facility] Work Phone: [facility]-Laboratory Start: 03-04-2022 End: 03-04-2022 Patient encounter procedure [facility] Work Phone: [facility] Start: 02-18-2022 End: 02-18-2022 Patient encounter procedure [facility] Work Phone: [facility] Start: 02-04-2022 End: 02-04-2022 Emergency department patient visit [facility]-Emergency Department Start: 08-12-2021 End: 08-12-2021 Patient encounter procedure ROBIN Gomez Work Phone: [facility]-Pulmonary Services/Neurology Start: 07-18-2021 End: 07-18-2021 Patient encounter procedure RECORDS MANAGEMENT TECHNICIAN-C Heidy Gomez Work Phone: [facility] Start: 07-10-2021 End: 07-10-2021 Patient encounter procedure [facility] Work Phone: [facility]-Laboratory Start: 06-27-2021 End: 06-27-2021 Patient encounter procedure [facility] Work Phone: [facility]-Laboratory Start: 04-03-2021 Non-patient / Non-visit [facility] Work Phone: [facility] Start: 04-03-2021 End: 04-03-2021 Admission to same day surgery center [facility] Work Phone: [facility]-Endoscopy Start: 05-22-2015 Patient encounter status Ministerio Arizmendi MD Work Phone: [facility] Procedures Date Procedure Procedure Detail Performing Clinician Start: 08-15-2024 MRI of lumbar spine Nela Alatorre RECORDS MANAGEMENT TECHNICIAN-C Work Phone: Start: 07-31-2024 X-ray of lumbosacral spine Nela poe RECORDS MANAGEMENT TECHNICIAN-C Work Phone: Start: 06-20-2024 Vitamin D, 25-hydroxy measurement Abhi Alatorre RECORDS MANAGEMENT TECHNICIAN-C Work Phone: Comment on above: Vitamin D StatusDeficiency: <20 ng/mL (5 0nmol/L)Insufficiency: 20-30 ng/mL (50-75 nmol/L)Sufficiency: 30-100 ng/mL (75-250 nmol/L)Toxicity: >100 ng/mL (>250 nmol/L) Start: 11-05-2023 Gastric emptying imaging study [facility] Start: 11-05-2023 Lipid 1996 panel - Serum or Plasma [facility] Work Phone: Start: 08-13-2022 Screening mammography Start: 03-25-2022 Esophagogastroduodenoscopy [facility] Work Phone: Start: 02-04-2022 Plain chest X-ray Start: 07-10-2021 Plain chest X-ray [facility] Work Phone: Start: 04-01-2021 SARS-CoV-2 Antigen (Rapid) [facility] Work Phone: Start: 09-05-2016 Lipid 1996 panel - Serum or Plasma Nicholas Arizmendi MD Work Phone: Respiratory syncytia l virus antigen assay Respiratory syncytia l virus antigen assay [facility] Work Phone: SARS-CoV-2 & FLU Antigen (Rapid) SARS-CoV-2 & FLU Antigen (Rapid) [facility] Work Phone: Plan of Treatment Date Care Activity Detail Author Start: 2033 RSV Vaccine (1 - 1-dose 75+ series) RSV Vaccine (1 - 1-dose 75+ series) [facility] Start: 11-04-2028 Lipid panel Lipid Screening [facility] Start: 01-25-2027 Diabetes Screening Diabetes Screening [facility] Start: 11-04-2026 Diabetes Screening Diabetes Screening [facility] Start: 10-04-2024 BP Controlled (<130/80) BP Controlled (<130/80) [facility] Start: 07-31-2024 X-ray of lumbosacral spine L/S Spine Bending Flex/Ext [facility] Start: 07-31-2024 XR Spine Lumbar and Sacrum Views [facility] Start: 02-18-2024 End: 02-18-2024 Follow-up encounter 02/18/2024 10:00 AM [facility] [address] [facility] [place] [address] Ministerio Arizmendi MD [address] [facility] [place] [address] 4 month follow up office visit after gastric emptying, ibs with constiaption,dyspepsia,b loating lower abdominal pain [facility] Comment on above: 4 month follow up office visit after gas tric emptying, ibs with constiaption,dyspepsia,bloating lower abdominal pain Start: 10-14-2023 End: 10-14-2023 Patient encounter procedure 10/14/2023 8:00 AM EDT Appointment Nuclear Medicine [address] [place] [address] Dyspepsia [R10.13]; Bloating [R14.0] [facility] Comment on above: Dyspepsia [R10.13]; Bloating [R14.0] Start: 10-10-2023 Covid-19 Vaccine () Covid-19 Vaccine () [facility] Start: 10-10-2023 Covid-19 Vaccine () Covid-19 Vaccine () [facility] Start: 10-10-2023 Influenza vaccination [facility] Start: 10-05-2023 End: 01-04-2024 CBC W Auto Differential panel - Blood COMPLETE BLOOD COUNT AND DIFFERENTIAL Lab Routine Lower abdominal pain Irritable bowel syndrome with constipation Expected: 10/05/2023, Expires: 01/04/2024 [facility] Comment on above: Expected: 10/05/2023, Expires: Start: 10-05-2023 End: 01-04-2024 CELIAC SCREEN WITH REFLEX CELIAC SCREEN WITH REFLEX Lab Routine Lower abdominal pain Dyspepsia Bloating Expected: 10/05/2023, Expires: 01/04/2024 [facility] Comment on above: Expected: 10/05/2023, Expires: Start: 10-05-2023 End: 01-04-2024 Comprehensive metabolic 2000 panel - Serum or Plasma COMPREHENSIVE METABOLIC PANEL Lab Routine Lower abdominal pain Expected: 10/05/2023, Expires: 01/04/2024 [facility] Comment on above: Expected: 10/05/2023, Expires: Start: 10-05-2023 End: 01-04-2024 Thyrotropin [Units/volume] in Serum or Plasma THYROID STIMULATING HORMONE Lab Routine Irritable bowel syndrome with constipation Dyspepsia Bloating Expected: 10/05/2023, Expires: 01/04/2024 [facility] Comment on above: Expected: 10/05/2023, Expires: Start: 10-05-2023 End: 10-05-2023 Patient encounter procedure 10/05/2023 1:30 PM EDT Office Visit Gastroenterology [facility] [address] [place] [id number] Ministerio Airzmendi MD [address] [facility] [place] [address] 3 month follow up office visit, lower abdominal pain,bloating [facility] [place] Comment on above: 3 month follow up office visit, lower ab dominal pain,bloating Start: 07-15-2023 End: 07-15-2023 Patient encounter procedure 07/15/2023 10:40 AM EDT Appointment Cat Scan [address] [place] [address] CT ABD/PEL W IVCON Cat Scan Comment on above: CT ABD/PEL W IVCON Start: 07-01-2023 End: 09-30-2023 CREATININE BLD CREATININE BLD Lab Routine Lower abdominal pain Bloating Expected: 07/01/2023, Expires: 09/30/2023 [facility] Comment on above: Expected: 07/01/2023, Expires: Start: 06-15-2023 End: 06-15-2023 Patient encounter procedure 06/15/2023 3:30 PM EDT Office Visit Gastroenterology [place] [address] [facility] [id number] Catrina Beckman APRN.TACK CUTTER [address] [facility] [address] Follow up office appointment needed MALLORY per Dr. Arizmendi, severe abdominal pain needs in office exam. [facility] [place] Comment on above: Follow up office appointment needed MALLORY per Dr. Arizmendi, severe abdominal pain needs in office exam. Start: 2023 Advance Directive Discussion Advance Directive Discussion [facility] Start: 2023 Screening for osteoporosis Bone Density Screening [facility] Start: 02-08-2023 Behavioral Health Screening Behavioral Health Screening [facility] Start: 02-08-2023 zzBehavioral Health Screening zzBehavioral Health Screening [facility] Start: 10-09-2022 Covid-19 Vaccine ( season) Covid-19 Vaccine () [facility] Start: 03-25-2022 Patient discharge [facility] Start: 03-23-2022 Vitamin D, 1,25-dihydroxy measurement [facility] Start: 02-04-2022 [facility] Start: 09-05-2021 Lipid panel Lipid Screening [facility] Start: 04-03-2021 Colonoscopy w/biopsy single/multiple COLONOSCOPY AND BIOPSY [facility] Work Phone: Start: 09-06-2019 Diabetes Screening Diabetes Screening [facility] Start: 2018 RSV Vaccine (1 - 1-dose 60+ series) RSV Vaccine (1 - 1-dose 60+ series) [facility] Start: 06-08-2016 Urine microalbumin profile DTaP,Tdap,Td Vaccine (2 - Td or Tdap) [facility] Start: 05-05-2014 Screening for malignant neoplasm of breast Mammogram Screening [facility] Start: 2008 Shingrix Vaccine (1 of 2) Shingrix Vaccine (1 of 2) [facility] Start: 2003 Screening for malignant neoplasm of colon [facility] Start: 1976 Annual PCP Team Chronic Disease Visit Annual PCP Team Chronic Disease Visit [facility] Start: 1976 Anxiety Screening Anxiety Screening [facility] Start: 1976 BP Controlled (<130/80) BP Controlled (<130/80) [facility] Start: 1976 Depression Screening Depression Screening [facility] Start: 1976 Hepatitis C screening Hepatitis C Screening [facility] Start: 1976 HIV screening HIV Screening [facility] End: 10-04-2024 ADULT [place] [facility] [facility] ADULT [place] ANORECT[facility] Endoscopy Routine Irritable bowel syndrome with constipation 1 Occurrences starting 10/05/2023 until 10/04/2024 [facility] Comment on above: 1 Occurrences starting 10/05/2023 until 10/04/2024 CBC W Auto Differential panel - Blood [facility] End: 07-30-2024 CT Abdomen and Pelvis W contrast IV CT ABD/PEL W IVCON Radiology Routine Lower abdominal pain Bloating 1 Occurrences starting 07/01/2023 until 07/30/2024 [facility] Work Phone: Comment on above: 1 Occurrences starting 07/01/2023 until 07/30/2024 CT Abdomen and Pelvi s W contrast IV CT ABD/PEL W IVCON Radiology Routine Lower abdominal pain Bloating 07/15/2023 11:[address] [facility] Work Phone: [facility] Exercise tolerance test [facility] IgE [Units/volume] i n Serum or Plasma [facility] Inhalation challenge test report Document --W methacholine inhaled [facility] End: 11-03-2024 NM Stomach Views for gastric emptying solid phase W radionuclide PO NM GASTRIC EMPTYING SOLID Radiology Routine Dyspepsia Bloating 1 Occurrences starting 10/05/2023 until 11/03/2024 [facility] Work Phone: Comment on above: 1 Occurrences starting 10/05/2023 until 11/03/2024 Patient Education Acute Bronchitis [facility] Work Phone: Patient referral [facility] Work Phone: [facility] Immunizations Immunization Date Immunization Notes Care Provider Fa gonzaloty 06-08-2006 tetanus toxoid, redu leelee diphtheria toxoid, and acellular pertussis vaccine, adsorbed Ministerio Arizmendi MD Work Phone: [facility] Payers Date Payer Category Payer Self-pay [id number] 2023 Medicare MEDICARE MEDICAR E A AND B [id number] 2023-Present [phone] [place] [address] Medicare [id number] 2023 Medicare [id number] 2017 Medicaid MEDICAID [facility] MEDICAID [id number] 2017-Present [phone] [address] [place] [address] Medicaid [id number] 2017 Unknown [id number] 2014 Unknown [id number] Unknown [id number] Unknown [id number] Unknown [id number] Unknown [id number] Unknown [id number] Unknown [id number] Unknown [id number] Unknown [id number] Unknown [id number] Unknown [id number] Unknown [id number] Unknown [id number] [id number] Unknown [id number] Unknown [id number] Unknown [id number] Social History Date Type Detail Facility Start: 04-03-2021 End: 03-26-2022 Tobacco smoking status MSIS Unknown if ever smoked [facility] Start: 09-13-2017 Non-smoker [facility] Start: 1960 Sex Assigned At Female [facility] Start: 03-27-2010 End: 03-26-2022 Tobacco smoking status MSIS Ex-smoker [facility] Work Phone: End: 03-27-2006 History of tobacco use Current smoker [facility] End: 03-27-2006 History of tobacco use Cigarette Smoker [facility] Start: 03-27-2010 End: 10-05-2023 Tobacco use and exposure Smokeless tobacco non-user [facility] Start: 09-24-2021 End: 10-12-2023 Alcohol intake Current non-drinker of alcohol (finding) [facility] Start: 09-24-2021 End: 06-11-2023 Alcohol intake [facility] Start: 06-11-2023 End: 10-12-2023 Area Deprivation Index [facility] National Score (1-100), lower number is lower risk 91 [facility] Start: 1960 Sex Assigned At Not on file C [facility] Start: 05-10-2024 Sex Female (finding) [facility] [place] Start: 07-31-2024 Tobacco smoking stat us MSIS Smokes tobacco daily (finding) [facility] NEGATED: Highlighted row [facility] Medical Equipment Procedure Code Equipment Code Equipment Origin al Text Equipment Identifier Dates EGD, with monitored anesthesia care 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 Start: 03-25-2022 EGD, with monitored anesthesia care 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 Start: 03-25-2022 EGD, with monitored anesthesia care 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 Start: 03-25-2022 EGD, with monitored anesthesia care 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 Start: 03-25-2022 EGD, with monitored anesthesia care 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 Start: 03-25-2022 EGD, with monitored anesthesia care 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 Start: 03-25-2022 EGD, with monitored anesthesia care 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 Start: 03-25-2022 EGD, with monitored anesthesia care 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 Start: 03-25-2022 EGD, with monitored anesthesia care 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 Start: 03-25-2022 EGD, with monitored anesthesia care 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 Start: 03-25-2022 EGD, with monitored anesthesia care 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 Start: 03-25-2022 EGD, with monitored anesthesia care 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 Start: 03-25-2022 Goals Date Patient Goal Desired Activity /State Mental Status Date Assessment Result Facility 03-25-2022 Cognitive function Voice/Name [facility] Work Phone: 04-03-2021 Cognitive function Voice/Name [facility] Work Phone: Clinical Notes 02-04-2022 to 07-31-2024 Note Date & Type Note Facility 07-31-2024 Evaluation note Diagnosis Onset Date Resolution Lumbar stenosis with neurogenic claudication acute July 1:17pm Spondylolisthesis at L4-L5 level acute July 31, 2024 1:17pm Osteopenia noneactive July 31 1:17pm [facility] Work Phone: 1(311) 625-835306-23-2025 Evaluation note* Diagnosis Onset Date Resolution Status Admit Date Lumbar stenosis with neuroge ulisses claudication acute July 31, 2024 1:17pm Spondylolisthesis at L4-L5 level acu te July 31, 2024 1:17pm Osteopenia noneactive July 31 1:17pm Spondylolisthesis at L4-L5 level acu te September 18, 2024 10:31am Lumbar radiculopathy noneactive Augu 2024 10:31am [facility] Work Phone: 1(583) 418-170809-27-2024 History of Present illness Narrative* Av Rand, RT(R) - 11/05/2023 8:00 AM EDT RADIOLOGY SERVICE PROGRESS NOTE SERVICE DATE: 11/05/2023 SERVICE TIME: 8:17 AM PATIENT IDENTITY VERIFICATION COMPLETED USING TWO (2) STANDARD IDENTIFIERS: Name and Date of confirmed by patient verbally FALL SCREENING: Has the patient had 2 falls in the last year or 1 fall with injury or currently using an Ambulatory Assistive Device (Walker, Cane, Wheelchair, Crutches, etc.)? No PATIENT GENDER DATA: .female : No ALLERGIES: Reviewed and unchanged MEDICATIONS REVIEWED: No PATIENT RELEVANT IMPLANT DATA REVIEWED: Not Applicable PATIENT PRESENTS WITH AN IMPLANTABLE OR ATTACHED FLOOR REFINISHER: No CREATININE: Creatinine Date Value Ref Range Status 07/07/2023 0.92 0.58 - 0.96 mg/dL Final 09/05/2016 0.83 0.58 - 0.96 mg/dL Final 07/10/2014 0.77 0.70 - 1.40 mg/dL Final Estimated Glomerular Filtration Rate Date Value Ref Range Status 07/07/2023 69 >=60 mL/min/1.73m Final Comment: Estimated Glomerular Filtration Rate (eGFR) is calculated using the 2020 CKD-EPI creatinine equation. This equation utilizes serum creatinine, sex, and age as parameters. The creatinine assay has traceable calibration to isotope dilution- mass spectrometry. Refer to KDIGO guidelines for clinical interpretation. In patients with unstable renal function, e.g. those with acute kidney injury, the eGFRmay not accurately reflect actual GFR. eGFR- Date Value Ref Range Status 09/05/2016 >60 Final P.O.C.T. RESULTS: N/A November 05, [address] PERFORMED: No IV SITE: NM only - not applicable, oral or physician administered agents given to patient POST EXAM PIV STATUS: Not applicable PROCEDURE TYPE: NM GET: 1.0 mCi Tc99m SULFUR COLLOID was administered orally via 4 ounces of Egg Beaters,2 pieces of toast, 1 ounce of jelly with 8 ounces of water orally ADMINISTRATION TIME: 0815 PATIENT DISCHARGED TO: Ambulatory patient, left DC department area. A Diagnostic radioactive procedure has taken place, with no further precautions necessary other than routine body substance precautions. More information regarding radiation safety can be found usingthis link: [email or web address]%20Nuclear%20Medicine%[email or web address] SIGNATURE: LOLIS Mckinney) PATIENT NAME: Joan Vega DATE: November 05, 2023 TIME: 8:17 AM PAGER/CONTACT #: documented in this encounterBlanch[facility]09-27-[facility] NoteHNO ID: [id number] Author: AV RAND RT(R) Service: Nuclear Medicine Author Type: Technologist Type: Progress Notes Filed: 11/05/2023 08:27 Note Text: RADIOLOGY SERVICE PROGRESS NOTE SERVICE DATE: 11/05/2023 SERVICE TIME: 8:17 AM PATIENT IDENTITY VERIFICATION COMPLETED USING TWO (2) STANDARD IDENTIFIERS: Name and Date of confirmed by patient verbally FALL SCREENING: Has the patient had 2 falls in the last year or 1 fall with injury or currently using an Ambulatory Assistive Device (Walker, Cane, Wheelchair, Crutches, etc.)? No PATIENT GENDER DATA: .female : No ALLERGIES: Reviewed and unchanged MEDICATIONS REVIEWED: No PATIENT RELEVANT IMPLANT DATA REVIEWED: Not Applicable PATIENT PRESENTS WITH AN IMPLANTABLE OR ATTACHED FLOOR REFINISHER: No CREATININE: Creatinine Date Value Ref Range Status 07/07/2023 0.92 0.58 - 0.96 mg/dL Final 09/05/2016 0.83 0.58 - 0.96 mg/dL Final 07/10/2014 0.77 0.70 - 1.40 mg/dL Final Estimated Glomerular Filtration Rate Date Value Ref Range Status 07/07/2023 69 >=60 mL/min/1.73m? Final Comment: Estimated Glomerular Filtration Rate (eGFR) is calculated using the 2020 CKD-EPI creatinine equation. This equation utilizes serum creatinine, sex, and age as parameters. The creatinine assay has traceable calibration to isotope dilution-mass spectrometry. Refer to KDIGO guidelines for clinical interpretation. In patients with unstable renal function, e.g. those with acute kidney injury, the eGFR may not accurately reflect actual GFR. eGFR- Date Value Ref Range Status 09/05/2016 >60 Final P.O.C.T. RESULTS: N/A November 05, [address] PERFORMED: No IV SITE: NM only - not applicable, oral or physician administered agents given to patient POST EXAM PIV STATUS: Not applicable PROCEDURE TYPE: NM GET: 1.0 mCi Tc99m SULFUR COLLOID was administered orally via 4 ounces of Egg Beaters,2 pieces of toast, 1 ounce of jelly with 8 ounces of water orally ADMINISTRATION TIME: 0815 PATIENT DISCHARGED TO: Ambulatory patient, left DC department area. A Diagnostic radioactive procedure has taken place, with no further precautions necessary other than routine body substance precautions. More information regarding radiation safety can be found using this link: [email or web address] 20Diagnostic%20Nuclear%20Medicine%[email or web address] SIGNATURE: RT Faye(R) PATIENT NAME: Joan Vega DATE: November 05, 2023 TIME: 8:17 AM PAGER/CONTACT #:[facility]09-03-2024 Instructions * Patient Instructions* Elena Cantor APRN.TACK CUTTER - 10/12/2023 3:13 PM EDT Images from the original note were not included. 1) Please consider starting or continue nasal steroid (Flonase, Nasonex, or similar) as instructed below 2) Would recommend utilizing a saline nasal irrigation like NeilMed sinus rinse or similar, especially before using medicated nasal sprays, to help thin and flush out secretions (if mixing yourself please only use distilled or previously boiled and cooled water per smoke tester's instructions). Would recommend bringing the solution up to body temperature also before instilling in nose. Tilt your head slightly away from the nostril you have the bottle in to reduce risk of solution going into your ear. Aim the stream toward the back of your head, not the top of your head. This lets you spit some of the salt water out of your mouth. It will not hurt if you swallow a little. You wantto work up to the majority of solution that goes in coming out your mouth, not out the other nostril. 3) Can utilize over the counter pain medication like Tylenol, unless you have been instructed not to take one or both of them because of other medical conditions. Can also take 1000 mg of Tylenol (acetaminophen) every 6 hours up to 3-4 times per day, but very important to not take more than 1000 mg at one time and to not take more than 4000 mg in a 24 hour period. Instructions to spray medicated nose sprays (please note the best time to use Flonase, Nasonex, Rhinocort or similar is at night before bed). 1. Blow your nose out before spraying 2. Shake it before spraying each time. 3. Keep head in neutral position or looking down slightly. 4. Put about a quarter of the tip of the bottle in the right nostril and aim at the outside corner of the right eye. 5. [place] one spray only. Take a sniff as you are spraying but do not snort. 6. Repeat in the left nostril while pointing towards the outside corner of the left eye 8. Then if you are doing two sprays in each nostril wait 4-5 minutes before spraying the second spray. 9. If it drips out every time such when the nose is very congested. Have the patient sit on the bed. Look down, spray and then lay down on their back on a bed. This will allow the medicine to coat the nose on the way back. Sit up and repeat for the other side. EXPRESS CARE PATIENT INFO I Feel So Sick, Don t I Need Antibiotics? Did you know. . . There s only a 1 in 4000 chance that an antibiotic will help most acute upper respiratory infections. But there s a 1 in 4 chance of diarrhea and a 1 in 50 chance of a skin reaction and a 1 in 1000 chance it ll cause an ER visit due to some side effect. Antibiotics can also lead to more resistant infections that are harder to treat. Bottom line: There s little to no benefit to taking antibiotics for most acute upper respiratory tract infections...and the downsides are real. Viruses cannot be treated by antibiotics. Viruses cause most upper respiratory infections, which include head colds, sore throats, bronchitis, and sinus infections. The common cold and influenza do not respond to antibiotics. Less than 10 percent of acute bronchitis cases are caused by bacteria. Most cases of acute ear infections also resolve without antibiotics. Sore throats (pharyngitis) are usually caused by viruses as well. Antibiotics are not recommended unless you have strep throat and only about 15 to 30 percent of pharyngitis cases in children and up to 10 percent of cases in adults are due to strep throat. Almost all cases of acute bacterial sinusitis resolve without antibiotics. There are a few situations in which antibiotics are needed, however. See your health care provider if you have a decreased immune system due to cancer, or if you are taking steroids, have HIV, or have had an organ transplant, or if your symptoms worsen or last longer than 7 to 10 days. Most often you should use the lida-enb-tdpohjr symptomatic treatment/s that your health care provider has recommended. These would include analgesic products such as acetaminophen (Tylenol ), decongestants, antihistamines, salt water gargles, drinking warm tea, and other methods to help treat the symptoms. Also remember that your best defense against getting the flu is to get a flu shot, but this does not, unfortunately, protect you against the many other viruses out in the environment that cause the other kinds of illnesses other than the actual influenza. Adult Sinusitis Patient Education What is Sinusitis? Sinusitis [tidt-tof-peyy-tis] is inflammation of the sinuses or swelling of the lining of the sinus cavity or nose. During an infection the sinuses become blocked with fluid causing swelling of the lining of the sinuses. Symptoms: (viral and bacterial infections) Stuffy nose Runny nose Postnasal drip Fever Toothache Headache Tiredness Cough Sore throat Face and head pressure and or pain Common causes: 98% of sinus infections are viral caused by viruses. Risk Factors of Sinusitis Include: Allergies, air pollution, indoor humidity and outdoor temperature changes, andstructural changes inthe nose may contribute to sinus pain, pressure and congestion. When to get help? Temperature greater than 100.4 F Symptoms lasting more than 10 days or worsening symptoms greater than 7-10 days. If you do not improve or worsen after a course of antibiotics, you should be re-examined. Diagnosis and Treatment: Your healthcare provider will ask a number of questions about your symptoms and how long they have occurred. If symptoms of sinusitis persist greater than 10 days, it is possible you have a bacterial sinus infection and an antibiotic is prescribed. If it is viral, antibiotics will not help. You may be instructed to take xxsf-kuq-oscrpib medications for symptoms. including fever reducers acetaminophen or ibuprofen, nasal saline spray, cough and cold preparations and decongestants as prescribed by the physician, nurse practitioner or physician construction assistant. Self-Care and Prevention: Rest Fluids for hydration Good hand washing Humidifier Avoid smoking and exposure to second hand smoke Avoid sick contacts documented in this encounterBl[facility]ard [facility]09-03-2024 NoteHNO ID: [id number] Author: ELENA CANTOR APRN.KRISTAN Service: ? Author Type: Nurse Practitioner Type: Progress Notes Filed: 10/12/2023 15:14 Note Text: Telemedicine Evaluation for an Illness MyChart Zoom Video Visit was used for evaluation of this patient. I have communicated my name and active licensure. The patient's identity and physical location were verified at the time of this visit. Either the patient or their legal sales representative metals has been informed of the risks and benefits of -- and alternatives to -- treatment through a remote evaluation and consents to proceed with the evaluation remotely. SUBJECTIVE Joan Vega is a 63 year old female who presents with 6 days of symptoms that are stable. Symptoms include: Fever (?100.4F): No or Chills: No Cough: Yes Shortness of breath: No or Difficulty breathing: No Fatigue: No Muscle aches: No Headache: Yes New loss of smell or taste: No Sore throat: No Nasal congestion: Yes or Rhinorrhea: Yes Nausea: No or Vomiting: No Diarrhea: No OTC meds/remedies that patient has tried: Tylenol, Mucinex, Robitussin. High risk category assessment Age > 60 years old Hypertension Exposures: Sick contacts? No Family or close contacts with confirmed/probable COVID-19 in last 14 days? No She reports that she quit smoking about 17 years ago. Her smoking use included cigarettes. She has never used smokeless tobacco. OBJECTIVE VIDEO EXAM (if available) GENERAL: well appearing, alert, in no acute distress HEENT: no conjunctival injection, pupils equal and moist mucous membranes PULMONARY: breathing comfortably on room air , no coughing noted, and no wheezing noted ASSESSMENT/PLAN (J06.9) Viral upper respiratory tract infection with cough (primary encounter diagnosis) Most consistent at this time with uncomplicated ongoing viral URI/respiratory infection. Recommended continued symptomatic treatments and monitoring. Elena Cantor APRN.KRISTAN - Discussed symptom monitoring and supportive care - Red flag symptoms requiring follow up discussedAv[facility] System 10-12-2023 History of Present illness Narrative* Elena Cantor APRN.KRISTAN - 10/12/2023 3:06 PM EDT Telemedicine Evaluation for an Illness MyChart Zoom Video Visit was used for evaluation of this patient. I have communicated my name and active licensure. The patient's identity and physical location wereverified at the time of this visit. Either the patient or their legal sales representative metals has been informed of the risks and benefits of -- and alternatives to -- treatment through a remote evaluation andconsents to proceed with the evaluation remotely. ASUNCION Vega is a 63 year old female who presents with 6 days of symptoms that are stable. Symptoms include: Fever (?100.4F): No or Chills: No Cough: Yes Shortness of breath: No or Difficulty breathing: No Fatigue: No Muscle aches: No Headache: Yes New loss of smell or taste: No Sore throat: No Nasal congestion: Yes or Rhinorrhea: Yes Nausea: No or Vomiting: No Diarrhea: No OTC meds/remedies that patient has tried: Tylenol, Mucinex, Robitussin. High risk category assessment Age > 60 years old Hypertension Exposures: Sick contacts? No Family or close contacts with confirmed/probable COVID-19 in last 14 days? No She reports that she quit smoking about 17 years ago. Her smoking use included cigarettes. She has never used smokeless tobacco. OBJECTIVE VIDEO EXAM (if available) GENERAL: well appearing, alert, in no acute distress HEENT: no conjunctival injection, pupils equal and moist mucous membranes PULMONARY: breathing comfortably on room air , no coughing noted, and no wheezing noted ASSESSMENT/PLAN (J06.9) Viral upper respiratory tract infection with cough (primary encounter diagnosis) Most consistent at this time with uncomplicated ongoing viral URI/respiratory infection. Recommended continued symptomatic treatments and monitoring. Elena Cantro APRN.CNP - Discussed symptom monitoring and supportive care - Red flag symptoms requiring follow up discussed documented in this encounterBlanchard Valley [facility] System08-27-2024 NoteHNO ID: [id number] Author: MINISTERIO ARIZMENDI MD Service: ? Author Type: Physician Type: Progress Notes Filed: 10/05/2023 14:43 Note Text: CHIEF COMPLAINT: Patient presents with: Recheck: Lower abdominal pain, bloating, constipation- started a probiotic and helps a little bit HPI Joan Vega is a 63 year old female here today for follow-up abdominal bloating and pain. CT: Gi tract negative, mesenteric vessels normal GB, liver, biliary, pancreas, spleen, nodes, mesentery all normal. Pelvis normal. Renal cysts RML lung nodule 3 mm. She has tried miralax, fiber, exlax, sennakot, lactulose ibsrela, anusol suppositories Last EGD 2022 Last sigmoidoscopy (2022) and colonoscopy (2021) reports reviewed. She had grade 3 IH; hyperplastic sigmoid polyps, otherwise normal colonoscopy. Constipation: - Chronic constipation, managed with kefir, yogurt, and acidophilus. - Recent trial of IBSrella for 6 days, experienced bowel movements but unsure of effectiveness due to insurance coverage issues. - Denies diarrhea. - No known history of Linzess use. - Denies anal intercourse. Bloating: - Experiences abdominal bloating, especially after eating, described as a hard, non-painful distension. - No correlation between bloating and specific foods. - Denies feeling less bloated with acidophilus use. - Denies fluid buildup in the abdomen. - Denies any known heart-related issues contributing to bloating. - Denies any known impact of intercourse on sphincter function. Internal Hemorrhoids: - Diagnosed with internal hemorrhoids, experiences random bleeding without straining. - Avoids spicy foods like salsa and Ange due to burning sensation. - Denies any known impact of intercourse on sphincter function. Oakes's Esophagus: - Diagnosed with Oakes's esophagus, taking pantoprazole for years. - Primary care doctor inquired about prolonged use of pantoprazole. - Denies having a bone density test. Hypertension: - Diagnosed with hypertension at age 32, managed with medication. - Recent blood work done by primary care doctor, including B12 levels. - Denies any known heart-related issues contributing to bloating. Kidney Cysts: - Recent CT scan showed kidney cysts. - Denies any known follow-up plan for kidney cysts. Lung Nodule: - Recent CT scan showed a lung nodule. - Followed up with primary care doctor, had a chest CT scan done yesterday at [facility]. - Denies any known heart-related issues contributing to bloating. Past Diagnostic Results: - CT Scan (recent): Showed kidney cysts and a lung nodule. - Chest CT Scan (yesterday): Done at [facility], results pending. - EGD: Normal. - Colonoscopy: Normal. - Flex-Sig: Normal. - Upper Endoscopy: Normal. - Venous Duplex: No significant findings. - EKG: Normal. - Echocardiogram: Normal. Current Outpatient Medications Medication Sig pantoprazole DR (PROTONIX) 40 mg tablet Take 40 mg by mouth once daily. lactulose 10 gram/15 mL solution take 30 milliliters by mouth every 12 hours until normal BOWEL MOVEMENT budesonide-formoterol (SYMBICORT) 160-4.5 mcg/actuation inhaler Inhale 2 Puffs as instructed. lisinopril (ZESTRIL) 40 mg tablet Take 40 mg by mouth once daily. atorvastatin (LIPITOR) 20 mg tablet Take 1 tablet by mouth daily at bedtime. For cholesterol. atenolol (TENORMIN) 50 mg tablet Take 1 tablet by mouth once daily. triamterene-hydrochlorothiazide (MAXZIDE) 75-50 mg per tablet Take 1 tablet by mouth once daily. cetirizine (ALL DAY ALLERGY RELIEF,CETIR,) 10 mg tablet Take 1 tablet by mouth once daily. multivitamin ORAL tablet Take one(1) tablet daily. No current facility-administered medications for this visit. 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 No date: Hypertension No date: Vertigo Comment: from surgery 09/2013 PAST SURGICAL HISTORY 2014: BRAIN SURGERY HX Comment: and again in 2015 04/03/2021: COLONOSCOPY 03/25/2022: EGD No date: PAST SURGICAL HISTORY OF Comment: microvascular decompression surgeries x 2 09/12/2013: STRESS TEST Comment: NL 02/09/1984: TONSILLECTOMY HX 02/09/1992: TUBAL LIGATION, FAMILY HISTORY Problem Relation Age of Onset Hypertension Mother Diabetes Father Cervical Cancer Sister other (PVC [Other]) Daughter Colon Cancer No Family History REVIEW OF SYSTEMS Review of Systems PHYSICAL EXAM Ht 5' 5 (1.65m) Wt 214 lb 3.2 oz (97.2kg) BMI 35.64 (more content not included)...[facility]08-[facility] History of Present illness Narrative* Ministerio Arizmendi MD - 10/05/2023 1:30 PM EDT CHIEF COMPLAINT: Patient presents with: Recheck: Lower abdominal pain, bloating, constipation- started a probiotic and helps a little bit HPI Joan Vega is a 63 year old female here today for follow-up abdominal bloating and pain. CT: Gi tract negative, mesenteric vessels normal GB, liver, biliary, pancreas, spleen, nodes, mesentery all normal. Pelvis normal. Renal cysts RML lung nodule 3 mm. She has tried miralax, fiber, exlax, sennakot, lactulose ibsrela, anusol suppositories Last EGD 2022 Last sigmoidoscopy (2022) and colonoscopy (2021) reports reviewed. She had grade 3 IH; hyperplasticsigmoid polyps, otherwise normal colonoscopy. Constipation: - Chronic constipation, managed with kefir, yogurt, and acidophilus. - Recent trial of IBSrella for 6 days, experienced bowel movements but unsure of effectiveness due to insurance coverage issues. - Denies diarrhea. - No known history of Linzess use. - Denies anal intercourse. Bloating: - Experiences abdominal bloating, especially after eating, described as a hard, non-painful distension. - No correlation between bloating and specific foods. - Denies feeling less bloated with acidophilus use. - Denies fluid buildup in the abdomen. - Denies any known heart-related issues contributing to bloating. - Denies any known impact of intercourse on sphincter function. Internal Hemorrhoids: - Diagnosed with internal hemorrhoids, experiences random bleeding without straining. - Avoids spicy foods like salsa and Ange due to burning sensation. - Denies any known impact of intercourse on sphincter function. Oakes's Esophagus: - Diagnosed with Oakes's esophagus, taking pantoprazole for years. - Primary care doctor inquired about prolonged use of pantoprazole. - Denies having a bone density test. Hypertension: - Diagnosed with hypertension at age 32, managed with medication. - Recent blood work done by primary care doctor, including B12 levels. - Denies any known heart-related issues contributing to bloating. Kidney Cysts: - Recent CT scan showed kidney cysts. - Denies any known follow-up plan for kidney cysts. Lung Nodule: - Recent CT scan showed a lung nodule. - Followed up with primary care doctor, had a chest CT scan done yesterday at [facility]. - Denies any known heart-related issues contributing to bloating. Past Diagnostic Results: - CT Scan (recent): Showed kidney cysts and a lung nodule. - Chest CT Scan (yesterday): Done at [facility], results pending. - EGD: Normal. - Colonoscopy: Normal. - Flex-Sig: Normal. - Upper Endoscopy: Normal. - Venous Duplex: No significant findings. - EKG: Normal. - Echocardiogram: Normal. Current Outpatient Medications Medication Sig pantoprazole DR (PROTONIX) 40 mg tablet Take 40 mg by mouth once daily. lactulose 10 gram/15 mL solution take 30 milliliters by mouth every 12 hours until normal BOWEL MOVEMENT budesonide-formoterol (SYMBICORT) 160-4.5 mcg/actuation inhaler Inhale 2 Puffs as instructed. lisinopril (ZESTRIL) 40 mg tablet Take 40 mg by mouth once daily. atorvastatin (LIPITOR) 20 mg tablet Take 1 tablet by mouth daily at bedtime. For cholesterol. atenolol (TENORMIN) 50 mg tablet Take 1 tablet by mouth once daily. triamterene-hydrochlorothiazide (MAXZIDE) 75-50 mg per tablet Take 1 tablet by mouth once daily. cetirizine (ALL DAY ALLERGY RELIEF,CETIR,) 10 mg tablet Take 1 tablet by mouth once daily. multivitamin ORAL tablet Take one(1) tablet daily. No current facility-administered medications for this visit. 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 No date: Hypertension No date: Vertigo Comment: from surgery 09/2013 PAST SURGICAL HISTORY 2014: BRAIN SURGERY HX Comment: and again in 201404/03/2021: COLONOSCOPY 03/25/2022: EGD No date: PAST SURGICAL HISTORY OF Comment: microvascular decompression surgeries x 2 09/12/2013: STRESS TEST Comment: NL 02/09/1984: TONSILLECTOMY HX 02/09/1992: TUBAL LIGATION, FAMILY HISTORY Problem Relation Age of Onset Hypertension Mother Diabetes Father Cervical Cancer Sister other (PVC [Other]) Daughter Colon Cancer No Family History REVIEW OF SYSTEMS Review of Systems PHYSICAL EXAM Ht 5' 5 (1.65m) Wt 214 lb 3.2 oz (97.2kg) BMI 35.64 kg/(m^2). Physical Exam Constitutional: General: No acute distress. Appearance: Normal appearance. Well-developed. HENT: Head: Normocephalic. Eyes: Conjunctiva/sclera: Conjunctivae normal. Neck: Thyroid: No thyromegaly. Cardiovascular: Rate and Rhythm: Normal rate and regular rhythm. Heart sounds: Normal heart sounds. No murmur heard. Pulmonary: Effort: Pulmonary effort is normal. Breath sounds: Normal breath sounds. No wheezing or rales. Abdominal: General: Bowel sounds are normal. There is no distension. Palpations: Abdomen is soft. No HSM, no masses/R/G Tenderness: There is no abdominal tenderness. Musculoskeletal: Lower legs: No edema. Lymphadenopathy: Cervical: No cervical adenopathy. Skin: General: Skin is warm and dry Neurological: Mental Status: Alert. Psychiatric: Mood and Affect: Mood normal. Thought Content: Thought content normal. ASSESSMENT: Abdominal pain: - Abdominal pain is associated with bloating and constipation. - Physical examination reveals no tenderness or masses. - Ordered nuclear medicine gastric emptying test to evaluate for delayed gastric emptying given herbloating. - Ordered anorectal manometry to assess for pelvic floor dysfunction. - Advised patient to follow up with primary care physician regarding kidney cysts and lung nodule. -Linzess 72 mcg once daily -Probiotic 2 pills once daily (visbiome) Irritable bowel syndrome with constipation: - Symptoms include constipation and bloating. - Initiated Linzess at the lowest dose 72 mcg once daily to promote bowel movements and reduce bloating. She may have diarrhea for the first 1 week and may have loose stools in the morning after thattime frame with linzess. - Advised patient to continue taking acidophilus and switch to Visbiome, a prescription probiotic, if affordable. - Educated patient on the potential side effects of Linzess, including diarrhea, and the importanceof continuing the medication despite initial side effects which may improve after the first week. If no improvement, she should reach out to us. - Recommended regular physical activity, such as walking on a treadmill, to improve bowel function. GERD without esophagitis: - Patient is currently on pantoprazole for acid reflux. - Discussed the long-term use of pantoprazole and its association with osteoporosis. - Advised patient to discuss with primary care physician about getting a bone density test. - Recommended calcium 600 mg and vitamin D 400 IU twice daily, preferably through Oscal plus D or Viactiv chews to minimize constipation. - Advised patient to take a multivitamin to ensure adequate magnesium intake. Oakes's esophagus without dysplasia: - Patient has a history of Oakes's esophagus. - Advised patient to continue pantoprazole to manage acid reflux and prevent progression of Oakes's esophagus. - Discussed the importance of regular surveillance endoscopy to monitor for dysplasia. She is not due until 2025 Internal hemorrhoids: - Internal hemorrhoids are significant but not currently causing severe symptoms. - Advised patient to avoid straining during bowel movements to prevent exacerbation. - Discussed the potential need for surgical intervention if symptoms worsen. - Recommended avoiding foods that aggravate symptoms, such as spicy foods and dairy. Lung nodule seen on imaging study: - Recent chest CT scan performed at [facility]; results not yet available. - Advised patient to follow up with primary care physician to obtain and review the results. Kidney cyst, acquired: - Kidney cysts identified on imaging; typically benign. - Advised patient to follow up with primary care physician to determine if further evaluation, suchas an ultrasound, is needed. Dyspepsia: - Symptoms include bloating and discomfort after meals. - Ordered blood work including a complete blood count, liver and kidney function tests, celiac disease panel, and TSH. - Recommended nuclear medicine gastric emptying test to evaluate for delayed gastric emptying. Bloating: - Bloating is associated with constipation and dyspepsia. - Initiated Linzess at the lowest dose to promote bowel movements and reduce bloating. - Ordered nuclear medicine gastric emptying test to evaluate for delayed gastric emptying. - Ordered anorectal manometry to assess for pelvic floor dysfunction. - Advised patient to continue taking acidophilus and switch to Visbiome, a prescription probiotic, if affordable. Ministerio Santana MD DATE: 10/05/23 TIME: 1:34 PM * Hipolito Watson MA - 10/05/2023 1:27 PM EDT CHIEF COMPLAINT: Patient presents with: Recheck: Lower abdominal pain, bloating, constipation- started a probiotic and helps a little bit. Tried Ibsrela but ran out only took samples. HPI Joan Vega is a 63 year old female here today for Recheck (Lower abdominal pain, bloating, constipation- started a probiotic and helps a little bit. Tried Ibsrela but ran out only took samples. ) Current Outpatient Medications Medication Sig Lactobacillus acidophilus (PROBIOTIC ORAL) Take by mouth. pantoprazole DR (PROTONIX) 40 mg tablet Take 40 mg by mouth once daily. lactulose 10 gram/15 mL solution take 30 milliliters by mouth every 12 hours until normal BOWEL MOVEMENT budesonide-formoterol (SYMBICORT) 160-4.5 mcg/actuation inhaler Inhale 2 Puffs as instructed. lisinopril (ZESTRIL) 40 mg tablet Take 40 mg by mouth once daily. atorvastatin (LIPITOR) 20 mg tablet Take 1 tablet by mouth daily at bedtime. For cholesterol. atenolol (TENORMIN) 50 mg tablet Take 1 tablet by mouth once daily. triamterene-hydrochlorothiazide (MAXZIDE) 75-50 mg per tablet Take 1 tablet by mouth once daily. cetirizine (ALL DAY ALLERGY RELIEF,CETIR,) 10 mg tablet Take 1 tablet by mouth once daily. multivitamin ORAL tablet Take one(1) tablet daily. No current facility-administered medications for this visit. 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 No date: Hypertension No date: Vertigo Comment: from surgery 09/2013 PAST SURGICAL HISTORY 2013: BRAIN SURGERY HX Comment: and again in 201404/03/2021: COLONOSCOPY 03/25/2022: EGD No date: PAST SURGICAL HISTORY OF Comment: microvascular decompression surgeries x 2 09/12/2013: STRESS TEST Comment: NL 02/09/1984: TONSILLECTOMY HX 02/09/1992: TUBAL LIGATION, FAMILY HISTORY Problem Relation Age of Onset Hypertension Mother Diabetes Father Cervical Cancer Sister other (PVC [Other]) Daughter Colon Cancer No Family History REVIEW OF SYSTEMS Review of Systems Respiratory: Positive for apnea and wheezing. Cardiovascular: Positive for leg swelling. Gastrointestinal: Positive for abdominal distention, anal bleeding, constipation, nausea and rectalpain. Gas All other systems reviewed and are negative. PHYSICAL EXAM BP 116/72 Pulse 69 Ht 5' 5 (1.65m) Wt 214 lb 3.2 oz (97.2kg) BMI 35.64 kg/(m^2). Physical Exam ASSESSMENT: No diagnosis found. PLAN: No orders found for this visit on 10/05/23. No follow-ups on file. Ministerio Santana MD DATE: 10/05/23 TIME: 1:37 PM documented in this encounterBlanchard [facility]08-27-[facility]24 NoteHNO ID: [id number] Author: HIPOLITO WATSON MA Service: ? Author Type: Fire Boat Engineer Type: Progress Notes Filed: 10/05/2023 14:43 Note Text: CHIEF COMPLAINT: Patient presents with: Recheck: Lower abdominal pain, bloating, constipation- started a probiotic and helps a little bit. Tried Ibsrela but ran out only took samples. HPI Joan Vega is a 63 year old female here today for Recheck (Lower abdominal pain, bloating, constipation- started a probiotic and helps a little bit. Tried Ibsrela but ran out only took samples. ) Current Outpatient Medications Medication Sig Lactobacillus acidophilus (PROBIOTIC ORAL) Take by mouth. pantoprazole DR (PROTONIX) 40 mg tablet Take 40 mg by mouth once daily. lactulose 10 gram/15 mL solution take 30 milliliters by mouth every 12 hours until normal BOWEL MOVEMENT budesonide-formoterol (SYMBICORT) 160-4.5 mcg/actuation inhaler Inhale 2 Puffs as instructed. lisinopril (ZESTRIL) 40 mg tablet Take 40 mg by mouth once daily. atorvastatin (LIPITOR) 20 mg tablet Take 1 tablet by mouth daily at bedtime. For cholesterol. atenolol (TENORMIN) 50 mg tablet Take 1 tablet by mouth once daily. triamterene-hydrochlorothiazide (MAXZIDE) 75-50 mg per tablet Take 1 tablet by mouth once daily. cetirizine (ALL DAY ALLERGY RELIEF,CETIR,) 10 mg tablet Take 1 tablet by mouth once daily. multivitamin ORAL tablet Take one(1) tablet daily. No current facility-administered medications for this visit. 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 No date: Hypertension No date: Vertigo Comment: from surgery 09/2013 PAST SURGICAL HISTORY 2013: BRAIN SURGERY HX Comment: and again in 201404/03/2021: COLONOSCOPY 03/25/2022: EGD No date: PAST SURGICAL HISTORY OF Comment: microvascular decompression surgeries x 2 09/12/2013: STRESS TEST Comment: NL 02/09/1984: TONSILLECTOMY HX 02/09/1992: TUBAL LIGATION, FAMILY HISTORY Problem Relation Age of Onset Hypertension Mother Diabetes Father Cervical Cancer Sister other (PVC [Other]) Daughter Colon Cancer No Family History REVIEW OF SYSTEMS Review of Systems Respiratory: Positive for apnea and wheezing. Cardiovascular: Positive for leg swelling. Gastrointestinal: Positive for abdominal distention, anal bleeding, constipation, nausea and rectal pain. Gas All other systems reviewed and are negative. PHYSICAL EXAM BP 116/72 Pulse 69 Ht 5' 5 (1.65m) Wt 214 lb 3.2 oz (97.2kg) BMI 35.64 kg/(m2). Physical Exam ASSESSMENT: No diagnosis found. PLAN: No orders found for this visit on 10/05/23. No follow-ups on file. Ministerio Santana MD DATE: 10/05/23 TIME: 1:37 [facility]06-06-2024 History of Present illness Narrative* Reef Chikis Arellano, RT(R) - 07/15/2023 10:40 AM EDT Radiology Service Progress Note DATE OF SERVICE: July 15, 2023 TIME: 2:49 PM PATIENT IDENTITY VERIFICATION COMPLETED USING TWO (2) STANDARD IDENTIFIERS: Name and Date of confirmed by patient verbally. FALL SCREENING: Has the patient had 2 falls in the last year or 1 fall with injury or currently using an Ambulatory Assistive Device (Walker, Cane, Wheelchair, Crutches, etc.)? No PATIENT GENDER DATA: Female. status: : No status: NO. PATIENT RELEVANT IMPLANT DATA REVIEWED: Yes PATIENT PRESENTS WITH AN IMPLANTABLE OR ATTACHED FLOOR REFINISHER: No ALLERGIES: Reviewed and unchanged CONTRAST ALLERGY: NO. EXAM: CT -CONTRAST INDUCED NEPHROPATHY RISK FACTORS: Patient age > 60 years CREATININE: Creatinine Date Value Ref Range Status 07/07/2023 0.92 0.58 - 0.96 mg/dL Final 09/05/2016 0.83 0.58 - 0.96 mg/dL Final 07/10/2014 0.77 0.70 - 1.40 mg/dL Final Estimated Glomerular Filtration Rate Date Value Ref Range Status 07/07/2023 69 >=60 mL/min/1.73m Final Comment: Estimated Glomerular Filtration Rate (eGFR) is calculated using the 2020 CKD-EPI creatinine equation. This equation utilizes serum creatinine, sex, and age as parameters. The creatinine assay has traceable calibration to isotope dilution- mass spectrometry. Refer to KDIGO guidelines for clinical interpretation. In patients with unstable renal function, e.g. those with acute kidney injury, the eGFRmay not accurately reflect actual GFR. eGFR- Date Value Ref Range Status 09/05/2016 >60 Final P.O.C.T. RESULTS: POC done: Yes, See Lab Tab July 15, 2023 TREATMENT: N/A PERIPHERAL IV DATA: Ambulatory: A peripheral IV was started in the Left antecubital site with a Angio cath: 22 gauge. RADIOLOGY DEPARTMENT: CT; Exam(s) Completed: Abdomen/Pelvis SIGNATURE: LOLIS Browning) PATIENT NAME: Joan Vega DATE: July 15, 2023 TIME: 2:49 PM documented in this encounterBlanchard Valley [facility]06-06-2024 NoteHNO ID: [id number] Author: CHIKIS DAVE RT(R) Service: ? Author Type: Lump Machine Operator Type: Progress Notes Filed: 07/15/2023 14:50 Note Text: Radiology Service Progress Note DATE OF SERVICE: July 15, 2023 TIME: 2:49 PM PATIENT IDENTITY VERIFICATION COMPLETED USING TWO (2) STANDARD IDENTIFIERS: Name and Date of confirmed by patient verbally. FALL SCREENING: Has the patient had 2 falls in the last year or 1 fall with injury or currently using an Ambulatory Assistive Device (Walker, Cane, Wheelchair, Crutches, etc.)? No PATIENT GENDER DATA: Female. status: : No status: NO. PATIENT RELEVANT IMPLANT DATA REVIEWED: Yes PATIENT PRESENTS WITH AN IMPLANTABLE OR ATTACHED FLOOR REFINISHER: No ALLERGIES: Reviewed and unchanged CONTRAST ALLERGY: NO. EXAM: CT -CONTRAST INDUCED NEPHROPATHY RISK FACTORS: Patient age > 60 years CREATININE: Creatinine Date Value Ref Range Status 07/07/2023 0.92 0.58 - 0.96 mg/dL Final 09/05/2016 0.83 0.58 - 0.96 mg/dL Final 07/10/2014 0.77 0.70 - 1.40 mg/dL Final Estimated Glomerular Filtration Rate Date Value Ref Range Status 07/07/2023 69 >=60 mL/min/1.73m? Final Comment: Estimated Glomerular Filtration Rate (eGFR) is calculated using the 2020 CKD-EPI creatinine equation. This equation utilizes serum creatinine, sex, and age as parameters. The creatinine assay has traceable calibration to isotope dilution-mass spectrometry. Refer to KDIGO guidelines for clinical interpretation. In patients with unstable renal function, e.g. those with acute kidney injury, the eGFR may not accurately reflect actual GFR. eGFR- Date Value Ref Range Status 09/05/2016 >60 Final P.O.C.T. RESULTS: POC done: Yes, See Lab Tab July 15, 2023 TREATMENT: N/A PERIPHERAL IV DATA: Ambulatory: A peripheral IV was started in the Left antecubital site with a Angio cath: 22 gauge. RADIOLOGY DEPARTMENT: CT; Exam(s) Completed: Abdomen/Pelvis SIGNATURE: RT Nam(R) PATIENT NAME: Joan Vega DATE: July 15, 2023 TIME: 2:49 [facility]05-23-2024 Instructions* Patient Instructions* Catrina Beckman APRN.CNP - 07/01/2023 10:09 AM EDT - Start OTC probiotic with at least 15 billion live cultures, 10+ strains - Drink around 64 oz water daily - Use squatty potty with BM's - Trial Ibsrela 50mg twice a day with food. Message or call with an update. documented in this encounterBlanchard Valley [facility]05-23-2024 NoteHNO ID: [id number] Author: CATRINA BECKMAN APRN.CNP Service: ? Author Type: Nurse Practitioner Type: Progress Notes Filed: 07/01/2023 10:23 Note Text: CHIEF COMPLAINT: Patient presents with: Recheck: Abdominal pain, bloating, constipation, rectal and some bleeding HPI: Joan Vega is a 63 year old female here today for Recheck (Abdominal pain, bloating, constipation, rectal and some bleeding). She gets a lot of post-prandial bloating. She is currently on lactulose, but doesn't use it every day because high sugar (she is pre-diabetic). She has a BM every 2-3 days, and has incomplete evacuation. She will still get rectal bleeding intermittently- sigmoidoscopy (2022) and colonoscopy (2021) reports reviewed. She had grade 3 IH; hyperplastic sigmoid polyps, otherwise normal colonoscopy. From Dr. Arizmendi's HPI 06/11/23: She has bloating and constipation Feels like she swallowed an inflated balloon She has gets a hard abdomen Miralax every day Fiber gummies Metamucil capsules Exlax, sennakot Lactulose liquid (helped somewhat) She moves her bowels once every 2 to 4 days The lactulose works and causes gas and the lactulose will cause softer stool not liquid. She stopped drinking diet pop, stopped iced tea, stopped artificial sweeteners She also has bad back pain Bleeding from the rectum happens about once a month but can happen more frequently She cannot strain to have a BM for fear of aggravating her hemorrhoids but she feels the bleeding is not from her hemorrhoids but is coming from the rectum She tried anusol supp, sitz baths, fiber and her rectum and gluteal area and hemorrhoids went thru a time where there was severe burning and pain. She says today that that burning has stopped and is under better control but her abd pain and back pain are worse and she is concerned about her degree of constipation with bleeding. Current Outpatient Medications Medication Sig pantoprazole DR (PROTONIX) 40 mg tablet Take 40 mg by mouth once daily. lactulose 10 gram/15 mL solution take 30 milliliters by mouth every 12 hours until normal BOWEL MOVEMENT budesonide-formoterol (SYMBICORT) 160-4.5 mcg/actuation inhaler Inhale 2 Puffs as instructed. lisinopril (ZESTRIL) 40 mg tablet Take 40 mg by mouth once daily. atorvastatin (LIPITOR) 20 mg tablet Take 1 tablet by mouth daily at bedtime. For cholesterol. atenolol (TENORMIN) 50 mg tablet Take 1 tablet by mouth once daily. triamterene-hydrochlorothiazide (MAXZIDE) 75-50 mg per tablet Take 1 tablet by mouth once daily. cetirizine (ALL DAY ALLERGY RELIEF,CETIR,) 10 mg tablet Take 1 tablet by mouth once daily. multivitamin ORAL tablet Take one(1) tablet daily. No current facility-administered medications for this visit. 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 Respiratory: Positive for cough and wheezing. Cardiovascular: Positive for leg swelling. Gastrointestinal: Positive for abdominal distention, abdominal pain, constipation and rectal pain. Gas All other systems reviewed and are negative. PHYSICAL EXAM BP 140/80 Pulse 87 Ht 5' 5 (1.65m) Wt 217 lb 8 oz (98.7kg) BMI 36.19 kg/(m2). Physical Exam Vitals and nursing note reviewed. Constitutional: Appearance: Normal appearance. She is normal weight. HENT: Head: Normocephalic and atraumatic. Mouth/Throat: Mouth: Mucous membranes are moist. Eyes: General: No scleral icterus. Cardiovascular: Rate and Rhythm: Normal rate and regular rhythm. Heart sounds: Normal heart sounds. Pulmonary: Breath sounds: Normal breath sounds. Abdominal: General: Abdomen is flat. Bowel sounds are normal. There is distension (+tympany). Palpations: Abdomen is soft. Tenderness: There is abdominal tenderness in the right lower quadrant, epigastric area, periumbilical area and left upper quadrant. There is no guarding (more content not included)...[facility]05-23-2024 History of Present illness Narrative* Catrina Beckman, MEAT SEAFOOD ASSOCIATE.[facility] - 07/01/2023 9:41 AM EDT CHIEF COMPLAINT: Patient presents with: Recheck: Abdominal pain, bloating, constipation, rectal and some bleeding HPI: Joan Vega is a 63 year old female here today for Recheck (Abdominal pain, bloating, constipation, rectal and some bleeding). She gets a lot of post-prandial bloating. She is currently on lactulose, but doesn't use it every day because high sugar (she is pre-diabetic). She has a BM every 2-3 days, and has incomplete evacuation. She will still get rectal bleeding intermittently- sigmoidoscopy (2022) and colonoscopy (2021) reports reviewed. She had grade 3 IH; hyperplastic sigmoid polyps, otherwise normal colonoscopy. From Dr. Arizmendi's HPI 06/11/23: She has bloating and constipation Feels like she swallowed an inflated balloon She has gets a hard abdomen Miralax every day Fiber gummies Metamucil capsules Exlax, sennakot Lactulose liquid (helped somewhat) She moves her bowels once every 2 to 4 days The lactulose works and causes gas and the lactulose will cause softer stool not liquid. She stopped drinking diet pop, stopped iced tea, stopped artificial sweeteners She also has bad back pain Bleeding from the rectum happens about once a month but can happen more frequently She cannot strain to have a BM for fear of aggravating her hemorrhoids but she feels the bleeding is not from her hemorrhoids but is coming from the rectum She tried anusol supp, sitz baths, fiber and her rectum and gluteal area and hemorrhoids went thru a time where there was severe burning and pain. She says today that that burning has stopped and is under better control but her abd pain and back pain are worse and she is concerned about her degree of constipation with bleeding. Current Outpatient Medications Medication Sig pantoprazole DR (PROTONIX) 40 mg tablet Take 40 mg by mouth once daily. lactulose 10 gram/15 mL solution take 30 milliliters by mouth every 12 hours until normal BOWEL MOVEMENT budesonide-formoterol (SYMBICORT) 160-4.5 mcg/actuation inhaler Inhale 2 Puffs as instructed. lisinopril (ZESTRIL) 40 mg tablet Take 40 mg by mouth once daily. atorvastatin (LIPITOR) 20 mg tablet Take 1 tablet by mouth daily at bedtime. For cholesterol. atenolol (TENORMIN) 50 mg tablet Take 1 tablet by mouth once daily. triamterene-hydrochlorothiazide (MAXZIDE) 75-50 mg per tablet Take 1 tablet by mouth once daily. cetirizine (ALL DAY ALLERGY RELIEF,CETIR,) 10 mg tablet Take 1 tablet by mouth once daily. multivitamin ORAL tablet Take one(1) tablet daily. No current facility-administered medications for this visit. 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 reports that she tried a glycerin suppository but that her body push this out. Lastly patient is reporting that she has had some air past from her vagina.? Shenotes that she was seen for an ER visit several months ago for mid abdominal pain and CT imaging was performed but no diverticulitis was found.? On hearing her history, a provider suggested she may still be having diverticulitis.? Patient has researched this concern and brings concern for possible colovaginal fistula.? Patient is cleared to deny, however, that she has not had any recent UTIs.? She has not passed any air while urinating, but finds her self passing this air doing other random activities like washing the dishes or sitting at herdesk. ROS General General: Yes weight change and fatigue; No appetite, colon cancer, breast cancer or weakness HEENT HEENT: No difficulty swallowing, eye injury, eye surgery, swollen glands or hoarseness Endo Endocrine: No thyroid disease, diabetes mellitus, thyroid cancer, Hair loss, heat intolerance or cold intolerance Skin Skin: No rash or changing moles Breast Breast: No left breast lump, right breast lump, nipple discharge, breast pain, abnormal mammogram, abnormal US or breast enlargement Musc Musculoskeletal: No back problems, arthritis, rheumatoid arthritis, gout or joint pain Cardio Cardiovascular: Yes high blood pressure; No murmur, pacemaker, heart disease, atrial fibrillation, heart attack, heart stent, palpitations, shortness of breat with exertion or chest pain Psych Psychiatric: Yes depression; No anxiety or hearing voices Resp Respiratory: No shortness of breath, Yes sleep apnea, Yes cough, No COPD, No asthma, No emphysema and No wheezing Gastro Gastrointestinal: No abdominal pain, No nausea or vomiting, No diarrhea, Yes constipation, Yes blood in stool, Yes acid reflux, Yes hemorrhoids, No ulcers, No gallbladder problem and No black,tarry stools Sesar Hematologic: No blood thinners, No blood disorders, No bleeding, No anemia and Yes blood clots Neuro Neurologic: No system reviewed and no additional complaints, except as documented, No as per HPI, No abnormal gait, No abnormal hearing, No abnormal movements, No abnormal speech, No behavioral changes, No burning sensations, No confusion, No convulsions, No disequilibrium, No dizziness, No localized weakness, No frequent falls, No headache(s), No lack of coordination, No loss ofvision, No memory loss, No numbness, No other visual disturbances, No radicular pain, No restless legs, No sensory deficit, No syncope, No tingling, No tremor(s), No weakness and No other Exam Const General: cooperative Orientation: alert, awake and oriented x3 GI Inspection: non-distended Palpation: soft Other: Nontender to palpation x4 quadrants Assessment and Plan Assessment and Plan (1) Hemorrhoids: ?Status:?Acute ?Comment: This is a 61-year-old female with a past history of hemorrhoids, who presents with an acute flare of this issue.? Both of her primary complaints?pain and bleeding?are improved today.? Exam was not repeated given her clinical improvements and plans for further endoscopic evaluation on March 25, 2022.? I did discuss with her the need to try for 25 g of dietary fiber per day as I believe this will help her to evacuate her bowels more fully.? I have also askedher to clarify which laxatives she is using so that we can get her on a regimen that achieves 1 bowel movement per day.? Regarding her concerns over hypercalcemia causing constipation?I have no objective evidence to validate thisconcern is patient's most recent calcium was within the range of normal (showingfrom July 2021) and she confirmed that she was taking her supplement regularly at that time.? I have offered to repeat blood work, but she states she just had blood work done for her primary care provider. ?Plan: ? Conservative measures for hemorrhoid treatment recommended as above?conscientious inclusion of dietary fiber (recommended fiber Gummies and lieu of Metamucil due to patient's previous intolerance) and to report back whather laxative schedule currently is with names and dosages of agent used ? Plan to schedule flexible sigmoidoscopy simultaneous with surveillance EGD forhistory of Oakes's esophagus (2) Oakes's esophagus determined by endoscopy: ?Status:?Chronic ?Comment: Patient has a history of Oakes's esophagus dating back to an endoscopy from September [address] Scherer.? On learning this history, I recommended EGD, but patient blames recurrent sicknesses for keeping her from making this appointment.? We are now scheduled for surveillance EGD on March 25, 2022. ?Plan: ? Surveillance EGD for Oakes's esophagus scheduled March 25, 2022 Interval: Pt seen and evaluated. She denies any recent bleeding with bowel movements and complains only of soreness afterwards. She confirms she is now achieving one soft BM daily taking sennokot and ex lax as needed. Reviewed expectations for today's endoscopy session to include surveillance EGD for Oakes's esophagus followed by sigmoidoscopy and possible hemorrhoid banding. Proceed to endoscopy suite for these procedures under MAC sedation. 03/25/22 1330 <Electronically signed by Av Kilpatrick MD> Cosigner Signature (if applicable): CC: Dr. Av Kilpatrick MD; [facility]~ Signed [facility] Work Phone: 1(226) 154-387702-15-2023 Procedure [facility] 03-25-2022 Procedure [facility]02-15-2023 Procedure note [facility]02-15-2023 Procedure [facility] 02-04-2022 Hospital Discharge instructions Additional Instructions You can use your albuterol more than what you have been told, you can try doing 4 puffs every 2-4 hours, inhale deeply and see if that helps if needed.[facility] Work Phone: Evaluation note* Diagnosis Onset Date Resolution Status Encounter for colonoscopy du e to history of colonic polyp acute [facility] Work Phone: evaluation note* Diagnosis Onset Date Resolution Status Essential hypertension chron ic Hyperlipidemia chronic [facility] Work Phone: Evaluation noteNo assessment information available [facility] Work Phone: evaluation note* Diagnosis Onset Date Resolution Status Hemorrhoids acute Oakes's esophagus determined by endoscopy chronic Hemorrhoids acute Oakes's esophagus determined by endoscopy chronic [facility] Work Phone: Evaluation note* Diagnosis Onset Date Resolution Status Hemorrhoids acute Oakes's esophagus determined by endoscopy chronic Hemorrhoids acute Oakes's esophagus determined by endoscopy chronic Cough acute Nicotine dependence, cigarettes, in remission acute [facility] Work Phone: Evaluation note* Diagnosis Generalized abdominal pain- Primary Abdominal pain, generalized Low back pain, unspecified back pain laterality, unspecified chronicity, unspecified whether sciatica present Bright red blood per rectum Hemorrhage of rectum and anus Hemorrhoids, unspecified hemorrhoid type Constipation, unspecified constipation type Oakes's esophagus without dysplasia Oakes's esophagus documented in this encounter [facility] note* Diagnosis Lower abdominal pain- Primary Abdominal pain, other specified site Bloating Flatulence, eructation, and gas pain Oakse's esophagus without dysplasia Oakes's esophagus Hemorrhoids, unspecified hemorrhoid type Irritable bowel syndrome with constipation Irritable bowel syndrome Bright red blood per rectum Hemorrhage of rectum and anus documented in this encounter [facility] note* Diagnosis Lower abdominal pain Abdominal pain, other specified site Bloating Flatulence, eructation, and gas pain documented in this encounter [facility] note* Diagnosis Abnormal finding of diagnostic imaging- Primary Other nonspecific (abnormal) findings on radiological and other examinations of body structure documented in this encounter [facility] note* Diagnosis Abnormal finding of diagnostic imaging- Primary Other nonspecific (abnormal) findings on radiological and other examinations of body structure documented in this encounter [facility] note* Diagnosis Lower abdominal pain- Primary Abdominal pain, other specified site Irritable bowel syndrome with constipation Irritable bowel syndrome GERD without esophagitis Esophageal reflux Oakes's esophagus without dysplasia Oakes's esophagus Internal hemorrhoids Internal hemorrhoids without mention of complication Lung nodule seen on imaging study Solitary pulmonary nodule Kidney cyst, acquired Acquired cyst of kidney Dyspepsia Dyspepsia and other specified disorders of function of stomach Bloating Flatulence, eructation, and gas pain documented in this encounter [facility] note* Diagnosis Viral upper respiratory tract infection with cough- Primary Acute upper respiratory infections of unspecified site documented in this encounter [facility] for referral (narrative)* Outpatient Procedure (Routine) - New Request Specialty Diagnoses / Procedures Referred By Miesha bell Referred To Contact [facility] Diagnoses Irritable bowel syndrome with constipation Procedures ADULT [place] ANORECTAL MANOMETRY ANORECTAL MANOMETRY Ministerio Arizmendi MD [address] [facility] [place] [address] [facility] [address] [place] [address] Referral ID Status Reason Start Date Expiration Date Visits Requested Visits Authorized [id number] New Request Auto-Generat ed Referral 10/05/2023 10/04/2024 1 1 * Diagnostic Procedure Only (Routine) - Authorized Specialty Diagnoses / Procedures Referred By Contac t Referred To Contact [facility] Diagnoses Dyspepsia Bloating Procedures NM GASTRIC EMPTYING SOLID GASTRIC EMPTYING STUDY Ministerio Arizmendi MD [address] [facility] [address] [place] [address] Molecular [facility] Functional [facility] [address] [place] [address] Referral ID Status Reason Start Date Expiration Date Visits Requested Visits Authorized [id number] Authorized Auto-Generat ed Referral 10/05/2023 11/03/2024 1 1 [facility] for referral (narrative)No reason for referral information [facility] Work Phone: Chief Complaint and Reason for Visit Chief Complaint Pre-Surgical Testing PAT Reason for Visit Encounter for colono scopy due to history of colonic polyp Chief Complaint 1 Y FU COPD Reason for Visit Essential hypertensi on Hyperlipidemia Chief Complaint COUGH Chief Complaint COUGH EGD/ Rectal bleeding EGD/ Rectal bleeding Reason for Visit Hemorrhoids Oakes's esophagus determined by endoscopy Hemorrhoids Oakes's esophagus determined by endoscopy Chief Complaint COUGH EGD/ Rectal bleeding EGD/ Rectal bleeding spirometry f/up Reason for Visit Hemorrhoids Oakes's esophagus determined by endoscopy Hemorrhoids Oakes's esophagus determined by endoscopy Cough Nicotine dependence, cigarettes, in remission Chief Complaint SCREENING Chief Complaint Venous insufficiency (chronic) (peripheral) Chief Complaint Admit Date BLE; POLYNEUROPATHY March 29, 2024 11:57am BLE; POLYNEUROPATHY March 29, 2024 1:12pm ATHEROSCLEROSIS May 05, 2024 8:5 5am Chief Complaint Admit Date BLE; POLYNEUROPATHY March 29, 2024 11:57am BLE; POLYNEUROPATHY March 29, 2024 1:12pm ATHEROSCLEROSIS May 05, 2024 8:5 5am ATHEROSCLEROSIS OF AORTA May 05 9:07am Chief Complaint Admit Date ATHEROSCLEROSIS May 05, 2024 8:5 5am ATHEROSCLEROSIS OF [place]ORT[place] May 05 9:07am LUMBAR SPINE July 31, 2024 1:17 pm room 4 July 31, 2024 1:48 pm Chief Complaint Admit Date ATHEROSCLEROSIS May 05, 2024 8:5 5am ATHEROSCLEROSIS OF [place] May 05 9:07am LUMBAR SPINE July 31, 2024 1:17 pm room 4 July 31, 2024 1:48 pm Pain August 15, 2024 2:39p m Reason for Visit Admit Date Lumbar stenosis with neurogenic claudica tion July 31, 2024 1:17pm Spondylolisthesis at L4-L5 level July 312024 1:17pm Osteopenia July 31, 2024 1:17 pm Chief Complaint Admit Date LUMBAR SPINE July 31, 2024 1:17 pm room 4 July 31, 2024 1:48 pm Pain August 15, 2024 2:39p m LUMBAR SPINE September 18, 2024 10 :31am Reason for Visit Admit Date Lumbar stenosis with neurogenic claudica tion July 31, 2024 1:17pm Spondylolisthesis at L4-L5 level July 312024 1:17pm Osteopenia July 31, 2024 1:17 pm Spondylolisthesis at L4-L5 level September 18, 2024 10:31am Lumbar radiculopathy September 18, 2024 1 0:31am Family History No Family History Records Found Relationship Condition Age at Onset Recorded Date/T lana father Diabetes mellitus Unknown Hypertension Unknown mother Hypertension Unknown High blood cholesterol Unknown Abdominal aortic aneurysm (AAA) Unknown Transient ischemic attack Unknown Cerebral aneurysm Unknown Cerebrovascular accident (CVA) Unknown brother Cerebrovascular accident (CVA) Unknown Advance Directives No Advanced Directives Records Found Advance Directive Response Recorded Date/ Time Living Will No April 01 11:13am Power of Still Operator Brandy No April 01, 2021 11:13am Advance Directive Response Recorded Date/ Time Living Will No February 04 10:51am Power of Still Operator Brandy No February 04, 2022 10:51am Advance Directive Response Recorded Date/ Time Name of Medical Power of Still Operator Brandy DAUGHTER 2022 1:34pm Living Will Yes March 20, 023 1:34pm Power of Still Operator Brandy Yes 2022 1:34pm Advance Directive Response Recorded Date/ Time Living Will Yes March 20 023 2:34pm Power of Still Operator Brandy Yes 2022 2:34pm Advance Directive Response Recorded Date/ Time Living Will Yes March 20 2 023 1:34pm Power of Still Operator Brandy Yes 2022 1:34pm Summary Purpose Reason for Referral Specialty Diagnoses / Procedures Referred By Miesha t Referred To Contact CT IMAGING Diagnoses Lower abdominal pain Bloating Procedures CT ABD/PEL W IVCON CT ABD & PELVIS W/CONTRAST Catrina Beckman, MEAT SEAFOOD ASSOCIATE.TACK CUTTER [address] [place] [address] [place] [address] Referral ID Status Reason Start Date Expiration Date Visits Requested Visits Authorized [id number] Authorized Auto-Generat ed Referral 07/01/2023 07/30/2024 1 1 Additional Source Comments Goals (unrecognized section and content) Goals may be documented in a n alternate sectionGoals may be documented in an alternate sectionGoals may be documented in an alternate sectionGoals may be documented in an alternate sectionGoals may be documented in an alternate sectionGoals may be documented in an alternate sectionGoals may be documented in an alternate sectionGoals may be documented in an alternate sectionGoals may be documented in an alternate sectionGoals may be documented in an alternate sectionGoals may be documented in an alternate sectionGoals may be documented in an alternate sectionGoals may be documented in an alternate sectionGoals may be documented in an alternate section Care Teams (unrecognized sec tion and content) Team Status: Active Member Role Status Dates [facility] Family Provider Active [facility] Primary Care Provider A ctive Team Status: Inactive Member Role Status Dates [facility] Primary Care Provider, Referring Provider Active Dr. Av Kilpatrick MD Attending Provider Active Team Status: Active Member Role Status Dates [facility] Primary Care Provider, Referring Provider Active Dr. Av Kilpatrick MD Attending Provider, Other Provi alvino Active Team Status: Inactive Member Role Status Dates [facility] Primary Care Provider A ctive Dr. Margarito Emmanuel MD Attending Provider, Emergency Provider Active Team Status: Active Member Role Status Dates [facility] Primary Care Provider A ctive Nela Alatorre RECORDS MANAGEMENT TECHNICIAN, RECORDS MANAGEMENT TECHNICIAN-C Attending Provider Active Team Status: Inactive Member Role Status Dates [facility] Primary Care Provider, Referring Provider Active Dr. Dmitriy Millard DO Attending Provider Active Team Status: Inactive Member Role Status Dates [facility] Primary Care Provider A ctive Nela Alatorre RECORDS MANAGEMENT TECHNICIAN, RECORDS MANAGEMENT TECHNICIAN-C Attending Provider Active Team Status: Inactive Member Role Status Dates [facility] Primary Care Provider A ctive CHIKIS CERON , RECORDS MANAGEMENT TECHNICIAN-C Attending Provider, Referring Provider Active Team Status: Inactive Member Role Status [facility] Primary C are Provider, Attending Provider, Referring Provider Active Nela Alatorre RECORDS MANAGEMENT TECHNICIAN, RECORDS MANAGEMENT TECHNICIAN-C Other Provider Active Team Status: Active Member Role Status Dates [facility] Primary Care Provider A ctive Dr. Freedom Hawkins MD Attending Provider Active Team Status: Inactive Member Role Status [facility] Primary Care Provider A ctive Nela Alatorre VSC, RECORDS MANAGEMENT TECHNICIAN-C Attending Provider Active Nela Alatorre RECORDS MANAGEMENT TECHNICIAN, RECORDS MANAGEMENT TECHNICIAN-C Referring Provider Active Wastewater Engineer Relationship Specialty Start Date End Date Nela Alatorre NP [address] [phone] Referring Family Medicine 05/26/23 Wastewater Engineer Relationship Specialty Start Date End Date [facility] [address] [place] [address] PCP - General 06/15/23 Nela Alatorre NP [address] [place] [address] Referring Family Medicine 05/26/23 Wastewater Engineer Relationship Specialty Start Date End Date [facility], [facility] [place] [address] PCP - General 06/15/23 Nela Alatorre NP [address] [place] [address] Referring Family Medicine 05/26/23 Wastewater Engineer Relationship Specialty Start Date End Date [facility], [facility] [address] [place] [phone] PCP - General 06/15/23 Nela Alatorre NP [address] [facility] [place] [phone] Referring Family Medicine 05/26/23 Wastewater Engineer Relationship Specialty Start Date End Date [facility], [facility] [address] [facility] [place] [phone] PCP - General 06/15/23 Nela Alatorre NP [address] [facility] [place] [address] Referring Family Medicine 05/26/23 Wastewater Engineer Relationship Specialty Start Date End Date [facility], [facility] [address] [facility] [place] [phone] PCP - General 06/15/23 Nela Alatorre NP [address] [facility] [place] [phone] Referring Family Medicine 05/26/23 Wastewater Engineer Relationship Specialty Start Date End Date [facility], [facility] [address] [facility] [place] [phone] PCP - General 06/15/23 Nela Alatorre NP [address] [place] [phone] Referring Family Medicine 05/26/23 Wastewater Engineer Relationship Specialty Start Date End Date [facility], [facility] [address] [facility] [place] [phone] PCP - General 06/15/23 Nela Alatorre NP [address] [facility] [place] [phone] Referring Family Medicine 05/26/23 Wastewater Engineer Relationship Specialty Start Date End Date [facility], [facility] [address] [facility] [place] [phone] PCP - General 06/15/23 Nela Alatorre NP [address] [place] [address] Referring Family Medicine 05/26/23 Team Status: Active Member Role Status Dates Nela CLAY, RECORDS MANAGEMENT TECHNICIAN-C Primary Care Provider Activ e Team Status: Inactive Member Role Status Dates Nela CLAY, RECORDS MANAGEMENT TECHNICIAN-C Primary Care Provider Activ e Start: March 29, 2024 End: March 29, 2024 Nela CLAY, RECORDS MANAGEMENT TECHNICIAN-C Attending Provider Active Start: March 29, 2024 End: March 29, 2024 Nela CLAY, RECORDS MANAGEMENT TECHNICIAN-C Referring Provider Active Start: March 29, 2024 End: March 29, 2024 Team Status: Active Member Role Status Dates Nela CLAY, RECORDS MANAGEMENT TECHNICIAN-C Primary Care Provider Activ e Start: March 29, 2024 Nela CLAY, RECORDS MANAGEMENT TECHNICIAN-C Referring Provider Active Start: March 29, 2024 Nela CLAY, RECORDS MANAGEMENT TECHNICIAN-C Other Provider Active Start: March 29, 2024 Dr. Gina Arellano MD Attending Provider Active S tart: March 29, 2024 Team Status: Inactive Member Role Status Dates Nela CLAY, RECORDS MANAGEMENT TECHNICIAN-C Primary Care Provider Activ e Start: May 05, 2024 End: May 05, 2024 Nela CLAY, RECORDS MANAGEMENT TECHNICIAN-C Attending Provider Active Start: May 05, 2024 End: May 05, 2024 Nela CLAY, RECORDS MANAGEMENT TECHNICIAN-C Referring Provider Active Start: May 05, 2024 End: May 05, 2024 Team Status: Active Member Role Status Dates Dr. Jeferson Drew MD Attending Provider Active Start: May 05, 2024 Nela Karthikeyan VSC, RECORDS MANAGEMENT TECHNICIAN-C Referring Provider Active Start: May 05, 2024 Team Status: Inactive Member Role Status Dates Nela Alatorre VSC, RECORDS MANAGEMENT TECHNICIAN-C Primary Care Provider Activ e Start: June 20, 2024 End: June 20, 2024 Nela Alatorre VSC, RECORDS MANAGEMENT TECHNICIAN-C Attending Provider Active Start: June 20, 2024 End: June 20, 2024 Team Status: Active Member Role Status Dates Nela Alatorre VSC, RECORDS MANAGEMENT TECHNICIAN-C Primary Care Provider Activ e Start: July 31, 2024 Nela Karthikeyan VSC, RECORDS MANAGEMENT TECHNICIAN-C Referring Provider Active Start: July 31, 2024 KAITLYNN Monteiro Attending Provider Active Star t: July 31, 2024 Team Status: Inactive Member Role Status Dates Nela Alatorre VSC, RECORDS MANAGEMENT TECHNICIAN-C Primary Care Provider Activ e Start: July 31, 2024 End: July 31, 2024 Dr. Juvencio Harris MD Attending Provider Active S tart: July 31, 2024 End: July 31, 2024 Team Status: Inactive Member Role Status Dates Nela Alatorre VSC, RECORDS MANAGEMENT TECHNICIAN-C Primary Care Provider Activ e Start: July 31, 2024 End: July 31, 2024 Nela Alatorre VSC, RECORDS MANAGEMENT TECHNICIAN-C Referring Provider Active Start: July 31, 2024 End: July 31, 2024 KAITLYNN Monteiro Attending Provider Active Star t: July 31, 2024 End: July 31, 2024 Team Status: Active Member Role/Relationship Status Dates Nela Alatorre VSC, RECORDS MANAGEMENT TECHNICIAN-C Primary Care Provider Activ e Team Status: Inactive Member Role/Relationship Status Dates Nela Alatorre VSC, RECORDS MANAGEMENT TECHNICIAN-C Primary Care Provider Activ e Start: May 05, 2024 End: May 05, 2024 Nela Karthikeyan VSC, RECORDS MANAGEMENT TECHNICIAN-C Attending Provider Active Start: May 05, 2024 End: May 05, 2024 Nela Karthikeyan VSC, RECORDS MANAGEMENT TECHNICIAN-C Referring Provider Active Start: May 05, 2024 End: May 05, 2024 Team Status: Active Member Role/Relationship Status Dates Dr. Jeferson Drew MD Attending Provider Active Start: May 05, 2024 Nelafunmilayo Alatorre VSC, RECORDS MANAGEMENT TECHNICIAN-C Referring Provider Active Start: May 05, 2024 Team Status: Inactive Member Role/Relationship Status Dates Nela MENDOZAC, RECORDS MANAGEMENT TECHNICIAN-C Primary Care Provider Activ e Start: June 20, 2024 End: June 20, 2024 Nelafunmilayo MENDOZAC, RECORDS MANAGEMENT TECHNICIAN-C Attending Provider Active Start: June 20, 2024 End: June 20, 2024 Team Status: Inactive Member Role/Relationship Status Dates Nela Karthikeyan VSC, RECORDS MANAGEMENT TECHNICIAN-C Primary Care Provider Activ e Start: July 31, 2024 End: July 31, 2024 Nela Alatorre VSC, RECORDS MANAGEMENT TECHNICIAN-C Referring Provider Active Start: July 31, 2024 End: July 31, 2024 KAITLYNN Monteiro Attending Provider Active Star t: July 31, 2024 End: July 31, 2024 Team Status: Inactive Member Role/Relationship Status Dates Nela Alatorre VSC, RECORDS MANAGEMENT TECHNICIAN-C Primary Care Provider Activ e Start: July 31, 2024 End: July 31, 2024 Dr. Juvencio Harris MD Attending Provider Active S tart: July 31, 2024 End: July 31, 2024 Team Status: Inactive Member Role/Relationship Status Dates Nela MENDOZAC, RECORDS MANAGEMENT TECHNICIAN-C Primary Care Provider Activ e Start: August 15, 2024 End: August 15, 2024 KAITLYNN Monteiro Attending Provider Active Star t: August 15, 2024 End: August 15, 2024 KAITLYNN Monteiro Referring Provider Active Star t: August 15, 2024 End: August 15, 2024 Team Status: Inactive Member Role/Relationship Status Dates Nela Alatorre VSC, RECORDS MANAGEMENT TECHNICIAN-C Primary Care Provider Activ e Start: June 20, 2024 End: June 20, 2024 Nelafunmilayo Alatorre VSC, RECORDS MANAGEMENT TECHNICIAN-C Attending Provider Active Start: June 20, 2024 End: June 20, 2024 Team Status: Inactive Member Role/Relationship Status Dates Nela MENDOZAC, RECORDS MANAGEMENT TECHNICIAN-C Primary Care Provider Activ e Start: July 31, 2024 End: July 31, 2024 Nelafunmilayo Alatorre VSC, RECORDS MANAGEMENT TECHNICIAN-C Referring Provider Active Start: July 31, 2024 End: July 31, 2024 KAITLYNN Monteiro Attending Provider Active Star t: July 31, 2024 End: July 31, 2024 Team Status: Inactive Member Role/Relationship Status Dates Nela MENDOZAC, RECORDS MANAGEMENT TECHNICIAN-C Primary Care Provider Activ e Start: July 31, 2024 End: July 31, 2024 Dr. Juvencio Harris MD Attending Provider Active S tart: July 31, 2024 End: July 31, 2024 Team Status: Inactive Member Role/Relationship Status Dates Nela Alatorre VSC, RECORDS MANAGEMENT TECHNICIAN-C Primary Care Provider Activ e Start: August 15, 2024 End: August 15, 2024 KAITLYNN Monteiro Attending Provider Active Star t: August 15, 2024 End: August 15, 2024 KAITLYNN Monteiro Referring Provider Active Star t: August 15, 2024 End: August 15, 2024 Team Status: Inactive Member Role/Relationship Status Dates Nela Alatorre VSC, RECORDS MANAGEMENT TECHNICIAN-C Primary Care Provider Activ e Start: September 18, 2024 End: September 18, 2024 Nela MENDOZAC, RECORDS MANAGEMENT TECHNICIAN-C Referring Provider Active Start: September 18, 2024 End: September 18, 2024 KAITLYNN Monteiro Attending Provider Active Star t: September 18, 2024 End: September 18, 2024 Team Status: Inactive Member Role/Relationship Status Dates Nela Alatorre VSC, RECORDS MANAGEMENT TECHNICIAN-C Primary Care Provider Activ e Start: September 20, 2024 End: September 20, 2024 Nela Alatorre VSC, RECORDS MANAGEMENT TECHNICIAN-C Attending Provider Active Start: September 20, 2024 End: September 20, 2024 Team Status: Inactive Member Role/Relationship Status Dates Nela Alatorre VSC, RECORDS MANAGEMENT TECHNICIAN-C Primary Care Provider Activ e Start: September 28, 2024 End: September 28, 2024 Nela Alatorre VSC, RECORDS MANAGEMENT TECHNICIAN-C Attending Provider Active Start: September 28, 2024 End: September 28, 2024 INFORMATION SOURCE (unrecogn ized section and content) DATE CREATED AUTHOR 07/29/2022 [facility] DATE CREATED AUTHOR AUTHOR'S ORGANIZ ATION 02/03/2024 [facility] DATE CREATED AUTHOR AUTHOR'S ORGANIZ ATION 10/19/2024 [facility] Source Comments (unrecognize d section and content) In the event this informatio n is protected by the Federal Confidentiality of Alcohol and Drug Abuse Patient Records regulations: The Federal rules restrict any use of the information to criminally investigate or prosecute any alcohol or drug abuse patient.[facility] the event this information is protected by the Federal Confidentiality of Alcohol and Drug Abuse Patient Records regulations: The Federal rules restrict any use of the information to criminally investigate or prosecute any alcohol or drug abuse patient.[facility] the event this information is protected by the Federal Confidentiality of Alcohol and Drug Abuse Patient Records regulations: The Federal rules restrict any use of the information to criminally investigate or prosecute any alcohol or drug abuse patient.[facility] the event this information is protected by the Federal Confidentiality of Alcohol and Drug Abuse Patient Records regulations: The Federal rules restrict any use of the information to criminally investigate or prosecute any alcohol or drug abuse patient.[facility] the event this information is protected by the Federal Confidentiality of Alcohol and Drug Abuse Patient Records regulations: The Federal rules restrict any use of the information to criminally investigate or prosecute any alcohol or drug abuse patient.[facility] the event this information is protected by the Federal Confidentiality of Alcohol and Drug Abuse Patient Records regulations: The Federal rules restrict any use of the information to criminally investigate or prosecute any alcohol or drug abuse patient.[facility] the event this information is protected by the Federal Confidentiality of Alcohol and Drug Abuse Patient Records regulations: The Federal rules restrict any use of the information to criminally investigate or prosecute any alcohol or drug abuse patient.[facility] the event this information is protected by the Federal Confidentiality of Alcohol and Drug Abuse Patient Records regulations: The Federal rules restrict any use of the information to criminally investigate or prosecute any alcohol or drug abuse patient.[facility] the event this information is protected by the Federal Confidentiality of Alcohol and Drug Abuse Patient Records regulations: The Federal rules restrict any use of the information to criminally investigate or prosecute any alcohol or drug abuse patient.[facility] the event this information is protected by the Federal Confidentiality of Alcohol and Drug Abuse Patient Records regulations: The Federal rules restrict any use of the information to criminally investigate or prosecute any alcohol or drug abuse patient.[facility] the event this information is protected by the Federal Confidentiality of Alcohol and Drug Abuse Patient Records regulations: The Federal rules restrict any use of the information to criminally investigate or prosecute any alcohol or drug abuse patient.[facility] Reason for Visit (unrecogniz ed section and content) Reason Comments Rectal Bleeding Constipation Reason Comments Recheck Abdominal pain, bloa ting, constipation, rectal and some bleeding Reason Comments Radiology CT Specialty Diagnoses / Procedures Referred By Contac t Referred To Contact CT IMAGING Diagnoses Lower abdominal pain Bloating Procedures CT ABD/PEL W IVCON CT ABD & PELVIS W/CONTRAST Hritz, Catrina E, MEAT SEAFOOD ASSOCIATE.TACK CUTTER [id number] [facility] [place] [address] [place] [id number] Referral ID Status Reason Start Date Expiration Date V isits Requested Visits Authorized [id number] Closed Auto-Generate d Referral 07/01/2023 07/30/2024 1 1 Reason Comments Recheck Lower abdominal pain , bloating, constipation- started a probiotic and helps a little bit. Tried Ibsrela but ran out only took samples. Reason Comments Illness Reason Comments Radiology NM FOR RECORDS PERTAINING TO PATIENTS WHO ARE OR HAVE BEEN ENROLLED IN A CHEMICAL DEPENDENCY/SUBSTANCEABUSE PROGRAM, SOME INFORMATION MAY BE OMITTED. This clinical summary was aggregated from multiple sources. Caution should be exercised in using it in the provision of clinical care. This summary normalizes information from multiple sources, and as a consequence, information in this document may materially change the coding, format and clinical context of patient data. In addition, data may be omitted in some cases. CLINICAL DECISIONS SHOULD BE BASED ON THE PRIMARY CLINICAL RECORDS. [employer] provides no warranty or guarantee of the accuracy or completeness of information in this document.
== END | disposition home or self-care (01) ==
LOC: OPBI 12:27
PROVIDERS: PCP Nurse Practitioner Family; Referring Provider Nurse Practitioner Family; Visit Provider Nurse Practitioner Family
DX: Z12.31 Encounter for screening mammogram for malignant neoplasm of breast (principal); F17.291 Nicotine dependence, other tobacco product, in remission
CPT/HCPCS: 77063; 77067

== ENCOUNTER → 2024-10-25 | Outpatient (CLI) | payer MEDICARE, MEDICAID, SELFPAY ==
--- NOTE | 2024-10-25 16:20 | CT_ITS ---
PROCEDURE: LOW DOSE CT LUNG SCREENING 10/25/2024 REASON FOR EXAM: NICOTINE DEPENDENCE TECHNIQUE: Procedure Code: [id number] Modality: CT Procedure: LOW DOSE CT LUNG SCREENING Coronal and Sagittal reconstruction series were provided. One or more dose reduction techniques were used (e.g., Automated exposure control, adjustment of the mA and/or kV according to patient size, use of iterative reconstruction technique). REFERENCE LINK: [facility] Lung-RADS RADIATION DOSE SUMMARY: CTDlvol: 3 mGy DLP: 109.6 mGycm COMPARISON: CT lung screening 10/04/2023 FINDINGS: PULMONARY NODULES: (Only nodules >3mm are reported) Nodules described below are on series 2 unless otherwise specified. Pulmonary Nodules: Redemonstration of multiple bilateral pulmonary nodules which are essentially stable as compared to prior study such as *Calcified nodule within right upper lung measuring 5 mm (2-120), stable *Right pleural-based middle lobe nodule abutting fissure measuring 4.3 mm (2-122). *Right pleural-based nodule measuring 2 mm (2-122). *Right middle lobe nodule measuring 3.8 mm (series 2- 146). *Left lower lobe nodule measuring 5.2 mm (2-145). *Left costophrenic sulcus nodule measuring 5 mm (2-175). Lymph Nodes:Multiple scattered mediastinal lymph node some of which are calcified.. Heart and Vasculature:Cardiomegaly. No pericardial effusion.Atherosclerotic calcifications of the thoracic aorta. Thoracic aorta and pulmonary arteries have normal contours; noncontrast technique limits evaluation. Coronary Artery Calcifications: Present Lungs and Airways: Bibasilar atelectasis. Pleura:Mild bibasilar pleural thickening. Upper Abdomen:Unremarkable Bones:Redemonstration of dextroscoliosis, stable since prior study. Age-related degenerative changes. CT/Low Dose CT Lung Screening IMPRESSION: Multiple scattered bilateral pulmonary nodules measuring up to 5 mm as mentione d above. Coronary artery calcification (CAC) is is present Lung-RADS Category: 2 BENIGN (BASED ON IMAGING FEATURES OR INDOLENT BEHAVIOR). RECOMMEND 12-MONTH SCREENING LDCT. Other Significant Findings: Scattered mediastinal lymph nodes. Coronary artery calcifications. Reading Location: [id number]
--- OUTSIDE RECORDS SUMMARY | 2024-10-25 21:26 | XMS RPT_ITS | CCD ---
Author Organization [facility] Care Team Providers Care Block Layer Name Role Phone [facility], [facility] Primary Care Pro vider [facility], [facility] Referring Provid er Dr. Av Kilpatrick Attending Provider Dr. Av Kilpatrick Other Provider Jason, STRAIGHTEDGE WORKER-C Heidy Other Provider Jason STRAIGHTEDGE WORKER-C Heidy Primary Care Provider MICAH Gomez-C Heidy Referring Provider Jim OBRIEN, STRAIGHTEDGE WORKER-C Tete Attending Provider [facility], [facility] Primary Care Pro vider [facility], [facility] Referring Provid er Dr. Av Kilpatrick Attending Provider Dr. Av Kilpatrick Other Provider Dr. Dmitriy Millard Attending Provider [facility], [facility] Primary Care Pro vider Dr. Freedom Hawkins Attending Provider Karthikeyan STRAIGHTEDGE WORKER, Nela Unavailable [facility], [facility] P rimary Care Provider [facility], [facility] P rimary Care Unavailable CATRINA BECKMAN Referring Unavailable [facility], [facility] P rimary Care Unavailable CATRINA BECKMAN Referring Unavailable CATRINA BECKMAN Referring Unavailable [facility], [facility] P rimary Care Unavailable UGO, MEREDYTHE A Referring Unavailable [facility], [facility] P rimary Care Unavailable CATRINA BECKMAN Attending Unavailable UGO, MEREDYTHE A Attending Unavailable KARTHIKEYAN, NELA Referring Unavailable [facility], [facility] P rimary Care Unavailable KARTHIKEYAN, NELA Referring Unavailable [facility], [facility] P rimary Care Unavailable [facility], [facility] P rimary Care Unavailable UGO, MEREDYTHE A Referring Unavailable [facility], [facility] P rimary Care Unavailable [facility], [facility] P rimary Care Unavailable [facility], [facility] P rimary Care Unavailable [facility], [facility] P rimary Care Unavailable UGO, COLBYNESSATHE A Attending Unavailable Karthikeyan STRAIGHTEDGE WORKER-C, Nela Primary Care Provider [phone] Karthikeyan STRAIGHTEDGE WORKER-C, Nela Attending Provider Karthikeyan STRAIGHTEDGE WORKER-C, Nela Referring Provider Karthikeyan STRAIGHTEDGE WORKER-C, Nela Other Provider Adan GEE, Dr. Fuentes Attending Provider Viki GEE, Dr. Jeferson Pineda Attending Provider Karthikeyan STRAIGHTEDGE WORKER-C, Nela Primary Care Provider [phone] Karthikeyan STRAIGHTEDGE WORKER-C, Nela Attending Provider Karthikeyan STRAIGHTEDGE WORKER-C, Nela Referring Provider Stephenie Craig Attending Provider Dr. Juvencio Harris MD Attending Provider Stephenie Craig Referring Provider Karthikeyan STRAIGHTEDGE WORKER-C, Nela Primary Care Provider Karthikeyan STRAIGHTEDGE WORKER-C, Nela Attending Provider Karthikeyan STRAIGHTEDGE WORKER-C, Nela Referring Provider Karthikeyan VSC, Nela Attending [...] e Nestor, Stephenie Attending Unavailable Karthikeyan VSC, [facility] Primary Care Unavailabl e Nestor, Stephenie Referring Unavailable Allergies Allergy Classification Reported Allergen(s) Allergy Type Date of Onset Reaction(s) Facility Corticosteroids (2 sources) predniSONE Drug Allergy 12-27-[address] [facility] (20 sources) predniSONE; Translations: [PREDNISONE] Drug Allergy 12-27-2020 [facility] (1 source) predniSONE Drug Allergy 09-18-2024 [facility] Repository Medications Current Medications Medication Drug Class(es) [...] link. 1 Each 0 07/01/2023 07/02/2023 Active Vfovdmyn6-Ypnsfh4-R trep therm. (VISBIOME) 112.5 billion cell cap (3 sources) Start: 10-05-2023 End: 01-03-2024 take 2 capsules by mouth once daily Hvvsdjhk4-Ejkgia5-H trep therm. (VISBIOME) 112.5 billion cell cap [...] Drug Class(es) Dates Sig (Normalized) Sig (Original) [id number] 200 actuat albuterol 0.09 mg/actuat metered dose [...] Test Name Value Interpretation Reference Range Facility SCRN MAMM (CAD)W/RUT BILATo n 10-20-2024 SCRN MAMM (CAD)W/RUT BILAT [facility] [address] [place] [address] [id number] SCRN MAMM (CAD)W/RUT BILAT MR#: [id number] Acct: [id number] Name: JOAN VEGA Rep #: [id number] : 1960 F 64 From: Naomy Matt MD PCP: DANNA Rome, STRAIGHTEDGE WORKER-C Status: REG CLI Study: SCRN MAMM (CAD)W/RUT BILAT Date of Exam: 10/09 04/04 Exam# [id number] Ordering Dr: Nela Alatorre STRAIGHTEDGE WORKER-C EXAM: SCRN MAMM (CAD)W/RUT BILAT DATE: 10/20/2024 CLINICAL HISTORY: F, Age 64 y/o , SCREEN TECHNIQUE: Procedure Code: [id number] Modality: MG Procedure: SCRN MAMM (CAD)W/RUT BILAT COMPARISON: Prior exam(s) dated 10/04/2023, 08/13/2022, 01/17/2021. FINDINGS: TISSUE DENSITY: The breasts are almost entirely fatty. Bilateral Breast Mammographic Findings: No significant masses, calcifications or other abnormalities are identified. BI/SCRN MAMM (CAD)W/RUT BILAT IMPRESSION: There is no mammographic evidence of malignancy. OVERALL FINAL ASSESSMENT BI-RADS 1: NEGATIVE. RECOMMENDATION: Routine annual follow-up in 1 Year A letter with findings and recommendations will be mailed to the patient. Reading Location: [id number] CC: [facility] ROBIN Alatorre Almond Paste Molder: Signed Normal [facility] Anion gap in Serum or Plasma Ordered By: [facility] Nela Alatorre on 09-28-2024 Anion gap [Moles/Vol] 13 mmol/L 5-15 [facility] BUN/creatinine ratioOrdered By: [facility] Nela Alatorre on 09-28-2024 Urea nitrogen/Creatinine [Mass ratio] 23.6 mg/mg High 10-20 [facility] Basic Metabolic Profile (BMP )on 09-28-2024 BUN/CRE 23.6 RATIO High -20 [facility] Comment on above: Performed By: #### L 501.0900, L501.7400, L500.2500, L501.5500 ####[facility] [address] [place], [address] Calcium [Mass/Vol] 8.9 mg/dL Normal 7.6-11.0 [facility] Comment on above: Performed By: #### L 501.0900, L501.7400, L500.2500, L501.5500 ####[facility] [address] [place], [address] Chloride [Moles/Vol] 107 mmol/L Normal 98-108 [facility] Comment on above: Performed By: #### L 501.0900, L501.7400, L500.2500, L501.5500 ####[facility] [address] [place], [address] CO2 [Moles/Vol] 21.9 mmol/L Normal 21.0-32.0 [facility] Comment on above: Performed By: #### L 501.0900, L501.7400, L500.2500, L501.5500 ####[facility] [address] [place], [address] Creatinine [Mass/Vol] 1.01 mg/dL Normal 0.70-1.20 [facility] Comment on above: Performed By: #### L 501.0900, L501.7400, L500.2500, L501.5500 ####[facility] [address] [place], [address] GAP 13 Normal 5-15 [facility] Comment on above: Performed By: #### L 501.0900, L501.7400, L500.2500, L501.5500 ####[facility] [address] [place], [address] GFR/1.73 sq M.predicted among non-blacks MDRD (S/P/Bld) [Vol rate/Area] 61 mL/min/{1.73_m2} Normal >60 [facility] Comment on above: Result Comment: mL/m in/1.73m2 CKD-EPI Creatinine Equation (2020) Performed By: #### L 501.0900, L501.7400, L500.2500, L501.5500 ####[facility] [address] [place], [address] Glucose [Mass/Vol] 95 mg/dL Normal 70-99 [facility] Comment on above: Performed By: #### L 501.0900, L501.7400, L500.2500, L501.5500 ####[facility] [address] [place], [address] Potassium [Moles/Vol] 3.7 mmol/L Normal 3.3-5.1 [facility] Comment on above: Performed By: #### L 501.0900, L501.7400, L500.2500, L501.5500 ####[facility] [address], [address] Sodium [Moles/Vol] 141 mmol/L Normal 133-145 [facility] Comment on above: Performed By: #### L 501.0900, L501.7400, L500.2500, L501.5500 ####[facility] [address] [place], [address] Urea nitrogen [Mass/Vol] 24 mg/dL High 4-19 [facility] Comment on above: Performed By: #### L 501.0900, L501.7400, L500.2500, L501.5500 ####[facility] [address] [place], [address] Carbon dioxide, total [Moles /volume] in Central venous bloodOrdered By: [facility] Nela Alatorre on 09-28-2024 CO2 [Moles/Vol] 21.9 mmol/L 21.0-32.0 [facility] Chloride assayOrdered By: [facility] Nela Alatorre on 09-28-2024 Chloride [Moles/Vol] 107 mmol/L 98-108 [facility] Glomerular filtration rate ( GFR) estimation/1.73 sq m using serum, plasma, or whole bOrdered By: [facility] Nela Alatorre on 09-28-2024 GFR/1.73 sq M.predicted among non-blacks MDRD (S/P/Bld) [Vol rate/Area] 61 mL/min/{1.73_m2} >60 [facility] Comment on above: mL/min/1.73m2 CKD-EP I Creatinine Equation (2020) Osmolality urOrdered By: [facility] Nela Alatorre on 09-28-2024 Osmolality (U) [Osmolality] 275 mOsm/KG >50 [facility] Comment on above: Normal Urine Referen ce Ranges Random: 50 - 1200 mOsm/kg H20 depending on fluid intake Random: >850 mOsm/kg after 12 hour fluid restriction 24 hour: ~300 - 900 mOsm/kg H2O Osmolality, Urineon 09-29-19 25 OSMOLALITY,UR 275 mOsm/KG Normal [facility] Comment on above: Result Comment: Normal Urine Reference Ranges Random: 50 - 1200 mOsm/kg H20 depending on fluid intake Random: >850 mOsm/kg after 12 hour fluid restriction 24 hour: 300 - 900 mOsm/kg H2O Performed By: #### L 501.0900, L501.7400, L500.2500, L501.5500 ####[facility] [address] [place], [address] Potassium measurement (mass/ volume)Ordered By: [facility] Nela Alatorre on 09-28-2024 Potassium (Unsp spec) [Mass/Vol] 3.7 mmol/L 3.3-5.1 [facility] Protein+Creatinine Ratio,Uri neon 09-28-2024 PROT:CRE RATIO UNABLE TO CALCULATE Normal 0-200 [facility] Comment on above: Performed By: #### L 501.0900, L501.7400, L500.2500, L501.5500 ####[facility] [address] [place], [address] PROTEIN,UR.RAN. < 6.0 Normal 0.0-12.0 [facility] Comment on above: Performed By: #### L 501.0900, L501.7400, L500.2500, L501.5500 ####[facility] [address] [place], [address] UR CREAT 35.50 mg/dL Normal 28.00-217. 00 [facility] Comment on above: Performed By: #### L 501.0900, L501.7400, L500.2500, L501.5500 ####[facility] [address] [place], [address] Random urine creatinine milton urement (mass/volume)Ordered By: [facility] Nela Alatorre on 09-28-2024 Creatinine Unsp time (U) [Mass/Vol] 35.50 mg/dL 28.00-217. 00 [facility] Serum creatinine measurement (mass/volume)Ordered By: [facility] Nela Alatorre on 09-28-2024 Creatinine [Mass/Vol] 1.01 mg/dL 0.70-1.20 [facility] Serum glucose measurement (m ass/volume)Ordered By: [facility] Nela Alatorre on 09-28-2024 Glucose [Mass/Vol] 95 mg/dL 70-99 [facility] Serum or plasma calcium milton urement (mass/volume)Ordered By: [facility] Nela Alatorre on 09-28-2024 Calcium [Mass/Vol] 8.9 mg/dL 7.6-11.0 [facility] Serum or plasma urea nitroge n measurement (mass/volume)Ordered By: [facility] Nela Alatorre on 09-28-2024 Urea nitrogen [Mass/Vol] 24 mg/dL High 4-19 [facility] Sodium levelOrdered By: [facility] on 09-28-2024 Sodium [Moles/Vol] 141 mmol/L 133-145 [facility] Urine Sodiumon 09-28-2024 Sodium (U) [Moles/Vol] 42 mmol/L Normal Not Establ. [facility] Comment on above: Performed By: #### L 501.0900, L501.7400, L500.2500, L501.5500 ####[facility] [address] [place] [place], [place], [id number] Urine protein measurement (m ass/volume)Ordered By: [facility] Nela Alatorre on 09-28-2024 Protein (U) [Mass/Vol] mg/dL 0.0-12.0 [facility] Urine protein/creatinine mas s ratioOrdered By: [facility] Nela Alatorre on 09-28-2024 Protein/Creatinine (U) [Mass ratio] UNABLE TO CALCULATE mg/g CRE 0-200 [facility] Urine sodium measurement (mo les/volume)Ordered By: [facility] Nela Alatorre on 09-28-2024 Sodium (U) [Moles/Vol] 42 mmol/L Not Establ. [facility] Anion gap in Serum or Plasma Ordered By: [facility] Nelacirilo Alatorre on 09-20-2024 Anion gap [Moles/Vol] 12 mmol/L - [facility] BUN/creatinine ratioOrdered By: [facility] Nelacirilo Alatorre on 09-20-2024 Urea nitrogen/Creatinine [Mass ratio] 24.1 mg/mg High 11-27 [facility] Basic Metabolic Profile (BMP )on 09-20-2024 BUN/CRE 24.1 RATIO High 11-27 [facility] Comment on above: Performed By: #### L 500.2500, L500.4100, L501.9985 #### [facility] [address] [place], [address] Calcium [Mass/Vol] 9.8 mg/dL Normal 7.6-11.0 [facility] Comment on above: Performed By: #### L 500.2500, L500.4100, L501.9985 #### [facility] [address] [place], [address] Chloride [Moles/Vol] 103 mmol/L Normal 98-108 [facility] Comment on above: Performed By: #### L 500.2500, L500.4100, L501.9985 #### [facility] [address] [place], [address] CO2 [Moles/Vol] 23.0 mmol/L Normal 21.0-32.0 [facility] Comment on above: Performed By: #### L 500.2500, L500.4100, L501.9985 #### [facility] [address] [place], [address] Creatinine [Mass/Vol] 1.50 mg/dL High 0.70-1.20 [facility] Comment on above: Performed By: #### L 500.2500, L500.4100, L501.9985 #### [facility] [address] [place], [address] GAP 12 Normal - [facility] Comment on above: Performed By: #### L 500.2500, L500.4100, L501.9985 #### [facility] [address] [place], [address] GFR/1.73 sq M.predicted among non-blacks MDRD (S/P/Bld) [Vol rate/Area] 38 mL/min/{1.73_m2} Low >60 [facility] Comment on above: Result Comment: mL/m in/1.73m2 CKD-EPI Creatinine Equation (2020) Performed By: #### L 500.2500, L500.4100, L501.9985 #### [facility] [address] [place], [address] Glucose [Mass/Vol] 126 mg/dL High 70-99 [facility] Comment on above: Performed By: #### L 500.2500, L500.4100, L501.9985 #### [facility] [address] [place], [address] Potassium [Moles/Vol] 3.7 mmol/L Normal 3.3-5.1 [facility] Comment on above: Performed By: #### L 500.2500, L500.4100, L501.9985 #### [facility] [address] [place], [address] Sodium [Moles/Vol] 139 mmol/L Normal 133-145 [facility] Comment on above: Performed By: #### L 500.2500, L500.4100, L501.9985 #### [facility] [address] [place], [address] Urea nitrogen [Mass/Vol] 36 mg/dL High 4-19 [facility] Comment on above: Performed By: #### L 500.2500, L500.4100, L501.9985 #### [facility] [address] [place], [address] Calculated very low density lipoprotein (VLDL) cholesterol measurementOrdered By: [facility] Nela Karthikeyan on 09-20-2024 Calculated very low density lipoprotein (VLDL) cholesterol measurement 76 mg/dL High 5-40 [facility] Carbon dioxide, total [Moles /volume] in Central venous bloodOrdered By: [facility] Nela Alatorre on 09-20-2024 CO2 [Moles/Vol] 23.0 mmol/L 21.0-32.0 [facility] Chloride assayOrdered By: [facility] Alatorre on 09-20-2024 Chloride [Moles/Vol] 103 mmol/L 98-108 [facility] Glomerular filtration rate ( GFR) estimation/1.73 sq m using serum, plasma, or whole bOrdered By: [facility] Al[facility]re on 09-20-2024 GFR/1.73 sq M.predicted among non-blacks MDRD (S/P/Bld) [Vol rate/Area] 38 mL/min/{1.73_m2} Low >60 [facility] Comment on above: mL/min/1.73m2 CKD-EP I Creatinine Equation (2020) Hemoglobin A1con 09-20-2024 HbA1c (Bld) [Mass fraction] 6.3 % High <=5.6 [facility] Comment on above: Result Comment: Norm al < 5.7 % Prediabetic 5.7 - 6.4 % Diabetic >or= 6.5 % Please note range changes. Performed By: #### L 500.2500, L500.4100, L501.9985 #### [facility] [address] [place], [place], [id number] Hemoglobin A1c percentageOrd ered By: [facility] Nela Alatorre on 09-20-2024 HbA1c (Bld) [Mass fraction] 6.3 % High <5.7 [facility] Comment on above: Normal < 5.7 % Predi abetic 5.7 - 6.4 % Diabetic >or= 6.5 % Please note range changes. LDL calc ser/plasOrdered By: [facility]el[facility]ayo Alatorre on 09-20-2024 Cholesterol in LDL [Mass/Vol] 73 mg/dL [facility] Comment on above: Tcjsukdhqr=539-452 m g/dL & Higher Htiu=984 mg/dL or greaterFriedwald Equation for LDL-C Lipid Profileon 09-20-2024 CHOL:HDL 5.35 Normal [facility] Comment on above: Performed By: #### L 500.2500, L500.4100, L501.9985 #### [facility] [address] [place], [address] Cholesterol [Mass/Vol] 183 mg/dL Normal <=200 [facility] Comment on above: Result Comment: Chol esterol level, Desirable <200 mg/dL Borderline high cholesterol 200-239 mg/dL High cholesterol >=240 mg/dL Recommendations of the NCEP Adult Treatment Panel for the following risk-cutoff thresholds for the [place] population. Performed By: #### L 500.2500, L500.4100, L501.9985 #### [facility] [address] [place], [address] Cholesterol in HDL [Mass/Vol] 34 mg/dL Low [facility] Comment on above: Result Comment: Kennedi onal Cholesterol Education Program (NCEP) guidelines: <40 mg/dL: Low HDL-cholesterol (major risk factor for CHD) >= 60 mg/dL: High HDL-cholesterol (negative risk factor for CHD) HDL-cholesterol is affected by a number of factors, e.g. smoking, exercise, hormones, sex and age. Performed By: #### L 500.2500, L500.4100, L501.9985 #### [facility] [address] [place], [address] Cholesterol in LDL [Mass/Vol] 73 mg/dL Normal [facility] Comment on above: Result Comment: Bord sjbzzg=588-740 mg/dL Higher Lldf=340 mg/dL or greater Friedwald Equation for LDL-C Performed By: #### L 500.2500, L500.4100, L501.9985 #### [facility] [address] [place], [address] Cholesterol in VLDL [Mass/Vol] 76 mg/dL High 5-40 [facility] Comment on above: Performed By: #### L 500.2500, L500.4100, L501.9985 #### [facility] [address] [place], [place], [address] Triglyceride [Mass/Vol] 378 mg/dL High [facility] Comment on above: Result Comment: The drugs N-Acetylcysteine and Metamizole may falsely depress this assay. Normal range: <150 mg/dL Borderline High: 150-199 mg/dL High: 200-499 mg/dL Very High: >500 mg/dL Performed By: #### L 500.2500, L500.4100, L501.9985 #### [facility] [address] [place], [place], [id number] Potassium measurement (mass/ volume)Ordered By: [facility] Nela Alatorre on 09-20-2024 Potassium (Unsp spec) [Mass/Vol] 3.7 mmol/L 3.3-5.1 [facility] Screening total cholesterol/ high density lipoprotein (HDL) cholesterol ratioOrdered By: [facility] Nela Alatorre on 09-20-2024 Cholesterol.total/Chol esterol in HDL [Mass ratio] 5.35 {ratio} [facility] Serum creatinine measurement (mass/volume)Ordered By: [facility] Nela Alatorre on 09-20-2024 Creatinine [Mass/Vol] 1.50 mg/dL High 0.70-1.20 [facility] Serum glucose measurement (m ass/volume)Ordered By: [facility] Nela Alatorre on 09-20-2024 Glucose [Mass/Vol] 126 mg/dL High 70-99 [facility] Serum or plasma calcium milton urement (mass/volume)Ordered By: [facility] Nela Alatorre on 09-20-2024 Calcium [Mass/Vol] 9.8 mg/dL 7.6-11.0 [facility] Serum or plasma cholesterol in HDL measurement (mass/volume)Ordered By: [facility] Nela Alatorre on 09-20-2024 Cholesterol in HDL [Mass/Vol] 34 mg/dL Low >40 [facility] Comment on above: National Cholesterol Education Program (NCEP) guidelines:<40 mg/dL: Low HDL-cholesterol (major risk factor for CHD)>= 60 mg/dL: High HDL-cholesterol (negative risk factor for CHD)HDL-cholesterol is affected by a number of factors, e.g. smoking, exercise, hormones, sex and age. Serum or plasma cholesterol measurement (mass/volume)Ordered By: [facility] Nela Alatorre on 09-20-2024 Cholesterol [Mass/Vol] 183 mg/dL <201 [facility] Comment on above: Cholesterol level, D esirable <200 mg/dLBorderline high cholesterol 200-239 mg/dLHigh cholesterol >=240 mg/dLRecommendations of the NCEP Adult Treatment Panel for the following risk-cutoff thresholds for the [place] population. Serum or plasma urea nitroge n measurement (mass/volume)Ordered By: [facility] Nela Alatorre on 09-20-2024 Urea nitrogen [Mass/Vol] 36 mg/dL High 4-19 [facility] Sodium levelOrdered By: [facility] Nela Alatorre on 09-20-2024 Sodium [Moles/Vol] 139 mmol/L 133-145 [facility] Triglycerides measurementOrd ered By: [facility] Nelacirilo Alatorre on 09-20-2024 Triglyceride [Mass/Vol] 378 mg/dL High <199 [facility] Comment on above: The drugs N-Acetylcy steine and Metamizole may falsely depress this assay. Normal range: <150 mg/dLBorderline High: 150-199 mg/dLHigh: 200-499 mg/dLVery High: >500 mg/dL Orthopedic Visit Reporton Orthopedic Visit Report [facility] [address] [place] [address] OFFICE VISIT Date of Service: 09/18/24 MR#: [id number] Acct: [id number] Name: JOAN VGEA Rep #: [id number] : 1960 Provider: KAITLYNN Monteiro Age/Sex: 64/F Location: [facility] Status: Signed Intake Vital Signs 07/31/24 13:35 [...] or surgery (more content not included)... Normal [facility] Magnetic resonance imaging r eportOrdered By: Daniele Levin on 08-16-2024 Study report [facility] Imaging Services [address] [place] [address] Spine Lumbar (Routine) MR#: [id number] Acct: [id number] Name: JOAN VEGA Rep #: [id number] : 1960 F 64 From: Virginia Levin MD PCP: DANNA Rome, STRAIGHTEDGE WORKER-C Status: REG CLI Study:Spine Lumbar (Routine) Date of Exam: 08/15/24 Exam# [id number] Ordering Dr: Marco Baez PROCEDURE: SPINE LUMBAR (ROUTINE) 08/15/2024 REASON [...] and neural exit pathways stenosis [facility] CC: [facility] STRAIGHTEDGE WORKER-C Nela Alatorre; KAITLYNN Monteiro ~ Almond Paste Molder: Signed [facility] Spine Lumbar (Routine)on Spine Lumbar (Routine) [facility] Imaging Services [address] [place] [address] [id number] Spine Lumbar (Routine) MR#: [id number] Acct: [id number] Name: JOAN VEGA Rep #: [id number] : 1960 F 64 From: Daniele argueta MD PCP: DANNA Rome, STRAIGHTEDGE WORKER-C Status: REG CLI Study: Spine Lumbar (Routine) Date of Exam: 08/15/24 Exam# [id number] Ordering Dr: Stephenie Baez PROCEDURE: SPINE LUMBAR [...] and neural exit pathways stenosis Reading Location: [place] [address] CC: Leonor STRAIGHTEDGE WORKER-C Nela Alatorre; KAITLYNN Monteiro Almond Paste Molder: Signed Normal [facility] L/S Spine Bending Flex/Wallace 07-31-2024 L/S Spine Bending Flex/Ext [facility] Services [address] [place], [place] [id number] L/S Spine Bending Flex/Ext MR#: [id number] Acct: [id number] Name: JOAN VEGA Rep #: [id number] : 1960 F 64 From: Daniele argueta MD PCP: DANNA Rome, STRAIGHTEDGE WORKER-C Status: DEP AMB Study: L/S Spine Bending Flex/Ext Date of Exam: 07/31 Exam# [id number] Ordering Dr: Stephenie Baez PROCEDURE: L/S SPINE [...] of instability on flexion/extension images. Reading Location: [place] [address] CC: [facility] STRAIGHTEDGE WORKERKristy Alatorre; KAITLYNN Monteiro Almond Paste Molder: Signed Normal [facility] Orthopedic Visit Reporton Orthopedic Visit Report [facility] [address] [place] [address] OFFICE VISIT Date of Service: 07/31/24 MR#: [id number] Acct: [id number] Name: JOAN VEGA Rep #: [id number] : 1960 Provider: KAITLYNN Monteiro Age/Sex: 64/F Location: [facility] Status: Signed Intake Vital Signs 10/12/23 16:58 [...] you fallen in the past year?: No [facility] Medical History Pre-diabetes Wears partial dentures Marijuana [...] service provided and the decisions made by , KAITLYNN Monteiro 07/31/24 0915. Part of today???s visit was documented by [...] Lumbar stenosis (more content not included)... Normal [facility] Absolute lymphocyte countOrd ered By: [facility] Nela Alatorre on 06-20-2024 Lymphocytes Auto (Unsp spec) [#/Vol] 2.92 10*3/uL 0.83-4.51 [facility] Absolute neutrophil countOrd ered By: [facility] on 06-20-2024 Neutrophils (Bld) [#/Vol] 4.6 10*3/uL 2.0-7.7 [facility] Anion gap in Serum or Plasma Ordered By: [facility] Nela Alatorre on 06-20-2024 Anion gap [Moles/Vol] 12 mmol/L 5-15 [facility] Automated lymphocyte count a s percentage of total leukocytesOrdered By: [facility] Nela Alatorre on 06-20-2024 Lymphocytes/100 WBC Auto (Unsp spec) 33.8 % 19-41 [facility] BUN/creatinine ratioOrdered By: [facility] Nela Alatorre on 06-20-2024 Urea nitrogen/Creatinine [Mass ratio] 24.2 mg/mg High 10-20 [facility] Basophil percentageOrdered B y: [facility] Nela Alatorre on 06-20-2024 Basophils/100 WBC (Bld) 1.8 % High 0-1 [facility] Bilirubin, totalOrdered By: [facility] Nela Alatorre on 06-20-2024 Bilirubin [Mass/Vol] 0.41 mg/dL 0.00-1.30 [facility] CBC W/Diff, Automatedon 06-08 Absolute Lymph 2.92 X10 3/uL Normal 0.83-4.51 [facility] Comment on above: Performed By: #### L 506.0400, L501.9520, L500.4050, L506.1001, L500.4100, L100.0100 ####[facility] [address] [place], [address] Absolute Neut 4.6 X10 3/uL Normal 2.0-7.7 [facility] Comment on above: Performed By: #### L 506.0400, L501.9520, L500.4050, L506.1001, L500.4100, L100.0100 ####[facility] [address] [place], [address] Basophils/100 WBC (Bld) 1.8 % High 0-1 [facility] Comment on above: Performed By: #### L 506.0400, L501.9520, L500.4050, L506.1001, L500.4100, L100.0100 ####[facility] [address] [place], [address] Eosinophils/100 WBC (Bld) 3.9 % Normal 0-5 [facility] Comment on above: Performed By: #### L 506.0400, L501.9520, L500.4050, L506.1001, L500.4100, L100.0100 ####[facility] [address] [place], [address] Erythrocyte distribution width (RBC) [Ratio] 12.9 % Normal 11.6-14.6 [facility] Comment on above: Performed By: #### L 506.0400, L501.9520, L500.4050, L506.1001, L500.4100, L100.0100 ####[facility] [address] [place], [address] Hematocrit (Bld) [Volume fraction] 37.1 % Normal 37-47 [facility] Comment on above: Performed By: #### L 506.0400, L501.9520, L500.4050, L506.1001, L500.4100, L100.0100 ####[facility] [address] [place], [address] Hemoglobin (Bld) [Mass/Vol] 12.4 g/dL Normal 12.0-15.0 [facility] Comment on above: Performed By: #### L 506.0400, L501.9520, L500.4050, L506.1001, L500.4100, L100.0100 ####[facility] [address] [place], [address] IG% 0.600 Normal 0.0-0.9 [facility] Comment on above: Result Comment: IG% - Immature Granulocytes (promyelocytes, myelocytes and metamyelocytes) > 1% indicates that a LEFT SHIFT is Present. Performed By: #### L 506.0400, L501.9520, L500.4050, L506.1001, L500.4100, L100.0100 ####[facility] [address] [place], [address] Lymphocytes/100 WBC (Bld) 33.8 % Normal 19-41 [facility] Comment on above: Performed By: #### L 506.0400, L501.9520, L500.4050, L506.1001, L500.4100, L100.0100 ####[facility] [address] [place], [address] MCH (RBC) [Entitic mass] 30.1 pg Normal 27.0-32.0 [facility] Comment on above: Performed By: #### L 506.0400, L501.9520, L500.4050, L506.1001, L500.4100, L100.0100 ####[facility] [address] [place], [address] MCHC (RBC) [Mass/Vol] 33.4 g/dL Normal 32-36 [facility] Comment on above: Performed By: #### L 506.0400, L501.9520, L500.4050, L506.1001, L500.4100, L100.0100 ####[facility] [address] [place], [address] MCV (RBC) [Entitic vol] 90.0 fL Normal 81-99 [facility] Comment on above: Performed By: #### L 506.0400, L501.9520, L500.4050, L506.1001, L500.4100, L100.0100 ####[facility] [address] [place], [address] Monocytes/100 WBC (Bld) 6.8 % Normal 0-10 [facility] Comment on above: Performed By: #### L 506.0400, L501.9520, L500.4050, L506.1001, L500.4100, L100.0100 ####[facility] [address] [place], [address] Neutrophils/100 WBC (Bld) 53.1 % Normal 47-70 [facility] Comment on above: Performed By: #### L 506.0400, L501.9520, L500.4050, L506.1001, L500.4100, L100.0100 ####[facility] [address] [place], [address] Nucleated RBC (Bld) [#/Vol] 0 10*3/uL Normal 0-5 [facility] Comment on above: Performed By: #### L 506.0400, L501.9520, L500.4050, L506.1001, L500.4100, L100.0100 ####[facility] [address] [place], [address] Platelet mean volume (Bld) [Entitic vol] 11.3 fL Normal 6.2-12.0 [facility] Comment on above: Performed By: #### L 506.0400, L501.9520, L500.4050, L506.1001, L500.4100, L100.0100 ####[facility] [address] [place], [address] Platelets (Bld) [#/Vol] 244 10*3/uL Normal 150-450 [facility] Comment on above: Performed By: #### L 506.0400, L501.9520, L500.4050, L506.1001, L500.4100, L100.0100 ####[facility] [address] [place], [address] RBC (Bld) [#/Vol] 4.12 10*6/uL Low 4.2-5.4 [facility] Comment on above: Performed By: #### L 506.0400, L501.9520, L500.4050, L506.1001, L500.4100, L100.0100 ####[facility] [address] [place], [address] RDW SD 42.4 fl Normal 35.1-43.9 [facility] Comment on above: Performed By: #### L 506.0400, L501.9520, L500.4050, L506.1001, L500.4100, L100.0100 ####[facility] [address] [place], [address] WBC (Bld) [#/Vol] 8.7 10*3/uL Normal 4.4-11.0 [facility] Comment on above: Performed By: #### L 506.0400, L501.9520, L500.4050, L506.1001, L500.4100, L100.0100 ####[facility] [address] [place], [address] Calculated very low density lipoprotein (VLDL) cholesterol measurementOrdered By: [facility] Nela Alatorre on 06-20-2024 Calculated very low density lipoprotein (VLDL) cholesterol measurement 61 mg/dL High 5-40 [facility] Carbon dioxide, total [Moles /volume] in Central venous bloodOrdered By: [facility] Nela Alatorre on 06-20-2024 CO2 [Moles/Vol] 22.4 mmol/L 21.0-32.0 [facility] Chloride assayOrdered By: [facility] Nela Alatorre on 06-20-2024 Chloride [Moles/Vol] 104 mmol/L 98-108 [facility] Comprehensive Metabolic Prof ilon 06-20-2024 Albumin [Mass/Vol] 4.3 g/dL Normal 3.4-4.8 [facility] Comment on above: Performed By: #### L 506.0400, L501.9520, L500.4050, L506.1001, L500.4100, L100.0100 ####[facility] [address] [place], [address] Albumin/Globulin [Mass ratio] 1.5 {ratio} Normal 0.9-2.4 [facility] Comment on above: Performed By: #### L 506.0400, L501.9520, L500.4050, L506.1001, L500.4100, L100.0100 ####[facility] [address] [place], [address] ALK PHOS 57 U/L Normal 35-104 [facility] Comment on above: Performed By: #### L 506.0400, L501.9520, L500.4050, L506.1001, L500.4100, L100.0100 ####[facility] [address] [place], [address] ALT [Catalytic activity/Vol] 24 U/L Normal <=34 [facility] Comment on above: Performed By: #### L 506.0400, L501.9520, L500.4050, L506.1001, L500.4100, L100.0100 ####[facility] [address] [place], [address] AST [Catalytic activity/Vol] 20 U/L Normal <=31 [facility] Comment on above: Performed By: #### L 506.0400, L501.9520, L500.4050, L506.1001, L500.4100, L100.0100 ####[facility] [address] [place], [address] Bilirubin [Mass/Vol] 0.41 mg/dL Normal 0.00-1.30 [facility] Comment on above: Performed By: #### L 506.0400, L501.9520, L500.4050, L506.1001, L500.4100, L100.0100 ####[facility] [address] [place], [address] BUN/CRE 24.2 RATIO High 10-20 [facility] Comment on above: Performed By: #### L 506.0400, L501.9520, L500.4050, L506.1001, L500.4100, L100.0100 ####[facility] [address] [place], [address] Calcium [Mass/Vol] 10.0 mg/dL Normal 7.6-11.0 [facility] Comment on above: Performed By: #### L 506.0400, L501.9520, L500.4050, L506.1001, L500.4100, L100.0100 ####[facility] [address] [place], [address] Chloride [Moles/Vol] 104 mmol/L Normal 98-108 [facility] Comment on above: Performed By: #### L 506.0400, L501.9520, L500.4050, L506.1001, L500.4100, L100.0100 ####[facility] [address] [place], [address] CO2 [Moles/Vol] 22.4 mmol/L Normal 21.0-32.0 [facility] Comment on above: Performed By: #### L 506.0400, L501.9520, L500.4050, L506.1001, L500.4100, L100.0100 ####[facility] [address] [place], [address] Creatinine [Mass/Vol] 1.37 mg/dL High 0.70-1.20 [facility] Comment on above: Performed By: #### L 506.0400, L501.9520, L500.4050, L506.1001, L500.4100, L100.0100 ####[facility] [address] [place], [address] GAP 12 Normal 5-15 [facility] Comment on above: Performed By: #### L 506.0400, L501.9520, L500.4050, L506.1001, L500.4100, L100.0100 ####[facility] [address] [place], [address] GFR/1.73 sq M.predicted among non-blacks MDRD (S/P/Bld) [Vol rate/Area] 43 mL/min/{1.73_m2} Low >60 [facility] Comment on above: Result Comment: mL/m in/1.73m2 CKD-EPI Creatinine Equation (2020) Performed By: #### L 506.0400, L501.9520, L500.4050, L506.1001, L500.4100, L100.0100 ####[facility] [address] [place], [address] Globulin (S) [Mass/Vol] 2.9 g/dL Normal 2.2-4.2 [facility] Comment on above: Performed By: #### L 506.0400, L501.9520, L500.4050, L506.1001, L500.4100, L100.0100 ####[facility] [address] [place], [address] Glucose [Mass/Vol] 104 mg/dL High 70-99 [facility] Comment on above: Performed By: #### L 506.0400, L501.9520, L500.4050, L506.1001, L500.4100, L100.0100 ####[facility] [address] [place], [address] Potassium [Moles/Vol] 4.4 mmol/L Normal 3.3-5.1 [facility] Comment on above: Performed By: #### L 506.0400, L501.9520, L500.4050, L506.1001, L500.4100, L100.0100 ####[facility] [address] [place], [address] Sodium [Moles/Vol] 139 mmol/L Normal 133-145 [facility] Comment on above: Performed By: #### L 506.0400, L501.9520, L500.4050, L506.1001, L500.4100, L100.0100 ####[facility] [address], [address] T PROT 7.2 g/dL Normal 5.9-8.4 [facility] Comment on above: Performed By: #### L 506.0400, L501.9520, L500.4050, L506.1001, L500.4100, L100.0100 ####[facility] [address] [place], [address] Urea nitrogen [Mass/Vol] 33 mg/dL High 4-19 [facility] Comment on above: Performed By: #### L 506.0400, L501.9520, L500.4050, L506.1001, L500.4100, L100.0100 ####[facility] [address] [place], [address] Eosinophil percentageOrdered By: [facility] Nela Alatorre on 06-20-2024 Eosinophils/100 WBC (Bld) 3.9 % 0-5 [facility] Erythrocyte distribution wid th ratioOrdered By: [facility] Nela Alatorre on 06-20-2024 Erythrocyte distribution width (RBC) [Ratio] 12.9 % 11.6-14.6 [facility] Erythrocyte distribution wid th standard deviationOrdered By: [facility] Nela Alatorre on 06-20-2024 Erythrocyte distribution width (RBC) [Ratio] 42.4 fl 35.1-43.9 [facility] Glomerular filtration rate ( GFR) estimation/1.73 sq m using serum, plasma, or whole bOrdered By: [facility] Nela Alatorre on 06-20-2024 GFR/1.73 sq M.predicted among non-blacks MDRD (S/P/Bld) [Vol rate/Area] 43 mL/min/{1.73_m2} Low >60 [facility] Comment on above: mL/min/1.73m2 CKD-EP I Creatinine Equation (2020) Hematocrit Auto (Bld) [Volum e fraction]Ordered By: [facility] Nela Alatorre on 06-20-2024 Hematocrit (Bld) [Volume fraction] 37.1 % 37-47 [facility] Hemoglobin measurementOrdere d By: [facility] Nela Alatorre on 06-20-2024 Hemoglobin (Bld) [Mass/Vol] 12.4 g/dL 12.0-15.0 [facility] Immature granulocytes/100 WB C Auto (Bld)Ordered By: [facility] Nela Alatorre on 06-20-2024 Immature granulocytes/100 WBC (Bld) 0.600 % 0.0-0.9 [facility] Comment on above: IG% - Immature Granu locytes (promyelocytes, myelocytes and metamyelocytes) > 1% indicates that a LEFT SHIFT is Present. LDL calc ser/plasOrdered By: [facility] Nela Alatorre on 06-20-2024 Cholesterol in LDL [Mass/Vol] 95 mg/dL [facility] Comment on above: Jnclunkecm=400-932 m g/dL & Higher Lrqm=278 mg/dL or greater Laboratory - Chemistry and C hemistry - challengeOrdered By: [facility] Nela Alatorre on 06-20-2024 AST [Catalytic activity/Vol] 20 U/L <32 [facility] Lipid Profileon 06-20-2024 CHOL:HDL 5.46 Normal [facility] Comment on above: Performed By: #### L 506.0400, L501.9520, L500.4050, L506.1001, L500.4100, L100.0100 ####[facility] [address] [place], [place], [address] Cholesterol [Mass/Vol] 190 mg/dL Normal <=200 [facility] Comment on above: Result Comment: Chol esterol level, Desirable <200 mg/dL Borderline high cholesterol 200-239 mg/dL High cholesterol >=240 mg/dL Recommendations of the NCEP Adult Treatment Panel for the following risk-cutoff thresholds for the [place] population. Performed By: #### L 506.0400, L501.9520, L500.4050, L506.1001, L500.4100, L100.0100 ####[facility] [address], [address] Cholesterol in HDL [Mass/Vol] 35 mg/dL Low [facility] Comment on above: Result Comment: Kennedi onal Cholesterol Education Program (NCEP) guidelines: <40 mg/dL: Low HDL-cholesterol (major risk factor for CHD) >= 60 mg/dL: High HDL-cholesterol (negative risk factor for CHD) HDL-cholesterol is affected by a number of factors, e.g. smoking, exercise, hormones, sex and age. Performed By: #### L 506.0400, L501.9520, L500.4050, L506.1001, L500.4100, L100.0100 ####[facility] [address], [address] Cholesterol in LDL [Mass/Vol] 95 mg/dL Normal [facility] Comment on above: Result Comment: Bord ghfdtt=407-081 mg/dL Higher Cddc=922 mg/dL or greater Performed By: #### L 506.0400, L501.9520, L500.4050, L506.1001, L500.4100, L100.0100 ####[facility] [address] [place], [address] Cholesterol in VLDL [Mass/Vol] 61 mg/dL High 5-40 [facility] Comment on above: Performed By: #### L 506.0400, L501.9520, L500.4050, L506.1001, L500.4100, L100.0100 ####[facility] [address] [place], [address] Triglyceride [Mass/Vol] 303 mg/dL High [facility] Comment on above: Result Comment: The drugs N-Acetylcysteine and Metamizole may falsely depress this assay. Normal range: <150 mg/dL Borderline High: 150-199 mg/dL High: 200-499 mg/dL Very High: >500 mg/dL Performed By: #### L 506.0400, L501.9520, L500.4050, L506.1001, L500.4100, L100.0100 ####[facility] [address] [place], [address] MCV (mean corpuscular volume ) determinationOrdered By: [facility] Nela Alatorre on 06-20-2024 MCV (RBC) [Entitic vol] 90.0 fL 81-99 [facility] Mean corpuscular hemoglobin (MCH) determinationOrdered By: [facility] Nela Alatorre on 06-20-2024 MCH (RBC) [Entitic mass] 30.1 pg 27.0-32.0 [facility] Mean corpuscular hemoglobin concentration (MCHC) determinationOrdered By: [facility] Nela Alatorre on 06-20-2024 MCHC (RBC) [Mass/Vol] 33.4 g/dL 32-36 [facility] Mean platelet volume determi nationOrdered By: [facility] Nela Alatorre on 06-20-2024 Platelet mean volume (Bld) [Entitic vol] 11.3 fL 6.2-12.0 [facility] Monocyte percentageOrdered B y: [facility] Nela Alatorre on 06-20-2024 Monocytes/100 WBC (Bld) 6.8 % 0-10 [facility] Neutrophil percentageOrdered By: [facility] Nela Alatorre on 06-20-2024 Neutrophils/100 WBC (Bld) 53.1 % 47-70 [facility] Nucleated red blood cell per centageOrdered By: [facility] Nela Alatorre on 06-20-2024 Nucleated RBC/100 WBC (Bld) [Ratio] 0 % 0-5 [facility] Platelet countOrdered By: [facility] Nela Alatorre on 06-20-2024 Platelets (Bld) [#/Vol] 244 10*3/uL 150-450 [facility] Potassium measurement (mass/ volume)Ordered By: [facility] Nela Alatorre on 05-13-2025 Potassium (Unsp spec) [Mass/Vol] 4.4 mmol/L 3.3-5.1 [facility] RBC Auto (Bld) [#/Vol]Ordere d By: [facility] Nelacirilo Alatorre on 06-20-2024 RBC (Bld) [#/Vol] 4.12 10*6/uL Low 4.2-5.4 [facility] Screening total cholesterol/ high density lipoprotein (HDL) cholesterol ratioOrdered By: [facility] Nela Alatorre on 06-20-2024 Cholesterol.total/Chol esterol in HDL [Mass ratio] 5.46 {ratio} [facility] Serum creatinine measurement (mass/volume)Ordered By: [facility] Nela Alatorre on 06-20-2024 Creatinine [Mass/Vol] 1.37 mg/dL High 0.70-1.20 [facility] Serum globulin measurementOr dered By: [facility] Nela Alatorre on 06-20-2024 Globulin (S) [Mass/Vol] 2.9 g/dL 2.2-4.2 [facility] Serum glucose measurement (m ass/volume)Ordered By: [facility] Nela Alatorre on 06-20-2024 Glucose [Mass/Vol] 104 mg/dL High 70-99 [facility] Serum or plasma alanine guzmán otransferase (ALT) measurementOrdered By: [facility] Nela Alatorre on 06-20-2024 ALT [Catalytic activity/Vol] 24 U/L <35 [facility] Serum or plasma albumin milton urement (mass/volume)Ordered By: [facility] Nela Alatorre on 06-20-2024 Albumin [Mass/Vol] 4.3 g/dL 3.4-4.8 [facility] Serum or plasma albumin/glob ulin mass ratioOrdered By: [facility] Nela Alatorre on 06-20-2024 Albumin/Globulin [Mass ratio] 1.5 {ratio} 0.9-2.4 [facility] Serum or plasma alkaline felix sphatase measurementOrdered By: [facility] Nela Alatorre on 06-20-2024 ALP [Catalytic activity/Vol] 57 U/L 35-104 [facility] Serum or plasma calcium milton urement (mass/volume)Ordered By: [facility] Nela Alatorre on 06-20-2024 Calcium [Mass/Vol] 10.0 mg/dL 7.6-11.0 [facility] Serum or plasma cholesterol in HDL measurement (mass/volume)Ordered By: [facility] Nela Alatorre on 06-20-2024 Cholesterol in HDL [Mass/Vol] 35 mg/dL Low >40 [facility] Comment on above: National Cholesterol Education Program (NCEP) guidelines:<40 mg/dL: Low HDL-cholesterol (major risk factor for CHD)>= 60 mg/dL: High HDL-cholesterol (negative risk factor for CHD)HDL-cholesterol is affected by a number of factors, e.g. smoking, exercise, hormones, sex and age. Serum or plasma cholesterol measurement (mass/volume)Ordered By: [facility] Nela Alatorre on 06-20-2024 Cholesterol [Mass/Vol] 190 mg/dL <201 [facility] Comment on above: Cholesterol level, D esirable <200 mg/dLBorderline high cholesterol 200-239 mg/dLHigh cholesterol >=240 mg/dLRecommendations of the NCEP Adult Treatment Panel for the following risk-cutoff thresholds for the [place] population. Serum or plasma urea nitroge n measurement (mass/volume)Ordered By: [facility] Nela Alatorre on 06-20-2024 Urea nitrogen [Mass/Vol] 33 mg/dL High 4-19 [facility] Sodium levelOrdered By: [facility] Nela Alatorre on 06-20-2024 Sodium [Moles/Vol] 139 mmol/L 133-145 [facility] T4 Free Directon 06-20-2024 T4 FREE DIRECT 1.20 ng/dL Normal 0.76-1.46 [facility] Comment on above: Performed By: #### L 506.0400, L501.9520, L500.4050, L506.1001, L500.4100, L100.0100 ####[facility] [address] [place], [address] T4 freeOrdered By: [facility] Alee Alatorre on 06-20-2024 Free T4 [Mass/Vol] 1.20 ng/dL 0.76-1.46 [facility] TSH DL <= 0.005 mIU/L QnOrde red By: [facility] Nela Alatorre on 06-20-2024 TSH Qn 1.980 uIU/mL 0.300-4.20 0 [facility] Thyroid Stim Hormone (TSH)on 06-20-2024 TSH 1.980 uIU/mL Normal 0.300-4.20 0 [facility] Comment on above: Performed By: #### L 506.0400, L501.9520, L500.4050, L506.1001, L500.4100, L100.0100 ####[facility] [address] [place], [address] Total proteinOrdered By: [facility] Nela Alatorre on 06-20-2024 Protein [Mass/Vol] 7.2 g/dL 5.9-8.4 [facility] Triglycerides measurementOrd ered By: [facility] Nela Alatorre on 06-20-2024 Triglyceride [Mass/Vol] 303 mg/dL High <199 [facility] Comment on above: The drugs N-Acetylcy steine and Metamizole may falsely depress this assay. Normal range: <150 mg/dLBorderline High: 150-199 mg/dLHigh: 200-499 mg/dLVery High: >500 mg/dL Vitamin D,25 Hydroxyon 06-20 Vitamin D 25-OH 35.4 ng/mL Normal 30-100 [facility] Comment on above: Result Comment: Sandi min D Status Deficiency: <20 ng/mL (50nmol/L) Insufficiency: 20-30 ng/mL (50-75 nmol/L) Sufficiency: 30-100 ng/mL (75-250 nmol/L) Toxicity: >100 ng/mL (>250 nmol/L) Performed By: #### L 506.0400, L501.9520, L500.4050, L506.1001, L500.4100, L100.0100 ####[facility] [address] [place], [address] White blood cell (WBC) count Ordered By: [facility] Nela Alatorre on 06-20-2024 WBC (Bld) [#/Vol] 8.7 10*3/uL 4.4-11.0 [facility] AAA Screeningon 05-05-2024 AAA Screening [facility] [place] [address] AAA Screening 05/05/24 0907 MR#: [id number] Acct: [id number] Name: JOAN VEGA Rep #: [id number] : 1960 64 From: Jeferson Drew MD Attending Dr: Nela Alatorre, DANNA, STRAIGHTEDGE WORKER-C Status : REG CLI Ordering Dr: Nela Alatorre [employer] WORKER-C Date: 05/05 Location: [facility] Sex: F C Admitted: Reason For Study [...] Aorta IVC Iliac vasculature or bypass grafts 88041. Exam performed in department. VL/AAA Screening Interpretation Summary The dimensions of the intra-abdominal aorta are normal, without evidence of aneurysmal dilatation. The iliac arteries are also normal in caliber bilaterally. The intra-abdominal aorta and iliac arteries appear patent, demonstrating normal, pulsatile arterial flow and normal peak systolic velocities. Ordering Physician: Nela Alatorre Referring Physician: Nela Alatorre Performed By: Sanjana Nunn, RVT 05/05/24 1650 Date Jeferson Drew MD CC: [facility] [employer] WORKER-C Nela Alatorre Date Dictated: 05/05/24906 Date Transcribed: 05/05/241649 Almond Paste Molder: Signed Normal [facility] Cardiovascular ultrasound re portOrdered By: Jeferson Drew on 05-05-2024 Study report [facility] Cardi[facility] Services [address] [place] [address] AAA Screening 05/05/24906 MR#: [id number] Acct: [id number] Name: JOAN VEGA Rep #:[id number] : 1960 64 From: Jeferson Drew MD Attending Dr: DANNA Rome, STRAIGHTEDGE WORKER-C Status: REG CLI Ordering Dr: Nela Alatorre [employer]AIGHTEDGE WORKER-C Date: 05/05/24 Location: [facility] Sex: F C Admitted: Reason For [...] Aorta IVC Iliac vasculature or bypass grafts 96215. Exam performed in department. VL/AAA Screening Interpretation Summary The dimensions of the intra-abdominal aorta are normal, without evidence of aneurysmal dilatation. The iliac arteries are also normal in caliber bilaterally. The intra-abdominal aorta and iliac arteries appear patent, demonstrating normal, pulsatile arterial flow and normal peak systolic velocities. Ordering Physician: Nela Alatorre Referring Physician: Nela Alatorre Performed By: Sanjana Nunn, T 05/05/241649 Date _ Jeferson Drew MD CC: C [employer]EDGE WORKER-C Nela Alatorre ~ Date Dictated: 05/05/24906 Date Transcribed: 05/05/241649 Almond Paste Molder: Signed [facility] Other Phone: NCS and/or EMG Patienton NCS and/or EMG Patient [facility] Pulmonary Services/Neurology [address] [place] [place] [address] MR#: [id number] Acct: [id number] Name: JOAN VEGA Rep #: [id number] : 1960 64 From: Gina Arellano MD Referring Dr: Nela Alatorre [facility] STRA[employer]EDGE WORKER-C Status: REG CLI Location: PSN Date: 03/29/24 Sex: F C NCS and/or EMG Patient Report Ordering Doctor: Nela Alatorre Leonor DATE OF SERVICE: 03/29/24 Joan presents for [...] Multi Select Codes Neurology Neurology Interp Codes: 75112-72 Musc test done w/n test comp (interp) (2) and 76982-68 Nrv cndj test 9-10 studies (interp) 03/29/24 1313 Date Gina Arellano MD CC: [facility] STRAIGHTEDGE WORKER-C Nela Alatorre; Dr. Gina Arellano MD Date Dictated: 03/29/24 1312 Date Transcribed: 03/29/241311 Almond Paste Molder: LONA Signed Normal [facility] HbA1c (Bld)on 01-26-2024 Average glucose Estimated from glycated hemoglobin (Bld) [Mass/Vol] 134 mg/dL Normal [facility] Comment on above: Order Comment: Speci men Type: BLOOD SPECIMEN Ordering Facility: [facility] Address: [address] [place] [address] [place], [place] [address] Result Comment: eAG: (Estimated average glucose) is a calculated value from HgbA1c and is administrative representative of the average blood glucose level in the last 2-3 month period. Performed By: #### 2 458-8 #### [facility] CLIA [id number] [address] [place] [address] [place] HbA1c (Bld) [Mass fraction] 6.3 % High 4.3-5.6 [facility] Comment on above: Order Comment: Marianela green Type: BLOOD SPECIMEN Ordering Facility: [facility] Address: [address] [place] [address] Result Comment: Amer ican Diabetes Association guidelines indicate that patients with HgbA1c in the range 5.7-6.4% are at increased risk for development of diabetes, and intervention by lifestyle modification may be beneficial. HgbA1c greater or equal to 6.5% is considered diagnostic of diabetes. Performed By: #### 2 458-8 #### [facility] CLIA [id number] [address] [place] [address] [place] Lead (Bld) [Mass/Vol]on 01-08 Lead (BldV) [Mass/Vol] <1.0 Normal <3.5 [facility] Comment on above: Order Comment: Marianela green Type: BLOOD SPECIMEN Ordering Facility: [facility] Address: [address] [place] [address] Result Comment: The Centers for Disease Control and Prevention (CDC) recommends a blood lead reference value of less than 3.5 ???g/dL (Update of the Blood Lead Reference Value - [place], 2020). The CDC's updated Recommended Actions Based on Blood Lead Level can be accessed at www.cdc.gov. Consult [facility] Department of Health and/or applicable regulatory agencies for specific guidance on testing follow up and patient management. This test was developed, and its performance characteristics determined by the [facility] Department of Pathology and Laboratory Medicine. It has not been cleared or approved by the FDA. The [facility] Department of Pathology and Laboratory Medicine is regulated under CLIA as qualified to perform high-complexity testing. This test is used for clinical purposes. It should not be regarded as investigational or for research. Performed By: #### 2 458-8 #### [facility] CLIA [id number] [address] [place], [place] [address] [place] [address] [place] MERCURY BLDon 01-26-2024 MERCURY <2.5 Normal <=10.0 [facility] Comment on above: Order Comment: Speci men Type: BLOOD SPECIMEN Ordering Facility: [facility] Address: [address] [place] [address] Result Comment: INTE RPRETIVE INFORMATION: Mercury, Blood [...] developed and its performance characteristics determined by [facility]. It has not been cleared or approved by the US Food and Drug Administration. This test was performed in a CLIA certified laboratory and is intended for clinical purposes. Performed By: [facility] [address] [place] [address] Job Training Supervisor: Jaskaran Epps MD, PhD CLIA Number: [id number] Performed By: #### C RET1 #### [facility] CLIA [id number] [address] [place] [address] [place] XR LUMBAR 3V AP/LAT/L5-S1on 01-26-2024 XR LUMBAR 3V AP/LAT/L5-S1 * * *Final Report* * * DATE OF EXAM: Jan 26 2024 4:23PM WRX [id number] - XR LUMBAR 3V AP/LAT/L5-S1 / [...] abdominal aorta. IMPRESSION: Degenerative changes as described. Almond Paste Molder: MOSES Transcribe Date/Time: Feb 01 2024 2:41P Dictated by : JELENA MARAVILLA DO This examination was interpreted and the report reviewed and electronically signed by: JELENA MARAVILLA DO on Feb 01 2024 2:45PM EST [id number] Normal [facility] CBC W Auto Differential pane l (Bld)on 11-05-2023 Basophils (Bld) [#/Vol] 0.18 10*3/uL High <0.11 [facility] Comment on above: Order Comment: Madelainei peter Type: BLOOD SPECIMEN Ordering Facility: [facility] Address: [address] [place] [address] Performed By: #### C RET1 #### [facility] CLIA [id number] [address] [place], [place] [id number] [place] Basophils/100 WBC (Bld) 1.8 % Normal [facility] Comment on above: Order Comment: Speci men Type: BLOOD SPECIMEN Ordering Facility: [facility] Address: [address] [place] [address] Performed By: #### C RET1 #### [facility] CLIA [id number] [address] [place] [address] [place] Differential cell count method Nom (Bld) Auto Normal [facility] Comment on above: Order Comment: Speci men Type: BLOOD SPECIMEN Ordering Facility: [facility] Address: [address] [place] [address] Performed By: #### C RET1 #### [facility] CLIA [id number] [address] [place] [address] [place] Eosinophils (Bld) [#/Vol] 0.39 10*3/uL Normal <0.46 [facility] Comment on above: Order Comment: Speci men Type: BLOOD SPECIMEN Ordering Facility: [facility] Address: [address] [place] [address] Performed By: #### C RET1 #### [facility] CLIA [id number] [address] [place] [address] [place] Eosinophils/100 WBC (Bld) 3.9 % Normal [facility] Comment on above: Order Comment: Speci men Type: BLOOD SPECIMEN Ordering Facility: [facility] Address: [address] [place] [address] Performed By: #### C RET1 #### [facility] CLIA [id number] [address] [place] [address] [place] Erythrocyte distribution width (RBC) [Ratio] 13.2 % Normal 11.5-15.0 [facility] Comment on above: Order Comment: Speci men Type: BLOOD SPECIMEN Ordering Facility: [facility] Address: [address] [place] [address] Performed By: #### C RET1 #### [facility] CLIA [id number] [address] [place] [address] [place] Hematocrit (Bld) [Volume fraction] 39.6 % Normal 36.0-46.0 [facility] Comment on above: Order Comment: Speci men Type: BLOOD SPECIMEN Ordering Facility: [facility] Address: [address] [place] [address] Performed By: #### C RET1 #### [id number] [address] [place] [address] [place] Hemoglobin (Bld) [Mass/Vol] 13.1 g/dL Normal 11.5-15.5 [facility] Comment on above: Order Comment: Speci men Type: BLOOD SPECIMEN Ordering Facility: [facility] Address: [address] [place] [address] Performed By: #### C RET1 #### [facility] [id number] [address] [place] [address] [place] Immature granulocytes (Bld) [#/Vol] 0.05 10*3/uL Normal <0.10 [facility] Comment on above: Order Comment: Speci men Type: BLOOD SPECIMEN Ordering Facility: [facility] Address: [address] [place] [address] Performed By: #### C RET1 #### [facility] [id number] [address] [place] [address] [place] Immature granulocytes/100 WBC (Bld) 0.5 % Normal [facility] Comment on above: Order Comment: Speci men Type: BLOOD SPECIMEN Ordering Facility: [facility] Address: [address] [place] [address] Performed By: #### C RET1 #### [facility] [id number] [address] [place] [address] [place] Lymphocytes (Bld) [#/Vol] 4.09 10*3/uL High 1.00-4.00 [facility] Comment on above: Order Comment: Speci men Type: BLOOD SPECIMEN Ordering Facility: [facility] Address: [address] [place] [address] Performed By: #### C RET1 #### [facility] CLIA [id number] [address] [place] [address] [place] Lymphocytes/100 WBC (Bld) 40.7 % Normal [facility] Comment on above: Order Comment: Speci men Type: BLOOD SPECIMEN Ordering Facility: [facility] Address: [address] [place] [address] Performed By: #### C RET1 #### [facility] CLIA [id number] [address] [place] [address] [place] MCH (RBC) [Entitic mass] 29.6 pg Normal 26.0-34.0 [facility] Comment on above: Order Comment: Speci men Type: BLOOD SPECIMEN Ordering Facility: [facility] Address: [address] [place] [address] Performed By: #### C RET1 #### [facility] CLIA [id number] [address] [place] [address] [place] MCHC (RBC) [Mass/Vol] 33.1 g/dL Normal 30.5-36.[address] [facility] Comment on above: Order Comment: Speci men Type: BLOOD SPECIMEN Ordering Facility: [facility] Address: [address] [place] [address] Performed By: #### C RET1 #### [facility] CLIA [id number] [address] [place] [address] [place] MCV (RBC) [Entitic vol] 89.6 fL Normal 80.0-100.0 [facility] Comment on above: Order Comment: Speci men Type: BLOOD SPECIMEN Ordering Facility: [facility] Address: [address] [place] [address] Performed By: #### C RET1 #### [facility] CLIA [id number] [address] [place] [address] [place] Monocytes (Bld) [#/Vol] 0.52 10*3/uL Normal <0.87 [facility] Comment on above: Order Comment: Speci men Type: BLOOD SPECIMEN Ordering Facility: [facility] Address: [address] [place] [address] Performed By: #### C RET1 #### [facility] CLIA [id number] [address] [place] [address] [place] Monocytes/100 WBC (Bld) 5.2 % Normal [facility] Comment on above: Order Comment: Speci men Type: BLOOD SPECIMEN Ordering Facility: [facility] Address: [address] [place] [address] Performed By: #### C RET1 #### [facility] CLIA [id number] [address] [place] [address] [place] Neutrophils (Bld) [#/Vol] 4.81 10*3/uL Normal 1.45-7.50 [facility] Comment on above: Order Comment: Speci men Type: BLOOD SPECIMEN Ordering Facility: [facility] Address: [address] [place] [address] Performed By: #### C RET1 #### [facility] CLIA [id number] [address] [place] [address] [place] Neutrophils/100 WBC (Bld) 47.9 % Normal [facility] Comment on above: Order Comment: Speci men Type: BLOOD SPECIMEN Ordering Facility: [facility] Address: [address] [place] [address] Performed By: #### C RET1 #### [facility] CLIA [id number] [address] [place] [address] [place] Nucleated RBC (Bld) [#/Vol] 10*3/uL Normal <0.01 [facility] Comment on above: Order Comment: Speci men Type: BLOOD SPECIMEN Ordering Facility: [facility] Address: [address] [place] [address] [place] [address] Performed By: #### C RET1 #### [facility] CLIA [id number] [address] [place] [address] [place] Nucleated RBC/100 WBC (Bld) [Ratio] 0.0 /100 WBC Normal [facility] Comment on above: Order Comment: Speci men Type: BLOOD SPECIMEN Ordering Facility: [facility] Address: [address] [place] [address] Performed By: #### C RET1 #### [facility] CLIA [id number] [address] [place] [address] [place] Platelet mean volume (Bld) [Entitic vol] 10.9 fL Normal 9.0-12.7 [facility] Comment on above: Order Comment: Speci men Type: BLOOD SPECIMEN Ordering Facility: [facility] Address: [address] [place] [address] Performed By: #### C RET1 #### [facility] CLIA [id number] [address] [place] [address] [place] Platelets (Bld) [#/Vol] 267 10*3/uL Normal 150-400 [facility] Comment on above: Order Comment: Speci men Type: BLOOD SPECIMEN Ordering Facility: [facility] Address: [address] [place] [address] Performed By: #### C RET1 #### [facility] CLIA [id number] [address] [place] [address] [place] RBC (Bld) [#/Vol] 4.42 10*6/uL Normal 3.90-5.20 [facility] Comment on above: Order Comment: Speci men Type: BLOOD SPECIMEN Ordering Facility: [facility] Address: [address] [place] [address] Performed By: #### C RET1 #### [facility] CLIA [id number] [address] [place], [place] [address] [place] WBC (Bld) [#/Vol] 10.04 10*3/uL Normal 3.70-11.00 [facility] Comment on above: Order Comment: Marianela green Type: BLOOD SPECIMEN Ordering Facility: [facility] Address: [address] [place] [address] Performed By: #### C RET1 #### [facility] CLIA [id number] [address] [place] CELIAC SCREENon 11-05-2023 GLIAD DEAMIDATED IGA QUAL Negative Normal Negative, Test not Indicated [facility] Comment on above: Order Comment: Marianela green Type: BLOOD SPECIMEN Ordering Facility: [facility] Address: [address] [place] [address] Result Comment: This is used as an aid in diagnosis of celiac disease. Clinical correlation is required. The following results were obtained with an Glide QUANTA Lite Gliadin IgA ROSHAN Gliadin. Gliadin IgA values obtained with different manufacturers' assay methods may not be used interchangeably. The magnitude of the reported IgA levels cannot be correlated to an endpoint titer. Performed By: #### 2 458-8 #### [facility] CLIA [id number] [address] [place] [address] [place] Gliadin peptide IgA Qn (S) 5 Units Normal <20 [facility] Comment on above: Order Comment: Marianela green Type: BLOOD SPECIMEN Ordering Facility: [facility] Address: [address] [place] [address] Performed By: #### 2 458-8 #### [facility] CLIA [id number] [address] [place] [address] [place] INTERPRETATION No serological evide nce of celiac disease, however, if celiac disease is clinically suspected and patient is not on gluten-free diet, histological diagnosis may be considered. HLA testing may help with risk assessment. Normal [facility] Comment on above: Order Comment: Marianela green Type: BLOOD SPECIMEN Ordering Facility: [facility] Address: [address] [place] [address] Performed By: #### 2 458-8 #### [facility] CLIA [id number] [address] [place] [address] [place] TRANSGLUTAMINASE IGA ABS INTERPRETATION Negative Normal Negative [facility] Comment on above: Order Comment: Speci men Type: BLOOD SPECIMEN Ordering Facility: [facility] Address: [address] [place] [address] Result Comment: The following results were obtained with [employer] Bond[employer]Denie R h-tTG IgA ROSHAN.???R h-tTG IgA values obtained with different manufacturers' assay methods may not be used interchangeably. The magnitude of the reported IgA levels cannot be corelated to an endpoint???concentration. This is used as an aid in diagnosis of celiac disease. Clinical correlation is required. Performed By: #### 2 458-8 #### [facility] CLIA [id number] [address] [place] [address] [place] tTG IgA Qn (S) <2 Normal <4 [facility] Comment on above: Order Comment: Speci men Type: BLOOD SPECIMEN Ordering Facility: [facility] Address: [address] [place] [address] Performed By: #### 2 458-8 #### [facility] CLIA [id number] [address] [place] [address] [place] Comprehensive metabolic 2000 panelon 11-05-2023 Albumin [Mass/Vol] 4.3 g/dL Normal 3.9-4.9 [facility] Comment on above: Order Comment: Speci men Type: BLOOD SPECIMEN Ordering Facility: [facility] Address: [address] [place] [address] Performed By: #### 2 4323-8 #### [facility] CLIA [id number] [address] [place] [address] [place] ALP [Catalytic activity/Vol] 57 U/L Normal 34-123 [facility] Comment on above: Order Comment: Speci men Type: BLOOD SPECIMEN Ordering Facility: [facility] Address: [address] [place] [address] Performed By: #### 2 4323-8 #### [facility] CLIA [id number] [address] [place] [address] [place] ALT [Catalytic activity/Vol] 16 U/L Normal 7-38 [facility] Comment on above: Order Comment: Speci men Type: BLOOD SPECIMEN Ordering Facility: [facility] Address: [address] [place] [address] Performed By: #### 2 4323-8 #### [facility] CLIA [id number] [address] [place] [address] [place] Anion gap [Moles/Vol] 11 mmol/L Normal 8-[address] [facility] Comment on above: Order Comment: Speci men Type: BLOOD SPECIMEN Ordering Facility: [facility] Address: [address] [place] [address] Performed By: #### 2 4323-8 #### [facility] CLIA [id number] [address] [place] [address] [place] AST [Catalytic activity/Vol] 11 U/L Low 13-35 [facility] Comment on above: Order Comment: Speci men Type: BLOOD SPECIMEN Ordering Facility: [facility] Address: [address] [place] [address] Performed By: #### 2 4323-8 #### [facility] CLIA [id number] [address] [place] [address] [place] Bilirubin [Mass/Vol] 0.3 mg/dL Normal 0.2-1.3 [facility] Comment on above: Order Comment: Speci men Type: BLOOD SPECIMEN Ordering Facility: [facility] Address: [address] [place] [address] Performed By: #### 2 4323-8 #### [facility] CLIA [id number] [address] [place] [address] [place] Calcium [Mass/Vol] 9.8 mg/dL Normal 8.5-10.2 [facility] Comment on above: Order Comment: Speci men Type: BLOOD SPECIMEN Ordering Facility: [facility] Address: [address] [place] [address] Performed By: #### 2 4323-8 #### [facility] CLIA [id number] [address] [place] [address] [place] Chloride [Moles/Vol] 104 mmol/L Normal 98-107 [facility] Comment on above: Order Comment: Speci men Type: BLOOD SPECIMEN Ordering Facility: [facility] Address: [address] [place] [address] Performed By: #### 2 4323-8 #### [facility] CLIA [id number] [address] [place] [address] [place] CO2 [Moles/Vol] 24 mmol/L Normal 22-30 [facility] Comment on above: Order Comment: Speci men Type: BLOOD SPECIMEN Ordering Facility: [facility] Address: [address] [place] [address] Performed By: #### 2 4323-8 #### [facility] CLIA [id number] [address] [place] [address] [place] Creatinine [Mass/Vol] 0.91 mg/dL Normal 0.58-0.[address] [facility] Comment on above: Order Comment: Speci men Type: BLOOD SPECIMEN Ordering Facility: [facility] Address: [address] [place] [address] Performed By: #### 2 4323-8 #### [facility] CLIA [id number] [address] [place] [address] [place] Creatinine and Glomerular filtration rate.predicted panel (S/P/Bld) 70 mL/min/1.73m??? Normal >=60 [facility] Comment on above: Order Comment: Marianela green Type: BLOOD SPECIMEN Ordering Facility: [facility] Address: [address] [place] [address] Result Comment: Sherie mated Glomerular Filtration Rate [...] GFR. Performed By: #### 2 4323-8 #### [facility] CLIA [id number] [address] [place] [address] [place] Glucose [Mass/Vol] 124 mg/dL High 74-99 [facility] Comment on above: Order Comment: Marianela green Type: BLOOD SPECIMEN Ordering Facility: [facility] Address: [address] [place] [address] Result Comment: The [place] Diabetes Association (ADA) provides guidance for cutoff [...] Standards of Medical Care in Diabetes 2016, [place] Diabetes Association. Diabetes Care. 2016.39(Suppl 1). Performed By: #### 2 4323-8 #### [id number] [address] [place] [address] [place] Potassium [Moles/Vol] 4.2 mmol/L Normal 3.7-5.[address] [facility] Comment on above: Order Comment: Marianela green Type: BLOOD SPECIMEN Ordering Facility: [facility] Address: [address] [place] [address] Performed By: #### 2 4323-8 #### [facility] CLIA [id number] [address] [place] [address] [place] Protein [Mass/Vol] 7.1 g/dL Normal 6.3-8.0 [facility] Comment on above: Order Comment: Speci men Type: BLOOD SPECIMEN Ordering Facility: [facility] Address: [address] [place] [address] Performed By: #### 2 4323-8 #### [facility] CLIA [id number] [address] [place] [address] [place] Sodium [Moles/Vol] 139 mmol/L Normal 136-144 [facility] Comment on above: Order Comment: Speci men Type: BLOOD SPECIMEN Ordering Facility: [facility] Address: [address] [place] [address] Performed By: #### 2 4323-8 #### [facility] CLIA [id number] [address] [place] [address] [place] Urea nitrogen [Mass/Vol] 32 mg/dL High 7-21 [facility] Comment on above: Order Comment: Speci men Type: BLOOD SPECIMEN Ordering Facility: [facility] Address: [address] [place] [address] Performed By: #### 2 4323-8 #### [id number] [address] [place] [address] [place] HbA1c (Bld)on 11-05-2023 Average glucose Estimated from glycated hemoglobin (Bld) [Mass/Vol] 131 mg/dL Normal [facility] Comment on above: Order Comment: Speci men Type: BLOOD SPECIMEN Ordering Facility: [facility] Address: [address] [place] [address] Result Comment: eAG: (Estimated average glucose) is a calculated value from HgbA1c and is administrative representative of the average blood glucose level in the last 2-3 month period. Performed By: #### 2 458-8 #### [facility] CLIA [id number] [address] [place] [address] [place] HbA1c (Bld) [Mass fraction] 6.2 % High 4.3-5.6 [facility] Comment on above: Order Comment: Madelainei peter Type: BLOOD SPECIMEN Ordering Facility: [facility] Address: [address] [place] [address] Result Comment: [place] Diabetes Association guidelines indicate that patients with HgbA1c in the range 5.7-6.4% are at increased risk for development of diabetes, and intervention by lifestyle modification may be beneficial. HgbA1c greater or equal to 6.5% is considered diagnostic of diabetes. Performed By: #### 2 458-8 #### [facility] CLIA [id number] [address] [place] [address] [place] IgA SerPl-mCncon 11-05-2023 IgA [Mass/Vol] 331 mg/dL Normal 70-400 [facility] Comment on above: Order Comment: Speci men Type: BLOOD SPECIMEN Ordering Facility: [facility] Address: [address] [place] [address] Performed By: #### 2 458-8 #### [facility] CLIA [id number] [address] [place] [address] [place] Lipid 1996 panelon 4 Cholesterol [Mass/Vol] 189 mg/dL Normal <200 [facility] Comment on above: Order Comment: Speci men Type: BLOOD SPECIMEN Ordering Facility: [facility] Address: [address] [place] [address] Result Comment: <200 mg/dL, Desirable 200-239 mg/dL, Borderline high >239 mg/dL, High Performed By: #### C RET1 #### [facility] CLIA [id number] [address] [place] [address] [place] Cholesterol in HDL [Mass/Vol] 35 mg/dL Low >39 [facility] Comment on above: Order Comment: Speci men Type: BLOOD SPECIMEN Ordering Facility: [facility] Address: [address] [place] [address] Result Comment: 40-5 9 mg/dL, Acceptable >59 mg/dL, High: Negative risk factor for coronary heart disease <40 mg/dL, Low: Positive risk factor for coronary heart disease Performed By: #### C RET1 #### [facility] CLIA [id number] [address] [place] [address] [place] Cholesterol in LDL [Mass/Vol] 107 mg/dL High <100 [facility] Comment on above: Order Comment: Madelainejuhi green Type: BLOOD SPECIMEN Ordering Facility: [facility] Address: [address] [place] [address] Result Comment: <100 mg/dL, Optimal 100-129 mg/dL, Near optimal/above optimal 130-159 mg/dL, Borderline high 160-189 mg/dL, High >189 mg/dL, Very high Secondary prevention optimal LDL Cholesterol levels are recommended to be < 70 mg/dL Performed By: #### C RET1 #### [facility] CLIA [id number] [address] [place] [address] [place] Cholesterol in LDL/Cholesterol in HDL [Mass ratio] 3.06 {ratio} High <2.54 [facility] Comment on above: Order Comment: Marianela green Type: BLOOD SPECIMEN Ordering Facility: [facility] Address: [address] [place] [address] Result Comment: Refstella laceyce: 1. National Cholesterol Education Program ATP III Guideline At-A-Glance Quick Desk Reference: National Heart, Lung, and Blood Lyons. National Institutes of Health. 2001: NIH Publication No. 01-3305. 2. An International Atherosclerosis Society position paper: global recommendations for the management of dyslipidemia: executive summary, Atherosclerosis. 2014: 232(2):410-413. Performed By: #### C RET1 #### [facility] CLIA [id number] [address] [place] [address] [place] Cholesterol in VLDL [Mass/Vol] 47 mg/dL High <30 [facility] Comment on above: Order Comment: Speci men Type: BLOOD SPECIMEN Order[facility] Facility: [facility] Address: [address] [place] [address] Performed By: #### C RET1 #### [facility] CLIA [id number] [address] [place] [address] [place] Cholesterol non HDL [Mass/Vol] 154 mg/dL High <130 [facility] Comment on above: Order Comment: Speci men Type: BLOOD SPECIMEN Ordering Facility: [facility] Address: [address] [place] [address] Result Comment: <130 mg/dL, Optimal 130-159 mg/dL, Near optimal/above optimal 160-189 mg/dL, Borderline high 190-219 mg/dL, High >219 mg/dL, Very high Secondary prevention optimal non HDL Cholesterol levels are recommended to be <100 mg/dL Performed By: #### C RET1 #### [facility] CLIA [id number] [address] [place] [address] [place] Cholesterol.total/Chol esterol in HDL [Mass ratio] 5.40 {ratio} High <5.10 [facility] Comment on above: Order Comment: Speci men Type: BLOOD SPECIMEN Ordering Facility: [facility] Address: [address] [place] [address] Performed By: #### C RET1 #### [id number] [address] [place] [address] [place] FASTING TIME 11 hrs Normal [facility] Comment on above: Order Comment: Speci men Type: BLOOD SPECIMEN Ordering Facility: [facility] Address: [address] [place] [address] Performed By: #### C RET1 #### [facility] CLIA [id number] [address] [place] [address] [place] Triglyceride [Mass/Vol] 236 mg/dL High <150 [facility] Comment on above: Order Comment: Speci men Type: BLOOD SPECIMEN Ordering Facility: [facility] Address: [address] [place] [place] [id number] Result Comment: <150 mg/dL, Normal 150-199 mg/dL, Borderline high 200-499 mg/dL, High >499 mg/dL, Very high Performed By: #### C RET1 #### [facility] CLIA [id number] [address] [place] [id number] [place] NM GASTRIC EMPTYING SOLIDon [...] OF GASTRIC EMPTYING OF A SOLID MEAL. Almond Paste Molder: MOSES Transcribe Date/Time: Nov 05 2023 12:17P Dictated by : KEILA LUNDBERG MD This examination was interpreted and the report reviewed and electronically signed by: KEILA LUNDBERG MD on Nov 05 2023 12:18PM EST [id number] Normal [facility] Stomach Views for gastric emptying solid phase W radionuclide Mary 11-05-2023 IMPRESSION: NORMAL RATE OF GASTRIC EMPTYING OF A SOLID MEAL. Almond P[employer] Molder: MOSES Transcribe Date/Time: Nov 05 2023 12:17P Dictated by : KEILA LUNDBERG MD This examination was interpreted and the report reviewed and electronically signed by: KEILA LUNDBERG MD on Nov 05 2023 12:18PM [facility] DIVISION OF RADIOLOGY * * *Final Report* [...] (normal range, 0-10%). DIVISION OF RADIOLOGY Provider, Anabella Jc [facility] - 11/05/2023 * * *Final Report* * [...] OF GASTRIC EMPTYING OF A SOLID MEAL. Almond Paste Molder: MOSES Transcribe Date/Time: Nov 05 2023 12:17P Dictated by : KEILA LUNDBERG MD This examination was interpreted and the report reviewed and electronically signed by: KEILA LUNDBERG MD on Nov 05 2023 12:18PM EST [facility] Radiology Study observation (narrative) [facility] Stomach Views for gastric emptying solid phase W radionuclide POOrdered By: Ccf Provider on 11-05-2023 [facility] T4 Free SerPl-mCncon 024 Free T4 [Mass/Vol] 1.3 ng/dL Normal 0.9-1.7 [facility] Comment on above: Order Comment: Speci men Type: BLOOD SPECIMEN Ordering Facility: [facility] Address: [address] [place] [address] Performed By: #### C RET1 #### [facility] [id number] [address] [place] [address] [place] TSH SerPl-aCncon 11-05-2023 TSH Qn 3.520 m[IU]/L Normal 0.270-4.20 0 [facility] Comment on above: Order Comment: Speci men Type: BLOOD SPECIMEN Ordering Facility: [facility] Address: [address] [place] [address] Performed By: #### C RET1 #### [facility] [id number] [address] [place] [address] [place] Dexa Bone Density Studyon Dexa Bone Density Study [facility] [address] [place] [address] Dexa Bone Density Study MR#: [id number] Acct: [id number] Name: JOAN VEGA Rep #: [id number] : 1960 F 63 From: Bridger stoddard MD PCP: Nela Alatorre [facility], [employer] Status: REG CLI Study: Dexa Bone Density Study Date of Exam: 11/04/23 Exam# [id number] Ordering Dr: Nela Alatorre [employer] :[id number] STUDY: DUAL ENERGY X-RAY ABSORPTIOMETRY / DXA [...] Corrales MD at 12:42 EDT , CC: [facility] ROBIN Alatorre [employer]mond P[employer] Molder: Signed Normal [facility] CNOVon 10-05-2023 [facility] Office Visit (GSTNOR ) JOAN VEGA ([id number]) 1960 F Date Time Provider Department 10/05/23 [...] Ibsrela but ran out only took samples. MUSHTAQ Vega is a 63 year old female [...] random bleed (more content not included)... Normal [facility] CT ABD/PEL W IVCONon 024 CT ABD/PEL W IVCON * * *Final Report* * * DATE OF EXAM: Jul 15 2023 11:55AM [facility] 0530 - CT ABD/PEL W IVCON / [...] obtained in 12 months --END OF FINDING-- Almond Paste Molder: MOSES Transcribe Date/Time: Jul 21 2023 9:35A Dictated by : ELIZABETH STEVENSON MD This examination was interpreted and the report reviewed and electronically signed by: ELIZABETH STEVENSON MD on Jul 21 2023 9:43AM EST [id number] [id number] Invalid Interpretation Code [facility] CREATININE BLDon 07-07-2023 Creatinine [Mass/Vol] 0.92 mg/dL Normal 0.58-0.[address] [facility] Comment on above: Order Comment: Speci peter Type: BLOOD SPECIMEN Order[facility] Facility: [facility] Address: [address] [place] [address] Performed By: #### C RET1 #### [facility] CLIA [id number] [address] [place] [address] [place] Creatinine and Glomerular filtration rate.predicted panel (S/P/Bld) 69 mL/min/1.73m??? Normal >=60 [facility] Comment on above: Order Comment: Marianela green Type: BLOOD SPECIMEN Order[facility] Facility: [facility] Address: [address] [place] [address] Result Comment: Sherie edilson Glomerular Filtration Rate (eGFR) is calculated using [...] GFR. Performed By: #### C RET1 #### [facility] CLIA [id number] [address] [place] [address] [place] CNOVon 07-01-2023 [facility] Office Visit (GSTNOR ) JOAN VEGA ([id number]) 1960 F Date Time Provider Department 07/01/23 10:05 AM CATRINA BECKMAN During your visit today, we recorded the following information about you: Pulse Blood pressure Weight Height 87/minute 140/80 98.7 kg 1.651 m Catrina Beckman APRN.LOG PEELER 07/01/2023 10:23 AM Signed CHIEF COMPLAINT: Patient [...] General: Abd (more content not included)... Normal [facility] Absolute lymphocyte countOrd ered By: Nela Alatorre on 12-15-2022 Lymphocytes Auto (Unsp spec) [#/Vol] 3.15 10*3/uL 0.83-4.51 [facility] Basophil percentageOrdered B y: Nela Alatorre on 12-15-2022 Basophils/100 WBC (Bld) 1.4 % 0-1 [facility] Bilirubin [Mass/Vol] 0.40 mg/dL 0.20-1.00 [facility] Comment on above: For patients on eltr ombopag therapy, use of Dimension [place] TBIL is not recommended. Chloride [Moles/Vol] 105 mmol/L 98-107 [facility] Cholesterol [Mass/Vol] 176 mg/dL <200 [facility] Comment on above: <200 mg/dL Desirable 200-240 mg/dL Borderline >240 mg/dL High Risk Eosinophils/100 WBC (Bld) 3.6 % 0-5 [facility] Glucose [Mass/Vol] 130 mg/dL 74-106 [facility] Comment on above: Fasting Glucose resu lt greater than or equal to 126 mg/dL suggests DIABETES MELLITUS per A.D.A. criteria. Neutrophils (Bld) [#/Vol] 4.5 10*3/uL 2.0-7.7 [facility] Neutrophils/100 WBC (Bld) 51.9 % 47-70 [facility] Potassium [Moles/Vol] 3.7 mmol/L 3.5-5.1 [facility] Protein [Mass/Vol] 7.2 g/dL 6.4-8.2 [facility] Sodium [Moles/Vol] 139 mmol/L 136-145 [facility] Triglyceride [Mass/Vol] 193 mg/dL <199 [facility] Comment on above: The drugs N-Acetylcy steine and Metamizole may falsely depress this assay.Serum Triglycerides Reference Interval Normal <150 mg/dL Borderline high 150 - 199 mg/dL High 200 - 499 mg/dL Very High > or = 500 mg/dL WBC (Bld) [#/Vol] 8.7 10*3/uL 4.4-11.0 [facility] Blood erythrocytes count (nu mber/volume)Ordered By: Nela Alatorre on 12-15-2022 RBC (Bld) [#/Vol] 4.45 10*6/uL 4.2-5.4 [facility] Blood hemoglobin measurement (mass/volume)Ordered By: Nela Alatorre on 12-15-2022 Hemoglobin (Bld) [Mass/Vol] 12.9 g/dL 12.0-15.0 [facility] Blood lymphocytes/100 leukoc ytesOrdered By: Nela Alatorre on 12-15-2022 Lymphocytes/100 WBC (Bld) 36.4 % 19-41 [facility] Blood monocytes/100 leukocyt esOrdered By: Nela Alatorre on 12-15-2022 Monocytes/100 WBC (Bld) 6.4 % 0-10 [facility] Blood platelet mean volumeOr dered By: Nela Alatorre on 12-15-2022 Platelet mean volume (Bld) [Entitic vol] 11.2 fL 6.2-12.0 [facility] Determination of erythrocyte mean corpuscular volume (MCV)Ordered By: Nela Alatorre on 12-15-2022 MCV (RBC) [Entitic vol] 89.9 fL 81-99 [facility] Hematocrit Auto (Bld) [Volum e fraction]Ordered By: Nela Alatorre on 12-15-2022 Hematocrit (Bld) [Volume fraction] 40.0 % 37-47 [facility] Laboratory - Chemistry and C hemistry - challengeOrdered By: Nela Alatorre on 12-15-2022 ALP [Catalytic activity/Vol] 60 U/L 45-117 [facility] ALT [Catalytic activity/Vol] 26 U/L 13-56 [facility] CO2 [Moles/Vol] 29.0 mmol/L 21.0-32.0 [facility] Free T4 [Mass/Vol] 1.04 ng/dL 0.76-1.46 [facility] Globulin (S) [Mass/Vol] 3.6 g/dL 2.2-4.2 [facility] Natriuretic peptide B (Bld) [Mass/Vol] 6.6 pg/mL 0-100 [facility] Urea nitrogen/Creatinine [Mass ratio] 19.8 mg/mg 10-20 [facility] Laboratory - Hematology and Cell countsOrdered By: Nela Alatorre on 12-15-2022 Erythrocyte distribution width (RBC) [Entitic vol] 44.0 fL 35.1-43.9 [facility] Erythrocyte distribution width (RBC) [Ratio] 13.3 % 11.6-14.6 [facility] Immature granulocytes/100 WBC (Bld) 0.300 % 0.0-0.9 [facility] Comment on above: IG% - Immature Granu locytes (promyelocytes, myelocytes and metamyelocytes) > 1% indicates that a LEFT SHIFT is Present. MCH (RBC) [Entitic mass] 29.0 pg 27.0-32.0 [facility] Nucleated RBC/100 WBC (Bld) [Ratio] 0 % 0-5 [facility] MCHC Auto (RBC) [Mass/Vol]Or dered By: Nela Alatorre on 12-15-2022 MCHC (RBC) [Mass/Vol] 32.3 g/dL 32-36 [facility] No Panel InformationOrdered By: Nela Alatorre on 12-15-2022 Estimated GFR (MDRD) Amer 75 mL/min >60 [facility] Comment on above: GFR Calc Estimated GFR (MDRD) Non-Af Amer 62 mL/min >60 [facility] Comment on above: Non- GFR Calc Thyroid Stimulating Hormone (TSH) 2.44 uIU/mL 0.358-3.74 [facility] Platelets bldOrdered By: Chelle Alatorre on 12-15-2022 Platelets (Bld) [#/Vol] 259 10*3/uL 150-450 [facility] Serum or plasma albumin milton urement (mass/volume)Ordered By: Nela Alatorre on 12-15-2022 Albumin [Mass/Vol] 3.6 g/dL 3.2-5.0 [facility] Serum or plasma albumin/glob ulin mass ratioOrdered By: Nela Alatorre on 12-15-2022 Albumin/Globulin [Mass ratio] 1.0 {ratio} 0.9-2.4 [facility] Serum or plasma calcium milton urement (mass/volume)Ordered By: Nela Alatorre on 12-15-2022 Calcium [Mass/Vol] 9.2 mg/dL 8.5-10.1 [facility] Serum or plasma cholesterol in HDL measurement (mass/volume)Ordered By: Nela Alatorre on 12-15-2022 Cholesterol in HDL [Mass/Vol] 38 mg/dL >40 [facility] Comment on above: The drugs N-Acetylcy steine and Metamizole may falsely depress this assay. Reference Range HDL <40 mg/dL Low HDL Cholesterol HDL >or= 60 mg/dL High HDL Cholesterol Serum or plasma cholesterol in VLDL measurement (mass/volume)Ordered By: Nela Alatorre on 12-15-2022 Cholesterol in VLDL [Mass/Vol] 39 mg/dL 5-40 [facility] Serum or plasma creatinine m easurement (mass/volume)Ordered By: Nela Alatorre on 12-15-2022 Creatinine [Mass/Vol] 0.96 mg/dL 0.55-1.02 [facility] Comment on above: The validity of the calculated GFR & GFRAA in patients over 70 years has not been determined. Clinical correlation is essential. Serum or plasma low density lipoprotein (LDL) cholesterol measurement (mass/volume)Ordered By: Nela Alatorre on 12-15-2022 Cholesterol in LDL [Mass/Vol] 99 mg/dL 0-130 [facility] Serum or plasma urea nitroge n measurement (mass/volume)Ordered By: Nela Alatorre on 12-15-2022 Urea nitrogen [Mass/Vol] 19 mg/dL 7-18 [facility] Thin prep Papanicolaou smear with manual screeningOrdered By: Nela Alatorre on 12-15-2022 Thin prep Papanicolaou smear with manual screening 13 U/L 15-37 [facility] Thin prep Papanicolaou smear with manual screening 5 5-15 [facility] Thin prep Papanicolaou smear with manual screening 16.5 mg/L NO RANGE EST. [facility] HPV W/GENOTYPE THIN PREPon 0 07-24-2022 HPV 16 Ag Ql (Unsp spec) Negative Normal Negative for HPV DNA high risk type 16 by PCR [facility] Comment on above: Order Comment: Speci men Type: FLUID SPECIMEN Ordering Facility: [facility] Address: [address] [place] [address], [place] [address] Performed By: #### H PVHRT #### [facility] CLIA [id number] [address] [place] [address] [place] HPV 18 Ag Ql (Unsp spec) Negative Normal Negative for HPV DNA high risk type 18 by PCR [facility] Comment on above: Order Comment: Speci men Type: FLUID SPECIMEN Ordering Facility: [facility] Address: [address] [place] [address] Performed By: #### H PVHRT #### [facility] CLIA [id number] [address] [place] [address] [place] HPV 31+33+35+39+45+51+52+5 6+58+59+66+68 DNA LORETA+probe Ql (Cvx) Negative for HPV DNA high risk types: 31,33,35,39,45,51,52,56,58,5 9,66,68 by PCR. Normal Negative for HPV DNA high risk types: 31,33,35,3 9,45,51,52 ,56,58,59, 66,68 by PCR. [facility] Comment on above: Order Comment: Speci men Type: FLUID SPECIMEN Ordering Facility: [facility] Address: [address] [place] [address], [place] [address] Performed By: #### H PVHRT #### [facility] CLIA [id number] [address] [place] [address] [place] Absolute lymphocyte countOrd ered By: Nela Alatorre on 03-23-2022 Lymphocytes Auto (Unsp spec) [#/Vol] 2.30 10*3/uL 0.83-4.51 [facility] Basophil percentageOrdered B y: Nela Alatorre on 03-23-2022 Basophils/100 WBC (Bld) 1.1 % 0-1 [facility] Bilirubin [Mass/Vol] 0.50 mg/dL 0.20-1.00 [facility] Comment on above: For patients on eltr ombopag therapy, use of Dimension [place] TBIL is not recommended. Chloride [Moles/Vol] 108 mmol/L 98-107 [facility] Cholesterol [Mass/Vol] 181 mg/dL <200 [facility] Comment on above: <200 mg/dL Desirable 200-240 mg/dL Borderline >240 mg/dL High Risk Eosinophils/100 WBC (Bld) 3.7 % 0-5 [facility] Glucose [Mass/Vol] 123 mg/dL 74-106 [facility] Comment on above: Fasting Glucose resu lt from 100 to 125 mg/dL suggests IMPAIRED HOMEOSTASIS per A.D.A. criteria. Neutrophils (Bld) [#/Vol] 5.2 10*3/uL 2.0-7.7 [facility] Neutrophils/100 WBC (Bld) 61.6 % 47-70 [facility] Potassium [Moles/Vol] 3.8 mmol/L 3.5-5.1 [facility] Protein [Mass/Vol] 7.1 g/dL 6.4-8.2 [facility] Sodium [Moles/Vol] 141 mmol/L 136-145 [facility] Triglyceride [Mass/Vol] 224 mg/dL <199 [facility] Comment on above: The drugs N-Acetylcy steine and Metamizole may falsely depress this assay.Serum Triglycerides Reference Interval Normal <150 mg/dL Borderline high 150 - 199 mg/dL High 200 - 499 mg/dL Very High > or = 500 mg/dL WBC (Bld) [#/Vol] 8.4 10*3/uL 4.4-11.0 [facility] Blood erythrocytes count (nu mber/volume)Ordered By: Nela Alatorre on 03-23-2022 RBC (Bld) [#/Vol] 4.33 10*6/uL 4.2-5.4 [facility] Blood hemoglobin measurement (mass/volume)Ordered By: Nela Alatorre on 03-23-2022 Hemoglobin (Bld) [Mass/Vol] 12.3 g/dL 12.0-15.0 [facility] Blood lymphocytes/100 leukoc ytesOrdered By: Nela Alatorre on 03-23-2022 Lymphocytes/100 WBC (Bld) 27.3 % 19-41 [facility] Blood monocytes/100 leukocyt esOrdered By: Nela Alatorre on 03-23-2022 Monocytes/100 WBC (Bld) 5.9 % 0-10 [facility] Blood platelet mean volumeOr dered By: Nela Alatorre on 03-23-2022 Platelet mean volume (Bld) [Entitic vol] 11.5 fL 6.2-12.0 [facility] Determination of erythrocyte mean corpuscular volume (MCV)Ordered By: Nela Alatorre on 03-23-2022 MCV (RBC) [Entitic vol] 89.8 fL 81-99 [facility] Hematocrit Auto (Bld) [Volum e fraction]Ordered By: Nela Alatorre on 03-23-2022 Hematocrit (Bld) [Volume fraction] 38.9 % 37-47 [facility] Laboratory - Chemistry and C hemistry - challengeOrdered By: Nela Alatorre on 03-23-2022 ALP [Catalytic activity/Vol] 50 U/L 45-117 [facility] ALT [Catalytic activity/Vol] 27 U/L 13-56 [facility] CO2 [Moles/Vol] 28.0 mmol/L 21.0-32.0 [facility] Globulin (S) [Mass/Vol] 3.5 g/dL 2.2-4.2 [facility] Magnesium [Mass/Vol] 2.1 mg/dL 1.6-2.6 [facility] Urea nitrogen/Creatinine [Mass ratio] 24.2 mg/mg 10-20 [facility] Laboratory - Hematology and Cell countsOrdered By: Nela Alatorre on 03-23-2022 Erythrocyte distribution width (RBC) [Entitic vol] 44.1 fL 35.1-43.9 [facility] Erythrocyte distribution width (RBC) [Ratio] 13.4 % 11.6-14.6 [facility] Immature granulocytes/100 WBC (Bld) 0.400 % 0.0-0.9 [facility] Comment on above: IG% - Immature Granu locytes (promyelocytes, myelocytes and metamyelocytes) > 1% indicates that a LEFT SHIFT is Present. MCH (RBC) [Entitic mass] 28.4 pg 27.0-32.0 [facility] Nucleated RBC/100 WBC (Bld) [Ratio] 0 % 0-5 [facility] MCHC Auto (RBC) [Mass/Vol]Or dered By: Nela Alatorre on 03-23-2022 MCHC (RBC) [Mass/Vol] 31.6 g/dL 32-36 [facility] No Panel InformationOrdered By: Nela Alatorre on 03-23-2022 Estimated GFR (MDRD) Amer 73 mL/min >60 [facility] Comment on above: GFR Calc Estimated GFR (MDRD) Non-Af Amer 60 mL/min >60 [facility] Comment on above: Non- GFR Calc Thyroid Stimulating Hormone (TSH) 1.75 uIU/mL 0.358-3.74 [facility] Platelets bldOrdered By: Chelle Alatorre on 03-23-2022 Platelets (Bld) [#/Vol] 244 10*3/uL 150-450 [facility] Serum or plasma albumin milton urement (mass/volume)Ordered By: Nela Alatorre on 03-23-2022 Albumin [Mass/Vol] 3.6 g/dL 3.2-5.0 [facility] Serum or plasma albumin/glob ulin mass ratioOrdered By: Nela Alatorre on 03-23-2022 Albumin/Globulin [Mass ratio] 1.0 {ratio} 0.9-2.4 [facility] Serum or plasma calcitriol m easurement (mass/volume)Ordered By: Nela Alatorre on 03-23-2022 1,25-dihydroxyvitamin D3 [Mass/Vol] 18.8 pg/mL 24.8-81.5 [facility] Comment on above: Performed at: [address] [id number] Director: Kalli Pineda MD, Phone: [phone] Serum or plasma calcium milton urement (mass/volume)Ordered By: Nela Alatorre on 03-23-2022 Calcium [Mass/Vol] 9.2 mg/dL 8.5-10.1 [facility] Serum or plasma cholesterol in HDL measurement (mass/volume)Ordered By: Nela Alatorre on 03-23-2022 Cholesterol in HDL [Mass/Vol] 37 mg/dL >40 [facility] Comment on above: The drugs N-Acetylcy steine and Metamizole may falsely depress this assay. Reference Range HDL <40 mg/dL Low HDL Cholesterol HDL >or= 60 mg/dL High HDL Cholesterol Serum or plasma cholesterol in VLDL measurement (mass/volume)Ordered By: Nela Alatorre on 03-23-2022 Cholesterol in VLDL [Mass/Vol] 45 mg/dL 5-40 [facility] Serum or plasma creatinine m easurement (mass/volume)Ordered By: Nela Alatorre on 03-23-2022 Creatinine [Mass/Vol] 0.99 mg/dL 0.55-1.02 [facility] Comment on above: The validity of the calculated GFR & GFRAA in patients over 70 years has not been determined. Clinical correlation is essential. Serum or plasma low density lipoprotein (LDL) cholesterol measurement (mass/volume)Ordered By: Nela Alatorre on 03-23-2022 Cholesterol in LDL [Mass/Vol] 99 mg/dL 0-130 [facility] Serum or plasma urea nitroge n measurement (mass/volume)Ordered By: Nela Alatorre on 03-23-2022 Urea nitrogen [Mass/Vol] 24 mg/dL 7-18 [facility] Thin prep Papanicolaou smear with manual screeningOrdered By: Nela Alatorre on 03-23-2022 Thin prep Papanicolaou smear with manual screening 13 U/L 15-37 [facility] Thin prep Papanicolaou smear with manual screening 5 5-15 [facility] Influenza virus A and B and SARS-CoV-2 (COVID-19) Ag panel - Upper respiratory specimOrdered By: Dr. Emmanuel on 02-04-2022 SARS-CoV-2 (COVID-19) RNA LORETA+probe Ql (Resp) [facility] RSV Ag EIAOrdered By: Dr. Dereck justice on 02-04-2022 RSV Ag Immune stain Ql (Tiss) [facility] Absolute lymphocyte counton 07-10-2021 Lymphocytes Auto (Unsp spec) [#/Vol] 4.13 10*3/uL 0.83-4.51 [facility] Work Phone: Basophil percentageon 2021 Basophils/100 WBC (Bld) 0.9 % 0-1 [facility] Work Phone: [phone] Bilirubin [Mass/Vol] 0.40 mg/dL 0.20-1.00 [facility] Work Phone: [phone] Comment on above: For patients on eltr ombopag therapy, use of Dimension [place] TBIL is not recommended. Chloride [Moles/Vol] 105 mmol/L 98-107 [facility] Work Phone: Eosinophils/100 WBC (Bld) 2.1 % 0-5 [facility] Work Phone: [phone] Glucose [Mass/Vol] 107 mg/dL 74-106 [facility] Work Phone: [phone] Comment on above: Fasting Glucose resu lt from 100 to 125 mg/dL suggests IMPAIRED HOMEOSTASIS per A.D.A. criteria. Neutrophils (Bld) [#/Vol] 8.5 10*3/uL 2.0-7.7 [facility] Work Phone: [phone] Neutrophils/100 WBC (Bld) 61.1 % 47-70 [facility] Work Phone: [phone] Potassium [Moles/Vol] 4.0 mmol/L 3.5-5.1 [facility] Work Phone: [phone] Protein [Mass/Vol] 7.6 g/dL 6.4-8.2 [facility] Work Phone: Sodium [Moles/Vol] 138 mmol/L 136-145 [facility] Work Phone: WBC (Bld) [#/Vol] 13.9 10*3/uL 4.4-11.0 [facility] Work Phone: Blood erythrocytes count (nu mber/volume)on 07-10-2021 RBC (Bld) [#/Vol] 4.42 10*6/uL 4.2-5.4 [facility] Work Phone: [phone] Blood hemoglobin measurement (mass/volume)on 07-10-2021 Hemoglobin (Bld) [Mass/Vol] 13.0 g/dL 12.0-15.0 [facility] Work Phone: Blood lymphocytes/100 leukoc yteson 07-10-2021 Lymphocytes/100 WBC (Bld) 29.7 % 19-41 [facility] Work Phone: Blood manual differential co mment interpretation (narrative result)on 07-10-2021 Manual differential comment Baldomero (Bld) [Interp] SCANNED [facility] Work Phone: Comment on above: AUTO DIFF [place] Blood monocytes/100 leukocyt eson 07-10-2021 Monocytes/100 WBC (Bld) 5.3 % 0-10 [facility] Work Phone: [phone] Blood platelet mean volumeon 07-10-2021 Platelet mean volume (Bld) [Entitic vol] 10.5 fL 6.2-12.0 [facility] Work Phone: Determination of erythrocyte mean corpuscular volume (MCV)on 07-10-2021 MCV (RBC) [Entitic vol] 90.7 fL 81-99 [facility] Work Phone: Hematocrit Auto (Bld) [Volum e fraction]on 07-10-2021 Hematocrit (Bld) [Volume fraction] 40.1 % 37-47 [facility] Work Phone: Laboratory - Chemistry and C hemistry - challengeon 07-10-2021 ALP [Catalytic activity/Vol] 53 U/L 45-117 [facility] Work Phone: ALT [Catalytic activity/Vol] 33 U/L 13-56 [facility] Work Phone: CO2 [Moles/Vol] 26.0 mmol/L 21.0-32.0 [facility] Work Phone: Globulin (S) [Mass/Vol] 3.9 g/dL 2.2-4.2 [facility] Work Phone: Urea nitrogen/Creatinine [Mass ratio] 19.7 mg/mg 10-20 [facility] Work Phone: Laboratory - Hematology and Cell countson 07-10-2021 Erythrocyte distribution width (RBC) [Entitic vol] 42.1 fL 35.1-43.9 [facility] Work Phone: Erythrocyte distribution width (RBC) [Ratio] 12.8 % 11.6-14.6 [facility] Work Phone: Immature granulocytes/100 WBC (Bld) 0.900 % 0.0-0.9 [facility] Work Phone: Comment on above: IG% - Immature Granu locytes (promyelocytes, myelocytes and metamyelocytes) > 1% indicates that a LEFT SHIFT is Present. MCH (RBC) [Entitic mass] 29.4 pg 27.0-32.0 [facility] Work Phone: Nucleated RBC/100 WBC (Bld) [Ratio] 0 % 0-5 [facility] Work Phone: MCHC Auto (RBC) [Mass/Vol]on 07-10-2021 MCHC (RBC) [Mass/Vol] 32.4 g/dL 32-36 [facility] Work Phone: No Panel Informationon 07-10 Estimated GFR (MDRD) Amer 80 mL/min >60 [facility] Work Phone: Comment on above: GFR Calc Estimated GFR (MDRD) Non-Af Amer 66 mL/min >60 [facility] Work Phone: Comment on above: Non- GFR Calc Platelets bldon 07-10-2021 Platelets (Bld) [#/Vol] 323 10*3/uL 150-450 [facility] Work Phone: Serum or plasma albumin milton urement (mass/volume)on 07-10-2021 Albumin [Mass/Vol] 3.7 g/dL 3.2-5.0 [facility] Work Phone: Serum or plasma albumin/glob ulin mass ratioon 07-10-2021 Albumin/Globulin [Mass ratio] 0.9 {ratio} 0.9-2.4 [facility] Work Phone: Serum or plasma calcium milton urement (mass/volume)on 07-10-2021 Calcium [Mass/Vol] 9.1 mg/dL 8.5-10.1 [facility] Work Phone: Serum or plasma creatinine m easurement (mass/volume)on 07-10-2021 Creatinine [Mass/Vol] 0.91 mg/dL 0.55-1.02 [facility] Work Phone: Comment on above: The validity of the calculated GFR & GFRAA in patients over 70 years has not been determined. Clinical correlation is essential. Serum or plasma urea nitroge n measurement (mass/volume)on 07-10-2021 Urea nitrogen [Mass/Vol] 18 mg/dL 7-18 [facility] Work Phone: Thin prep Papanicolaou smear with manual screeningon 07-10-2021 Thin prep Papanicolaou smear with manual screening 16 U/L 15-37 [facility] Work Phone: Thin prep Papanicolaou smear with manual screening 7 5-15 [facility] Work Phone: Basophil percentageon 2021 Cholesterol [Mass/Vol] 204 mg/dL <200 [facility] Work Phone: Comment on above: <200 mg/dL Desirable 200-240 mg/dL Borderline >240 mg/dL High Risk Triglyceride [Mass/Vol] 233 mg/dL <199 [facility] Work Phone: Comment on above: The drugs N-Acetylcy steine and Metamizole may falsely depress this assay.Serum Triglycerides Reference Interval Normal <150 mg/dL Borderline high 150 - 199 mg/dL High 200 - 499 mg/dL Very High > or = 500 mg/dL Serum or plasma cholesterol in HDL measurement (mass/volume)on 06-27-2021 Cholesterol in HDL [Mass/Vol] 34 mg/dL >40 [facility] Work Phone: Comment on above: The drugs N-Acetylcy steine and Metamizole may falsely depress this assay. Reference Range HDL <40 mg/dL Low HDL Cholesterol HDL >or= 60 mg/dL High HDL Cholesterol Serum or plasma cholesterol in VLDL measurement (mass/volume)on 06-27-2021 Cholesterol in VLDL [Mass/Vol] 47 mg/dL 5-40 [facility] Work Phone: Serum or plasma low density lipoprotein (LDL) cholesterol measurement (mass/volume)on 06-27-2021 Cholesterol in LDL [Mass/Vol] 123 mg/dL 0-130 [facility] Work Phone: No Panel Informationon 04-01 SARS-CoV-2 Antigen (Rapid) [facility] Work Phone: Influenza virus A and B and SARS-CoV-2 (COVID-19) Ag panel - Upper respiratory specim SARS-CoV-2 (COVID-19) RNA LORETA+probe Ql (Resp) [facility] Work Phone: RSV Ag EIA RSV Ag Immune stain Ql (Tiss) [facility] Work Phone: Vital Signs Date Time Vital Sign Value Performing Clinician Faci lity 09-18-2024 10:36-0400 Body height 165.1 cm Nela Alatorre [employer] Work Phone: [facility] 09-18-2024 10:36-0400 Body mass index (BMI) [Ratio] 35.7 kg/m2 Nela Alatorre [employer] WORK[employer] Work Phone: [facility] 09-18-2024 10:36-0400 Body weight 97.52 kg Nela Alatorre [employer] WORK[employer] Work Phone: [facility] 07-31-2024 13:35-0400 Body height 165.1 cm Nela Alatorre [employer] WORK[employer]C Work Phone: [facility] 07-31-2024 13:35-0400 Body mass index (BMI) [Ratio] 35.4 kg/m2 Nela Alatorre [employer] WORK[employer] Work Phone: [facility] 07-31-2024 13:35-0400 Body weight 96.61 kg Nela Alatorre [employer] WORK[employer] Work Phone: [facility] 10-05-2023 13:27-0400 Body height 165.1 cm Ministerio Arizmendi MD Work Phone: [facility] 10-05-2023 13:27-0400 Body mass index (BMI) [Ratio] 35.64 kg/m2 Ministerio Arizmendi MD Work Phone: [facility] 10-05-2023 13:27-0400 Body weight 97.16 kg Ministerio Arizmendi MD Work Phone: [facility] 10-05-2023 13:27-0400 Diastolic blood pressure 72 mm[Hg] Ministerio Arizmendi MD Work Phone: [facility] 10-05-2023 13:27-0400 Heart rate 69 /min Ministerio Arizmendi MD Work Phone: [facility] 10-05-2023 13:27-0400 Systolic blood pressure 116 mm[Hg] Ministerio Arizmendi MD Work Phone: [facility] 07-01-2023 09:43-0400 Body height 165.1 cm Catrina Hritz 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 Work Phone: [facility] 07-01-2023 09:43-0400 Body mass index (BMI) [Ratio] 36.19 kg/m2 Catrina Hritz 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 Work Phone: [facility] 07-01-2023 09:43-0400 Body weight 98.66 kg Catrina Hritz 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 Work Phone: [facility] 07-01-2023 09:43-0400 Diastolic blood pressure 80 mm[Hg] Catrina Hritz 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 Work Phone: [facility] 07-01-2023 09:43-0400 Heart rate 87 /min 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 Hritz 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 Work Phone: [facility] 07-01-2023 09:43-0400 Systolic blood pressure 140 mm[Hg] Catrina Hritz 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 Work Phone: [facility] 03-26-2022 06:49-0500 Body height 165.1 cm [facility] Work Phone: 3(985)837-563129 [place] [address] 03-26-2022 06:49-0500 Body mass index (BMI) [Ratio] 33.3 kg/m2 [facility] Work Phone: 6(640)848-766229 [place] [address] 03-26-2022 06:49-0500 Body temperature 98.2 [degF] [facility] Work Phone: 8(581)376-713329 [place] [address] 03-26-2022 06:49-0500 Body weight 90.71 kg [facility] Work Phone: 9(693)819-183929 [place] [address] 03-26-2022 06:49-0500 Diastolic blood pressure 72 mm[Hg] [facility] Work Phone: 6(746)359-821929 [place] [address] 03-26-2022 06:49-0500 Heart rate 82 /min [facility] Work Phone: 8(935)880-085029 [place] [address] 03-26-2022 06:49-0500 Respiratory rate 18 /min [facility] Work Phone: 3(421)571-836029 [place] [address] 03-26-2022 06:49-0500 SaO2% (BldA) [Mass fraction] 93 % [facility] Work Phone: 8(561)345-146829 [place] [address] 03-26-2022 06:49-0500 Systolic blood pressure 129 mm[Hg] [facility] Work Phone: 1(332)079-198329 [place] [address] 03-25-2022 15:33-0500 Body temperature 97.4 [degF] [facility] Work Phone: 6(768)546-415829 [place] [address] 03-25-2022 15:33-0500 Diastolic blood pressure 87 mm[Hg] [facility] Work Phone: 5(515)256-473329 [place] [address] 03-25-2022 15:33-0500 Heart rate 60 /min [facility] Work Phone: 2(035)384-915329 [place] [address] 03-25-2022 15:33-0500 Respiratory rate 18 /min [facility] Work Phone: [facility] 03-25-2022 15:33-0500 SaO2% (BldA) [Mass fraction] 100 % [facility] Work Phone: [facility] 03-25-2022 15:33-0500 Systolic blood pressure 98 mm[Hg] [facility] Work Phone: 9(207)237-636142 [address] 03-25-2022 12:36-0500 Body height 165.1 cm [facility] Work Phone: 7(631)655-487042 [address] 03-25-2022 12:36-0500 Body mass index (BMI) [Ratio] 32.6 kg/m2 [facility] Work Phone: 3(712)049-405342 [address] 03-25-2022 12:36-0500 Body weight 89 kg [facility] Work Phone: 2(833)635-351730 [place] [address] 02-18-2022 16:23-0500 Respiratory rate 18 /min [facility] Work Phone: [facility] 02-04-2022 13:32-0500 Respiratory rate 18 /min [facility] 02-04-2022 11:33-0500 Heart rate 99 /min [facility] 02-04-2022 11:33-0500 SaO2% (BldA) [Mass fraction] 91 % [facility] 02-04-2022 10:51-0500 Body height 165.1 cm [facility] Work Phone: 02-04-2022 10:51-0500 Body mass index (BMI) [Ratio] 33.8 kg/m2 [facility] 02-04-2022 10:51-0500 Body temperature 96.9 [degF] [facility] 02-04-2022 10:51-0500 Body weight 92.26 kg [facility] 02-04-2022 10:51-0500 Diastolic blood pressure 105 mm[Hg] [facility] 02-04-2022 10:51-0500 Systolic blood pressure 176 mm[Hg] [facility] 07-18-2021 08:21-0400 Body height 165.1 cm STRAIGHTEDGE WORKER-C Heidy Gomez Work Phone: [facility] Work Phone: 07-18-2021 08:21-0400 Body weight 97.52 kg STRAIGHTEDGE WORKER-C Heidy Gomez Work Phone: [facility] Work Phone: 07-18-2021 08:21-0400 Diastolic blood pressure 80 mm[Hg] STRAIGHTEDGE WORKER-C Heidy Gomez Work Phone: [facility] Work Phone: 07-18-2021 08:21-0400 Heart rate 74 /min STRAIGHTEDGE WORKER-C Heidy Gomez Work Phone: [facility] Work Phone: 07-18-2021 08:21-0400 Respiratory rate 18 /min [employer]AIGHTEDGE WORKER-C Heidy Gomez Work Phone: [facility] Work Phone: 07-18-2021 08:21-0400 SaO2% (BldA) [Mass fraction] 98 % [employer]AIGHTEDGE WORKER-C Heidy Gomez Work Phone: [facility] Work Phone: 07-18-2021 08:21-0400 Systolic blood pressure 119 mm[Hg] STRAIGHTEDGE WORKER-C Heidy Gomez Work Phone: [facility] Work Phone: 04-03-2021 08:18-0500 Body temperature 96.9 [degF] [facility] Work Phone: [facility] Work Phone: 04-03-2021 08:18-0500 Diastolic blood pressure 70 mm[Hg] [facility] Work Phone: [facility] Work Phone: 04-03-2021 08:18-0500 Heart rate 75 /min [facility] Work Phone: [facility] Work Phone: 04-03-2021 08:18-0500 Respiratory rate 16 /min [facility] Work Phone: [facility] Work Phone: 04-03-2021 08:18-0500 SaO2% (BldA) [Mass fraction] 97 % [facility] Work Phone: [facility] Work Phone: 04-03-2021 08:18-0500 Systolic blood pressure 109 mm[Hg] [facility] Work Phone: [facility] Work Phone: 04-03-2021 05:51-0500 Body height 165.1 cm [facility] Work Phone: [facility] Work Phone: 04-03-2021 05:51-0500 Body mass index (BMI) [Ratio] 35.2 kg/m2 [facility] Work Phone: [facility] Work Phone: 04-03-2021 05:51-0500 Body weight 96 kg [facility] Work Phone: [facility] Work Phone: 07-18-2020 07:38-0400 Body mass index (BMI) [Ratio] 35.2 kg/m2 STRAIGHTEDGE WORKER-C Heidy Gomez Work Phone: [facility] Work Phone: Encounters Encounter Date Encounter Type Care Provider Facility Start: 10-25-2024 ambulatory Nela Jackson in [facility] Facility:[facility] Start: 10-20-2024 ambulatory Nela Jackson in [facility] Facility:[facility] Start: 09-28-2024 End: 09-28-2024 ambulatory Nela Alatorre [employer]EDGE WORKERAlvinC Work Phone: -Laboratory [facility] Start: 09-28-2024 End: 09-28-2024 Patient encounter procedure [facility] Nela Alatorre NP-Leonor -Laboratory [facility] Start: 09-28-2024 End: 09-28-2024 ambulatory Nelacirilo Alatorre VSC Facility:[facility] Start: 09-20-2024 End: 09-20-2024 ambulatory Nela Karthikeyan [employer]EDGE WORKER-C Work Phone: -[facility]atory [facility] Start: 09-20-2024 End: 09-20-2024 Patient encounter procedure VS Nela Karthikeyan STRAIGHTEDGE WORKER-C -[facility] Start: 09-20-2024 End: 09-20-2024 ambulatory Nela Karthikeyan VSC Facility:[facility] Start: 09-18-2024 End: 09-18-2024 Patient encounter procedure Stephenie CALDERÓN -[facility] Work Phone: Start: 09-18-2024 End: 09-18-2024 ambulatory Nela Karthikeyan STRAIGHTEDGE WORKER-C Work Phone: -[facility] Start: 08-15-2024 End: 08-15-2024 ambulatory Nela Alatorre STRAIGHTEDGE WORKER-C Work Phone: [facility] Start: 08-15-2024 End: 08-15-2024 Patient encounter procedure Stephenie CALDERÓN -[facility] Work Phone: Start: 08-15-2024 End: 08-15-2024 ambulatory Stephenie Baez [facility] Start: 08-09-2024 ambulatory Stephenie Baez Facility:[facility] Start: 07-31-2024 End: 07-31-[address] Juvencio Harris MD -[facility] Start: 07-31-2024 End: 07-31-2024 ambulatory Nela Karthikeyan STRAIGHTEDGE WORKER-C Work Phone: [facility] Work Phone: Start: 06-20-2024 End: 06-20-2024 ambulatory Nela Karthikeyan STRAIGHTEDGE WORKER-C Work Phone: [facility] Work Phone: Start: 06-20-2024 End: 06-20-2024 Patient encounter procedure [facility] Nela Alatorre STRAIGHTEDGE WORKER-C -Labor[facility] Start: 06-20-2024 End: 06-20-2024 ambulatory Nela Alatorre [facility] Facility:[facility] Start: 05-05-2024 End: 05-05-2024 ambulatory Nela Alatorre STRAIGHTEDGE WORKER-C Work Phone: [facility] Work Phone: Start: 05-05-2024 End: 05-05-2024 Patient encounter procedure [facility] Nela Alatorre STRAIGHTEDGE WORKER-C -Cardiovascular Services Work Phone: Start: 05-05-2024 End: 05-05-2024 ambulatory Nela Alatorre [facility] Facility:[facility] Start: 03-29-2024 ambulatory Nela Jackson in [facility] Facility:[facility] Start: 03-29-2024 Non-patient / Non-visit Dr. Gina Arellano MD -[facility] Start: 03-29-2024 End: 03-29-2024 Patient encounter procedure [facility] Nela Karthikeyan STRAIGHTEDGE WORKER-C -Pulmonary Services/Neurology Work Phone: Start: 03-29-2024 End: 03-29-2024 ambulatory Nela Alatorre [facility] Facility:[facility] Start: 01-26-2024 End: 01-26-2024 Subsequent hospital visit by physician [facility] Work Phone: Radiology Start: 01-26-2024 End: 01-26-2024 ambulatory [facility] Facility:[facility] Start: 01-25-2024 ambulatory Nela Herrmanndel in [facility] Facility:[facility] Start: 11-05-2023 End: 11-05-2023 Subsequent hospital visit by physician [facility] Work Phone: Nuclear Medicine Start: 11-05-2023 End: 11-05-2023 ambulatory MINISTERIO ARIZMENDI Facility:[facility] Start: 11-04-2023 End: 11-04-2023 [facility] Start: 10-12-2023 End: 10-12-2023 Telemedicine consultation with patient Elena Cantor APRN.LOG PEELER Work Phone: Telemedicine Comment on above: Viral upper respirat ory tract infection with cough (Primary Dx) Start: 10-12-2023 End: 10-12-2023 ambulatory [facility] Facility:[facility] Start: 10-05-2023 End: 10-05-2023 ambulatory [facility] Facility:[facility] Start: 10-05-2023 End: 10-05-2023 Office outpatient visit 25 minutes Ministerio Arizmendi MD Work Phone: [facility] [place] Comment on above: Lower abdominal pain (Primary [...] Findings Follow-Up Start: 07-15-2023 End: 07-15-2023 ambulatory [facility] Facility:[facility] Start: 07-15-2023 End: 07-15-2023 [facility] Comment on above: Lower abdominal pain [R10.30] Start: 07-07-2023 End: 07-07-2023 ambulatory CATRINA BECKMAN Facility:[facility] Start: 07-01-2023 End: 07-01-2023 ambulatory MINISTERIO ARIZMENDI Facility:[facility] Start: 07-01-2023 End: 07-01-2023 Office outpatient visit 25 minutes Catrina Beckman APRN.CNP Work Phone: [facility] [place] Comment on above: Lower abdominal pain (Primary Dx); Bloating; Oakes's esophagus without dysplasia; Hemorrhoids, unspecified hemorrhoid type; Irritable bowel syndrome with constipation; Bright red blood per rectum Start: 06-11-2023 End: 06-11-2023 ambulatory Ministerio Arizmendi MD Work Phone: [facility] Comment on above: Generalized abdomina l pain (Primary Dx); Low back pain, unspecified back pain laterality, unspecified chronicity, unspecified whether sciatica present; Bright red blood per rectum; Hemorrhoids, unspecified hemorrhoid type; Constipation, unspecified constipation type; Oakes's esophagus without dysplasia Start: 06-11-2023 End: 06-11-2023 Telemedicine consultation with patient Ministerio Arizmendi MD Work Phone: [facility] Start: 05-31-2023 Non-patient / Non-visit [facility] Work Phone: [facility] Start: 05-31-2023 End: 05-31-2023 ambulatory [facility] Work Phone: [facility] Work Phone: Start: 05-31-2023 End: 05-31-2023 Patient encounter procedure [facility] Work Phone: [facility]-Cardiovascular Services Work Phone: Start: 12-15-2022 End: 12-15-2022 ambulatory [facility] Work Phone: Start: 12-15-2022 End: 12-15-2022 Patient encounter procedure [facility]-Laboratory Work Phone: Start: 08-13-2022 End: 08-13-2022 ambulatory [facility] Work Phone: Start: 08-13-2022 End: 08-13-2022 Patient encounter procedure [facility]-Outpatient Breast Imaging Work Phone: Start: 03-26-2022 End: 03-26-2022 Patient encounter procedure [facility] Work Phone: [facility]-Pulmonary Medicine [facility] Start: 03-25-2022 Non-patient / Non-visit [facility] Work Phone: [facility] Start: 03-25-2022 End: 03-25-2022 Admission to same day surgery center [facility] Work Phone: [facility]-Endoscopy Start: 03-25-2022 End: 03-25-2022 ambulatory [facility] Work Phone: [facility] Work Phone: Start: 03-23-2022 End: 03-23-2022 ambulatory [facility] Work Phone: [facility] Work Phone: Start: 03-23-2022 End: 03-23-2022 Patient encounter procedure [facility] Work Phone: [facility]-Laboratory Start: 03-04-2022 End: 03-04-2022 Patient encounter procedure [facility] Work Phone: [facility] Start: 02-18-2022 End: 02-18-2022 Patient encounter procedure [facility] Work Phone: [facility] Start: 02-04-2022 End: 02-04-2022 Emergency department patient visit [facility]-Emergency Department Start: 08-12-2021 End: 08-12-2021 Patient encounter procedure [employer] WORKER-C Heidy Gomez Work Phone: [facility]-Pulmonary Services/Neurology Start: 07-18-2021 End: 07-18-2021 Patient encounter procedure STRAIGHTEDGE WORKER-C Heidy Gomez Work Phone: [facility] Start: 07-10-2021 End: 07-10-2021 Patient encounter procedure [facility] Work Phone: [facility]-Laboratory Start: 06-27-2021 End: 06-27-2021 Patient encounter procedure [facility] Work Phone: [facility]-Laboratory Start: 04-03-2021 Non-patient / Non-visit [facility] Work Phone: [facility] Start: 04-03-2021 End: 04-03-2021 Admission to same day surgery center [facility] Work Phone: [facility]-Endoscopy Start: 05-22-2015 Patient encounter status Ministerio Arizmendi MD Work Phone: [facility] Procedures Date Procedure Procedure Detail Performing Clinician Start: 08-15-2024 MRI of lumbar spine Nela Alatorre STRAIGHTEDGE WORKER-C Work Phone: Start: 07-31-2024 X-ray of lumbosacral spine Nela poe STRA[employer]EDGE WORKER-C Work Phone: Start: 06-20-2024 Vitamin D, 25-hydroxy measurement Abhi Alatorre STRAIGHTEDGE WORKER-C Work Phone: Comment on above: Vitamin D StatusDeficiency: <20 ng/mL (5 0nmol/L)Insufficiency: 20-30 ng/mL (50-75 nmol/L)Sufficiency: 30-100 ng/mL (75-250 nmol/L)Toxicity: >100 ng/mL (>250 nmol/L) Start: 11-05-2023 Gastric emptying imaging study [facility] Start: 11-05-2023 Lipid 1996 panel - Serum or Plasma [facility] Work Phone: Start: 08-13-2022 Screening mammography Start: 03-25-2022 Esophagogastroduodenoscopy [facility] Work Phone: Start: 02-04-2022 Plain chest X-ray Start: 07-10-2021 Plain chest X-ray [facility] Work Phone: Start: 04-01-2021 SARS-CoV-2 Antigen (Rapid) [facility] Work Phone: Start: 09-05-2016 Lipid 1996 panel - Serum or Plasma Nicholas Arizmendi MD Work Phone: Respiratory syncytia l virus antigen assay Respiratory syncytia l virus antigen assay [facility] Work Phone: SARS-CoV-2 & FLU Antigen (Rapid) SARS-CoV-2 & FLU Antigen (Rapid) [facility] Work Phone: Plan of Treatment Date Care Activity Detail Author Start: 2033 RSV Vaccine (1 - 1-dose 75+ series) RSV Vaccine (1 - 1-dose 75+ series) [facility] Start: 11-04-2028 Lipid panel Lipid Screening [facility] Start: 01-25-2027 Diabetes Screening Diabetes Screening [facility] Start: 11-04-2026 Diabetes Screening Diabetes Screening [facility] Start: 10-04-2024 BP Controlled (<130/80) BP Controlled (<130/80) [facility] Start: 07-31-2024 X-ray of lumbosacral spine L/S Spine Bending Flex/Ext [facility] Start: 07-31-2024 XR Spine Lumbar and Sacrum Views [facility] Start: 02-18-2024 End: 02-18-2024 Follow-up encounter 02/18/2024 10:00 AM [facility] [address] [facility] [address] Ministerio Arizmendi MD [address] [place], [place] [id number] 4 month follow up office visit after gastric emptying, ibs with constiaption,dyspepsia,b loating lower abdominal pain [facility] Comment on above: 4 month follow up office visit after gas tric emptying, ibs with constiaption,dyspepsia,bloating lower abdominal pain Start: 10-14-2023 End: 10-14-2023 Patient encounter procedure 10/14/2023 8:00 AM EDT Appointment Nuclear Medicine [address] [place], [place] [id number] Dyspepsia [R10.13]; Bloating [R14.0] [facility] Comment on above: Dyspepsia [R10.13]; Bloating [R14.0] Start: 10-10-2023 Covid-19 Vaccine ( season) Covid-19 Vaccine () [facility] Start: 10-10-2023 Covid-19 Vaccine () Covid-19 Vaccine () [facility] Start: 10-10-2023 Influenza vaccination [facility] Start: 10-05-2023 End: 01-04-2024 CBC W Auto Differential panel - Blood COMPLETE BLOOD COUNT AND DIFFERENTIAL Lab Routine Lower abdominal pain Irritable bowel syndrome with constipation Expected: 10/05/2023, Expires: 01/04/2024 [facility] Comment on above: Expected: 10/05/2023, Expires: Start: 10-05-2023 End: 01-04-2024 CELIAC SCREEN WITH REFLEX CELIAC SCREEN WITH REFLEX Lab Routine Lower abdominal pain Dyspepsia Bloating Expected: 10/05/2023, Expires: 01/04/2024 [facility] Comment on above: Expected: 10/05/2023, Expires: Start: 10-05-2023 End: 01-04-2024 Comprehensive metabolic 2000 panel - Serum or Plasma COMPREHENSIVE METABOLIC PANEL Lab Routine Lower abdominal pain Expected: 10/05/2023, Expires: 01/04/2024 [facility] Comment on above: Expected: 10/05/2023, Expires: 4 Start: 10-05-2023 End: 01-04-2024 Thyrotropin [Units/volume] in Serum or Plasma THYROID STIMULATING HORMONE Lab Routine Irritable bowel syndrome with constipation Dyspepsia Bloating Expected: 10/05/2023, Expires: 01/04/2024 [facility] Comment on above: Expected: 10/05/2023, Expires: 4 Start: 10-05-2023 End: 10-05-2023 Patient encounter procedure 10/05/2023 1:30 PM EDT Office Visit [facility] [id number] Ministerio Arizmendi MD [address] [place] [address] 3 month follow up office visit, lower abdominal pain,bloating [facility] Comment on above: 3 month follow up office visit, lower ab dominal pain,bloating Start: 07-15-2023 End: 07-15-2023 Patient encounter procedure 07/15/2023 10:40 AM EDT Appointment Cat Scan [address] [place] [address] CT ABD/PEL W IVCON Cat Scan Comment on above: CT ABD/PEL W IVCON Start: 07-01-2023 End: 09-30-2023 CREATININE BLD CREATININE BLD Lab Routine Lower abdominal pain Bloating Expected: 07/01/2023, Expires: 09/30/2023 [facility] Comment on above: Expected: 07/01/2023, Expires: Start: 06-15-2023 End: 06-15-2023 Patient encounter procedure 06/15/2023 3:30 PM EDT Office Visit [facility] [address] [facility] [facility] [place] [phone] Catrina Beckman APRN.LOG PEELER [address] [address] Follow up office appointment needed MALLORY per Dr. Arizmendi, severe abdominal pain needs in office exam. [facility] [place] Comment on above: Follow up office appointment needed MALLORY per Dr. Arizmendi, severe abdominal pain needs in office exam. Start: 2023 Advance Directive Discussion Advance Directive Discussion [facility] Start: 2023 Screening for osteoporosis Bone Density Screening [facility] Start: 02-08-2023 Behavioral Health Screening Behavioral Health Screening [facility] Start: 02-08-2023 zzBehavioral Health Screening zzBehavioral Health Screening [facility] Start: 10-09-2022 Covid-19 Vaccine ( season) Covid-19 Vaccine ( season) [facility] Start: 03-25-2022 Patient discharge [facility] Start: 03-23-2022 Vitamin D, 1,25-dihydroxy measurement [facility] Start: 02-04-2022 [facility] Start: 09-05-2021 Lipid panel Lipid Screening [facility] Start: 04-03-2021 Colonoscopy w/biopsy single/multiple COLONOSCOPY AND BIOPSY [facility] Work Phone: Start: 09-06-2019 Diabetes Screening Diabetes Screening [facility] Start: 2018 RSV Vaccine (1 - 1-dose 60+ series) RSV Vaccine (1 - 1-dose 60+ series) [facility] Start: 06-08-2016 Urine microalbumin profile DTaP,Tdap,Td Vaccine (2 - Td or Tdap) [facility] Start: 05-05-2014 Screening for malignant neoplasm of breast Mammogram Screening [facility] Start: 2008 Shingrix Vaccine (1 of 2) Shingrix Vaccine (1 of 2) [facility] Start: 2003 Screening for malignant neoplasm of colon [facility] Start: 1976 Annual PCP Team Chronic Disease Visit Annual PCP Team Chronic Disease Visit [facility] Start: 1976 Anxiety Screening Anxiety Screening [facility] Start: 1976 BP Controlled (<130/80) BP Controlled (<130/80) [facility] Start: 1978 Depression Screening Depression Screening [facility] Start: 1976 Hepatitis C screening Hepatitis C Screening [facility] Start: 1976 HIV screening HIV Screening [facility] End: 10-04-2024 ADULT [place] [facility] ADULT [place] ANORECTAL MANOM[facility] Endoscopy Routine Irritable bowel syndrome with constipation 1 Occurrences starting 10/05/2023 until 10/04/2024 [facility] Comment on above: 1 Occurrences starting 10/05/2023 until 10/04/2024 CBC W Auto Differential panel - Blood [facility] End: 07-30-2024 CT Abdomen and Pelvis W contrast IV CT ABD/PEL W IVCON Radiology Routine Lower abdominal pain Bloating 1 Occurrences starting 07/01/2023 until 07/30/2024 [facility] Work Phone: Comment on above: 1 Occurrences starting 07/01/2023 until 07/30/2024 CT Abdomen and Pelvi s W contrast IV CT ABD/PEL W IVCON Radiology Routine Lower abdominal pain Bloating 07/15/2023 11:55 AM EDT [facility] Work Phone: CT Chest [facility] Exercise tolerance test [facility] IgE [Units/volume] i n Serum or Plasma [facility] Inhalation challenge test report Document --W methacholine inhaled [facility] End: 11-03-2024 NM Stomach Views for gastric emptying solid phase W radionuclide PO NM GASTRIC EMPTYING SOLID Radiology Routine Dyspepsia Bloating 1 Occurrences starting 10/05/2023 until 11/03/2024 [facility] Work Phone: Comment on above: 1 Occurrences starting 10/05/2023 until 11/03/2024 Patient Education Acute Bronchitis [facility] Work Phone: Patient referral [facility] Work Phone: [facility] Immunizations Immunization Date Immunization Notes Care Provider [facility] 06-08-2006 tetanus toxoid, redu leelee diphtheria toxoid, and acellular pertussis vaccine, adsorbed Ministerio Arizmendi MD Work Phone: [facility] Payers Date Payer Category Payer Self-pay [id number] 2023 Medicare MEDICARE MEDICAR E A AND B [id number] 2023-Present [phone] [place] [address] Medicare [id number] 2023 Medicare [id number] 2017 Medicaid MEDICAID [facility] MEDICAID [id number] 2017-Present [phone] [address] [place] [address] Medicaid [id number] 2017 Unknown [id number] 2014 Unknown [id number] Unknown [id number] Unknown [id number] [id number] Unknown [id number] [id number] Unknown [id number] 2.16.840.1.472057.3.579.2.462 Unknown [id number] 2.16.840.1.297440.3.579.2.462 Unknown [id number] 2.16.840.1.181547.3.579.2.462 Unknown [id number] 2.16.840.1.875372.3.579.2.462 Unknown [id number] 2.16.840.1.415037.3.579.2.462 Unknown [id number] 2.16.840.1.828545.3.579.2.462 Unknown [id number] 2.16.840.1.410701.3.579.2.462 Unknown [id number] 2.16.840.1.267444.3.579.2.462 Unknown [id number] 2.16.840.1.663715.3.579.2.462 Unknown [id number] 2.16.840.1.366275.3.579.2.462 Unknown [id number] [id number] Unknown [id number] Social History Date Type Detail Facility Start: 04-03-2021 End: 03-26-2022 Tobacco smoking status NHIS Unknown if ever smoked [facility] Start: 09-13-2017 Non-smoker [facility] Start: 1960 Sex Assigned At Female [facility] Start: 03-27-2010 End: 03-26-2022 Tobacco smoking status NHIS Ex-smoker [facility] Work Phone: End: 03-27-2006 History of tobacco use Current smoker [facility] End: 03-27-2006 History of tobacco use Cigarette Smoker [facility] Start: 03-27-2010 End: 10-05-2023 Tobacco use and exposure Smokeless tobacco non-user [facility] Start: 09-24-2021 End: 10-12-2023 Alcohol intake Current non-drinker of alcohol (finding) [facility] Start: 09-24-2021 End: 06-11-2023 Alcohol intake [facility] Start: 06-11-2023 End: 10-12-2023 Area Deprivation Index [facility] National Score (1-100), lower number is lower risk 91 [facility] Start: 1960 Sex Assigned At Not on file [facility] Start: 05-10-2024 Sex Female (finding) [facility] Start: 07-31-2024 Tobacco smoking stat us NHIS Smokes tobacco daily (finding) [facility] NEGATED: Highlighted row [facility] Medical Equipment Procedure Code Equipment Code Equipment [...] Assessment Result Facility 03-25-2022 Cognitive function Voice/Name [facility] Work Phone: 04-03-2021 Cognitive function Voice/Name [facility] Work Phone: Clinical Notes 02-04-2022 to 07-31-2024 Note Date & Type Note Facility 07-31-2024 Evaluation note Diagnosis Onset Date Resolution Lumbar stenosis with neurogenic claudication acute July 1:17pm Spondylolisthesis at L4-L5 level acute July 31, 2024 1:17pm Osteopenia noneactive July 31 1:17pm [facility] Work Phone: 1(898) 162-839506-23-2025 Evaluation note* Diagnosis Onset Date Resolution Status Admit Date Lumbar stenosis with neuroge ulisses claudication acute July 31, 2024 1:17pm Spondylolisthesis at L4-L5 level acu te July 31, 2024 1:17pm Osteopenia noneactive July 31 1:17pm Spondylolisthesis at L4-L5 level acu te September 18, 2024 10:31am Lumbar radiculopathy noneactive Augu 2024 10:31am [facility] Work Phone: 1(367) 393-505409-27-2024 History of Present illness Narrative* Av Rand, [...] PATIENT PRESENTS WITH AN IMPLANTABLE OR ATTACHED AGING ROOM HAND: No CREATININE: Creatinine Date Value Ref Range [...] [address] PERFORMED: No IV SITE: [place] only - not applicable, oral or physician administered agents given to patient POST EXAM PIV STATUS: Not applicable PROCEDURE TYPE: NM GET: 1.0 mCi Tc99m SULFUR COLLOID was administered orally via 4 ounces of Egg Beaters,2 pieces of toast, 1 ounce of jelly with 8 ounces of water orally ADMINISTRATION TIME: 0815 PATIENT DISCHARGED TO: Ambulatory patient, left [place] department area. A Diagnostic radioactive procedure has taken place, with no further precautions necessary other than routine body substance precautions. More information regarding radiation safety can be found usingthis link: [email or web address] 20Diagnostic%20Nuclear%20Medicine%20Procedures.pdf SIGNATURE: RT Faye(R) PATIENT NAME: Joan Vega DATE: November 05, 2023 TIME: 8:17 AM PAGER/CONTACT #: documented in this encounterA[facility] NoteHNO ID: [id number] Author: AV RAND RT(R) Service: Nuclear Medicine [...] PATIENT PRESENTS WITH AN IMPLANTABLE OR ATTACHED AGING ROOM HAND: No CREATININE: Creatinine Date Value Ref Range [...] 0815 PATIENT DISCHARGED TO: Ambulatory patient, left [place] department area. A Diagnostic radioactive procedure has taken place, with no further precautions necessary other than routine body substance precautions. More information regarding radiation safety can be found using this link: [email or web address]-% 20Diagnostic%20Nuclear%20Medicine%20Procedures.pdf SIGNATURE: RT Faye(R) PATIENT NAME: Joan Vega DATE: November 05, 2023 TIME: 8:17 AM PAGER/CONTACT #:[facility]09-03-2024 Instructions * Patient Instructions* Elena Cantor APRN.LOG PEELER - 10/12/2023 3:13 PM EDT Images from [...] or previously boiled and cooled water per carbonizer's instructions). Would recommend bringing the solution up [...] outside corner of the right eye. 5. [place] one spray only. Take a sniff as [...] days. Most often you should use the evyx-atd-zixjjlz symptomatic treatment/s that your health care provider [...] Sinusitis Patient Education What is Sinusitis? Sinusitis [jcjy-wqs-sqkp-tis] is inflammation of the sinuses or swelling [...] help. You may be instructed to take scdw-kek-ygeawtw medications for symptoms. including fever reducers acetaminophen or ibuprofen, nasal saline spray, cough and cold preparations and decongestants as prescribed by the physician, nurse practitioner or physician paraprofessional education assistant. Self-Care and Prevention: Rest Fluids for hydration Good hand washing Humidifier Avoid smoking and exposure to second hand smoke Avoid sick contacts documented in this encounterA[facility]-2024 NoteHNO ID: [id number] Author: ELENA CANTOR APRN.KRITSAN Service: ? Author Type: Nurse Practitioner Type: Progress Notes Filed: 10/12/2023 15:14 Note Text: Telemedicine Evaluation for an Illness MyChart Zoom Video Visit was used for evaluation of this patient. I have communicated my name and active licensure. The patient's identity and physical location were verified at the time of this visit. Either the patient or their legal administrative representative has been informed of the risks and [...] continued symptomatic treatments and monitoring. Elena Cantor APRN.CNP - Discussed symptom monitoring and supportive care - Red flag symptoms requiring follow up discussed[facility] History of Present illness Narrative* Elena Cantor APRN.KRISTAN - 10/12/2023 3:06 PM EDT Telemedicine Evaluation for an Illness MyChart Zoom Video Visit was used for evaluation of this patient. I have communicated my name and active licensure. The patient's identity and physical location wereverified at the time of this visit. Either the patient or their legal administrative representative has been informed of the risks and benefits of -- and alternatives to -- treatment through a remote evaluation andconsents to proceed with the evaluation remotely. SUBJECTIVE [...] requiring follow up discussed documented in this encounterA[facility]08-[facility]-2024 NoteHNO ID: [id number] Author: MINISTERIO ARIZMENDI MD Service: ? Author [...] oz (97.2kg) BMI 35.64 (more content not included)...[facility]08-27-2024 History of Present illness Narrative* Ministerio Arizmendi [...] Visbiome, a prescription probiotic, if affordable. Ministerio Santaan MD DATE: 10/05/23 TIME: 1:34 PM * [...] 10/05/23 TIME: 1:37 PM documented in this encounterAultman [facility]08-27-2024 NoteHNO ID: [id number] Author: HIPOLITO WATSON MA Service: ? Author Type: Marine Operations Coordinator Type: Progress Notes Filed: 10/05/2023 14:43 Note Text: CHIEF COMPLAINT: Patient presents with: Recheck: Lower abdominal pain, bloating, constipation- started a probiotic and helps a little bit. Tried Ibsrela but ran out only took samples. MUSHTAQ Vega is a 63 year old female [...] Ministerio Santana MD DATE: 10/05/23 TIME: 1:37 [facility]06-06-2024 History of Present illness Narrative* Chikis Dave, RT(R) - 07/15/2023 10:40 AM EDT Radiology [...] PATIENT PRESENTS WITH AN IMPLANTABLE OR ATTACHED AGING ROOM HAND: No ALLERGIES: Reviewed and unchanged CONTRAST ALLERGY: [...] 2023 TIME: 2:49 PM documented in this encounterA[facility]man [facility]06-06-2024 NoteHNO ID: [id number] Author: CHIKIS DAVE RT (R) Service: ? Author Type: Public Administration Teacher Type: Progress Notes Filed: 07/15/2023 14:50 Note [...] PATIENT PRESENTS WITH AN IMPLANTABLE OR ATTACHED AGING ROOM HAND: No ALLERGIES: Reviewed and unchanged CONTRAST ALLERGY: [...] Vega DATE: July 15, 2023 TIME: 2:49 [facility]05-23-2024 Instructions* Patient Instructions* Catrina Beckman APRN.CNP - 07/01/2023 10:09 AM EDT - Start OTC probiotic with at least 15 billion live cultures, 10+ strains - Drink around 64 oz water daily - Use squatty potty with BM's - Trial Ibsrela 50mg twice a day with food. Message or call with an update. documented in this encounterAultman [facility]05-23-2024 NoteHNO ID: [id number] Author: CATRINA BECKMAN APRN.KRISTAN Service: ? Author Type: Nurse Practitioner [...] otherwise normal colonoscopy. From Dr. Arizmendi's HPI 5/3/24: She has bloating and constipation Feels like [...] There is no guarding (more content not included)...[facility]05-23-2024 History of Present illness Narrative* Catrina Beckman, 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 - 07/01/2023 9:41 AM EDT CHIEF COMPLAINT: [...] 01, 2023 10:20 AM documented in this encounterAultman [facility]05-03-2024 NoteHNO ID: [id number] Author: MINISTERIO ARIZMENDI MD Service: ? Author Type: Physician Type: Progress Notes Filed: 06/11/2023 12:05 Note Text: VIRTUAL VISIT PROGRESS NOTE This is a virtual visit using [employer] Zoom Video Visit. It required patient-provider interaction for the medical decision making as documented below. I have communicated my name and active licensure. The patient's identity and physical location were verified at the time of this visit. Either the patient or their legal administrative representative has been informed of the risks and [...] from 03/2022 per pa (more content not included)...[facility]05-03-2024 History of Present illness Narrative* Ministerio Arizmendi MD - 06/11/2023 11:33 AM EDT VIRTUAL VISIT PROGRESS NOTE This is a virtual visit using [employer] Video Visit. It required patient- provider interaction for the medical decision making as documented below. I have communicated my name and active licensure. The patient's identity and physical location wereverified at the time of this visit. Either the patient or their legal administrative representative has been informed of the risks and [...] which included preparing to see the patient, rdzr-ro-hmqe patient care, completing clinical documentation, counseling and educating the patient/family/caregiver, communicating results to the patient/family/caregiver, and care coordination (not separately reported) Ministerio Santana MD documented in this encounterA[facility]man [facility]02-15-2023 History and physical note Author Dr. Kilpatrick [facility] March 25, 2022 1:30pm Note Date/Time March 25, 2022 1:30pm [facility] Medical Records Department [address] [place] [id number] History & Physical Exam 03/25/22 1327 MR#: [id number] Acct: [id number] Name: JOAN VEGA Rep #:[id number] : 1960 62 From: [address] PCP: [facility] atus:[facility] Location: [place] [address] History and Physical Date of Admission: 03/25/22 Date of Service:? 03/04/22 MR#: [id number] Acct: [id number] Name:? JOAN VEGA Rep #: [id number] : 1960 ? ? Provider: Dr. Av Kilpatrick MD Age/Sex:? 61/F ? ? Location: [facility] Status: Signed with Addenda ADDENDUM by Dr. [...] 25 mg rectal suppository (Anusol-HC) 25 mg CA BID #24 ea 02/18/22 [Rx Confirmed 03/04/22] [...] 25 mg rectal suppository (Anusol-HC) 25 mg CA BID #24 ea 02/18/22 [Rx Confirmed 03/04/22] [...] confirms that she remains free of tobacco sinceDecemb 1 and continues to use a nicotine [...] been suppressed.? She notesa recent trip to [place] beginning in January.? Following this trip she [...] (if applicable): CC: Dr. Av Kilpatrick MD; [facility]~ Signed [facility] Work Phone: 1(352) 316-571702-15-2023 Procedure [facility] 03-25-2022 Procedure [facility]02-15-2023 Procedure note [facility]02-15-2023 Procedure [facility] 02-04-2022 Hospital Discharge instructions Additional Instructions You can use your albuterol more than what you have been told, you can try doing 4 puffs every 2-4 hours, inhale deeply and see if that helps if needed.[facility] Work Phone: evaluation note* Diagnosis Onset Date Resolution Status Encounter for colonoscopy du e to history of colonic polyp acute [facility] Work Phone: Evaluation note* Diagnosis Onset Date Resolution Status Essential hypertension chron ic Hyperlipidemia chronic [facility] Work Phone: Evaluation noteNo assessment information available [facility] Work Phone: evaluation note* Diagnosis Onset Date Resolution Status Hemorrhoids acute Oakes's esophagus determined by endoscopy chronic Hemorrhoids acute Oakes's esophagus determined by endoscopy chronic [facility] Work Phone: Evaluation note* Diagnosis Onset Date Resolution Status Hemorrhoids acute Oakes's esophagus determined by endoscopy chronic Hemorrhoids acute Oakes's esophagus determined by endoscopy chronic Cough acute Nicotine dependence, cigarettes, in remission acute [facility] Work Phone: Evaluation note* Diagnosis Generalized abdominal pain- Primary Abdominal pain, generalized Low back pain, unspecified back pain laterality, unspecified chronicity, unspecified whether sciatica present Bright red blood per rectum Hemorrhage of rectum and anus Hemorrhoids, unspecified hemorrhoid type Constipation, unspecified constipation type Oakes's esophagus without dysplasia Oakes's esophagus [facility] Diagnosis Lower abdominal pain- Primary Abdominal pain, other specified site Bloating Flatulence, eructation, and gas pain Oakes's esophagus without dysplasia Oakes's esophagus Hemorrhoids, unspecified hemorrhoid type Irritable bowel syndrome with constipation Irritable bowel syndrome Bright red blood per rectum Hemorrhage of rectum and anus [facility] Diagnosis Lower abdominal pain Abdominal pain, other specified site Bloating Flatulence, eructation, and gas pain documented in this encounter [facility] note* Diagnosis Abnormal finding of diagnostic imaging- Primary Other nonspecific (abnormal) findings on radiological and other examinations of body structure documented in this encounter [facility] note* Diagnosis Abnormal finding of diagnostic imaging- Primary Other nonspecific (abnormal) findings on radiological and other examinations of body structure documented in this encounter [facility] note* Diagnosis Lower abdominal pain- Primary Abdominal [...] and gas pain documented in this encounter [facility] note* Diagnosis Viral upper respiratory tract infection with cough- Primary Acute upper respiratory infections of unspecified site documented in this encounter [facility] for referral (narrative)* Outpatient Procedure (Routine) - New Request Specialty Diagnoses / Procedures Referred By Miesha bell Referred To Contact [facility] Diagnoses Irritable bowel syndrome with constipation Procedures [facility] ANORECTAL MANOMETRY ANORECTAL MANOMETRY Ministerio Arizmendi MD [address] [place] [address] [facility] [address] [place] [address] Referral ID Status Reason Start Date Expiration Date Visits Requested Visits Authorized [id number] New Request Auto-Generat ed Referral 10/05/2023 10/04/2024 1 1 * Diagnostic Procedure Only (Routine) - Authorized Specialty Diagnoses / Procedures Referred By Miesha bell Referred To Contact [facility] Diagnoses Dyspepsia Bloating Procedures NM GASTRIC EMPTYING SOLID GASTRIC EMPTYING STUDY Ministerio Arizmendi MD [address] [place] [address] [facility] [address] [place] [address] Referral ID Status Reason Start Date Expiration Date Visits Requested Visits Authorized [id number] Authorized Auto-Generat ed Referral 10/05/2023 11/03/2024 1 1 [facility] for referral (narrative)No reason for referral information availableWOhio[facility] Work Phone: Chief Complaint and Reason for [...] Will No April 01 11:13am Power of Director Investor Relations No April 01, 2021 11:13am Advance Directive Response Recorded Date/ Time Living Will No February 04 10:51am Power of Director Investor Relations No February 04, 2022 10:51am Advance Directive Response Recorded Date/ Time Name of Medical Power of Director Investor Relations DAUGHTER 2022 1:34pm Living Will Yes March 20 023 1:34pm Power of Director Investor Relations Yes 2022 1:34pm Advance Directive Response Recorded Date/ Time Living Will Yes March 20 023 2:34pm Power of Director Investor Relations Yes 2022 2:34pm Advance Directive Response Recorded Date/ Time Living Will Yes March 20 1:34pm Power of Director Investor Relations Yes 2022 1:34pm Summary Purpose Reason for Referral Specialty Diagnoses / Procedures Referred By Miesha t Referred To Contact CT IMAGING Diagnoses Lower abdominal pain Bloating Procedures CT ABD/PEL W IVCON CT ABD & PELVIS W/CONTRAST Catrina Beckman, 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 [address] [place] [address] [place] [id number] Referral ID Status Reason Start Date Expiration Date Visits Requested Visits Authorized [id number] Authorized Auto-Generat ed Referral 07/01/2023 07/30/2024 1 [...] Team Status: Active Member Role Status Dates [facility] Family Provider Active [facility] Primary Care Provider A ctive Team Status: Inactive Member Role Status Dates [facility] Primary Care Provider, Referring Provider Active Dr. Av Kilpatrick MD Attending Provider Active Team Status: Active Member Role Status Dates [facility] Primary Care Provider, Referring Provider Active Dr. Av Kilpatrick MD Attending Provider, Other Provi alvino Active Team Status: Inactive Member Role Status Dates [facility] Primary Care Provider A ctive Dr. Margarito Emmanuel MD Attending Provider, Emergency Provider Active Team Status: Active Member Role Status Dates [facility] Primary Care Provider A ctive Nela Alatorre STRAIGHTEDGE WORKER, STRAIGHTEDGE WORKER-C Attending Provider Active Team Status: Inactive Member Role Status Dates [facility] Primary Care Provider, Referring Provider Active Dr. Dmitriy Millard DO Attending Provider Active Team Status: Inactive Member Role Status Dates [facility] Primary Care Provider A ctive Nela Alatorre STRAIGHTEDGE WORKER, STRAIGHTEDGE WORKER-C Attending Provider Active Team Status: Inactive Member Role Status Dates [facility] Primary Care Provider A ctive CHIKIS CERON NP-C Attending Provider, Referring Provider Active Team Status: Inactive Member Role Status Dates [facility] Primary C are Provider, Attending Provider, Referring Provider Active Nela Alatorre STRAIGHTEDGE WORKER, STRAIGHTEDGE WORKER-C Other Provider Active Team Status: Active Member Role Status Dates [facility] Primary Care Provider A ctive Dr. Freedom Hawkins MD Attending Provider Active Team Status: Inactive Member Role Status Dates [facility] Primary Care Provider A ctive Nela Alatorre VSC, STRAIGHTEDGE WORKER-C Attending Provider Active Nela Alatorre STRAIGHTEDGE WORKER, STRAIGHTEDGE WORKER-C Referring Provider Active Block Layer Relationship Specialty Start Date End Date Nela Alatorre NP [address] [place] [id number] Referring Family Medicine 05/26/23 Block Layer Relationship Specialty Start Date End Date [facility] [address] [place] [id number] PCP - General 06/15/23 Nela Alatorre NP [address] [place] [address] Referring Family Medicine 05/26/23 Block Layer Relationship Specialty Start Date End Date [facility] [address] [place] [address] PCP - General 06/15/23 Nela Alatorre NP [address] [place] [address] Referring Family Medicine 05/26/23 Block Layer Relationship Specialty Start Date End Date [facility] [address] [place] [address] PCP - General 06/15/23 Nela Alatorre NP [address] [facility] [place] [phone] Referring Family Medicine 05/26/23 Block Layer Relationship Specialty Start Date End [facility] [address] [facility] [place] [phone] PCP - General 06/15/23 Nela Alatorre NP [address] [facility] [place] [phone] Referring Family Medicine 05/26/23 Block Layer Relationship Specialty Start Date End Date [facility] [address] [facility] [place] [address] PCP - General 06/15/23 Nela Alatorre NP [address] [facility] [place] [phone] Referring Family Medicine 05/26/23 Block Layer Relationship Specialty Start Date End Date [facility] [address] [facility] [place] [phone] PCP - General 06/15/23 Nela Alatorre NP [address] [facility] [place] [phone] Referring Family Medicine 05/26/23 Block Layer Relationship Specialty Start Date End Date [facility] [address] [facility] [place] [phone] PCP - General 06/15/23 Nela Alatorre NP [address] [facility] [place] [phone] Referring Family Medicine 05/26/23 Block Layer Relationship Specialty Start Date End Date [facility] [address] [place] [address] PCP - General 06/15/23 Nela Alatorre NP [address] [place] [address] Referring Family Medicine 05/26/23 Team Status: Active Member Role Status Dates Nela CLAY, STRAIGHTEDGE WORKER-C Primary Care Provider Activ e Team Status: Inactive Member Role Status Dates Nela CLAY, STRAIGHTEDGE WORKER-C Primary Care Provider Activ e Start: March 29, 2024 End: March 29, 2024 Nela CLAY, STRAIGHTEDGE WORKER-C Attending Provider Active Start: March 29, 2024 End: March 29, 2024 Nela CLAY, STRAIGHTEDGE WORKER-C Referring Provider Active Start: March 29, 2024 End: March 29, 2024 Team Status: Active Member Role Status Dates Nela CLAY, STRAIGHTEDGE WORKER-C Primary Care Provider Activ e Start: March 29, 2024 Nela CLAY, STRAIGHTEDGE WORKER-C Referring Provider Active Start: March 29, 2024 Nela CLAY, STRAIGHTEDGE WORKER-C Other Provider Active Start: March 29, 2024 Dr. Gina Arellano MD Attending Provider Active S tart: March 29, 2024 Team Status: Inactive Member Role Status Dates Nela CLAY, STRAIGHTEDGE WORKER-C Primary Care Provider Activ e Start: May 05, 2024 End: May 05, 2024 Nela CLAY, STRAIGHTEDGE WORKER-C Attending Provider Active Start: May 05, 2024 End: May 05, 2024 Nela CLAY, STRAIGHTEDGE WORKER-C Referring Provider Active Start: May 05, 2024 End: May 05, 2024 Team Status: Active Member Role Status Dates Dr. Jeferson Drew MD Attending Provider Active Start: May 05, 2024 Nela CLAY, STRAIGHTEDGE WORKER-C Referring Provider Active Start: May 05, 2024 Team Status: Inactive Member Role Status Dates Nela Karthikeyan VSC, STRAIGHTEDGE WORKER-C Primary Care Provider Activ e Start: June 20, 2024 End: June 20, 2024 Nela Alatorre VSC, STRAIGHTEDGE WORKER-C Attending Provider Active Start: June 20, 2024 End: June 20, 2024 Team Status: Active Member Role Status Dates Nela Alatorre VSC, STRAIGHTEDGE WORKER-C Primary Care Provider Activ e Start: July 31, 2024 Nela Alatorre VSC, STRAIGHTEDGE WORKER-C Referring Provider Active Start: July 31, 2024 KAITLYNN Monteiro Attending Provider Active Star t: July 31, 2024 Team Status: Inactive Member Role Status Dates Nela Alatorre VSC, STRAIGHTEDGE WORKER-C Primary Care Provider Activ e Start: July 31, 2024 End: July 31, 2024 Dr. Juvencio Harris MD Attending Provider Active S tart: July 31, 2024 End: July 31, 2024 Team Status: Inactive Member Role Status Dates Nela Alatorre VSC, STRAIGHTEDGE WORKER-C Primary Care Provider Activ e Start: July 31, 2024 End: July 31, 2024 Nela Alatorre VSC, STRAIGHTEDGE WORKER-C Referring Provider Active Start: July 31, 2024 End: July 31, 2024 KAITLYNN Monteiro Attending Provider Active Star t: July 31, 2024 End: July 31, 2024 Team Status: Active Member Role/Relationship Status Dates Nela Alatorre VSC, STRAIGHTEDGE WORKER-C Primary Care Provider Activ e Team Status: Inactive Member Role/Relationship Status Dates Nela Alatorre VSC, STRAIGHTEDGE WORKER-C Primary Care Provider Activ e Start: May 05, 2024 End: May 05, 2024 Nela Karthikeyan VSC, STRAIGHTEDGE WORKER-C Attending Provider Active Start: May 05, 2024 End: May 05, 2024 Nela Alatorre VSC, STRAIGHTEDGE WORKER-C Referring Provider Active Start: May 05, 2024 End: May 05, 2024 Team Status: Active Member Role/Relationship Status Dates Dr. Jeferson Drew MD Attending Provider Active Start: May 05, 2024 Nela Karthikeyan VSC, STRAIGHTEDGE WORKER-C Referring Provider Active Start: May 05, 2024 Team Status: Inactive Member Role/Relationship Status Dates Nela Karthikeyan VSC, STRAIGHTEDGE WORKER-C Primary Care Provider Activ e Start: June 20, 2024 End: June 20, 2024 Nela MENDOZAC, STRAIGHTEDGE WORKER-C Attending Provider Active Start: June 20, 2024 End: June 20, 2024 Team Status: Inactive Member Role/Relationship Status Dates Nela MENDOZAC, STRAIGHTEDGE WORKER-C Primary Care Provider Activ e Start: July 31, 2024 End: July 31, 2024 Nela MENDOZAC, STRAIGHTEDGE WORKER-C Referring Provider Active Start: July 31, 2024 End: July 31, 2024 KAITLYNN Monteiro Attending Provider Active Star t: July 31, 2024 End: July 31, 2024 Team Status: Inactive Member Role/Relationship Status Dates Nela MENDOZAC, STRAIGHTEDGE WORKER-C Primary Care Provider Activ e Start: July 31, 2024 End: July 31, 2024 Dr. Juvencio Harris MD Attending Provider Active S tart: July 31, 2024 End: July 31, 2024 Team Status: Inactive Member Role/Relationship Status Dates Nela MENDOZAC, STRAIGHTEDGE WORKER-C Primary Care Provider Activ e Start: August 15, 2024 End: August 15, 2024 KAITLYNN Monteiro Attending Provider Active Star t: August 15, 2024 End: August 15, 2024 KAITLYNN Monteiro Referring Provider Active Star t: August 15, 2024 End: August 15, 2024 Team Status: Inactive Member Role/Relationship Status Dates Nela MENDOZAC, STRAIGHTEDGE WORKER-C Primary Care Provider Activ e Start: June 20, 2024 End: June 20, 2024 Nela MENDOZAC, STRAIGHTEDGE WORKER-C Attending Provider Active Start: June 20, 2024 End: June 20, 2024 Team Status: Inactive Member Role/Relationship Status Dates Nela Alatorre VSC, STRAIGHTEDGE WORKER-C Primary Care Provider Activ e Start: July 31, 2024 End: July 31, 2024 Nela Alatorre VSC, STRAIGHTEDGE WORKER-C Referring Provider Active Start: July 31, 2024 End: July 31, 2024 KAITLYNN Monteiro Attending Provider Active Star t: July 31, 2024 End: July 31, 2024 Team Status: Inactive Member Role/Relationship Status Dates Nela MENDOZAC, STRAIGHTEDGE WORKER-C Primary Care Provider Activ e Start: July 31, 2024 End: July 31, 2024 Dr. Juvencio Harris MD Attending Provider Active S tart: July 31, 2024 End: July 31, 2024 Team Status: Inactive Member Role/Relationship Status Dates Nela MENDOZAC, STRAIGHTEDGE WORKER-C Primary Care Provider Activ e Start: August 15, 2024 End: August 15, 2024 KAITLYNN Monteiro Attending Provider Active Star t: August 15, 2024 End: August 15, 2024 KAITLYNN Monteiro Referring Provider Active Star t: August 15, 2024 End: August 15, 2024 Team Status: Inactive Member Role/Relationship Status Dates Nela Alatorre VSC, STRAIGHTEDGE WORKER-C Primary Care Provider Activ e Start: September 18, 2024 End: September 18, 2024 Nela Alatorre VSC, STRAIGHTEDGE WORKER-C Referring Provider Active Start: September 18, 2024 End: September 18, 2024 KAITLYNN Monteiro Attending Provider Active Star t: September 18, 2024 End: September 18, 2024 Team Status: Inactive Member Role/Relationship Status Dates Nela Alatorre VSC, STRAIGHTEDGE WORKER-C Primary Care Provider Activ e Start: September 20, 2024 End: September 20, 2024 Nela Alatorre VSC, STRAIGHTEDGE WORKER-C Attending Provider Active Start: September 20, 2024 End: September 20, 2024 Team Status: Inactive Member Role/Relationship Status Dates Nela Alatorre VSC, STRAIGHTEDGE WORKER-C Primary Care Provider Activ e Start: September 28, 2024 End: September 28, 2024 Nela Alatorre VSC, STRAIGHTEDGE WORKER-C Attending Provider Active Start: September 28, 2024 End: September 28, 2024 INFORMATION SOURCE (unrecogn ized section and content) DATE CREATED AUTHOR 07/29/2022 [facility] DATE CREATED AUTHOR AUTHOR'S ORGANIZ ATION 02/03/2024 [facility] DATE CREATED AUTHOR AUTHOR'S ORGANIZ ATION 10/22/2024 [facility] Source Comments (unrecognize d section and content) In the event this informatio n is protected by the Federal Confidentiality of Alcohol and Drug Abuse Patient Records regulations: The Federal rules restrict any use of the information to criminally investigate or prosecute any alcohol or drug abuse patient.[facility] the event this information is protected by the Federal Confidentiality of Alcohol and Drug Abuse Patient Records regulations: The Federal rules restrict any use of the information to criminally investigate or prosecute any alcohol or drug abuse patient.[facility] the event this information is protected by the Federal Confidentiality of Alcohol and Drug Abuse Patient Records regulations: The Federal rules restrict any use of the information to criminally investigate or prosecute any alcohol or drug abuse patient.[facility] the event this information is protected by the Federal Confidentiality of Alcohol and Drug Abuse Patient Records regulations: The Federal rules restrict any use of the information to criminally investigate or prosecute any alcohol or drug abuse patient.[facility] the event this information is protected by the Federal Confidentiality of Alcohol and Drug Abuse Patient Records regulations: The Federal rules restrict any use of the information to criminally investigate or prosecute any alcohol or drug abuse patient.[facility] the event this information is protected by the Federal Confidentiality of Alcohol and Drug Abuse Patient Records regulations: The Federal rules restrict any use of the information to criminally investigate or prosecute any alcohol or drug abuse patient.[facility] the event this information is protected by the Federal Confidentiality of Alcohol and Drug Abuse Patient Records regulations: The Federal rules restrict any use of the information to criminally investigate or prosecute any alcohol or drug abuse patient.[facility] the event this information is protected by the Federal Confidentiality of Alcohol and Drug Abuse Patient Records regulations: The Federal rules restrict any use of the information to criminally investigate or prosecute any alcohol or drug abuse patient.[facility] the event this information is protected by the Federal Confidentiality of Alcohol and Drug Abuse Patient Records regulations: The Federal rules restrict any use of the information to criminally investigate or prosecute any alcohol or drug abuse patient.[facility] the event this information is protected by the Federal Confidentiality of Alcohol and Drug Abuse Patient Records regulations: The Federal rules restrict any use of the information to criminally investigate or prosecute any alcohol or drug abuse patient.[facility] the event this information is protected by the Federal Confidentiality of Alcohol and Drug Abuse Patient Records regulations: The Federal rules restrict any use of the information to criminally investigate or prosecute any alcohol or drug abuse patient.[facility] Reason for Visit (unrecogniz ed section and content) Reason Comments Rectal Bleeding Constipation Reason Comments Recheck Abdominal pain, bloa ting, constipation, rectal and some bleeding Reason Comments Radiology CT Specialty Diagnoses / Procedures Referred By Contac t Referred To Contact CT IMAGING Diagnoses Lower abdominal pain Bloating Procedures CT ABD/PEL W IVCON CT ABD & PELVIS W/CONTRAST Catrina Beckman, 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 [email or web address] provides no warranty or guarantee of the accuracy or completeness of information in this document.
== END | disposition home or self-care (01) ==
LOC: CT 16:11
PROVIDERS: PCP Nurse Practitioner Family; Referring Provider Nurse Practitioner Family; Visit Provider Nurse Practitioner Family
DX: Z12.31 Encounter for screening mammogram for malignant neoplasm of breast (principal); Z12.2 Encounter for screening for malignant neoplasm of respiratory organs; Z87.891 Personal history of nicotine dependence
CPT/HCPCS: 71271

== ENCOUNTER → 2024-12-19 | Outpatient (CLI) | payer MEDICARE, MEDICAID, SELFPAY ==
[2024-12-19 16:54] LABS: Hematocrit 39.0 % (37-47); Hemoglobin 12.7 g/dL (12.0-15.0); Immature Granulocytes Count 0.050 X10^3/uL (0.0-0.0); Mean Corp Hgb Conc 32.6 g/dL (32-36); Mean Corpuscular Volume 90.3 fL (81-99); Mean Platelet Vol. 11.2 fl (6.2-12.0); NRBC Flagged by Analyzer 0 % (0-5); Platelet Count 280 K/mm3 (150-450); RBC Distribution Width CV 12.9 % (11.6-14.6); RBC Distribution Width SD 42.7 fl (35.1-43.9); Red Blood Count 4.32 M/mm3 (4.2-5.4); White Blood Count 8.8 K/mm3 (4.4-11.0)
[2024-12-19 17:35] LABS: AST(SGOT) 19 U/L (<=31); Alanine Aminotransfer ALT/SGPT 21 U/L (<=34); Albumin, Serum 4.3 g/dL (3.4-4.8); Alkaline Phosphatase 57 U/L (35-104); Anion Gap 12 (5-15); BUN 21 mg/dL (4-19); BUN/Creat Ratio 23.6 RATIO (10-20); Calcium,Total 9.4 mg/dL (7.6-11.0); Carbon Dioxide 24.4 mmol/L (21.0-32.0); Chloride 103 mmol/L (98-108); Cholesterol 186 mg/dL (<=200); Globulin 2.7 g/dL (2.2-4.2); Glucose 124 mg/dL (70-99); Low Density Lipoprotein Calc. 71 mg/dL; Potassium 4.3 mmol/L (3.3-5.1); Triglycerides 513 mg/dL; Very Low Density Lipoprotein 103 mg/dL (5-40); Vitamin D,25 Hydroxy 34.1 ng/mL (30-100); cholesterol:hdl ratio screen 5.24
== END | disposition home or self-care (01) ==
LOC: VSLAB 12:02
PROVIDERS: PCP Nurse Practitioner Family; Referring Provider Nurse Practitioner Family; Visit Provider Nurse Practitioner Family
DX: E03.9 Hypothyroidism, unspecified (principal); E78.2 Mixed hyperlipidemia; I10 Essential (primary) hypertension; E55.9 Vitamin D deficiency, unspecified
CPT/HCPCS: 36415; 80053; 80061; 82306; 84439; 84443; 85025